=== PATIENT | male | born 1945 | race Caucasian/White ===

== ENCOUNTER 2017-06-25 23:51 | Observation (INO) | payer MEDICARE, OTHER ==
[2017-06-26 00:51] LABS: ABSOLUTE EOSINOPHILS # (AUTO) 0.2 10^3/uL (0.0-0.6); ABSOLUTE LYMPHOCYTES (AUTO) 0.7 10^3/uL (0.5-4.7); ABSOLUTE MONOCYTES (AUTO) 0.3 10^3/uL (0.1-1.4); ABSOLUTE NEUT (AUTO) 10.2 10^3/uL (1.7-8.2); BASOPHILS % (AUTO) 0.3 % (0-2); EOSINOPHILS % (AUTO) 1.4 % (0-6); HEMATOCRIT 38.3 % (37.9-51.0); HEMOGLOBIN 12.3 g/dL (13.5-17.0); HGB HCT DIFFERENCE -1.4; LYMPHOCYTES % (AUTO) 6.5 % (13-45); MEAN CORPUSCULAR HEMOGLOBIN 27.7 pg (27.0-33.4); MEAN CORPUSCULAR HGB CONC 32.1 g/dL (32.0-36.0); MEAN CORPUSCULAR VOLUME 86 fl (80-97); MONOCYTES % (AUTO) 2.7 % (3-13); RED BLOOD COUNT 4.45 10^6/uL (4.35-5.55); RED CELL DISTRIBUTION WIDTH 22.7 % (11.5-14.0); SEGMENTED NEUTROPHILS % (AUTO) 89.1 % (42-78); WHITE BLOOD COUNT 11.4 10^3/uL (4.0-10.5)
--- NOTE | 2017-06-26 00:56 | ER Document Report ---
ED General - General Chief Complaint: Chest Pain Stated Complaint: CHEST PAIN Time Seen by Provider: 06/26/17 00:30 Notes: Patient is a 72-year-old male with a past medical history of coronary artery disease, hypertension, hyperlipidemia, paroxysmal atrial fibrillation, who presents with an episode of chest pain that started approximately 10 PM. Patient states that he had an episode of palpitations and then developed left- sided chest pressure that was dull, constant, and moderately painful. States he has had similar episodes in the past but has not had a repeat MRI since 1992. He just moved to the area from [place] and has not yet established a local primary care physician. He denies any pain at time of my assessment stating that it resolved after he took nitroglycerin at home. When the pain was present nothing worsened it. He denies any associated shortness of breath, vomiting but notes he did get diaphoretic. TRAVEL OUTSIDE OF THE [place] IN LAST 30 DAYS: No Past Medical History - General Information source: Patient - Social History Smoking Status: Never Smoker Frequency of alcohol use: None Drug Abuse: None Lives with: Family Family History: Reviewed & Not Pertinent Patient has suicidal ideation: No Patient has homicidal ideation: No Renal/ Medical History: Denies: Hx Peritoneal Dialysis Review of Systems - Review of Systems Notes: Constitutional: Negative for fever. HENT: Negative for sore throat. Eyes: Negative for visual changes. Cardiovascular: Positive for chest pain. Respiratory: Negative for shortness of breath. Gastrointestinal: Negative for abdominal pain, vomiting or diarrhea. Genitourinary: Negative for dysuria. Musculoskeletal: Negative for back pain. Skin: Negative for rash. Neurological: Negative for headaches, weakness or numbness. 10 point ROS negative except as marked above and in HPI. Physical Exam - Vital signs Vitals: Temp Pulse Resp BP Pulse Ox 97.7 F 59 L 18 94/67 L 97 06/26/17 00:03 06/26/17 00:03 06/26/17 00:03 06/26/17 00:03 06/26/17 00:03 Interpretation: Bradycardic Notes: PHYSICAL EXAMINATION: GENERAL: Well-appearing, well-nourished and in no acute distress. HEAD: Atraumatic, normocephalic. EYES: Pupils equal round and reactive to light, extraocular movements intact, sclera anicteric, conjunctiva are normal. ENT: nares patent, oropharynx clear without exudates. Moist mucous membranes. NECK: Normal range of motion, supple without lymphadenopathy LUNGS: Breath sounds clear to auscultation bilaterally and equal. No wheezes rales or rhonchi. HEART: Regular rate and rhythm without murmurs ABDOMEN: Soft, nontender, normoactive bowel sounds. No guarding, no rebound. No masses appreciated. EXTREMITIES: Normal range of motion, no pitting or edema. No cyanosis. NEUROLOGICAL: No focal neurological deficits. Moves all extremities spontaneously and on command. PSYCH: Normal mood, normal affect. SKIN: Warm, Dry, normal turgor, no rashes or lesions noted. Course - Re-evaluation Re-evalutation: 06/26/17 00:55 Patient presents with an episode of palpitations with associated pain that occurred approximately 2 hours prior to presentation. At time of arrival he denies any ongoing pain or palpitations and is now asymptomatic. States he has had multiple similar episodes in the past with bouts of paroxysmal atrial fibrillation. On assessment, patient has no focal findings on physical examination. EKG is a normal sinus rhythm. Will obtain a troponin now and continue on center consultant 06/26/17 01:42 Initial troponin has returned in the indeterminate range at 0.053. Will discuss with the hospitalist for admission for serial cardiac enzymes and continued cardiac monitoring. - Vital Signs Vital signs: Temp Pulse Resp BP Pulse Ox 97.7 F 59 L 17 144/80 H 100 06/26/17 00:03 06/26/17 00:03 06/26/17 02:28 06/26/17 02:28 06/26/17 02:28 - Laboratory Result Diagrams: 06/26/17 00:43 06/26/17 00:43 Laboratory results interpreted by me: 06/26/17 06/26/17 00:43 00:43 WBC 11.4 H Hgb 12.3 L RDW 22.7 H Seg Neutrophils % 89.1 H Lymphocytes % 6.5 L Monocytes % 2.7 L Absolute Neutrophils 10.2 H BUN 34 H Glucose 130 H - Diagnostic Test Radiology reviewed: Image reviewed, Reports reviewed Radiology results interpreted by me: 06/26/17 01:43 Chest x-ray: No acute infiltrate or pneumothorax - EKG Interpretation by Me Additional EKG results interpreted by me: 09/28/17 01:43 Normal sinus rhythm. Rate 63. No ST elevations or depressions. QTC is 430. Discharge - Discharge Clinical Impression: Elevated troponin Chest pain Qualifiers: Chest pain type: unspecified Qualified Code(s): R07.9 - Chest pain, unspecified Condition: Fair Disposition: ADMITTED OBSERVATION Admitting Provider: [facility] Admitted: Telemetry
[2017-06-26 01:04] LABS: ANION GAP 12 (5-19); BLOOD UREA NITROGEN 34 mg/dL (7-20); CALCIUM 9.9 mg/dL (8.4-10.2); CARBON DIOXIDE 23 mmol/L (22-30); CHLORIDE 104 mmol/L (98-107); CREATININE RESULT 1.18 mg/dL (0.52-1.25); GLUCOSE 130 mg/dL (75-110); POTASSIUM 4.3 mmol/L (3.6-5.0); SODIUM 138.7 mmol/L (137-145)
[2017-06-26] MEDS ORDERED: ASPIRIN 81 MG TABLET, CHEWABLE PO ONE ×2 (01:42→08:23)
[2017-06-26] MEDS ORDERED: NITROGLYCERIN 0.4 MG/TAB 25 TAB/BOTTLE SL PRN (01:42)
--- NOTE | 2017-06-26 01:53 | RADIOLOGY REPORT (SQ) ---
EXAM DESCRIPTION: CHEST SINGLE VIEW COMPLETED DATE/TIME: 06/26/2017 1:06 am REASON FOR STUDY: chest pain COMPARISON: None. EXAM PARAMETERS: NUMBER OF VIEWS: One view. TECHNIQUE: Single frontal radiographic view of the chest acquired. RADIATION DOSE: NA LIMITATIONS: None. FINDINGS: LUNGS AND PLEURA: Small bandlike atelectasis -scar of the right upper lobe. Prominent int erstitium. Mild hyperinflation. MEDIASTINUM AND HILAR STRUCTURES: No masses. Contour normal. HEART AND VASCULAR STRUCTURES: Heart normal in size. Atherosclerosis. BONES: No acute findings. HARDWARE: None in the chest. OTHER: No other significant finding. IMPRESSION: Small right upper lobar atelectasis or scar. TECHNICAL DOCUMENTATION: JOB ID: [id number]
[2017-06-26] MEDS ORDERED: METOPROLOL TARTRATE 50 MG TABLET PO ONE (04:00)
[2017-06-26] MEDS ORDERED: ATORVASTATIN CALCIUM 80 MG TABLET PO ONE (04:00)
--- NOTE | 2017-06-26 05:27 | PDOC H&P ---
History of Present Illness Admission Date/PCP: 06/26/17 02:37 Patient complains of: Palpitations and chest pain History of Present Illness: VIVIAN STINSON is a 72 year old male with a past medical history of paroxysmal atrial fibrillation, coronary artery disease, COPD, peripheral vascular disease , rheumatoid arthritis and dyslipidemia who would been in his usual state of health until approximately 4 hours prior to presentation noting palpitations, tachycardia, retrosternal pressure-like 3 out of 5 chest pain nonradiating lasting approximately an hour with unclear exacerbating factors but relieved by nitro. Prompting evaluation emergency room his initial workup was unremarkable he is pain-free. He is referred to the hospitalist for admission. Patient states last episode of paroxysmal atrial fibrillation was approximately 3 months ago at which time he also had a negative Cardiolite stress test result. He denies any recent change in medications, excessive caffeine or alcohol and otherwise feels well. Past Medical History Cardiac Medical History: Reports: Myocardial Infarction Denies: Congestive Heart Failure, Hypertension Pulmonary Medical History: Reports: Bronchitis, Chronic Obstructive Pulmonary Disease (COPD), Pneumonia Denies: Asthma, Tuberculosis Neurological Medical History: Denies: Seizures Renal/ Medical History: Denies: End Stage Renal Disease GI Medical History: Reports: Gastroesophageal Reflux Disease Denies: Cirrhosis Musculoskeltal Medical History: Reports: Arthritis Psychiatric Medical History: Denies: Bipolar Disorder, Depression Hematology: Denies: Anemia, Bleeding Tendencies Past Surgical History Past Surgical History: Reports: Cardiac Catheterization, Cholecystectomy, Coronary Stent, Vascular Surgery - Abdominal aortic aneurysm and bilateral femoropopliteal graft Social History Information Source: Patient Lives with: Family Smoking Status: Never Smoker Frequency of Alcohol Use: None - Advance Directive Resuscitation Status: Full Code Family History Family History: CAD, COPD, Hypertension Parental Family History Reviewed: Yes Children Family History Reviewed: Yes Sibling(s) Family History Reviewed.: Yes Medication/Allergy Allergies/Adverse Reactions: No Known Allergies Allergy (Unverified 06/26/17 03:56) Review of Systems Constitutional: ABSENT: chills, fever(s), headache(s), weight gain, weight loss Eyes: ABSENT: visual disturbances Ears: ABSENT: hearing changes Cardiovascular: ABSENT: chest pain, dyspnea on exertion, edema, orthropnea, palpitations Respiratory: ABSENT: cough, hemoptysis Gastrointestinal: ABSENT: abdominal pain, constipation, diarrhea, hematemesis, hematochezia, nausea, vomiting Genitourinary: ABSENT: dysuria, hematuria Musculoskeletal: ABSENT: joint swelling Integumentary: ABSENT: rash, wounds Neurological: ABSENT: abnormal gait, abnormal speech, confusion, dizziness, focal weakness, syncope Psychiatric: ABSENT: anxiety, depression, homidical ideation, suicidal ideation Endocrine: ABSENT: cold intolerance, heat intolerance, polydipsia, polyuria Hematologic/Lymphatic: ABSENT: easy bleeding, easy bruising Physical Exam Vital Signs: Temp Pulse Resp BP Pulse Ox 97.7 F 59 L 17 144/80 H 100 06/26/17 00:03 06/26/17 00:03 06/26/17 02:28 06/26/17 02:28 06/26/17 02:28 Intake & Output 06/24/17 06/25/17 06/26/17 11:59 11:59 11:59 Weight 81.4 kg General appearance: PRESENT: no acute distress, well-developed, well-nourished Head exam: PRESENT: atraumatic, normocephalic Eye exam: PRESENT: conjunctiva pink, EOMI, PERRLA. ABSENT: scleral icterus Ear exam: PRESENT: normal external ear exam Mouth exam: PRESENT: moist, tongue midline Neck exam: ABSENT: carotid bruit, JVD, lymphadenopathy, thyromegaly Respiratory exam: PRESENT: clear to auscultation gracy. ABSENT: rales, rhonchi, wheezes Cardiovascular exam: PRESENT: RRR. ABSENT: diastolic murmur, rubs, systolic murmur Pulses: PRESENT: normal dorsalis pedis pul Vascular exam: PRESENT: normal capillary refill GI/Abdominal exam: PRESENT: normal bowel sounds, soft. ABSENT: distended, guarding, mass, organolmegaly, rebound, tenderness Rectal exam: PRESENT: deferred Extremities exam: PRESENT: full ROM. ABSENT: calf tenderness, clubbing, pedal edema Neurological exam: PRESENT: alert, awake, oriented to person, oriented to place , oriented to time, oriented to situation, CN II-XII grossly intact. ABSENT: motor sensory deficit Psychiatric exam: PRESENT: appropriate affect, normal mood. ABSENT: homicidal ideation, suicidal ideation Skin exam: PRESENT: dry, intact, warm. ABSENT: cyanosis, rash Results Impressions: Chest X-Ray 06/26/17 00:32 IMPRESSION: Small right upper lobar atelectasis or scar. Assessment & Plan - Diagnosis (1) Coronary artery disease Is this a current diagnosis for this admission?: Yes Plan: Observation on a telemetry bed with chest pain care set serial cardiac enzymes, lipid profile and TSH. Given the patient's negative Cardiolite stress test 3 months ago I will not reorder. Continue aspirin, beta-damaso, as needed nitro and full dose statin (2) Paroxysmal atrial fibrillation Is this a current diagnosis for this admission?: Yes Plan: Patient takes atenolol and Plavix with aspirin will continue Lopressor with Plavix and aspirin and monitor telemetry while ambulating (3) Chest pain Qualifiers: Chest pain type: unspecified Qualified Code(s): R07.9 - Chest pain, unspecified Is this a current diagnosis for this admission?: Yes Plan: Chest pain care set serial cardiac enzymes. No Cardiolite stress test given negative results 3 months ago. - Time Time Spent: 50 to 70 Minutes
[2017-06-26 07:36] LABS: CHOLESTEROL 125.55 mg/dL (0-200); Direct HDL 40 mg/dL (>40); TRIGLYCERIDES 201 mg/dL (<150)
[2017-06-26 08:13] LABS: DIRECT LDL < 30 mg/dL (<100); VLDL CHOLESTEROL 40.2 mg/dL (10-31)
[2017-06-26] MEDS ORDERED: LISINOPRIL 10 MG TABLET PO ONE (08:23)
[2017-06-26] MEDS ORDERED: LISINOPRIL 5 MG TABLET PO ONE (09:01)
[2017-06-26] MEDS ORDERED: TAMSULOSIN HCL 0.4 MG CAP.SR.24H PO ONE (09:30)
[2017-06-26] MEDS ORDERED: FOLIC ACID 1 MG TABLET PO SCH (10:00)
[2017-06-26] MEDS ORDERED: ENOXAPARIN SODIUM INJ 80 MG/0.8 ML DISP.SYRIN SUBCUT SCH (10:00)
[2017-06-26] MEDS ORDERED: DOCUSATE SODIUM 100 MG CAPSULE PO SCH (10:00)
[2017-06-26] MEDS ORDERED: CLOPIDOGREL BISULFATE 75 MG TABLET PO SCH (10:00)
[2017-06-26] MEDS ORDERED: METOPROLOL TARTRATE 50 MG TABLET PO SCH (10:00)
--- NOTE | 2017-06-26 10:03 | EKG REPORT ---
SEVERITY:- OTHERWISE NORMAL ECG - SINUS RHYTHM BORDERLINE LEFT AXIS DEVIATION : Confirmed by: Karen Neff MD 26-Jun-2017 10:02:57
--- NOTE | 2017-06-26 10:03 | EKG REPORT ---
SEVERITY:- NORMAL ECG - SINUS RHYTHM : Confirmed by: Karen Neff MD 26-Jun-2017 10:02:49
[2017-06-26 10:18] VITALS: BP 120/63
--- NOTE | 2017-06-26 10:36 | PDOC TRANSFER SUMMARY ---
General Admission Date/PCP: 06/26/17 02:37 Admission Date: 06/26/17 Transfer Date: 06/26/17 Accepting Facility: [facility] Accepting Physician: Dr. Rutherford Resuscitation Status: Full Code - Transfer Diagnosis (1) NSTEMI (non-ST elevated myocardial infarction) Is this a current diagnosis for this admission?: Yes (2) History of AAA (abdominal aortic aneurysm) repair Is this a current diagnosis for this admission?: Yes (3) History of aorto-femoral bypass Is this a current diagnosis for this admission?: Yes (4) Rheumatoid arthritis Is this a current diagnosis for this admission?: Yes (5) COPD (chronic obstructive pulmonary disease) Is this a current diagnosis for this admission?: Yes (6) Coronary artery disease Is this a current diagnosis for this admission?: Yes (7) Paroxysmal atrial fibrillation Is this a current diagnosis for this admission?: Yes - Transfer Medications Home Medications: Aspirin [Ecotrin] 81 mg PO DAILY 06/26/17 Atenolol [Tenormin 50 mg Tablet] 50 mg PO DAILY 06/26/17 Clopidogrel Bisulfate [Plavix 75 mg Tablet] 75 mg PO DAILY 06/26/17 Finasteride [Proscar 5 mg Tablet] 5 mg PO DAILY 06/26/17 Folic Acid 0.4 mg PO DAILY 06/26/17 Ibuprofen [Motrin 800 mg Tablet] 800 mg PO Q12 06/26/17 Magnesium 250 mg PO DAILY 06/26/17 Methotrexate Sodium [Methotrexate] 4 tab PO BID 06/26/17 Multivitamin [Multivitamins] 1 cap PO DAILY 06/26/17 Omeprazole 40 mg PO DAILY 06/26/17 Potassium 200mg Otc 200 mg PO DAILY 06/26/17 Prednisone [Deltasone 5 mg Tablet] 5 mg PO DAILY 06/26/17 Simvastatin [Zocor 40 mg Tablet] 40 mg PO QHS 06/26/17 Tamsulosin HCl [Flomax 0.4 mg Cap.sr] 0.4 mg PO DAILY 06/26/17 Transfer Medications: Current Medications Atorvastatin Calcium (Lipitor 80 Mg Tablet) 80 mg PO QHS ISMA Stop: 07/26/17 21:59 Clopidogrel Bisulfate (Plavix 75 Mg Tablet) 75 mg PO DAILY ISMA Stop: 07/26/17 09:59 Docusate Sodium (Colace 100 Mg Capsule) 100 mg PO BID ISMA Stop: 07/26/17 09:59 Enoxaparin Sodium (Lovenox Inj 80 Mg/0.8 Ml Disp.Syrin) 80 mg SUBCUT Q12 ISMA Stop: 07/26/17 09:59 Last Admin: 06/26/17 09:00 Dose: 80 mg Folic Acid (Folvite 1 Mg Tablet) 1 mg PO DAILY ISMA Stop: 07/26/17 09:59 Metoprolol Tartrate (Lopressor 50 Mg Tablet) 50 mg PO Q12 ISMA Stop: 07/26/17 09:59 Nitroglycerin (Nitrostat 0.4 Mg (1/150 Gr) Tabs 25/Bottle) 1 tab SL ASDIR PRN Sodium Chloride (Saline Flush 2.5 Ml Monoject Prefil Syrin) 2.5 ml IV Q8 ISMA Stop: 07/26/17 05:59 Last Admin: 06/26/17 06:41 Dose: 2.5 ml - Allergies Allergies/Adverse Reactions: No Known Allergies Allergy (Unverified 06/26/17 03:56) - Diet/Activity Discharge Diet: Cardiac Hospital Course Hospital Course: Pt is a 72yo WM with a past medical history of paroxysmal atrial fibrillation, coronary artery disease, COPD, peripheral vascular disease, rheumatoid arthritis and dyslipidemia who would been in his usual state of health until approximately 4 hours prior to presentation noting palpitations, tachycardia, retrosternal pressure-like 3 out of 5 chest pain nonradiating lasting approximately an hour with unclear exacerbating factors but relieved by nitro. Prompting evaluation emergency room his initial workup was unremarkable he is pain-free. He is referred to the hospitalist for admission. Patient states last episode of paroxysmal atrial fibrillation was approximately 3 months ago at which time he also had a negative Cardiolite stress test result. He denies any recent change in medications, excessive caffeine or alcohol and otherwise feels well. Patient second troponin positive 2.41 with elevation of CKMB. Patient has no further chest pain. No ekg changes. Patient accepted for cardiac cath by Dr. Rutherford. Medications which were ordered and not given 2/2 patient refusal per documentation. Generic Name Dose Route Start Last Admin Trade Name Freq PRN Reason Stop Dose Admin Atorvastatin Calcium 80 mg 06/26/17 22:00 Lipitor 80 Mg Tablet PO 07/26/17 21:59 QHS [facility] Clopidogrel Bisulfate 75 mg 06/26/17 10:00 Plavix 75 Mg Tablet PO 10/28/17 09:59 DAILY [facility] Enoxaparin Sodium 80 mg 06/26/17 10:00 06/26/17 09:00 Lovenox Inj 80 Mg/0.8 Ml Disp.Syrin SUBCUT 07/26/17 09:59 80 mg Q12 ISMA Metoprolol Tartrate 50 mg 06/26/17 10:00 Lopressor 50 Mg Tablet PO 07/26/17 09:59 Q12 [facility] Nitroglycerin 1 tab 06/26/17 01:42 Nitrostat 0.4 Mg (1/150 Gr) Tabs 25/Bottle SL ASDIR PRN Discontinued Medications Generic Name Dose Route Start Last Admin Trade Name Freq PRN Reason Stop Dose Admin Atorvastatin Calcium 80 mg 06/26/17 04:00 06/26/17 04:48 Lipitor 80 Mg Tablet PO 06/26/17 04:01 Not Given NOW ONE Lisinopril 10 mg 06/26/17 08:23 06/26/17 08:56 Prinivil 10 Mg Tablet PO 06/26/17 08:24 10 mg NOW ONE Physical Exam Vital Signs: Temp Pulse Resp BP Pulse Ox 97.5 F 101 H 16 120/63 93 06/26/17 07:39 06/26/17 07:39 06/26/17 07:39 06/26/17 07:39 06/26/17 07:39 Intake & Output 06/25/17 06/26/17 06/27/17 06:59 06:59 06:59 Weight 81.4 kg General appearance: PRESENT: no acute distress, well-developed, well-nourished Head exam: PRESENT: atraumatic, normocephalic Eye exam: PRESENT: conjunctiva pink, EOMI, PERRLA. ABSENT: scleral icterus Ear exam: PRESENT: normal external ear exam Mouth exam: PRESENT: moist, tongue midline Neck exam: ABSENT: JVD, lymphadenopathy, thyromegaly, tracheal deviation Respiratory exam: PRESENT: clear to auscultation gracy. ABSENT: rales, rhonchi, wheezes Cardiovascular exam: PRESENT: RRR. ABSENT: diastolic murmur, rubs, systolic murmur Pulses: PRESENT: normal dorsalis pedis pul Vascular exam: PRESENT: normal capillary refill GI/Abdominal exam: PRESENT: normal bowel sounds, soft. ABSENT: distended, guarding, mass, organolmegaly, rebound, tenderness Rectal exam: PRESENT: deferred Extremities exam: PRESENT: full ROM. ABSENT: calf tenderness, clubbing, pedal edema Neurological exam: PRESENT: alert, awake, oriented to person, oriented to place , oriented to time, oriented to situation, CN II-XII grossly intact. ABSENT: motor sensory deficit Psychiatric exam: PRESENT: appropriate affect, normal mood. ABSENT: homicidal ideation, suicidal ideation Skin exam: PRESENT: dry, intact, warm. ABSENT: cyanosis, rash Results Laboratory Results: 06/26/17 07:12 Triglycerides 201 H Cholesterol 125.55 LDL Cholesterol Direct < 30 VLDL Cholesterol 40.2 H HDL Cholesterol 40 06/26/17 06/26/17 06:00 07:12 CK-MB (CK-2) 7.47 H Troponin I 2.410 Impressions: Chest X-Ray 06/26/17 00:32 IMPRESSION: Small right upper lobar atelectasis or scar. Plan Time Spent: Greater than 30 Minutes
[2017-06-26] MEDS ORDERED: ATORVASTATIN CALCIUM 80 MG TABLET PO SCH (22:00)
== END 2017-06-26 13:16 | disposition short-term general hospital (02) ==
LOC: ER 23:51 → EH 06-26 01:56 → UNDOADMOB 06-26 01:56 → EH 06-26 02:37 → 4S 06-26 02:55 → EH 06-26 02:55
PROVIDERS: ADMIT Internal Medicine; ATTEND Internal Medicine
DX: I21.4 Non-ST elevation (NSTEMI) myocardial infarction (principal); Z98.890 Other specified postprocedural states; Z95.828 Presence of other vascular implants and grafts; M06.9 Rheumatoid arthritis, unspecified; J44.9 Chronic obstructive pulmonary disease, unspecified; I25.10 Atherosclerotic heart disease of native coronary artery without angina pectoris; I48.0 Paroxysmal atrial fibrillation; I73.9 Peripheral vascular disease, unspecified; E78.5 Hyperlipidemia, unspecified; Z79.82 Long term (current) use of aspirin; Z79.02 Long term (current) use of antithrombotics/antiplatelets; Z79.899 Other long term (current) drug therapy; Z79.52 Long term (current) use of systemic steroids; Z95.5 Presence of coronary angioplasty implant and graft; Z82.49 Family history of ischemic heart disease and other diseases of the circulatory system
CPT/HCPCS: 93005 ×2; 99285; 36415; 82553; 85025; 80048; 84484; 80061; 71010; 93010 ×2; G0378; J3490; J1650

== ENCOUNTER → 2017-12-17 | Outpatient (CLI) | payer MEDICARE ==
--- NOTE | 2017-12-17 16:35 | RADIOLOGY REPORT (SQ) ---
EXAM DESCRIPTION: CTA HEAD COMPLETED DATE/TIME: 12/17/2017 4:01 pm REASON FOR STUDY: OCCLUSION AND STENOSIS OF BILATERAL CAROTID ARTERIES I65.23 OCCLUSION AND STENOSI S OF BILATERAL CAROTID ARTERIES COMPARISON: None. TECHNIQUE: Post IV contrast scanning, thin section axial imaging through the brain to evaluate the a rterial structures. Source and MIP images are saved and reviewed on PACS. Advanced 3D imaging as volume-rendering, MIPs, SSD performed? No All CT scanners at this facility use dose modulation, iterative reconstruction, and/or weight based d osing when appropriate to reduce radiation dose to as low as reasonably achievable (ALARA). [facility]: Dose Right [facility]: CareDose [facility]: Dose Right [facility]: Teradose 4D [facility]: [employer]IO CONTRAST TYPE AND DOSE: contrast/concentration: Isovue 370.00 mg/ml; Total Contrast Delivered: 80.0 ml; Total Saline Delivered: 75.0 ml RENAL FUNCTION: Creatinine 1.2 LIMITATIONS: None. FINDINGS: [place]: The anterior, middle, posterior cerebral arteries are all patent. No ev idence of aneurysm or focal stenosis. POSTERIOR CIRCULATION: The distal vertebral arteries are patent as is the basilar artery. No aneurysm . BRAIN: No gross enhancing lesions as visualized. The superior cerebral hemispheres are not included in the field of view. BONES: Intact as visualized. SINUSES: No fluid or mucosal thickening. 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 IMPRESSION: NO CTA EVIDENCE OF STENOSIS OR ANEURYSM OF THE [place]. 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 TECHNICAL DOCUMENTATION: JOB ID: [id number] Quality ID # [id number]: Final reports with documentation of one or more dose reduction techniques (e.g., Au tomated exposure control, adjustment of the mA and/or kV according to patient size, use of iterative reconstruction technique) 2010 [employer]- All Rights Reserved Reading location - IP/workstation name: [email or web address]
--- NOTE | 2017-12-17 16:39 | RADIOLOGY REPORT (SQ) ---
EXAM DESCRIPTION: CTA NECK COMPLETED DATE/TIME: 12/17/2017 4:01 pm REASON FOR STUDY: OCCLUSION AND STENOSIS OF BILATERAL CAROTID ARTERIES I65.23 OCCLUSION AND STENOSI S OF BILATERAL CAROTID ARTERIES COMPARISON: None. TECHNIQUE: Axial dynamic scanning technique with dynamic contrast enhancement through the extra-craft demonstrator nial carotid and vertebral arteries. Multiplanar reconstruction. 3-D MIPS and Volume-rendered imag es acquired at the workstation and saved to PACS. Images are reviewed in soft tissue, bone, lung w indows. All CT scanners at this facility use dose modulation, iterative reconstruction, and/or weight based d osing when appropriate to reduce radiation dose to as low as reasonably achievable (ALARA). [facility]: Dose Right [facility]: CareDose [facility]: Dose Right [facility]: Teradose 4D [facility]: [employer] CONTRAST TYPE AND DOSE: 80 mL Isovue 370 RENAL FUNCTION: Creatinine 1.2 LIMITATIONS: None. FINDINGS: AORTIC ARCH: Normal three-vessel origin. Bilateral subclavian arteries are patent. No d issection. RIGHT CAROTIDS: Patent common, internal and external carotid arteries without suggestion of significa nt stenosis or irregular plaque. No dissection. Vascular calcifications are identified at the level of the carotid bifurcation RIGHT VERTEBRAL: Patent. No dissection. LEFT CAROTIDS: Patent common and external carotid arteries without suggestion of significant stenosis or irregular plaque. No dissection. 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 No dissection. OTHER: No other significant finding. OTHER: 3-D reconstructions confirm findings. 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 No other vascular occlusions or significant stenoses are identified. COMMENT: Quality ID #[id number]: Measurements of distal internal carotid diameter were used as the denomina tor for stenosis measurement. TECHNICAL DOCUMENTATION: JOB ID: [id number] Quality ID # 436: Final reports with documentation of one or more dose reduction techniques (e.g., Au tomated exposure control, adjustment of the mA and/or kV according to patient size, use of iterative reconstruction technique) 2010 [employer]- All Rights Reserved Reading location - IP/workstation name: [email or web address]
== END ==
LOC: RAD 15:03
PROVIDERS: ATTEND Surgery
DX: I65.23 Occlusion and stenosis of bilateral carotid arteries (principal)
CPT/HCPCS: 70496; 70498; 82565

== ENCOUNTER 2018-06-20 12:36 | Emergency (ER) | payer MEDICARE ==
--- NOTE | 2018-06-20 13:54 | ER Document Report ---
ED General - General Chief Complaint: Back Pain Stated Complaint: BACK PAIN Time Seen by Provider: 06/20/18 13:45 Notes: 73-year-old male sent over by primary care physician's office for evaluation of back pain. Patient states for the last 7 days he has been sleeping on a pullout couch and his back hurts. Went to his primary doctor and they were concerned that he may have something worse so sent him here to be ruled out for a "aortic aneurysm". There were nervous about his heart rate being in the 40s. Patient states his heart rate is been in the 40s for years because he takes a beta-damaso. Family member belches for this as well. Patient states that his pain is in the upper posterior and lateral chest obrien bilaterally. TRAVEL OUTSIDE OF THE [place] IN LAST 30 DAYS: No - Related Data Allergies/Adverse Reactions: No Known Allergies Allergy (Verified 06/20/18 12:38) Past Medical History - General Information source: Patient - Social History Smoking Status: Never Smoker Frequency of alcohol use: None Drug Abuse: None Lives with: Family Family History: CAD, COPD, Hypertension Patient has suicidal ideation: No Patient has homicidal ideation: No - Past Medical History Cardiac Medical History: Reports: Hx Heart Attack Denies: Hx Congestive Heart Failure, Hx Hypertension Pulmonary Medical History: Reports: Hx Bronchitis, Hx COPD, Hx Pneumonia Denies: Hx Asthma, Hx Tuberculosis Neurological Medical History: Denies: Hx Seizures Renal/ Medical History: Reports: Hx Kidney Stones. Denies: Hx Benign Prostatic Hyperplasia, Hx End Stage Renal Disease, Hx Peritoneal Dialysis GI Medical History: Reports: Hx Gastroesophageal Reflux Disease. Denies: Hx Cirrhosis, Hx Ulcer Musculoskeletal Medical History: Reports Hx Arthritis, Denies Hx Multiple Sclerosis Psychiatric Medical History: Denies: Hx Bipolar Disorder, Hx Depression, Hx Schizophrenia Past Surgical History: Reports: Hx Cardiac Catheterization, Hx Cholecystectomy, Hx Coronary Stent, Hx Vascular Surgery - Abdominal aortic aneurysm and bilateral femoropopliteal graft - Immunizations Hx Pneumococcal Vaccination: 09/29/14 Review of Systems - Review of Systems Notes: Constitutional: denies: Chills, Diaphoresis, Fever, Malaise, Weakness EENT: denies: Eye discharge, Blurred vision, Tearing, Double vision, Nose congestion, Nose discharge, Throat swelling, Mouth pain Cardiovascular: denies: Palpitations, Heart racing, Orthopnea, Dyspnea, Chest pain. Does have a history of bradycardia which is chronic. Respiratory: denies: Cough, Hurts to breathe, Wheezing, Shortness of breath Gastrointestinal: denies: Abdominal pain, Diarrhea, Nausea, Vomiting, Black stools, bright red blood in stool Genitourinary: denies: Burning, Dysuria, Discharge, Frequency, Flank pain, Hematuria Musculoskeletal: Complains of bilateral posterior and lateral chest wall pain. Denies any joint pain or joint swelling. Hematologic/Lymphatic: denies: Anemia, Easy bleeding, Easy bruising, Blood clots Neurological/Psychological: denies: Confusion, Dementia, Depression, Loss of consciousness Skin: No lesions, no masses, no skin breakdown, no abscesses Physical Exam - Vital signs Vitals: Temp Pulse Resp BP Pulse Ox 98.2 F 48 L 18 132/68 H 94 06/20/18 12:53 06/20/18 12:53 06/20/18 12:53 06/20/18 12:53 06/20/18 12:53 Interpretation: Bradycardic - General General appearance: Appears well, Alert - HEENT Head: Normocephalic, Atraumatic Eyes: Normal Pupils: PERRL - Respiratory Respiratory status: No respiratory distress Chest status: Nontender Breath sounds: Normal Chest palpation: Normal - Cardiovascular Rhythm: Bradycardia Heart sounds: Normal auscultation Murmur: No - Abdominal Inspection: Normal Distension: No distension Bowel sounds: Normal Tenderness: Nontender Organomegaly: No organomegaly - Back Back: Normal, Nontender - Extremities General upper extremity: Normal inspection, Nontender, Normal color, Normal ROM , Normal temperature General lower extremity: Normal inspection, Nontender, Normal color, Normal ROM , Normal temperature, Normal weight bearing. No: Sam's sign - Neurological Neuro grossly intact: Yes Cognition: Normal Orientation: AAOx4 Angela Coma Scale Eye Opening: Spontaneous [place] Coma Scale Verbal: Oriented Angela Coma Scale Motor: Obeys Commands Angela Coma Scale Total: 15 Speech: Normal Motor strength normal: LUE, RUE, LLE, RLE Sensory: Normal - Psychological Associated symptoms: Normal affect, Normal mood - Skin Skin Temperature: Warm Skin Moisture: Dry Skin Color: Normal Course - Re-evaluation Re-evalutation: 06/20/18 15:36 Laboratory 06/20/18 06/20/18 06/20/18 14:03 14:03 14:03 WBC 8.2 RBC 4.38 Hgb 14.3 Hct 42.4 MCV 97 MCH 32.7 MCHC 33.8 RDW 16.9 H Plt Count 166 Seg Neutrophils % 89.1 H Lymphocytes % 6.0 L Monocytes % 3.3 Eosinophils % 1.0 Basophils % 0.6 Absolute Neutrophils 7.3 Absolute Lymphocytes 0.5 Absolute Monocytes 0.3 Absolute Eosinophils 0.1 Absolute Basophils 0.1 Sodium 140.5 Potassium 4.8 Chloride 107 Carbon Dioxide 26 Anion Gap 8 BUN 27 H Creatinine 1.17 Est GFR ( Amer) > 60 Est GFR (Non-Af Amer) > 60 Glucose 115 H Calcium 9.9 Total Bilirubin 1.4 H Direct Bilirubin 0.7 H Neonat Total Bilirubin Not Reportable Neonat Direct Bilirubin Not Reportable Neonat Indirect Bili Not Reportable AST 18 ALT 23 Alkaline Phosphatase 67 Troponin I < 0.012 Total Protein 7.1 Albumin 4.0 Chest/Abdomen CTA 06/20/18 13:55 IMPRESSION: No CT angio evidence of acute thoracic aortic dissection or acute pulmonary emboli There is bronchiectasis and mucous plugging in the right lower lobe with chronic appearing atelectasis or scarring 06/20/18 15:46 There is no evidence of thoracic aortic aneurysm or dissection. Labs are normal. Likely patient does have some musculoskeletal back pain after sleeping on a pullout counts for the last week. We will give him some pain medication. Advise close follow-up. Will DC at this time. Of note, patient has chronic bradycardia and is stable in my opinion. - Vital Signs Vital signs: Temp Pulse Resp BP Pulse Ox 98.2 F 48 L 18 132/68 H 94 06/20/18 12:53 06/20/18 12:53 06/20/18 12:53 06/20/18 12:53 06/20/18 12:53 - Laboratory Result Diagrams: 06/20/18 14:03 06/20/18 14:03 Laboratory results interpreted by me: 06/20/18 06/20/18 14:03 14:03 RDW 16.9 H Seg Neutrophils % 89.1 H Lymphocytes % 6.0 L BUN 27 H Glucose 115 H Total Bilirubin 1.4 H Direct Bilirubin 0.7 H - EKG Interpretation by Or EKG shows normal: Sinus rhythm, Perry, Intervals, QRS Complexes, ST-T Waves Rate: Bradycardia Discharge - Discharge Clinical Impression: Acute back pain less than 4 weeks duration, Bradycardia with 41-50 beats per minute Condition: Good Disposition: HOME, SELF-CARE Instructions: Muscle Strain ([facility]) Additional Instructions: Please follow-up with your regular doctor if symptoms persist. You may take pain medication that is prescribed. It is advisable while taking this pain medication to take a stool softener as this medication can cause constipation. Please return for any worsening symptoms or concerns. Prescriptions: Docusate Sodium [Colace 100 mg Capsule] 100 mg PO BID 7 Days #14 capsule Hydrocodone/Acetaminophen [Algonac 5-325 mg Tablet] 1 tab PO TID PRN 4 Days #12 tablet PRN Reason: For Pain
[2018-06-20] MEDS ORDERED: HYDROCODONE/ACETAMINOPHEN 5-325 MG TABLET PO ONE (13:55)
[2018-06-20 14:12] LABS: ABSOLUTE BASOPHILS # (AUTO) 0.1 10^3/uL (0.0-0.2); ABSOLUTE EOSINOPHILS # (AUTO) 0.1 10^3/uL (0.0-0.6); ABSOLUTE LYMPHOCYTES (AUTO) 0.5 10^3/uL (0.5-4.7); ABSOLUTE MONOCYTES (AUTO) 0.3 10^3/uL (0.1-1.4); ABSOLUTE NEUT (AUTO) 7.3 10^3/uL (1.7-8.2); BASOPHILS % (AUTO) 0.6 % (0-2); HEMATOCRIT 42.4 % (37.9-51.0); HEMOGLOBIN 14.3 g/dL (13.5-17.0); MEAN CORPUSCULAR HEMOGLOBIN 32.7 pg (27.0-33.4); MEAN CORPUSCULAR HGB CONC 33.8 g/dL (32.0-36.0); MEAN CORPUSCULAR VOLUME 97 fl (80-97); MONOCYTES % (AUTO) 3.3 % (3-13); PLATELET COUNT 166 10^3/uL (150-450); RED BLOOD COUNT 4.38 10^6/uL (4.35-5.55); RED CELL DISTRIBUTION WIDTH 16.9 % (11.5-14.0); SEGMENTED NEUTROPHILS % (AUTO) 89.1 % (42-78); TOTAL CELLS COUNTED % (AUTO) 100 %; WHITE BLOOD COUNT 8.2 10^3/uL (4.0-10.5)
[2018-06-20 14:44] LABS: ALANINE AMINOTRANSFERASE 23 U/L (21-72); ALKALINE PHOSPHATASE 67 U/L (38-126); ANION GAP 8 (5-19); ASPARTATE AMINO TRANSFERASE 18 U/L (17-59); BILIRUBIN,DIRECT 0.7 mg/dL (0.0-0.4); BILIRUBIN,TOTAL 1.4 mg/dL (0.2-1.3); BLOOD UREA NITROGEN 27 mg/dL (7-20); CALCIUM 9.9 mg/dL (8.4-10.2); CARBON DIOXIDE 26 mmol/L (22-30); CHLORIDE 107 mmol/L (98-107); GLUCOSE 115 mg/dL (75-110); POTASSIUM 4.8 mmol/L (3.6-5.0); SODIUM 140.5 mmol/L (137-145); TOTAL PROTEIN 7.1 g/dL (6.3-8.2)
--- NOTE | 2018-06-20 15:36 | RADIOLOGY REPORT (SQ) ---
EXAM DESCRIPTION: CTA CHEST COMPLETED DATE/TIME: 06/20/2018 3:09 pm REASON FOR STUDY: RIPPING PAIN IN CHEST COMPARISON: AP chest 06/26/2017 TECHNIQUE: CT scan of the chest performed using helical scanning technique with dynamic intravenous contrast injection. Images reviewed with lung, soft tissue and bone windows. Reconstructed coronal and sagittal MPR images reviewed. Additional 3 dimensional post-processing performed to develop Maximal Intensity Projection images (VT P). All images stored on PACS. All CT scanners at this facility use dose modulation, iterative reconstruction, and/or weight based d osing when appropriate to reduce radiation dose to as low as reasonably achievable (ALARA). [facility]: Dose Right [facility]: CareDose [facility]: Dose Right [facility]: Teradose 4D [facility]: Workable CONTRAST TYPE AND DOSE: contrast/concentration: Isovue 350.00 mg/ml; Total Contrast Delivered: 75.0 ml; Total Saline Delivered: 75.0 ml Contrast bolus optimized for the pulmonary arteries and the aorta. RENAL FUNCTION: Creatinine 1.17 RADIATION DOSE: CT Rad equipment meets quality standard of care and radiation dose reduction techniq ues were employed. CTDIvol: 23.3 - 59.5 mGy. DLP: 973 mGy-cm. . LIMITATIONS: None. FINDINGS: LUNGS AND PLEURA: There is chronic bronchiectasis and scarring with mucous plugging in the right lower lobe Upper lobes are hyperinflated and hyperlucent from obstructive disease with biapical pleuroparenchyma l scarring. No acute infiltrates. No pleural effusion. No pneumothorax. AORTA AND GREAT VESSELS: Heavily calcified aortic arch proximal great vessels with about 50% stenosis proximal right brachiocephalic artery proximal right common carotid artery at their origin. HEART: No pericardial effusion. Heavily calcified jena coronary arteries with multiple stents prese nt PULMONARY ARTERIES: No emboli visualized in the main pulmonary arteries or the segmental branches. HILAR AND MEDIASTINAL STRUCTURES: No identified masses or abnormal nodes. HARDWARE: None in the chest. UPPER ABDOMEN: High-grade stenosis proximal superior mesenteric artery axial images 125-130 and sagit león reconstruction images 45-48. 8 mm left upper pole intrarenal nonobstructive kidney stone, 1,481 Hounsfield units. THYROID AND OTHER SOFT TISSUES: No masses. No adenopathy. BONES: Chronic appearing 25% T6 compression deformity, 50% T7 compression deformity, and T12 greater than 50% compression deformity. 3D MIPS: Confirm above findings. OTHER: No other significant finding. IMPRESSION: No CT angio evidence of acute thoracic aortic dissection or acute pulmonary emboli There is bronchiectasis and mucous plugging in the right lower lobe with chronic appearing atelectasi s or scarring COMMENT: Quality ID # [id number]: Final reports with documentation of one or more dose reduction techniques (e.g., Automated exposure control, adjustment of the mA and/or kV according to patient size, use of iterative reconstruction technique) TECHNICAL DOCUMENTATION: JOB ID: [id number] [employer]- All Rights Reserved Reading location - IP/workstation name: [email or web address]
[2018-06-20 16:06] VITALS: BP 130/70
[2018-06-20] MEDS ORDERED: KETOROLAC TROMETHAMINE INJ/PF 30 MG/1 ML SDV IV ONE (16:11)
--- NOTE | 2018-06-20 20:07 | EKG REPORT ---
SEVERITY:- OTHERWISE NORMAL ECG - SINUS BRADYCARDIA : Confirmed by: Karen Neff MD 20-Jun-2018 20:06:47
== END 2018-06-20 16:06 | disposition home or self-care (01) ==
LOC: ER 12:36
DX: M54.9 Dorsalgia, unspecified (principal); R00.1 Bradycardia, unspecified
CPT/HCPCS: 93005; 99284; 96374; 36415; 85025; 80053; 84484; 71275; 93010; J1885; A9270

== ENCOUNTER → 2018-09-09 | Outpatient (CLI) | payer MEDICARE ==
--- NOTE | 2018-09-09 19:50 | RADIOLOGY REPORT (SQ) ---
EXAM DESCRIPTION: RIBS LEFT W/O PA CHEST COMPLETED DATE/TIME: 09/09/2018 7:39 pm REASON FOR STUDY: RIB PAIN R07.81 PLEURODYNIA M54.6 PAIN IN THORACIC SPINE R07.81 PLEURODYNIA COMPARISON: None. NUMBER OF VIEWS: Two views. TECHNIQUE: Images acquired of the left ribs in the area of focal concern. LIMITATIONS: None. FINDINGS: RIBS: No acute displaced fracture. No worrisome bone lesions. LUNGS: Limited exam. No obvious pneumothorax. No pleural effusion. OTHER: No other significant finding. IMPRESSION: NO ACUTE DISPLACED RIB FRACTURE. COMMENT: SITE OF TRAUMA/COMPLAINT MARKED/STAMP COMPLETED: YES. TECHNICAL DOCUMENTATION: JOB ID: [id number] [employer]- All Rights Reserved Reading location - IP/workstation name: [email or web address]
--- NOTE | 2018-09-09 19:52 | RADIOLOGY REPORT (SQ) ---
EXAM DESCRIPTION: T SPINE AP/LAT COMPLETED DATE/TIME: 09/09/2018 7:39 pm REASON FOR STUDY: M54.6 THORACIC SPINE PAIN R07.81 PLEURODYNIA M54.6 PAIN IN THORACIC SPINE R07.81 PLEURODYNIA COMPARISON: None. NUMBER OF VIEWS: Two views. TECHNIQUE: AP and lateral radiographic images acquired of the thoracic spine. LIMITATIONS: None. FINDINGS: MINERALIZATION: Osteopenia. ALIGNMENT: Normal. No scoliosis. VERTEBRAE: There is approximately 50% loss of height at T12. There is 20 to 30% loss of height at T9 . There is 20 to 30% loss of height at T7. Due to severe osteopenia upper dorsal spine is difficult to evaluate but appears grossly intact. DISCS: Multilevel disc space narrowing with osteophytes. HARDWARE: None in the spine. MEDIASTINUM AND SOFT TISSUES: Normal heart size and aortic contour. No soft tissue abnormality. VISUALIZED LUNG BATRES: Clear. OTHER: No other significant finding. IMPRESSION: Multiple thoracic spine compression deformities. T9 is new from May of this year. T12 and T7 are stable. There is a compression deformity at T6 as well better demonstrated on recen t CT. TECHNICAL DOCUMENTATION: JOB ID: [id number] [employer]- All Rights Reserved Reading location - IP/workstation name: [email or web address]
== END ==
LOC: RAD 19:18
PROVIDERS: ATTEND Nurse Practitioner Family
DX: M54.6 Pain in thoracic spine (principal); R07.81 Pleurodynia
CPT/HCPCS: 72070

== ENCOUNTER 2018-09-11 23:15 | Emergency (ER) | payer MEDICARE ==
[2018-09-11 23:23] VITALS: BP 135/96
[2018-09-12] MEDS ORDERED: PREGABALIN 25 MG CAPSULE PO ONE (00:26)
[2018-09-12] MEDS ORDERED: HYDROCODONE/ACETAMINOPHEN 7.5-325 MG TABLET PO ONE (00:26)
[2018-09-12] MEDS ORDERED: HYDROCODONE/ACETAMINOPHEN 5-325 MG (6 TAB/ER DISP) PO PRN (01:29)
--- NOTE | 2018-09-12 01:30 | ER Document Report ---
ED General - General Chief Complaint: Back Pain Stated Complaint: BACK PAIN Time Seen by Provider: 09/12/18 00:01 Notes: Patient is a 73-year-old male who presents with complaint of back pain. He has had some back pain in the past. Recently he was standing and then turned to do something and when he turned he felt a sharp pain in his back followed by a burning sensation behind his left shoulder. Since then he has had recurrent pain whenever he moves and the pain radiates from the mid back into behind the left shoulder blade. He was seen in urgent care and had x-rays performed. X- rays showed he has multiple compression fractures throughout his thoracic spine. All these were old and seen on the previous scan from May except for the compression fracture of T5. He denies any new weakness or numbness in his legs. He says his legs are always generally weak and this has not changed and is not worsened. He walks with a walker. He denies any numbness. No weakness numbness into the upper extremities. No loss of bowel control. No urinary retention. He is prescribed Ultram which he says has not affected his pain in any way. He has hydrocodone in the past and says it helps some. He has never had Lyrica or gabapentin. TRAVEL OUTSIDE OF THE [place] IN LAST 30 DAYS: No - Related Data Allergies/Adverse Reactions: No Known Allergies Allergy (Verified 06/20/18 12:38) Past Medical History - Social History Smoking Status: Former Smoker Frequency of alcohol use: None Drug Abuse: None Family History: CAD, COPD, Hypertension Patient has suicidal ideation: No Patient has homicidal ideation: No - Past Medical History Cardiac Medical History: Reports: Hx Heart Attack Denies: Hx Congestive Heart Failure, Hx Hypertension Pulmonary Medical History: Reports: Hx Bronchitis, Hx COPD, Hx Pneumonia Denies: Hx Asthma, Hx Tuberculosis Neurological Medical History: Denies: Hx Seizures Renal/ Medical History: Reports: Hx Kidney Stones. Denies: Hx Benign Prostatic Hyperplasia, Hx End Stage Renal Disease, Hx Peritoneal Dialysis GI Medical History: Reports: Hx Gastroesophageal Reflux Disease. Denies: Hx Cirrhosis, Hx Ulcer Musculoskeletal Medical History: Reports Hx Arthritis, Denies Hx Multiple Sclerosis Psychiatric Medical History: Denies: Hx Bipolar Disorder, Hx Depression, Hx Schizophrenia Past Surgical History: Reports: Hx Cardiac Catheterization, Hx Cholecystectomy, Hx Coronary Stent, Hx Vascular Surgery - Abdominal aortic aneurysm and bilateral femoropopliteal graft - Immunizations Hx Pneumococcal Vaccination: 09/29/14 Review of Systems - Review of Systems Notes: My Normal Review Basic REVIEW OF SYSTEMS: CONSTITUTIONAL : Denies fever, chills, or sweats. Denies recent illness. Cardiac: No chest pain. RESPIRATORY: Denies cough, cold, or chest congestion. Denies shortness of breath, difficulty breathing, or wheezing. GASTROINTESTINAL: Denies abdominal pain. Denies nausea, vomiting, or diarrhea. GENITOURINARY: Denies difficulty urinating, painful urination, burning, frequency, or blood in urine. MUSCULOSKELETAL: Back pain SKIN: Denies rash or skin lesions. NEUROLOGICAL: Denies altered mental status or loss of consciousness. Denies headache. Denies weakness or paralysis or loss of use of either side. Denies problems with gait or speech. Denies sensory or motor loss. ALL OTHER SYSTEMS REVIEWED AND NEGATIVE. Physical Exam - Vital signs Vitals: Temp Pulse Resp BP Pulse Ox 97.4 F 69 16 135/96 H 99 09/11/18 23:22 09/11/18 23:22 09/11/18 23:22 09/11/18 23:22 09/11/18 23:22 - Notes Notes: General Appearance: Well nourished, alert, cooperative, no acute distress, no obvious discomfort. Vitals: reviewed, See vital signs table. Head: no swelling or tenderness to the head Eyes: PERRL, EOMI, Conjuctiva clear Back: Patient has some reproducible pain to palpation over the left side of the mid thoracic spine. It is worse when he gets up and tries to move or twist. There is no rash. No evidence of shingles. No pain around to the chest on palpation. Mild pain to the left lateral rib area along the 5 to T6 dermatome. Extremities: strength 5/5 in all extremities, good pulses in all extremities, no swelling or tenderness in the extremities, no edema. Skin: warm, dry, appropriate color, no rash Neuro: speech clear, oriented x 3, normal affect, responds appropriately to questions. Course - Re-evaluation Re-evalutation: 09/12/18 04:51 Patient has pain that radiates along the T5-T6 dermatome from his mid back. I suspect he probably has a pinched nerve coming from the T5-T6 area. This would make sense in conjunction with his known compression fractures along his back there. I did give him a small dose of hydrocodone and Lyrica which helped his pain significantly. I will place him on Lyrica encouraged and follow-up with his doctor on Friday for close reevaluation. I do not suspect an aortic issue as he has no abdominal pain and no chest pain. Also his pain is easily reproducible with any range of motion that involves his mid back. Patient to return to ER if he has leg pain or leg weakness, chest pain, abdominal pain, loss of bowel control, or if he feels that his pain is intractable. Patient agrees with plan and will be discharged home. Dictation of this chart was performed using voice recognition software; therefore, there may be some unintended grammatical errors. - Vital Signs Vital signs: Temp Pulse Resp BP Pulse Ox 97.4 F 69 16 135/96 H 99 09/11/18 23:22 09/11/18 23:22 09/11/18 23:22 09/11/18 23:22 09/11/18 23:22 Discharge - Discharge Clinical Impression: Back pain Qualifiers: Back pain location: thoracic back pain Chronicity: unspecified Back pain laterality: left Qualified Code(s): M54.6 - Pain in thoracic spine Condition: Good Disposition: HOME, SELF-CARE Additional Instructions: Based on your recent back x-ray and your pain I suspect that you probably have a nerve being compressed near your T5 and/or T6 thoracic vertebrae. I have started you on a medication called Lyrica which helps with nerve type pain. We started out at a very low dose and then your doctor can increase it as needed. I have also given you a bottle of [place]. Please be aware that [place] does have Tylenol (acetaminophen) in it. Please make sure you do not take more than 4000 mg of acetaminophen a day. Do not drive or care for children after you have taken this medication they will make you sleepy and sometimes impair judgment. Please reserve the [place] for severe pain at night when you try to get some rest. Do not take this regularly as they can cause dependence and make your pain more difficult to treat in the future. Please return to the ER immediately if you have leg weakness or numbness that is worsening, loss of control of your bowel function, inability to urinate, or if you feel that you are worsening. Follow-up with your doctor on Friday as scheduled. Please talk to your doctor about referral to a pain specialist or back specialist to discuss further treatment options such as back injections or physical therapy. Prescriptions: Pregabalin [Lyrica 25 Mg Capsule] 25 mg PO TID #21 capsule Referrals: ERIC UGARTE DO [Primary Care Provider] - 09/15/18
== END 2018-09-12 01:55 | disposition home or self-care (01) ==
LOC: ER 23:15
DX: M54.6 Pain in thoracic spine (principal); J44.9 Chronic obstructive pulmonary disease, unspecified; I25.2 Old myocardial infarction; Z87.442 Personal history of urinary calculi; Z87.891 Personal history of nicotine dependence; Z90.49 Acquired absence of other specified parts of digestive tract
CPT/HCPCS: 99283; A9270 ×3; J3490

== ENCOUNTER 2018-09-14 06:34 | Emergency (ER) | payer MEDICARE ==
[2018-09-14 06:41] VITALS: BP 133/79
--- NOTE | 2018-09-14 06:46 | ER Document Report ---
ED General - General Chief Complaint: Constipation Stated Complaint: CONSTIPATION Time Seen by Provider: 09/14/18 06:45 Notes: Patient is a 73-year-old male that presents to the emergency department for chief complaint of constipation. Patient reports been taking Vicodin for compression fracture that he sustained last week, and because of that he has become rather constipated, he did have a small bowel movement several days ago, but it was very hard at that time, he has been taking stool softener but forgot to take them. He states it is too hard the past, he has required manual disimpaction in the past. He denies having any abdominal pain. But does admit to having some back pain from his injury, which he currently rates as a 6 out of 10, describes the pain as a constant aching sensation. He is currently out of the Vicodin. He denies any numbness, weakness or tingling in his lower extremities, he is able to walk, denies any bowel incontinence, or urinary retention. He has not been able to see his primary care physician, or anybody else to evaluate him since his injury that occurred over about a week ago, was seen on Friday. Past Medical History: Hypertension, CHF, COPD, depression, anxiety Past Surgical History: Cholecystectomy, PCI with stenting, AAA repair Social History: Former smoker, no current alcohol or drug use Family History: Reviewed and noncontributory for presenting illness Allergies: Reviewed, see documented allergy list. REVIEW OF SYSTEMS: Other than noted above, the 12 point review of systems was reviewed with the patient and were negative, all pertinent findings are included in the HPI. PHYSICAL EXAMINATION: Vital signs reviewed, nursing noted reviewed. GENERAL: Elderly male, no acute distress HEAD: Atraumatic, normocephalic. EYES: Eyes appear normal, extraocular movements intact, sclera anicteric, conjunctiva are normal. ENT: nares patent, oropharynx clear without exudates. Moist mucous membranes. NECK: Normal range of motion, supple without lymphadenopathy LUNGS: Breath sounds clear to auscultation bilaterally and equal. No wheezes rales or rhonchi. HEART: Regular rate and rhythm without murmurs ABDOMEN: Soft, nontender, normoactive bowel sounds. No rebound, guarding, or rigidity. No masses appreciated. EXTREMITIES: Nontender, good range of motion, no pitting or edema. NEUROLOGICAL: No focal neurological deficits. Moves all extremities spontaneously Motor and sensory grossly intact on exam. PSYCH: Normal mood, normal affect. SKIN: Warm, Dry, normal turgor, no rashes or lesions noted on exposed skin TRAVEL OUTSIDE OF THE [place] IN LAST 30 DAYS: No - Related Data Allergies/Adverse Reactions: No Known Allergies Allergy (Verified 06/20/18 12:38) Past Medical History - Social History Smoking Status: Former Smoker Family History: CAD, COPD, Hypertension - Past Medical History Cardiac Medical History: Reports: Hx Heart Attack Denies: Hx Congestive Heart Failure, Hx Hypertension Pulmonary Medical History: Reports: Hx Bronchitis, Hx COPD, Hx Pneumonia Denies: Hx Asthma, Hx Tuberculosis Neurological Medical History: Denies: Hx Seizures Renal/ Medical History: Reports: Hx Kidney Stones. Denies: Hx Benign Prostatic Hyperplasia, Hx End Stage Renal Disease, Hx Peritoneal Dialysis GI Medical History: Reports: Hx Gastroesophageal Reflux Disease. Denies: Hx Cirrhosis, Hx Ulcer Musculoskeletal Medical History: Reports Hx Arthritis, Denies Hx Multiple Sclerosis Psychiatric Medical History: Denies: Hx Bipolar Disorder, Hx Depression, Hx Schizophrenia Past Surgical History: Reports: Hx Cardiac Catheterization, Hx Cholecystectomy, Hx Coronary Stent, Hx Vascular Surgery - Abdominal aortic aneurysm and bilateral femoropopliteal graft - Immunizations Hx Pneumococcal Vaccination: 09/29/14 Physical Exam - Vital signs Vitals: Temp Pulse Resp BP Pulse Ox 97 F L 66 24 H 133/79 H 95 09/14/18 06:35 09/14/18 06:35 09/14/18 06:35 09/14/18 06:35 09/14/18 06:35 Course - Re-evaluation Re-evalutation: Patient seen and examined, vital signs reviewed, patient was in no acute distress on exam, I did obtain KUB, which demonstrated significant stool burden , and likely fecal impaction, we did attempt a soapsuds and mineral oil enema, without any results, therefore rectal disimpaction, was performed. At this point significant amount of stool was removed from the patient's rectal vault, and now will recommend initiating MiraLAX, and seeing brief writer, patient is on blood thinners for his atrial fibrillation, and any further disimpaction at this time a cause further damage, and more bleeding. Family and patient agreeable with this plan of care, they also given referral to orthopedic surgeons to help the patient manage his compression fracture that he sustained last week. I recommended Tylenol going forward for pain management, as further treatment with opiates would only worsen the patient's ongoing constipation. - Vital Signs Vital signs: Temp Pulse Resp BP Pulse Ox 97 F L 66 24 H 133/79 H 95 09/14/18 06:35 09/14/18 06:35 09/14/18 06:35 09/14/18 06:35 09/14/18 06:35 Discharge - Discharge Clinical Impression: Fecal impaction Back pain Qualifiers: Back pain location: thoracic back pain Chronicity: chronic Back pain laterality : midline Qualified Code(s): M54.6 - Pain in thoracic spine Condition: Stable Disposition: HOME, SELF-CARE Additional Instructions: Please return to the emergency department if you have any worsening, or concern of your symptoms. Please return to the emergency department if you develop chest pain, difficulty breathing, severe abdominal pain, or ongoing vomiting. Please follow-up with your primary care physician in 2-3 days and any other recommended physicians. If prescribed, take all medications as directed. If you have any questions or concerns do not hesitate to return the emergency department for evaluation. Please take the MiraLAX at least once daily, please follow-up with gastroenterology, and orthopedic surgery for your back. At this point I would advise taking 1000 mg of acetaminophen/Tylenol 3 times daily for your back pain , to avoid further constipation, which would only exacerbate your back pain further while trying to strain. Prescriptions: Polyethylene Glycol 3350 [Miralax] 17 gm PO DAILY #238 powder Referrals: ERIC UGARTE DO [Primary Care Provider] - Follow up as needed NENA ALBA MD [ACTIVE STAFF] - Follow up in 3-5 days (orthopedics )
--- NOTE | 2018-09-14 07:34 | RADIOLOGY REPORT (SQ) ---
EXAM DESCRIPTION: X-ray abdomen 1 view CLINICAL DATA: 73-year-old male with constipation. TECHNICAL DATA: A single AP supine x-ray of the abdomen was performed. Comparison: None. FINDINGS: The bowel gas pattern is nonspecific and nonobstructive. There is mild to moderate fecal residue scattered throughout the colon and rectum. Multiple surgical clips are present scattered throughout the abdomen and pelvis. A metallic vascular stent projects over the region of the right femoral artery. There are surgical clips in the right upper quadrant. Calcifications project over the left hemiabdomen which could be renal in origin or vascular. No abnormal air collections are identified. No focal soft tissue abnormalities are seen. No acute osseous abnormalities are identified. IMPRESSION: 1. Nonspecific and nonobstructive bowel gas pattern. There is mild to moderate fecal residue scattered throughout the colon and rectum. 2. Other chronic findings as described above.
[2018-09-14] MEDS ORDERED: MINERAL OIL ENEMA 133 ML PR ONE (07:54)
[2018-09-14] MEDS ORDERED: MINERAL OIL 30 ML UDCUP PR ONE (08:01)
[2018-09-14] MEDS ORDERED: GLYCERIN (ADULT) SUPP.RECT PR STA (08:51)
== END 2018-09-14 11:13 | disposition home or self-care (01) ==
LOC: ER 06:34
DX: K56.41 Fecal impaction (principal); M54.6 Pain in thoracic spine; G89.29 Other chronic pain
CPT/HCPCS: 99283; 74018; J3490 ×2

== ENCOUNTER → 2018-09-15 | Outpatient (CLI) | payer MEDICARE ==
--- NOTE | 2018-09-15 16:06 | RADIOLOGY REPORT (SQ) ---
EXAM DESCRIPTION: MRI THORACIC SPINE WITHOUT COMPLETED DATE/TIME: 09/15/2018 3:48 pm REASON FOR STUDY: S22.000A WEDGE COMPRESSION FRACTURE OF UNSPECIFIED THORACIC VERTEBRA, INITI S22.00 0A WEDGE COMPRESSION FRACTURE OF UNSP THORACIC VERTEBR COMPARISON: Thoracic spine plain films 09/09/2018 CT chest 06/20/2018 TECHNIQUE: Sagittal and Axial imaging includes T1, T2, STIR and gradient echo sequences. LIMITATIONS: None. FINDINGS: LOCALIZER: No worrisome findings. ALIGNMENT: Normal. VERTEBRAE AND BONE MARROW: Since the prior studies, patient has developed a 25 to 50% T9 compression deformity, with concave inferior vertebral body endplates, and diffuse marrow edema throughout the T 9 vertebral body. No significant retropulsion of bony fragments. No significant central stenosis. Chronic appearing greater than 50% T6 compression deformity, 25 to 50% T7 compression deformity, grea ter than 50% T12 compression deformity. HARDWARE: None in the spine. CORD: Normal in size and signal intensity. SOFT TISSUES: No soft tissue masses. THORACIC DISCS T1-T12: No significant spinal stenosis or exit foraminal stenosis. OTHER: No other significant finding. IMPRESSION: Acute or subacute T9 compression deformity with 25 to 50% loss of vertebral body height. No significant dorsal retropulsion of bony fragments. TECHNICAL DOCUMENTATION: JOB ID: [id number] [employer]- All Rights Reserved Reading location - IP/workstation name: [facility]-[email or web address]
== END ==
LOC: RAD 14:55
PROVIDERS: ATTEND Family Medicine
DX: S22.000A Wedge compression fracture of unspecified thoracic vertebra, initial encounter for closed fracture (principal); T14.90XA Injury, unspecified, initial encounter
CPT/HCPCS: 72146

== ENCOUNTER 2018-09-17 01:20 | Inpatient (IN) | payer MEDICARE ==
--- NOTE | 2018-09-17 01:45 | ER Document Report ---
ED General - General Stated Complaint: ALTERED MENTAL STATUS Time Seen by Provider: 09/17/18 01:31 Notes: Patient 73-year-old male presents with complaint of altered mental status and back pain. He was seen by me several days ago. At that time I reviewed his previous x-rays which show that he had multiple compression fractures in his back. Most of them are chronic except for one at level T5. He was having pain radiating into his left shoulder blade consistent with appear to be a pinched nerve from his compression fractures. I placed him on Lyrica to help with this. He did have some improvement while here in the ER and was discharged home. He came back a few days later because he was on hydrocodone which made him constipated. He saw Dr. Gil and was disimpacted and told not to take the opiate medications as they will make his constipation worse. Per report from the paramedics he can follow-up with his primary care doctor placed on oxycodone 2 days ago. He then followed up again today and was placed on baclofen. After starting the baclofen he started becoming confused and has become more and more confused throughout the night and therefore was brought to the ER. Patient is unable to contribute to history. TRAVEL OUTSIDE OF THE [place] IN LAST 30 DAYS: No - Related Data Allergies/Adverse Reactions: No Known Allergies Allergy (Verified 06/20/18 12:38) Past Medical History - Social History Smoking Status: Never Smoker Frequency of alcohol use: None Drug Abuse: None Family History: CAD, COPD, Hypertension - Past Medical History Cardiac Medical History: Reports: Hx Heart Attack Denies: Hx Congestive Heart Failure, Hx Hypertension Pulmonary Medical History: Reports: Hx Bronchitis, Hx COPD, Hx Pneumonia Denies: Hx Asthma, Hx Tuberculosis Neurological Medical History: Denies: Hx Seizures Renal/ Medical History: Reports: Hx Kidney Stones. Denies: Hx Benign Prostatic Hyperplasia, Hx End Stage Renal Disease, Hx Peritoneal Dialysis GI Medical History: Reports: Hx Gastroesophageal Reflux Disease. Denies: Hx Cirrhosis, Hx Ulcer Musculoskeletal Medical History: Reports Hx Arthritis, Denies Hx Multiple Sclerosis Psychiatric Medical History: Denies: Hx Bipolar Disorder, Hx Depression, Hx Schizophrenia Past Surgical History: Reports: Hx Cardiac Catheterization, Hx Cholecystectomy, Hx Coronary Stent, Hx Vascular Surgery - Abdominal aortic aneurysm and bilateral femoropopliteal graft - Immunizations Hx Pneumococcal Vaccination: 09/29/14 Review of Systems - Review of Systems -: Yes ROS unobtainable due to patient's medical condition - Patient is very confused and unable to answer questions. Physical Exam - Vital signs Vitals: Resp Pulse Ox 24 H 90 L 09/17/18 01:26 09/17/18 01:26 - Notes Notes: General Appearance: moderate obvious discomfort, patient is keeping his eyes closed. He is swelling around the bed and not making sense. He is unable to answer my questions and does not respond to my questions. Vitals: reviewed, See vital signs table. Head: no swelling or tenderness to the head Eyes: PERRL, EOMI, Conjuctiva clear Mouth: Dry mucous membranes. Throat: No tonsillar inflammation, No airway obstruction, No lymphadenopathy Neck: Supple, no neck tenderness, No thyromegaly Lungs: No wheezing, No rales, No rhonci, No accessory muscle use, good air exchange bilaterally. Heart: Normal rate, Regular rythm, No murmur, no rub Abdomen: Normal BS, soft, No rigidity, No abdominal tenderness, Extremities: Patient is moving all 4 extremities on his own while laying in the bed. No significant lower extremity edema. Skin: warm, dry, appropriate color, no rash Neuro: Patient is moving all 4 extremities spontaneously. He will not follow commands and therefore it is difficult to perform full neurologic evaluation. Pupils are equal and normal. They are reactive to light. He has symmetric facial movement. Course - Re-evaluation Re-evalutation: 09/17/18 01:58 Patient's son is now at bedside. He said that the saw the spinal doctor, Dr. Herring. Has a plan on arranging for spinal surgery in the next 2 weeks. He said they do have a clear thing with tipple worker and primary care doctor. He says that the spinal Dr. Collier placed him on baclofen he started taking it yesterday and did fine with yesterday. Today the added oxycodone and the son thinks it is possible that the patient took 2 oxycodone instead of 1. Shortly after taking these meds he started acting this way. No recent fevers. Has had some cough. No other concerns at this time. 09/17/18 03:04 She continues to be altered and confused. He does have a leukocytosis but no fever and no other signs of infection. I suspect his white count of 14,000 is probably demargination. Warrant a CT scan of the head as well as chest x-ray and urinalysis. These are all negative. Feel patient needs admission for further observation until his altered mental status resolves. I did speak with Dr. Campoverde, hospitalist, who agrees to evaluate the patient for admission. Dictation of this chart was performed using voice recognition software; therefore, there may be some unintended grammatical errors. - Vital Signs Vital signs: Temp Pulse Resp BP Pulse Ox 98.9 F 19 138/94 H 92 09/17/18 05:00 09/17/18 05:31 09/17/18 05:31 09/17/18 05:31 - Laboratory Result Diagrams: 09/17/18 01:50 09/17/18 01:50 Laboratory results interpreted by me: 09/17/18 09/17/18 09/17/18 01:50 01:50 02:07 WBC 14.6 H MCV 98 H RDW 18.1 H Seg Neuts % (Manual) 95 H Band Neutrophils % 1 L Lymphocytes % (Manual) 1 L Monocytes % (Manual) 2 L Abs Neuts (Manual) 14.0 H Abs Lymphs (Manual) 0.1 L Sodium 146.0 H Potassium 5.4 H Chloride 109 H BUN 47 H Creatinine 1.32 H Est GFR (Non-Af Amer) 53 L Glucose 148 H Calcium 10.3 H Total Bilirubin 1.5 H Direct Bilirubin 0.7 H Urine Protein 30 H Urine Ketones 20 H Urine Blood SMALL H Discharge - Discharge Clinical Impression: Altered mental status Qualifiers: Altered mental status type: unspecified Qualified Code(s): R41.82 - Altered mental status, unspecified Condition: Stable Disposition: ADMITTED OBSERVATION Admitting Provider: Hospitalist Unit Admitted: Telemetry
[2018-09-17 02:04] LABS: HEMATOCRIT 43.8 % (37.9-51.0); HEMOGLOBIN 14.6 g/dL (13.5-17.0); MEAN CORPUSCULAR HEMOGLOBIN 32.7 pg (27.0-33.4); MEAN CORPUSCULAR HGB CONC 33.3 g/dL (32.0-36.0); MEAN CORPUSCULAR VOLUME 98 fl (80-97); PLATELET COUNT 201 10^3/uL (150-450); RED BLOOD COUNT 4.45 10^6/uL (4.35-5.55); RED CELL DISTRIBUTION WIDTH 18.1 % (11.5-14.0); WHITE BLOOD COUNT 14.6 10^3/uL (4.0-10.5)
[2018-09-17 02:16] LABS: ALANINE AMINOTRANSFERASE 22 U/L (21-72); ALBUMIN 4.2 g/dL (3.5-5.0); ALKALINE PHOSPHATASE 93 U/L (38-126); ANION GAP 14 (5-19); ASPARTATE AMINO TRANSFERASE 30 U/L (17-59); BILIRUBIN,DIRECT 0.7 mg/dL (0.0-0.4); BILIRUBIN,TOTAL 1.5 mg/dL (0.2-1.3); BLOOD UREA NITROGEN 47 mg/dL (7-20); CALCIUM 10.3 mg/dL (8.4-10.2); CARBON DIOXIDE 23 mmol/L (22-30); CHLORIDE 109 mmol/L (98-107); GLUCOSE 148 mg/dL (75-110); POTASSIUM 5.4 mmol/L (3.6-5.0); TOTAL PROTEIN 7.4 g/dL (6.3-8.2)
[2018-09-17] MEDS ORDERED: NORMAL SALINE 500 ML IV ONE (02:31)
[2018-09-17 02:33] LABS: APPEARANCE,URINE CLEAR; BILIRUBIN,URINE NEGATIVE (NEGATIVE); COLOR,URINE YELLOW; GLUCOSE, URINE NEGATIVE (NEGATIVE); KETONES,URINE 20 mg/dL (NEGATIVE); LEUKOCYTE ESTERASE,URINE NEGATIVE (NEGATIVE); NITRITE,URINE NEGATIVE (NEGATIVE); PROTEIN,URINE 30 mg/dL (NEGATIVE); URINE SPECIFIC GRAVITY 1.021; UROBILINOGEN,URINE NEGATIVE mg/dL (<2.0)
[2018-09-17 02:35] LABS: ABSOLUTE LYMPHOCYTES# (MANUAL) 0.1 10^3/uL (0.5-4.7); ABSOLUTE MONOCYTES # (MANUAL) 0.3 10^3/uL (0.1-1.4); BAND NEUTROPHILS % (MANUAL) 1 % (3-5); BASOPHILS % (MANUAL) 1 % (0-2); EOSINOPHILS % (MANUAL) 0 % (0-6); LYMPHOCYTES % (MANUAL) 1 % (13-45); MONOCYTES % (MANUAL) 2 % (3-13); SEGMENTED NEUTROPHILS % (MAN) 95 % (42-78); TOTAL CELLS COUNTED 100
[2018-09-17 02:36] LABS: ANISOCYTOSIS 2+; OVALOCYTES SLIGHT; PLATELET COMMENT ADEQUATE; POIKILOCYTOSIS SLIGHT; TOXIC GRANULATION 1+
[2018-09-17 02:44] LABS: URINE AMPHETAMINES SCREEN NEGATIVE; URINE BARBITURATES SCREEN NEGATIVE; URINE BENZODIAZEPINES SCREEN NEGATIVE; URINE COCAINE SCREEN NEGATIVE; URINE MARIJUANA (THC) SCREEN NEGATIVE; URINE METHADONE SCREEN NEGATIVE; URINE PHENCYCLIDINE SCREEN NEGATIVE
--- NOTE | 2018-09-17 02:47 | RADIOLOGY REPORT (SQ) ---
EXAM DESCRIPTION: CT HEAD WITHOUT IV CONTRAST COMPLETED DATE/TME: 09/17/2018 01:41 CLINICAL HISTORY: 73 years, Male, altered mental status COMPARISON: None. TECHNIQUE: Axial CT images of the brain were obtained without contrast. DLP [id number] Images stored on PACS. All CT scanners at this facility use dose modulation, iterative reconstruction, and/or weight based dosing when appropriate to reduce radiation dose to as low as reasonably achievable (ALARA). [facility]: Dose Right [facility]: CareDose [facility]: Dose Right [facility]: Teradose 4D [facility]: [employer] LIMITATIONS: None. FINDINGS: There is no acute infarct, hemorrhage, mass, edema, hydrocephalus or extra-axial fluid collection. There is diffuse cerebral atrophy. Air-fluid levels are in the right maxillary and left sphenoid sinuses. There is no acute fracture. IMPRESSION: No acute intracranial abnormality. Acute sinusitis. TECHNICAL DOCUMENTATION: Quality ID # [id number]: Final reports with documentation of one or more dose reduction techniques (e.g., Automated exposure control, adjustment of the mA and/or kV according to patient size, use of iterative reconstruction technique) copyright 2011 [employer]- All Rights Reserved
--- NOTE | 2018-09-17 02:51 | RADIOLOGY REPORT (SQ) ---
CLINICAL HISTORY: altered mental status COMPARISON: September 09, 2018. TECHNIQUE: XR CHEST 1 VIEW 09/17/2018 1:41 AM [employer]EL[employer] FINDINGS: Cardiac silhouette is normal in size. There is minimal vague right lower lung airspace disease. There is biapical scarring. There is no pleural effusion. There is no pneumothorax. There are no acute osseous findings. IMPRESSION: No significant change.
[2018-09-17] MEDS ORDERED: LACTULOSE SYRUP 20 GM/30 ML UDCUP PO ONE (03:25)
[2018-09-17] MEDS ORDERED: NA PHOS,M-B/NA PHOS,DI-BA (ADULT) 133 ML ENEMA PR ONE (03:30)
[2018-09-17] MEDS ORDERED: MAG HYDROX/AL HYDROX/SIMETH SUSP 30 ML UDCUP PO PRN (05:17)
--- NOTE | 2018-09-17 05:40 | PDOC H&P ---
History of Present Illness Admission Date/PCP: 09/17/18 03:12 FATUMA SIMMONS DO Patient complains of: Altered mental status History of Present Illness: VIVIAN STINSON is a 73 year old male with a past medical history of COPD, coronary artery disease on Plavix, BPH and acute T5 compression fracture With intractable pain 5 days ago. He was placed on Lyrica and oxycodone. He developed abdominal pain with fecal impaction prompting emergency room evaluation where he was partially manually disimpacted, discharged with bowel regiment and recommendation of avoiding narcotics. With intractable back pain he saw orthopedic surgeon Dr borrero placed on baclofen and oxycodone 2 days ago. Today he is brought in by his son with confusion and constipation. In [facility] room he is found to have leukocytosis, hyperkalemia, altered mental status and a left lower quadrant pain without guarding. He is referred to the hospitalist for admission. Past Medical History Cardiac Medical History: Reports: Myocardial Infarction Denies: Congestive Heart Failure, Hypertension Pulmonary Medical History: Reports: Bronchitis, Chronic Obstructive Pulmonary Disease (COPD), Pneumonia Denies: Asthma, Tuberculosis Neurological Medical History: Denies: Seizures Renal/ Medical History: Denies: End Stage Renal Disease GI Medical History: Reports: Gastroesophageal Reflux Disease Denies: Cirrhosis Musculoskeltal Medical History: Reports: Arthritis Psychiatric Medical History: Denies: Bipolar Disorder, Depression Hematology: Denies: Anemia, Bleeding Tendencies Past Surgical History Past Surgical History: Reports: Cardiac Catheterization, Cholecystectomy, Coronary Stent, Vascular Surgery - Abdominal aortic aneurysm and bilateral femoropopliteal graft Social History Information Source: Relative, Emergency Med Personnel Smoking Status: Never Smoker Frequency of Alcohol Use: None Drugs: None - Advance Directive Resuscitation Status: Full Code Family History Family History: CAD, COPD, Hypertension Parental Family History Reviewed: Yes Children Family History Reviewed: Yes Sibling(s) Family History Reviewed.: Yes Medication/Allergy Home Medications: Aspirin [Ecotrin] 81 mg PO DAILY 06/26/17 Atenolol [Tenormin 50 mg Tablet] 50 mg PO DAILY 06/26/17 Clopidogrel Bisulfate [Plavix 75 mg Tablet] 75 mg PO DAILY 06/26/17 Finasteride [Proscar 5 mg Tablet] 5 mg PO DAILY 06/26/17 Folic Acid 0.4 mg PO DAILY 06/26/17 Ibuprofen [Motrin 800 mg Tablet] 800 mg PO Q12 06/26/17 Magnesium 250 mg PO DAILY 06/26/17 Methotrexate Sodium [Methotrexate] 4 tab PO BID 06/26/17 Multivitamin [Multivitamins] 1 cap PO DAILY 06/26/17 Omeprazole 40 mg PO DAILY 06/26/17 Potassium 200mg Otc 200 mg PO DAILY 06/26/17 Prednisone [Deltasone 5 mg Tablet] 5 mg PO DAILY 06/26/17 Simvastatin [Zocor 40 mg Tablet] 40 mg PO QHS 06/26/17 Tamsulosin HCl [Flomax 0.4 mg Cap.sr] 0.4 mg PO DAILY 06/26/17 Docusate Sodium [Colace 100 mg Capsule] 100 mg PO BID 7 Days #14 capsule 06/20/18 Hydrocodone/Acetaminophen [[place] 5-325 mg Tablet] 1 tab PO TID PRN 4 Days #12 tablet 06/20/18 Pregabalin [Lyrica 25 Mg Capsule] 25 mg PO TID #21 capsule 09/12/18 Polyethylene Glycol 3350 [Miralax] 17 gm PO DAILY #238 powder 09/14/18 Allergies/Adverse Reactions: No Known Allergies Allergy (Verified 06/20/18 12:38) Review of Systems ROS unobtainable: Due to mental status - Delirium Physical Exam Vital Signs: Temp Pulse Resp BP Pulse Ox 98.5 F 19 131/85 H 96 09/17/18 04:04 09/17/18 04:31 09/17/18 04:31 09/17/18 04:31 Intake & Output 09/15/18 09/16/18 09/17/18 11:59 11:59 11:59 Intake Total 500 Balance 500 Weight 74.843 kg General appearance: PRESENT: disheveled, mild distress. ABSENT: cooperative Head exam: PRESENT: atraumatic, normocephalic Eye exam: PRESENT: conjunctiva pink, EOMI, PERRLA. ABSENT: scleral icterus Ear exam: PRESENT: normal external ear exam Mouth exam: PRESENT: moist, tongue midline Neck exam: ABSENT: carotid bruit, JVD, lymphadenopathy, thyromegaly Respiratory exam: PRESENT: clear to auscultation gracy. ABSENT: rales, rhonchi, wheezes Cardiovascular exam: PRESENT: RRR. ABSENT: diastolic murmur, rubs, systolic murmur GI/Abdominal exam: PRESENT: diminished bowel sounds, distended, hypoactive bowel sounds, tenderness. ABSENT: firm, guarding, rebound, rigid Rectal exam: PRESENT: deferred Extremities exam: PRESENT: full ROM. ABSENT: calf tenderness, clubbing, pedal edema Neurological exam: PRESENT: altered, awake, oriented to person, CN II-XII grossly intact. ABSENT: motor sensory deficit Psychiatric exam: PRESENT: agitated, anxious, normal mood. ABSENT: homicidal ideation, suicidal ideation Skin exam: PRESENT: dry, intact, warm. ABSENT: cyanosis, rash Results Laboratory Results: 09/17/18 01:50 09/17/18 01:50 09/17/18 09/17/18 09/17/18 01:50 01:50 02:07 WBC 14.6 H RBC 4.45 Hgb 14.6 Hct 43.8 MCV 98 H MCH 32.7 MCHC 33.3 RDW 18.1 H Plt Count 201 Seg Neutrophils % Not Reportable Lymphocytes % Not Reportable Monocytes % Not Reportable Eosinophils % Not Reportable Basophils % Not Reportable Absolute Neutrophils Not Reportable Absolute Lymphocytes Not Reportable Absolute Monocytes Not Reportable Absolute Eosinophils Not Reportable Absolute Basophils Not Reportable Sodium 146.0 H Potassium 5.4 H Chloride 109 H Carbon Dioxide 23 Anion Gap 14 BUN 47 H Creatinine 1.32 H Est GFR ( Amer) > 60 Est GFR (Non-Af Amer) 53 L Glucose 148 H Calcium 10.3 H Total Bilirubin 1.5 H AST 30 ALT 22 Alkaline Phosphatase 93 Total Protein 7.4 Albumin 4.2 Urine Color YELLOW Urine Appearance CLEAR Urine pH 5.0 Ur Specific [place] 1.021 Urine Protein 30 H Urine Glucose (UA) NEGATIVE Urine Ketones 20 H Urine Blood SMALL H Urine Nitrite NEGATIVE Ur Leukocyte Esterase NEGATIVE Urine WBC (Auto) 1 Urine RBC (Auto) 5 Impressions: Chest X-Ray 09/17/18 01:41 IMPRESSION: No significant change. Head CT 09/17/18 01:41 IMPRESSION: No acute intracranial abnormality. Acute sinusitis. TECHNICAL DOCUMENTATION: Quality ID # 436: Final reports with documentation of one or more dose reduction techniques (e.g., Automated exposure control, adjustment of the mA and/or kV according to patient size, use of iterative reconstruction technique) copyright 2011 [employer]- All Rights Reserved Assessment & Plan - Diagnosis (1) Altered mental status Qualifiers: Altered mental status type: unspecified Qualified Code(s): R41.82 - Altered mental status, unspecified Is this a current diagnosis for this admission?: Yes Plan: Metabolic encephalopathy secondary to baclofen and oxycodone, complicated by acute on chronic pain. Hold baclofen, reduce oxycodone, (2) Hyperkalemia Is this a current diagnosis for this admission?: Yes Plan: Secondary to fecal impaction, follow-up chemistry (3) Back pain Qualifiers: Back pain location: thoracic back pain Chronicity: chronic Back pain laterality: midline Qualified Code(s): M54.6 - Pain in thoracic spine; G89.29 - Other chronic pain; G89.29 - Other chronic pain Is this a current diagnosis for this admission?: Yes Plan: Pain management consult given acute T5 compression fracture, Plavix held (4) Fecal impaction Is this a current diagnosis for this admission?: Yes Plan: Fleet enema, lactulose, daily bowel regimen initiated. - Time Time Spent: 50 to 70 Minutes - Inpatient Certification Medical Necessity: Need Close Monitoring Due to Risk of Patient Decompensation
[2018-09-17] MEDS: ACETAMINOPHEN 325 MG TABLET PO PRN ×2 (05:42→19:55)
[2018-09-17] MEDS: HEPARIN SOD (PORCINE) 5,000 UNIT/ML 1 ML SYRINGE SUBCUT SCH ×3 (05:42→22:28)
[2018-09-17] MEDS ORDERED: NORMAL SALINE 1000 ML 1,000 ML IV PRN ×2 (07:41→19:36)
--- NOTE | 2018-09-17 07:52 | EKG REPORT ---
SEVERITY:- OTHERWISE NORMAL ECG - SINUS RHYTHM BORDERLINE LEFT AXIS DEVIATION : Confirmed by: Miguelito Landers MD 17-Sep-2018 07:52:06
--- NOTE | 2018-09-17 07:52 | EKG REPORT ---
SEVERITY:- OTHERWISE NORMAL ECG - SINUS RHYTHM LEFT AXIS DEVIATION : Confirmed by: Miguelito Landers MD 17-Sep-2018 07:51:43
[2018-09-17] MEDS: DOCUSATE SODIUM 100 MG CAPSULE PO SCH ×2 (11:50→18:25)
[2018-09-17] MEDS: CLOPIDOGREL BISULFATE 75 MG TABLET PO SCH (11:50)
[2018-09-17] MEDS: MAGNESIUM HYDROXIDE SUSP 30 ML UDCUP PO SCH (11:50)
[2018-09-17] MEDS: TAMSULOSIN HCL 0.4 MG CAP.SR.24H PO SCH (11:50)
[2018-09-17] MEDS: FOLIC ACID 1 MG TABLET PO SCH (11:50)
[2018-09-17] MEDS: MAGNESIUM OXIDE 400 MG TABLET PO SCH (12:01)
[2018-09-17] MEDS: FINASTERIDE 5 MG TABLET PO SCH (12:01)
[2018-09-17] MEDS: ASPIRIN 81 MG TABLET, ENT COATED PO SCH (12:01)
[2018-09-17] MEDS: ATENOLOL 50 MG TABLET PO SCH (12:04)
[2018-09-17] MEDS ORDERED: POLYETHYLENE GLYCOL 3350 POWDER 17 GM/1 PACKET PO PRN (19:39)
--- NOTE | 2018-09-17 19:46 | PDOC PROGRESS REPORT ---
Subjective Progress Note for:: 09/17/18 Subjective:: The patient is moaning. He does open his eyes but responds to verbal stimulus intermittently. He does state that his toes hurt. Reason For Visit: INTRACTABLE BACK PAIN, FECAL IMPACTION, Physical Exam Vital Signs: Temp Pulse Resp BP Pulse Ox 97.3 F 79 22 H 124/66 99 09/17/18 16:28 09/17/18 16:28 09/17/18 15:59 09/17/18 16:28 09/17/18 15:59 Intake & Output 09/16/18 09/17/18 09/18/18 06:59 06:59 06:59 Intake Total 500 Output Total 550 Balance 500 -550 Weight 74.843 kg 77.7 kg General appearance: PRESENT: mild distress, well-developed Mouth exam: PRESENT: dry mucosa Respiratory exam: PRESENT: clear to auscultation gracy, symmetrical, unlabored. ABSENT: accessory muscle use, prolonged expiratory phas, rales, rhonchi, wheezes Cardiovascular exam: PRESENT: RRR, +S1, +S2 GI/Abdominal exam: PRESENT: normal bowel sounds, soft. ABSENT: tenderness Extremities exam: PRESENT: tenderness - Toes. No discoloration or erythema. They are not cold to touch. Pain response is inconsistent., other Musculoskeletal exam: PRESENT: other - Clamshell brace in place Neurological exam: PRESENT: altered, awake, oriented to person, CN II-XII grossly intact. ABSENT: oriented to place, oriented to time, oriented to situation Psychiatric exam: ABSENT: agitated, anxious Focused psych exam: PRESENT: restlessness - Slightly restless in bed Results Laboratory Results: 09/17/18 01:50 09/17/18 01:50 09/17/18 09/17/18 09/17/18 01:50 01:50 02:07 WBC 14.6 H RBC 4.45 Hgb 14.6 Hct 43.8 MCV 98 H MCH 32.7 MCHC 33.3 RDW 18.1 H Plt Count 201 Seg Neutrophils % Not Reportable Lymphocytes % Not Reportable Monocytes % Not Reportable Eosinophils % Not Reportable Basophils % Not Reportable Absolute Neutrophils Not Reportable Absolute Lymphocytes Not Reportable Absolute Monocytes Not Reportable Absolute Eosinophils Not Reportable Absolute Basophils Not Reportable Sodium 146.0 H Potassium 5.4 H Chloride 109 H Carbon Dioxide 23 Anion Gap 14 BUN 47 H Creatinine 1.32 H Est GFR ( Amer) > 60 Est GFR (Non-Af Amer) 53 L Glucose 148 H Calcium 10.3 H Total Bilirubin 1.5 H AST 30 ALT 22 Alkaline Phosphatase 93 Total Protein 7.4 Albumin 4.2 Urine Color YELLOW Urine Appearance CLEAR Urine pH 5.0 Ur Specific [place] 1.021 Urine Protein 30 H Urine Glucose (UA) NEGATIVE Urine Ketones 20 H Urine Blood SMALL H Urine Nitrite NEGATIVE Ur Leukocyte Esterase NEGATIVE Urine WBC (Auto) 1 Urine RBC (Auto) 5 Impressions: Chest X-Ray 09/17/18 01:41 IMPRESSION: No significant change. Head CT 09/17/18 01:41 IMPRESSION: No acute intracranial abnormality. Acute sinusitis. TECHNICAL DOCUMENTATION: Quality ID # 436: Final reports with documentation of one or more dose reduction techniques (e.g., Automated exposure control, adjustment of the mA and/or kV according to patient size, use of iterative reconstruction technique) copyright 2011 [employer]- All Rights Reserved Assessment & Plan - Diagnosis (1) Altered mental status Qualifiers: Altered mental status type: delirium Qualified Code(s): R41.0 - Disorientation, unspecified Is this a current diagnosis for this admission?: Yes Plan: Initially this was felt to be due to medications for pain after his vertebral compression fracture. He should be improving because he has not been given any narcotic analgesia. He is on the dry side and high have ordered IV normal saline. I will recheck his blood work tomorrow but there is no obvious infection or severe metabolic abnormality. (2) Hyperkalemia Is this a current diagnosis for this admission?: Yes Plan: The patient's potassium was elevated this morning. He did receive lactulose. I will check his chemistries tomorrow. If this is still elevated we will likely begin a scheduled regimen of lactulose. (3) Fecal impaction Is this a current diagnosis for this admission?: Yes Plan: The patient did have 3 bowel movements earlier today. We will continue the Colace. The lactulose will have helped as well. As noted above we may have to have a scheduled dose of lactulose or consider MiraLAX. - Time Time Spent with patient: 15-24 minutes Medications reviewed and adjusted accordingly: Yes - Inpatient Certification Based on my medical assessment, after consideration of the patient's comor bidities, presenting symptoms, or acuity I expect that the services needed warrant INPATIENT care.: Yes I certify that my determination is in accordance with my understanding of Medicare's requirements for reasonable and necessary INPATIENT services [42 CFR 412.3e].: Yes Medical Necessity: Need For IV Fluids, Need for Neurological Checks, Risk of Complication if Not Cared For in Hospital Post Hospital Care: D/C [employer] Documentation
[2018-09-18] MEDS: ACETAMINOPHEN 325 MG TABLET PO PRN ×2 (04:05→10:10)
[2018-09-18] MEDS: HEPARIN SOD (PORCINE) 5,000 UNIT/ML 1 ML SYRINGE SUBCUT SCH (05:31)
[2018-09-18 05:57] LABS: HEMATOCRIT 35.2 % (37.9-51.0); MEAN CORPUSCULAR HEMOGLOBIN 32.2 pg (27.0-33.4); MEAN CORPUSCULAR HGB CONC 33.1 g/dL (32.0-36.0); MEAN CORPUSCULAR VOLUME 97 fl (80-97); PLATELET COUNT 135 10^3/uL (150-450); RED BLOOD COUNT 3.62 10^6/uL (4.35-5.55); RED CELL DISTRIBUTION WIDTH 17.2 % (11.5-14.0); WHITE BLOOD COUNT 6.5 10^3/uL (4.0-10.5)
[2018-09-18 06:10] LABS: ALANINE AMINOTRANSFERASE 25 U/L (21-72); ALBUMIN 2.8 g/dL (3.5-5.0); ALKALINE PHOSPHATASE 76 U/L (38-126); ANION GAP 7 (5-19); ASPARTATE AMINO TRANSFERASE 23 U/L (17-59); BILIRUBIN,DIRECT 0.4 mg/dL (0.0-0.4); BILIRUBIN,TOTAL 1.1 mg/dL (0.2-1.3); BLOOD UREA NITROGEN 25 mg/dL (7-20); CALCIUM 8.9 mg/dL (8.4-10.2); CARBON DIOXIDE 18 mmol/L (22-30); CHLORIDE 119 mmol/L (98-107); GLUCOSE 103 mg/dL (75-110); POTASSIUM 3.9 mmol/L (3.6-5.0); SODIUM 144.3 mmol/L (137-145); TOTAL PROTEIN 5.4 g/dL (6.3-8.2)
[2018-09-18 06:23] LABS: HEMOGLOBIN 11.7 g/dL (13.5-17.0)
[2018-09-18 06:28] LABS: ABSOLUTE LYMPHOCYTES# (MANUAL) 0.2 10^3/uL (0.5-4.7); ABSOLUTE MONOCYTES # (MANUAL) 0.3 10^3/uL (0.1-1.4); ANISOCYTOSIS 1+; BASOPHILS % (MANUAL) 0 % (0-2); EOSINOPHILS % (MANUAL) 0 % (0-6); LYMPHOCYTES % (MANUAL) 3 % (13-45); MONOCYTES % (MANUAL) 5 % (3-13); PAPPENHEIMER BODIES PRESENT; PLATELET COMMENT ADEQUATE; PLATELET LARGE PRESENT; SEGMENTED NEUTROPHILS % (MAN) 92 % (42-78); TOTAL CELLS COUNTED 100; TOXIC GRANULATION 1+
[2018-09-18] MEDS: FOLIC ACID 1 MG TABLET PO SCH (09:18)
[2018-09-18] MEDS: MAGNESIUM OXIDE 400 MG TABLET PO SCH (09:18)
[2018-09-18] MEDS: FINASTERIDE 5 MG TABLET PO SCH (09:18)
[2018-09-18] MEDS: TAMSULOSIN HCL 0.4 MG CAP.SR.24H PO SCH (09:18)
[2018-09-18] MEDS: CLOPIDOGREL BISULFATE 75 MG TABLET PO SCH (09:19)
[2018-09-18] MEDS: ASPIRIN 81 MG TABLET, ENT COATED PO SCH (09:19)
[2018-09-18] MEDS: DOCUSATE SODIUM 100 MG CAPSULE PO SCH ×2 (09:19→17:56)
[2018-09-18] MEDS: MAGNESIUM HYDROXIDE SUSP 30 ML UDCUP PO SCH (09:20)
[2018-09-18] MEDS: ATENOLOL 50 MG TABLET PO SCH (09:36)
[2018-09-18] MEDS: OXYCODONE HCL IR 5 MG TABLET PO SCH ×3 (11:57→20:25)
[2018-09-18] MEDS: POLYETHYLENE GLYCOL 3350 POWDER 17 GM/1 PACKET PO SCH ×2 (11:57→17:56)
--- NOTE | 2018-09-18 18:42 | CONSULTATION REPORT E ---
Consultation Report NAME: VIVIAN STINSON : 1945 AGE: 73Y DATE: 09/18/2018 ROOM: 408 A TO: MICHEL HOWARD M.D. FROM: JUDI XAVIER M.D. Requesting Physician CHIEF COMPLAINT: Back pain. HISTORY OF PRESENT ILLNESS: This is a 73-year-old male who was admitted on the above date with altered mental status secondary to pain medications. He is noted to have a T9 compression fracture which occurred approximately 10 days prior to admission on an outpatient basis while visiting a physician. Apparently he twisted and had severe pain between his shoulders. He has known osteoporosis and prior compression fractures at other levels. He was seen on an outpatient basis by, what I believe, to be Dr. Remigio Montilla. MRI was obtained demonstrating a T9 acute fracture with multiple other compression fractures which were chronic. Plan was for kyphoplasty on an outpatient basis, however, the altered mental status required evaluation and admission in the emergency room. Since then consultation has been made for pain management and treatment of the fracture on an inpatient basis. At present time the patient complains of severe pain in the back. He is on limited medications due to his altered mental status the other day, however, this has improved considerably. He is now conversant and articulate, although appears in moderate significant distress. He denies any numbness, tingling, in the lower extremities. He has had problems with fecal impaction and constipation secondary to pain medications. PAST MEDICAL HISTORY: Other medical problems include; history of myocardial infarction, COPD, asthma, and depression. He also has rheumatoid arthritis. MEDICATIONS: As per chart. He has been on Plavix and aspirin. PAST SURGICAL HISTORY: Includes cardiac catheterization, cholecystectomy, placement of coronary stents, abdominal aortic aneurysm and bilateral femoral popliteal grafting. SOCIAL HISTORY: He is a nonsmoker, nondrinker. He does not use recreational drugs. His family reports that he was quite independent at home prior to the occurrence of the altered mental status and the intractable pain from the compression fracture. ALLERGIES: None. REVIEW OF SYSTEMS: As per chart. PHYSICAL EXAMINATION: VITAL SIGNS: Stable. GENERAL: He is awake, in distress. His speech is articulate though slow in production. SKIN: Dry with bruising in the upper extremities. HEENT: Does not reveal any traumatic injury. NECK: Without JVD. CARDIAC: Has a regular rhythm. ABDOMEN: Is mildly obese; nontender, nondistended. EXTREMITIES: Demonstrate bruising. There is no clubbing. Good capillary refill is noted in the fingers. Fungal infections are noted in the toes. NEUROLOGIC: Exam reveals normal sensation to light touch and scratch. Motor exam was difficult to assess secondary to pain. LABORATORY DATA: As per chart, including a platelet count of 132. IMPRESSION AND PLAN: 1. Altered mental status, resolving, secondary to medications. We will resume medications but in a monitored and much lower dose setting. 2. MRI of the thoracic spine has been reviewed. This is amenable to kyphoplasty treatment. Blood thinning medications, Plavix and aspirin, need to be held. I have talked to Dr. Day regarding this and these will be stopped per him and Lovenox started. The plan will be for kyphoplasty in approximately 6-7 days to allow time for both the aspirin and the Plavix to clear from the system and provide safety for a surgical approach. 3. Other medical problems will be managed per the hospitalist at their discretion. DICTATING PHYSICIAN: MICHEL HOWARD M.D. [id number] PHY#: [id number] ID: [id number] JOB#: [id number] ACCT: [id number] cc:MICHEL HOWARD M.D. >
--- NOTE | 2018-09-18 18:51 | PDOC PROGRESS REPORT ---
Subjective Progress Note for:: 09/18/18 Subjective:: Definitely more alert and interactive today. Reason For Visit: INTRACTABLE BACK PAIN, FECAL IMPACTION, Physical Exam Vital Signs: Temp Pulse Resp BP Pulse Ox 98.6 F 70 21 H 122/58 L 91 L 09/18/18 15:16 09/18/18 16:45 09/18/18 12:13 09/18/18 16:45 09/18/18 15:16 Intake & Output 09/17/18 09/18/18 09/19/18 06:59 06:59 06:59 Intake Total 500 2000 Output Total 1000 Balance 500 1000 Weight 74.843 kg 80.6 kg 80.6 kg General appearance: PRESENT: cooperative, mild distress, well-developed Head exam: PRESENT: atraumatic, normocephalic Mouth exam: PRESENT: dry mucosa, tongue midline Respiratory exam: PRESENT: clear to auscultation gracy, symmetrical, unlabored, other - Chest brace in place. ABSENT: prolonged expiratory phas, rales, rhonchi, wheezes Cardiovascular exam: PRESENT: RRR, +S1, +S2 GI/Abdominal exam: PRESENT: normal bowel sounds, soft. ABSENT: distended, tenderness Extremities exam: ABSENT: pedal edema Neurological exam: PRESENT: alert, awake, oriented to person, oriented to place, oriented to situation, CN II-XII grossly intact Psychiatric exam: PRESENT: flat affect Results Laboratory Results: 09/18/18 05:40 09/18/18 05:40 09/18/18 09/18/18 09/18/18 05:40 05:40 05:40 WBC 6.5 RBC 3.62 L Hgb 11.7 L D Hct 35.2 L MCV 97 MCH 32.2 MCHC 33.1 RDW 17.2 H Plt Count 135 L Seg Neutrophils % Not Reportable Lymphocytes % Not Reportable Monocytes % Not Reportable Eosinophils % Not Reportable Basophils % Not Reportable Absolute Neutrophils Not Reportable Absolute Lymphocytes Not Reportable Absolute Monocytes Not Reportable Absolute Eosinophils Not Reportable Absolute Basophils Not Reportable Sodium 144.3 Potassium 3.9 Chloride 119 H Carbon Dioxide 18 L Anion Gap 7 BUN 25 H Creatinine 0.82 Est GFR ( Amer) > 60 Est GFR (Non-Af Amer) > 60 Glucose 103 Calcium 8.9 Magnesium 2.2 Total Bilirubin 1.1 AST 23 ALT 25 Alkaline Phosphatase 76 Ammonia 17.2 Total Protein 5.4 L Albumin 2.8 L Impressions: Chest X-Ray 09/17/18 01:41 IMPRESSION: No significant change. Head CT 09/17/18 01:41 IMPRESSION: No acute intracranial abnormality. Acute sinusitis. TECHNICAL DOCUMENTATION: Quality ID # 436: Final reports with documentation of one or more dose reduction techniques (e.g., Automated exposure control, adjustment of the mA and/or kV according to patient size, use of iterative reconstruction technique) copyright 2011 [employer]- All Rights Reserved Assessment & Plan - Diagnosis (1) Altered mental status Qualifiers: Altered mental status type: delirium Qualified Code(s): R41.0 - Disorientation, unspecified Is this a current diagnosis for this admission?: Yes Plan: The patient was quite clear today. I believe the medications are wearing off. He has been started on low-dose analgesia for his compression fracture. We will need to monitor his mental status. (2) Hyperkalemia Is this a current diagnosis for this admission?: Yes Plan: Potassium is now in the normal range. He will continue on a low potassium diet. I have advanced his diet to soft mechanical so hopefully he will begin eating more. (3) Fecal impaction Is this a current diagnosis for this admission?: Yes Plan: He has moved his bowels. In fact he is on several stool softeners. His appetite is been poor but as he begins eating more he should have more regular bowel movements. (4) Compression fracture of T9 vertebra Is this a current diagnosis for this admission?: Yes Plan: The patient has a new compression fracture of T9. He has multiple other compression fractures. He was seen by Dr. Espinoza Gregorio. We are going to hold Plavix and aspirin and consider kyphoplasty after approximately 5 days. - Time Time Spent with patient: 25-34 minutes Medications reviewed and adjusted accordingly: Yes
[2018-09-18 20:15] LABS: AMORPHOUS SEDIMENT,URINE TRACE /HPF; APPEARANCE,URINE SLIGHTLY-CLOUDY; BILIRUBIN,URINE NEGATIVE (NEGATIVE); COLOR,URINE YELLOW; GLUCOSE, URINE NEGATIVE (NEGATIVE); KETONES,URINE NEGATIVE (NEGATIVE); LEUKOCYTE ESTERASE,URINE TRACE (NEGATIVE); NITRITE,URINE NEGATIVE (NEGATIVE); PROTEIN,URINE 30 mg/dL (NEGATIVE); URINE SPECIFIC GRAVITY 1.023
[2018-09-18] MEDS: ENOXAPARIN SODIUM INJ 80 MG/0.8 ML DISP.SYRIN SUBCUT SCH (21:33)
[2018-09-19] MEDS: OXYCODONE HCL IR 5 MG TABLET PO SCH ×7 (00:29→23:59)
[2018-09-19 05:43] LABS: ANION GAP 9 (5-19); BLOOD UREA NITROGEN 22 mg/dL (7-20); CALCIUM 8.9 mg/dL (8.4-10.2); CARBON DIOXIDE 21 mmol/L (22-30); CHLORIDE 113 mmol/L (98-107); GLUCOSE 105 mg/dL (75-110); POTASSIUM 4.1 mmol/L (3.6-5.0)
[2018-09-19] MEDS: MAGNESIUM HYDROXIDE SUSP 30 ML UDCUP PO SCH (11:29)
[2018-09-19] MEDS: DOCUSATE SODIUM 100 MG CAPSULE PO SCH ×2 (11:29→17:57)
[2018-09-19] MEDS: FINASTERIDE 5 MG TABLET PO SCH (11:29)
[2018-09-19] MEDS: ENOXAPARIN SODIUM INJ 80 MG/0.8 ML DISP.SYRIN SUBCUT SCH ×2 (11:30→21:10)
[2018-09-19] MEDS: ATENOLOL 50 MG TABLET PO SCH (11:30)
[2018-09-19] MEDS: TAMSULOSIN HCL 0.4 MG CAP.SR.24H PO SCH (11:30)
[2018-09-19] MEDS: FOLIC ACID 1 MG TABLET PO SCH (11:31)
[2018-09-19] MEDS: MAGNESIUM OXIDE 400 MG TABLET PO SCH (11:31)
[2018-09-19] MEDS: POLYETHYLENE GLYCOL 3350 POWDER 17 GM/1 PACKET PO SCH ×2 (11:32→17:57)
[2018-09-19] MEDS ORDERED: PREGABALIN 25 MG CAPSULE PO PRN (17:16)
--- NOTE | 2018-09-19 17:22 | PDOC PROGRESS REPORT ---
Subjective Progress Note for:: 09/19/18 Subjective:: Still in pain. Mouth seems dry. Reason For Visit: INTRACTABLE BACK PAIN, FECAL IMPACTION, Physical Exam Vital Signs: Temp Pulse Resp BP Pulse Ox 98.3 F 67 19 135/73 H 94 09/19/18 16:00 09/19/18 16:00 09/19/18 16:00 09/19/18 16:00 09/19/18 16:00 Intake & Output 09/18/18 09/19/18 09/20/18 06:59 06:59 06:59 Intake Total 2000 750 Output Total 1000 500 Balance 1000 250 Weight 80.6 kg 80.8 kg General appearance: PRESENT: cooperative, mild distress, well-developed Head exam: PRESENT: atraumatic, normocephalic Mouth exam: PRESENT: dry mucosa Respiratory exam: PRESENT: clear to auscultation gracy, symmetrical, unlabored. ABSENT: rales, rhonchi, wheezes Cardiovascular exam: PRESENT: RRR, +S1, +S2 GI/Abdominal exam: PRESENT: normal bowel sounds, soft. ABSENT: distended, tenderness Extremities exam: ABSENT: pedal edema Neurological exam: PRESENT: awake, oriented to person, oriented to place, oriented to situation, CN II-XII grossly intact Psychiatric exam: PRESENT: appropriate affect. ABSENT: agitated, anxious Skin exam: PRESENT: other - Bruising on arms Results Laboratory Results: 09/18/18 05:40 09/19/18 04:13 09/18/18 09/19/18 19:55 04:13 Sodium 143.0 Potassium 4.1 Chloride 113 H Carbon Dioxide 21 L Anion Gap 9 BUN 22 H Creatinine 0.93 Est GFR ( Amer) > 60 Est GFR (Non-Af Amer) > 60 Glucose 105 Calcium 8.9 Urine Color YELLOW Urine Appearance SLIGHTLY-CLOUDY Urine pH 6.0 Ur Specific [place] 1.023 Urine Protein 30 H Urine Glucose (UA) NEGATIVE Urine Ketones NEGATIVE Urine Blood MODERATE H Urine Nitrite NEGATIVE Ur Leukocyte Esterase TRACE H Urine WBC (Auto) 18 Urine RBC (Auto) 49 Impressions: Chest X-Ray 09/17/18 01:41 IMPRESSION: No significant change. Head CT 09/17/18 01:41 IMPRESSION: No acute intracranial abnormality. Acute sinusitis. TECHNICAL DOCUMENTATION: Quality ID # 436: Final reports with documentation of one or more dose reduction techniques (e.g., Automated exposure control, adjustment of the mA and/or kV according to patient size, use of iterative reconstruction technique) copyright 2011 [employer]- All Rights Reserved Assessment & Plan - Diagnosis (1) Altered mental status Qualifiers: Altered mental status type: delirium Qualified Code(s): R41.0 - Disorientation, unspecified Is this a current diagnosis for this admission?: Yes Plan: Acute encephalopathy resolved. We will monitor closely on analgesic medication for adverse effect. (2) Hyperkalemia Is this a current diagnosis for this admission?: Yes Plan: Potassium currently normal. Continue to monitor. (3) Fecal impaction Is this a current diagnosis for this admission?: Yes Plan: Resolved (4) Compression fracture of T9 vertebra Is this a current diagnosis for this admission?: Yes Plan: The patient is still in pain. He is wearing his brace. I am to add 25 mg of Lyrica scheduled every 12 hours and allow a 25 mg dose at a 6-hour interval if needed. I would like to be very conservative due to the encephalopathy. The patient stated that he is tried a Lidoderm patch in the past but gave him a funny taste in his mouth. I am wondering if he actually had a fentanyl patch. We will see how the current regimen works and make adjustments if needed. - Time Time Spent with patient: 15-24 minutes Medications reviewed and adjusted accordingly: Yes
[2018-09-19] MEDS: PREGABALIN 25 MG CAPSULE PO SCH (18:02)
[2018-09-20] MEDS: OXYCODONE HCL IR 5 MG TABLET PO SCH ×5 (03:52→20:48)
[2018-09-20] MEDS: PREGABALIN 25 MG CAPSULE PO SCH ×2 (05:16→17:44)
[2018-09-20] MEDS: FOLIC ACID 1 MG TABLET PO SCH (09:51)
[2018-09-20] MEDS: MAGNESIUM OXIDE 400 MG TABLET PO SCH (09:51)
[2018-09-20] MEDS: DOCUSATE SODIUM 100 MG CAPSULE PO SCH ×2 (09:51→17:42)
[2018-09-20] MEDS: ENOXAPARIN SODIUM INJ 80 MG/0.8 ML DISP.SYRIN SUBCUT SCH ×2 (09:51→22:28)
[2018-09-20] MEDS: TAMSULOSIN HCL 0.4 MG CAP.SR.24H PO SCH (09:51)
[2018-09-20] MEDS: ATENOLOL 50 MG TABLET PO SCH (09:52)
[2018-09-20] MEDS: POLYETHYLENE GLYCOL 3350 POWDER 17 GM/1 PACKET PO SCH ×2 (09:52→17:42)
[2018-09-20] MEDS: MAGNESIUM HYDROXIDE SUSP 30 ML UDCUP PO SCH (09:52)
[2018-09-20] MEDS: FINASTERIDE 5 MG TABLET PO SCH (09:52)
--- NOTE | 2018-09-20 15:09 | PDOC PROGRESS REPORT ---
Subjective Progress Note for:: 09/20/18 Subjective:: The patient reports some improvement in pain management. Unfortunately he continues to slide down in the bed and the slides the chest brace upwards. Reason For Visit: INTRACTABLE BACK PAIN, FECAL IMPACTION, Physical Exam Vital Signs: Temp Pulse Resp BP Pulse Ox 98.3 F 66 18 139/69 H 90 L 09/20/18 11:03 09/20/18 11:03 09/20/18 11:03 09/20/18 11:03 09/20/18 11:03 Intake & Output 09/19/18 09/20/18 09/21/18 06:59 06:59 06:59 Intake Total 750 Output Total 500 880 Balance 250 -880 Weight 80.8 kg 80.1 kg General appearance: PRESENT: no acute distress, cooperative, well-developed Respiratory exam: PRESENT: clear to auscultation gracy, symmetrical, unlabored. ABSENT: accessory muscle use, prolonged expiratory phas, rales, rhonchi, wheezes Cardiovascular exam: PRESENT: RRR, +S1, +S2 Vascular exam: PRESENT: pallor GI/Abdominal exam: PRESENT: normal bowel sounds, soft. ABSENT: distended, guarding, tenderness Neurological exam: PRESENT: alert, awake, oriented to person, oriented to place, oriented to time, oriented to situation, CN II-XII grossly intact Psychiatric exam: PRESENT: appropriate affect, normal mood. ABSENT: agitated, anxious Focused psych exam: ABSENT: restlessness Results Laboratory Results: 09/18/18 05:40 09/19/18 04:13 Impressions: Chest X-Ray 09/17/18 01:41 IMPRESSION: No significant change. Head CT 09/17/18 01:41 IMPRESSION: No acute intracranial abnormality. Acute sinusitis. TECHNICAL DOCUMENTATION: Quality ID # 436: Final reports with documentation of one or more dose reduction techniques (e.g., Automated exposure control, adjustment of the mA and/or kV according to patient size, use of iterative reconstruction technique) copyright 2011 [employer]- All Rights Reserved Assessment & Plan - Diagnosis (1) Altered mental status Qualifiers: Altered mental status type: delirium Qualified Code(s): R41.0 - Disorientation, unspecified Is this a current diagnosis for this admission?: Yes Plan: Resolved. Monitor for adverse effects of analgesia medications (2) Hyperkalemia Is this a current diagnosis for this admission?: Yes Plan: Resolved. Monitor serum potassium level. (3) Fecal impaction Is this a current diagnosis for this admission?: Yes Plan: Resolved. Continue scheduled Colace and MiraLAX. (4) Compression fracture of T9 vertebra Is this a current diagnosis for this admission?: Yes Plan: Patient reports improved pain management. Awaiting possible kyphoplasty next week. I have asked for the patient to be out of bed for meals - Time Time Spent with patient: 15-24 minutes Medications reviewed and adjusted accordingly: Yes
[2018-09-20] MEDS ORDERED: FONDAPARINUX SODIUM INJ 7.5 MG/0.6 ML DISP.SYRIN SUBCUT ONE ×2 (22:40→22:51)
[2018-09-21] MEDS: ACETAMINOPHEN 325 MG TABLET PO PRN (02:53)
[2018-09-21] MEDS: OXYCODONE HCL IR 5 MG TABLET PO SCH ×6 (02:54→20:59)
[2018-09-21 05:20] LABS: HEMATOCRIT 34.5 % (37.9-51.0); HEMOGLOBIN 11.6 g/dL (13.5-17.0); MEAN CORPUSCULAR HEMOGLOBIN 32.4 pg (27.0-33.4); MEAN CORPUSCULAR HGB CONC 33.7 g/dL (32.0-36.0); MEAN CORPUSCULAR VOLUME 96 fl (80-97); PLATELET COUNT 173 10^3/uL (150-450); RED BLOOD COUNT 3.58 10^6/uL (4.35-5.55)
[2018-09-21] MEDS: PREGABALIN 25 MG CAPSULE PO SCH ×2 (05:51→18:06)
[2018-09-21] MEDS: DOCUSATE SODIUM 100 MG CAPSULE PO SCH ×2 (10:53→17:23)
[2018-09-21] MEDS: POLYETHYLENE GLYCOL 3350 POWDER 17 GM/1 PACKET PO SCH ×2 (10:53→17:23)
[2018-09-21] MEDS: ATENOLOL 50 MG TABLET PO SCH (10:57)
[2018-09-21] MEDS: MAGNESIUM OXIDE 400 MG TABLET PO SCH (10:57)
[2018-09-21] MEDS: TAMSULOSIN HCL 0.4 MG CAP.SR.24H PO SCH (10:57)
[2018-09-21] MEDS: MAGNESIUM HYDROXIDE SUSP 30 ML UDCUP PO SCH (10:57)
[2018-09-21] MEDS: FOLIC ACID 1 MG TABLET PO SCH (10:58)
[2018-09-21] MEDS: FINASTERIDE 5 MG TABLET PO SCH (10:58)
[2018-09-21] MEDS ORDERED: LEVALBUTEROL HCL NEB 1.25 MG/3 ML AMPUL NEB PRN (13:21)
[2018-09-21] MEDS: IPRATROPIUM/ALBUTEROL 0.5-2.5 MG/3 ML AMPUL NEB SCH ×2 (14:02→19:40)
--- NOTE | 2018-09-21 14:05 | RADIOLOGY REPORT (SQ) ---
EXAM DESCRIPTION: CHEST SINGLE VIEW COMPLETED DATE/TIME: 09/21/2018 1:42 pm REASON FOR STUDY: productive cough COMPARISON: 09/17/2018. 06/26/2017. EXAM PARAMETERS: NUMBER OF VIEWS: One view. TECHNIQUE: Single frontal radiographic view of the chest acquired. RADIATION DOSE: NA LIMITATIONS: None. FINDINGS: LUNGS AND PLEURA: There is evidence of fibrotic scarring in both lung apices with bilatera l apical pleural thickening. There has been interval increase in streaky infiltrates at left lung ba se consistent with left basilar pneumonia. MEDIASTINUM AND HILAR STRUCTURES: No masses. Contour normal. HEART AND VASCULAR STRUCTURES: The heart is normal with atherosclerotic uncoiling of the thoracic aor ta again noted. BONES: No acute findings. HARDWARE: None in the chest. OTHER: No other significant finding. IMPRESSION: Interval development of infiltrate at left lung base. Otherwise, no acute disease. TECHNICAL DOCUMENTATION: JOB ID: [id number] [employer]- All Rights Reserved Reading location - IP/workstation name: [email or web address]
--- NOTE | 2018-09-21 16:30 | PDOC PROGRESS REPORT ---
Subjective Progress Note for:: 09/21/18 Subjective:: The patient is feeling a bit lethargic today. He has not been eating or drinking much. Reason For Visit: INTRACTABLE BACK PAIN, FECAL IMPACTION, Physical Exam Vital Signs: Temp Pulse Resp BP Pulse Ox 98.2 F 64 16 132/69 H 98 09/21/18 12:07 09/21/18 14:02 09/21/18 14:02 09/21/18 12:07 09/21/18 14:02 Intake & Output 09/20/18 09/21/18 09/22/18 06:59 06:59 06:59 Intake Total 670 Output Total 880 1200 Balance -880 -530 Weight 80.1 kg 79.1 kg General appearance: PRESENT: no acute distress, cooperative, well-developed Mouth exam: PRESENT: dry mucosa, tongue midline Respiratory exam: PRESENT: clear to auscultation gracy, symmetrical, unlabored, other - Difficult to auscultate with his brace in place.. ABSENT: accessory muscle use, rales - Anteriorly, rhonchi, wheezes Cardiovascular exam: PRESENT: RRR, +S1, +S2 GI/Abdominal exam: PRESENT: normal bowel sounds, soft. ABSENT: tenderness Neurological exam: PRESENT: awake, oriented to person, oriented to place, oriented to situation. ABSENT: alert - Slightly groggy Results Laboratory Results: 09/21/18 04:04 09/19/18 04:13 09/21/18 04:04 WBC 7.0 RBC 3.58 L Hgb 11.6 L Hct 34.5 L MCV 96 MCH 32.4 MCHC 33.7 RDW 17.0 H Plt Count 173 Impressions: Head CT 09/17/18 01:41 IMPRESSION: No acute intracranial abnormality. Acute sinusitis. TECHNICAL DOCUMENTATION: Quality ID # 436: Final reports with documentation of one or more dose reduction techniques (e.g., Automated exposure control, adjustment of the mA and/or kV according to patient size, use of iterative reconstruction technique) copyright 2011 [employer]- All Rights Reserved Chest X-Ray 09/21/18 00:00 IMPRESSION: Interval development of infiltrate at left lung base. Otherwise, no acute disease. Assessment & Plan - Diagnosis (1) Altered mental status Qualifiers: Altered mental status type: delirium Qualified Code(s): R41.0 - Disorientation, unspecified Is this a current diagnosis for this admission?: Yes Plan: His status today could be due to his pain medications. I will decrease the scheduled oxycodone. He also appears dry so I have started some IV fluid. (2) Hyperkalemia Is this a current diagnosis for this admission?: Yes Plan: Potassium is now normal. Continue to monitor. (3) Fecal impaction Is this a current diagnosis for this admission?: Yes Plan: He did have a bowel movement today. Continue to monitor and continue stool softeners. (4) Compression fracture of T9 vertebra Is this a current diagnosis for this admission?: Yes Plan: Likely to have kyphoplasty in 2-3 days. - Time Time Spent with patient: 15-24 minutes Medications reviewed and adjusted accordingly: Yes
[2018-09-21] MEDS: FONDAPARINUX SODIUM INJ 7.5 MG/0.6 ML DISP.SYRIN SUBCUT SCH (21:57)
[2018-09-22] MEDS: IPRATROPIUM/ALBUTEROL 0.5-2.5 MG/3 ML AMPUL NEB SCH ×4 (02:14→20:29)
[2018-09-22] MEDS: OXYCODONE HCL IR 5 MG TABLET PO SCH ×4 (03:41→20:59)
[2018-09-22 05:43] LABS: ANION GAP 8 (5-19); BLOOD UREA NITROGEN 19 mg/dL (7-20); CALCIUM 9.3 mg/dL (8.4-10.2); CARBON DIOXIDE 24 mmol/L (22-30); CHLORIDE 107 mmol/L (98-107); GLUCOSE 109 mg/dL (75-110); POTASSIUM 4.3 mmol/L (3.6-5.0); SODIUM 139.3 mmol/L (137-145)
[2018-09-22] MEDS: PREGABALIN 25 MG CAPSULE PO SCH (06:42)
[2018-09-22] MEDS: TAMSULOSIN HCL 0.4 MG CAP.SR.24H PO SCH (09:32)
[2018-09-22] MEDS: DOCUSATE SODIUM 100 MG CAPSULE PO SCH ×2 (09:32→17:01)
[2018-09-22] MEDS: MAGNESIUM HYDROXIDE SUSP 30 ML UDCUP PO SCH (09:33)
[2018-09-22] MEDS: FOLIC ACID 1 MG TABLET PO SCH (09:33)
[2018-09-22] MEDS: MAGNESIUM OXIDE 400 MG TABLET PO SCH (09:33)
[2018-09-22] MEDS: ATENOLOL 50 MG TABLET PO SCH (09:33)
[2018-09-22] MEDS: FINASTERIDE 5 MG TABLET PO SCH (09:33)
[2018-09-22] MEDS: POLYETHYLENE GLYCOL 3350 POWDER 17 GM/1 PACKET PO SCH ×2 (09:34→17:02)
[2018-09-22] MEDS ORDERED: (PENDING PHARMACY ID) (Fluticasone/Vilanterol [Breo Ellipta 100-25 Mcg Inh] 1 EACH) IH SCH (10:00)
[2018-09-22] MEDS ORDERED: ATENOLOL 50 MG TABLET PO SCH (10:00)
[2018-09-22] MEDS: ACETAMINOPHEN 325 MG TABLET PO PRN (12:49)
--- NOTE | 2018-09-22 13:26 | PDOC PROGRESS REPORT ---
Subjective Progress Note for:: 09/22/18 Subjective:: Patient is sleeping but awakens easily. He states that he was in the chair earlier. It did not seem to relieve any discomfort in his back. Reason For Visit: INTRACTABLE BACK PAIN, FECAL IMPACTION, Physical Exam Vital Signs: Temp Pulse Resp BP Pulse Ox 98.4 F 65 14 130/66 H 91 L 09/22/18 08:19 09/22/18 08:55 09/22/18 08:55 09/22/18 08:19 09/22/18 08:55 Intake & Output 09/21/18 09/22/18 09/23/18 06:59 06:59 06:59 Intake Total 670 970 Output Total 1200 1050 Balance -530 -80 Weight 79.1 kg 81.3 kg General appearance: PRESENT: cooperative, other - Somnolent Head exam: PRESENT: normocephalic Respiratory exam: PRESENT: clear to auscultation gracy - Anteriorly. Difficult to auscultate with his brace on., symmetrical, unlabored. ABSENT: rhonchi, wheezes Cardiovascular exam: PRESENT: RRR, +S1, +S2 GI/Abdominal exam: PRESENT: normal bowel sounds, soft. ABSENT: tenderness Neurological exam: PRESENT: awake - Quite sleepy. Results Laboratory Results: 09/21/18 04:04 09/22/18 05:00 09/22/18 05:00 Sodium 139.3 Potassium 4.3 Chloride 107 Carbon Dioxide 24 Anion Gap 8 BUN 19 Creatinine 1.00 Est GFR ( Amer) > 60 Est GFR (Non-Af Amer) > 60 Glucose 109 Calcium 9.3 Magnesium 2.2 Impressions: Head CT 09/17/18 01:41 IMPRESSION: No acute intracranial abnormality. Acute sinusitis. TECHNICAL DOCUMENTATION: Quality ID # 436: Final reports with documentation of one or more dose reduction techniques (e.g., Automated exposure control, adjustment of the mA and/or kV according to patient size, use of iterative reconstruction technique) copyright 2011 [employer]- All Rights Reserved Chest X-Ray 09/21/18 00:00 IMPRESSION: Interval development of infiltrate at left lung base. Otherwise, no acute disease. Assessment & Plan - Diagnosis (1) Altered mental status Qualifiers: Altered mental status type: delirium Qualified Code(s): R41.0 - Disorientation, unspecified Is this a current diagnosis for this admission?: Yes Plan: Other than being tired he has not exhibited any delirium or hallucinations. We are trying to keep his pain medications at a minimum. (2) Hyperkalemia Is this a current diagnosis for this admission?: Yes Plan: Corrected and normal. Continue to monitor. (3) Fecal impaction Is this a current diagnosis for this admission?: Yes Plan: Resolved (4) Compression fracture of T9 vertebra Is this a current diagnosis for this admission?: Yes Plan: He has been off of the Plavix and aspirin. Hopefully he will have the kyphoplasty tomorrow or the next day. I will discuss with Dr. Gregorio tomorrow. - Time Time Spent with patient: Less than 15 minutes Medications reviewed and adjusted accordingly: Yes
[2018-09-22] MEDS: NORMAL SALINE 1000 ML 1,000 ML IV PRN ×2 (15:19→23:53)
[2018-09-22] MEDS: BUDESONIDE NEB 0.5 MG/2 ML AMPUL NEB SCH (20:29)
[2018-09-22] MEDS: FONDAPARINUX SODIUM INJ 7.5 MG/0.6 ML DISP.SYRIN SUBCUT SCH (21:00)
[2018-09-23] MEDS: IPRATROPIUM/ALBUTEROL 0.5-2.5 MG/3 ML AMPUL NEB SCH ×4 (01:40→20:48)
[2018-09-23] MEDS: OXYCODONE HCL IR 5 MG TABLET PO SCH ×4 (02:53→21:06)
[2018-09-23 05:37] LABS: HEMATOCRIT 33.8 % (37.9-51.0); HEMOGLOBIN 11.2 g/dL (13.5-17.0); MEAN CORPUSCULAR HEMOGLOBIN 31.9 pg (27.0-33.4); MEAN CORPUSCULAR HGB CONC 33.1 g/dL (32.0-36.0); MEAN CORPUSCULAR VOLUME 97 fl (80-97); PLATELET COUNT 230 10^3/uL (150-450); RED BLOOD COUNT 3.51 10^6/uL (4.35-5.55); RED CELL DISTRIBUTION WIDTH 16.9 % (11.5-14.0); WHITE BLOOD COUNT 8.5 10^3/uL (4.0-10.5)
[2018-09-23] MEDS: ACETAMINOPHEN 325 MG TABLET PO PRN (08:11)
[2018-09-23] MEDS: BUDESONIDE NEB 0.5 MG/2 ML AMPUL NEB SCH ×2 (08:31→20:48)
[2018-09-23] MEDS: MAGNESIUM OXIDE 400 MG TABLET PO SCH (09:36)
[2018-09-23] MEDS: POLYETHYLENE GLYCOL 3350 POWDER 17 GM/1 PACKET PO SCH ×2 (09:36→17:38)
[2018-09-23] MEDS: TAMSULOSIN HCL 0.4 MG CAP.SR.24H PO SCH (09:37)
[2018-09-23] MEDS: DOCUSATE SODIUM 100 MG CAPSULE PO SCH ×2 (09:37→17:38)
[2018-09-23] MEDS: ATENOLOL 50 MG TABLET PO SCH (09:37)
[2018-09-23] MEDS: MAGNESIUM HYDROXIDE SUSP 30 ML UDCUP PO SCH (09:38)
[2018-09-23] MEDS: FOLIC ACID 1 MG TABLET PO SCH (09:38)
[2018-09-23] MEDS: FINASTERIDE 5 MG TABLET PO SCH (09:38)
--- NOTE | 2018-09-23 14:09 | PDOC PROGRESS REPORT ---
Subjective Progress Note for:: 09/23/18 Subjective:: The patient is resting in bed. He is more alert today. I believe the IV fluids have helped. The biggest question is when will the surgery occur. Today he did complain of a sore throat. Reason For Visit: INTRACTABLE BACK PAIN, FECAL IMPACTION, Physical Exam Vital Signs: Temp Pulse Resp BP Pulse Ox 98.2 F 62 18 125/67 93 09/23/18 12:00 09/23/18 12:00 09/23/18 12:00 09/23/18 12:00 09/23/18 12:00 Intake & Output 09/22/18 09/23/18 09/24/18 06:59 06:59 06:59 Intake Total 970 2049 118 Output Total 1050 1425 275 Balance -80 624 -157 Weight 81.3 kg 81.3 kg General appearance: PRESENT: no acute distress Head exam: PRESENT: normocephalic Ear exam: PRESENT: normal external ear exam Mouth exam: PRESENT: dry mucosa Throat exam: PRESENT: post pharyngeal erythema - But no white patches or pustules. Respiratory exam: PRESENT: clear to auscultation gracy, symmetrical, unlabored. ABSENT: rales, wheezes Cardiovascular exam: PRESENT: RRR, +S1, +S2 GI/Abdominal exam: PRESENT: distended, normal bowel sounds, soft. ABSENT: tenderness Neurological exam: PRESENT: alert, awake, oriented to person, oriented to place, oriented to situation Psychiatric exam: PRESENT: flat affect Results Laboratory Results: 09/23/18 04:30 09/22/18 05:00 09/23/18 04:30 WBC 8.5 RBC 3.51 L Hgb 11.2 L Hct 33.8 L MCV 97 MCH 31.9 MCHC 33.1 RDW 16.9 H Plt Count 230 Impressions: Head CT 09/17/18 01:41 IMPRESSION: No acute intracranial abnormality. Acute sinusitis. TECHNICAL DOCUMENTATION: Quality ID # 436: Final reports with documentation of one or more dose reduction techniques (e.g., Automated exposure control, adjustment of the mA and/or kV according to patient size, use of iterative reconstruction technique) copyright 2011 [employer]- All Rights Reserved Chest X-Ray 09/21/18 00:00 IMPRESSION: Interval development of infiltrate at left lung base. Otherwise, no acute disease. Assessment & Plan - Diagnosis (1) Altered mental status Qualifiers: Altered mental status type: delirium Qualified Code(s): R41.0 - Disorientation, unspecified Is this a current diagnosis for this admission?: Yes Plan: The patient was somewhat somnolent yesterday. He has been getting IV fluids and is much better today. I am trying to keep a positive fluid balance. He reports that he has been drinking lots of water. (2) Hyperkalemia Is this a current diagnosis for this admission?: Yes Plan: Serum potassium remains normal. I will continue to monitor and adjust the treatment plan as clinically indicated. (3) Compression fracture of T9 vertebra Is this a current diagnosis for this admission?: Yes Plan: I did speak to Dr. Gregorio today. The patient is booked for the OR 7:30 Friday morning. Enough time will have passed for the Plavix and aspirin to wear off. I believe Dr. Gregorio will be writing the preop orders. (4) Pharyngitis Qualifiers: Pharyngitis/tonsillitis etiology: unspecified etiology Qualified Code(s): J02.9 - Acute pharyngitis, unspecified Is this a current diagnosis for this admission?: Yes Plan: The patient's throat is most likely from dryness. There is no exudate or discoloration to suggest an infectious process. We will start with Chloraseptic spray and I feel that this will be very effective and will be all that he needs. - Time Time Spent with patient: Less than 15 minutes Medications reviewed and adjusted accordingly: Yes
[2018-09-23] MEDS: PHENOL/SODIUM PHENOLATE 100 SPRAY/177 ML BOTTLE PO PRN (18:17)
[2018-09-23] MEDS ORDERED: OXYCODONE HCL IR 5 MG TABLET PO ONE (18:30)
[2018-09-23] MEDS: FONDAPARINUX SODIUM INJ 7.5 MG/0.6 ML DISP.SYRIN SUBCUT SCH (21:06)
[2018-09-24] MEDS: OXYCODONE HCL IR 5 MG TABLET PO SCH ×6 (01:58→21:47)
[2018-09-24] MEDS: IPRATROPIUM/ALBUTEROL 0.5-2.5 MG/3 ML AMPUL NEB SCH ×4 (02:36→19:46)
[2018-09-24] MEDS ORDERED: CEFAZOLIN 1 GM/D5W RTU 1 GM/50 ML RTUPB IV PRN (05:00)
[2018-09-24] MEDS ORDERED: GLUCAGON,HUMAN RECOMB 1 MG INJ SUBCUT PRN (07:23)
[2018-09-24] MEDS ORDERED: DEXTROSE 50%-WATER 25 GM/50 ML DISP.SYRIN IV PRN ×2 (07:23)
[2018-09-24] MEDS ORDERED: DEXTROSE 40% GEL 15 GM TUBE PO PRN ×2 (07:23)
[2018-09-24] MEDS: BUDESONIDE NEB 0.5 MG/2 ML AMPUL NEB SCH ×2 (08:24→19:46)
[2018-09-24] MEDS: FOLIC ACID 1 MG TABLET PO SCH (09:53)
[2018-09-24] MEDS: DOCUSATE SODIUM 100 MG CAPSULE PO SCH ×2 (09:54→17:23)
[2018-09-24] MEDS: MAGNESIUM OXIDE 400 MG TABLET PO SCH (09:55)
[2018-09-24] MEDS: TAMSULOSIN HCL 0.4 MG CAP.SR.24H PO SCH (09:55)
[2018-09-24] MEDS: FINASTERIDE 5 MG TABLET PO SCH (09:55)
[2018-09-24] MEDS: POLYETHYLENE GLYCOL 3350 POWDER 17 GM/1 PACKET PO SCH ×2 (09:56→17:23)
[2018-09-24] MEDS: PHENOL/SODIUM PHENOLATE 100 SPRAY/177 ML BOTTLE PO PRN ×3 (09:56→17:42)
[2018-09-24] MEDS: MAGNESIUM HYDROXIDE SUSP 30 ML UDCUP PO SCH (09:56)
[2018-09-24] MEDS: ATENOLOL 50 MG TABLET PO SCH (09:56)
--- NOTE | 2018-09-24 20:21 | PDOC PROGRESS REPORT ---
Subjective Progress Note for:: 09/24/18 Subjective:: Patient resting in bed. States with flareup of back pain, but his current pain medication regimen is helping. Sore throat better. Denies fever or chills, no chest pain or shortness of breath or palpitations. No loss of urine or bowel continence. Denies lower extremity weakness. Reason For Visit: INTRACTABLE BACK PAIN, FECAL IMPACTION, Physical Exam Vital Signs: Temp Pulse Resp BP Pulse Ox 98.4 F 67 16 92/68 L 95 09/24/18 12:00 09/24/18 14:46 09/24/18 14:46 09/24/18 12:00 09/24/18 16:10 Intake & Output 09/23/18 09/24/18 09/25/18 06:59 06:59 06:59 Intake Total 2049 818 237 Output Total 1425 1225 350 Balance 624 -407 -113 Weight 81.3 kg 80.5 kg General appearance: PRESENT: no acute distress Head exam: PRESENT: normocephalic Ear exam: PRESENT: normal external ear exam Mouth exam: PRESENT: dry mucosa Throat exam: PRESENT: Minimal erythema, no white patches or pustules. Respiratory exam: PRESENT: clear to auscultation gracy, symmetrical, unlabored. ABSENT: rales, wheezes Cardiovascular exam: PRESENT: RRR, +S1, +S2 GI/Abdominal exam: PRESENT: distended, normal bowel sounds, soft. ABSENT: tenderness Neurological exam: PRESENT: alert, awake, oriented to person, oriented to place, oriented to situation, no lower extremity weakness Psychiatric exam: PRESENT: Normal affect Results Laboratory Results: 09/23/18 04:30 09/22/18 05:00 Impressions: Head CT 09/17/18 01:41 IMPRESSION: No acute intracranial abnormality. Acute sinusitis. TECHNICAL DOCUMENTATION: Quality ID # 436: Final reports with documentation of one or more dose reduction techniques (e.g., Automated exposure control, adjustment of the mA and/or kV according to patient size, use of iterative reconstruction technique) copyright 2011 [employer]- All Rights Reserved Chest X-Ray 09/21/18 00:00 IMPRESSION: Interval development of infiltrate at left lung base. Otherwise, no acute disease. Assessment & Plan - Diagnosis (1) Compression fracture of T9 vertebra Is this a current diagnosis for this admission?: Yes (2) COPD (chronic obstructive pulmonary disease) Is this a current diagnosis for this admission?: Yes (3) Coronary artery disease Is this a current diagnosis for this admission?: Yes (4) Pharyngitis Qualifiers: Pharyngitis/tonsillitis etiology: unspecified etiology Qualified Code(s): J02.9 - Acute pharyngitis, unspecified Is this a current diagnosis for this admission?: Yes Plan: Improved. Continue Chloraseptic spray. Doubt infectious etiology. - Plan Summary Plan Summary: Patient is stable. Will continue pain management at this time. Awaiting kyphoplasty, planed for a.m. CAD and COPD stable without flare or exacerbation or symptomatic at this time. Check PT/PTT in a.m.
[2018-09-24] MEDS: FONDAPARINUX SODIUM INJ 7.5 MG/0.6 ML DISP.SYRIN SUBCUT SCH (21:44)
[2018-09-25] MEDS: IPRATROPIUM/ALBUTEROL 0.5-2.5 MG/3 ML AMPUL NEB SCH ×4 (02:08→20:56)
[2018-09-25] MEDS: OXYCODONE HCL IR 5 MG TABLET PO SCH ×6 (02:08→21:16)
[2018-09-25] MEDS: NORMAL SALINE 1000 ML 1,000 ML IV PRN ×2 (02:59→10:45)
[2018-09-25 05:08] LABS: HEMATOCRIT 33.7 % (37.9-51.0); HEMOGLOBIN 11.3 g/dL (13.5-17.0); MEAN CORPUSCULAR HEMOGLOBIN 32.1 pg (27.0-33.4); MEAN CORPUSCULAR HGB CONC 33.5 g/dL (32.0-36.0); MEAN CORPUSCULAR VOLUME 96 fl (80-97); PLATELET COUNT 254 10^3/uL (150-450); RED BLOOD COUNT 3.52 10^6/uL (4.35-5.55); RED CELL DISTRIBUTION WIDTH 16.9 % (11.5-14.0); WHITE BLOOD COUNT 6.7 10^3/uL (4.0-10.5)
[2018-09-25 05:11] LABS: INTERNATIONAL RATION (INR) 1.08; PROTHROMBIN TIME 14.6 SEC (11.4-15.4)
[2018-09-25 05:12] LABS: PARTIAL THROMBOPLASTIN TIME 42.1 SEC (23.5-35.8)
[2018-09-25 06:04] LABS: ANION GAP 10 (5-19); BLOOD UREA NITROGEN 17 mg/dL (7-20); CALCIUM 8.8 mg/dL (8.4-10.2); CARBON DIOXIDE 23 mmol/L (22-30); CHLORIDE 107 mmol/L (98-107); GLUCOSE 92 mg/dL (75-110); POTASSIUM 4.2 mmol/L (3.6-5.0); SODIUM 139.5 mmol/L (137-145)
[2018-09-25] MEDS: BUDESONIDE NEB 0.5 MG/2 ML AMPUL NEB SCH ×2 (08:58→20:56)
[2018-09-25] MEDS: FINASTERIDE 5 MG TABLET PO SCH (10:40)
[2018-09-25] MEDS: FOLIC ACID 1 MG TABLET PO SCH (10:40)
[2018-09-25] MEDS: MAGNESIUM HYDROXIDE SUSP 30 ML UDCUP PO SCH (10:40)
[2018-09-25] MEDS: MAGNESIUM OXIDE 400 MG TABLET PO SCH (10:40)
[2018-09-25] MEDS: POLYETHYLENE GLYCOL 3350 POWDER 17 GM/1 PACKET PO SCH ×2 (10:41→17:22)
[2018-09-25] MEDS: TAMSULOSIN HCL 0.4 MG CAP.SR.24H PO SCH (10:41)
[2018-09-25] MEDS: DOCUSATE SODIUM 100 MG CAPSULE PO SCH ×2 (10:41→17:22)
[2018-09-25] MEDS: ATENOLOL 50 MG TABLET PO SCH (10:42)
[2018-09-25] MEDS ORDERED: LIDOCAINE 2% INJ-PF (20 MG/ML) 10 ML AMPUL ONE (14:32)
[2018-09-25] MEDS ORDERED: KETAMINE HCL INJ 500 MG/10 ML VIAL ONE (14:32)
[2018-09-25] MEDS ORDERED: MIDAZOLAM 2 MG/2 ML INJ ONE (14:33)
[2018-09-25] MEDS ORDERED: PROPOFOL INJ 200 MG/20 ML VIAL IV ONE (14:33)
[2018-09-25] MEDS: PHENOL/SODIUM PHENOLATE 100 SPRAY/177 ML BOTTLE PO PRN ×2 (15:21→21:16)
[2018-09-25] MEDS ORDERED: LIDOCAINE 1% INJ-PF (10 MG/ML) 30 ML SDV ONE (16:46)
[2018-09-25] MEDS ORDERED: SODIUM BICARBONATE 8.4% INJ 50 MEQ/50 ML DISP.SYRIN ONE (16:47)
[2018-09-25] MEDS ORDERED: CEFAZOLIN INJ 1 GM VIAL ONE (17:06)
[2018-09-25] MEDS ORDERED: FENTANYL CITRATE INJ/PF 100 MCG/2 ML AMPUL ONE (17:10)
[2018-09-25] MEDS ORDERED: MEPERIDINE HCL/PF INJ 25 MG/1 ML DISP.SYRIN IV PRN (17:58)
[2018-09-25] MEDS ORDERED: ONDANSETRON HCL INJ/PF 4 MG/2 ML SDV IV PRN (17:58)
[2018-09-25] MEDS ORDERED: DIPHENHYDRAMINE HCL 50 MG/ML VIAL IV PRN (17:58)
[2018-09-25] MEDS ORDERED: FENTANYL CITRATE INJ/PF 100 MCG/2 ML AMPUL IV PRN ×3 (17:58)
[2018-09-25] MEDS ORDERED: PROMETHAZINE HCL INJ 25 MG/1 ML VIAL IV PRN ×2 (17:58)
[2018-09-25] MEDS ORDERED: OXYCODONE-ACETAMINOPHEN 5-325 MG TABLET PO PRN ×2 (17:58)
--- NOTE | 2018-09-25 18:22 | PDOC PROGRESS REPORT ---
Subjective Progress Note for:: 09/25/18 Subjective:: Patient resting in bed. Still with periods of flareup of back pain, but his current pain medication regimen is helping. Sore throat much better. Denies fever or chills, no chest pain or shortness of breath or palpitations. No loss of urine or bowel continence. Denies lower extremity weakness. Reason For Visit: INTRACTABLE BACK PAIN, FECAL IMPACTION, Physical Exam Vital Signs: Temp Pulse Resp BP Pulse Ox 97.8 F 69 20 130/66 H 92 09/25/18 17:00 09/25/18 17:00 09/25/18 17:00 09/25/18 17:00 09/25/18 17:00 Intake & Output 09/24/18 09/25/18 09/26/18 06:59 06:59 06:59 Intake Total 818 474 971 Output Total 1225 950 400 Balance -407 -029 571 Weight 80.5 kg 76.1 kg General appearance: PRESENT: no acute distress Head exam: PRESENT: normocephalic Ear exam: PRESENT: normal external ear exam Mouth exam: PRESENT: dry mucosa Throat exam: PRESENT: Minimal erythema, no white patches or pustules. Respiratory exam: PRESENT: clear to auscultation gracy, symmetrical, unlabored. ABSENT: rales, wheezes Cardiovascular exam: PRESENT: RRR, +S1, +S2 GI/Abdominal exam: PRESENT: distended, normal bowel sounds, soft. ABSENT: tenderness Neurological exam: PRESENT: alert, awake, oriented to person, oriented to place, oriented to situation, no lower extremity weakness Psychiatric exam: PRESENT: Normal affect Results Laboratory Results: 09/25/18 04:15 09/25/18 04:15 09/25/18 09/25/18 04:15 04:15 WBC 6.7 RBC 3.52 L Hgb 11.3 L Hct 33.7 L MCV 96 MCH 32.1 MCHC 33.5 RDW 16.9 H Plt Count 254 Sodium 139.5 Potassium 4.2 Chloride 107 Carbon Dioxide 23 Anion Gap 10 BUN 17 Creatinine 0.78 Est GFR ( Amer) > 60 Est GFR (Non-Af Amer) > 60 Glucose 92 Calcium 8.8 Impressions: Head CT 09/17/18 01:41 IMPRESSION: No acute intracranial abnormality. Acute sinusitis. TECHNICAL DOCUMENTATION: Quality ID # 436: Final reports with documentation of one or more dose reduction techniques (e.g., Automated exposure control, adjustment of the mA and/or kV according to patient size, use of iterative reconstruction technique) copyright 2011 [employer]- All Rights Reserved Chest X-Ray 09/21/18 00:00 IMPRESSION: Interval development of infiltrate at left lung base. Otherwise, no acute disease. Assessment & Plan - Diagnosis (1) Compression fracture of T9 vertebra Is this a current diagnosis for this admission?: Yes (2) COPD (chronic obstructive pulmonary disease) Is this a current diagnosis for this admission?: Yes (3) Coronary artery disease Is this a current diagnosis for this admission?: Yes (4) Pharyngitis Qualifiers: Pharyngitis/tonsillitis etiology: unspecified etiology Qualified Code(s): J02.9 - Acute pharyngitis, unspecified Is this a current diagnosis for this admission?: Yes - Plan Summary Plan Summary: Patient is stable. Will continue pain management. Awaiting kyphoplasty, planed for today today. CAD and COPD remain stable without flare or exacerbation or symptomatic at this time.
[2018-09-25] MEDS ORDERED: MAG HYDROX/AL HYDROX/SIMETH SUSP 30 ML UDCUP ONE (19:11)
[2018-09-25] MEDS: FONDAPARINUX SODIUM INJ 7.5 MG/0.6 ML DISP.SYRIN SUBCUT SCH (21:18)
--- NOTE | 2018-09-25 23:13 | OPERATIVE REPORT E ---
Operative Report NAME: VIVIAN STINSON : 1945 AGE: 73Y DATE OF SURGERY: 09/25/2018 ROOM: 408 PREOPERATIVE DIAGNOSIS: T9 COMPRESSION FRACTURE WITH INTRACTABLE PAIN. POSTOPERATIVE DIAGNOSIS: T9 COMPRESSION FRACTURE WITH INTRACTABLE PAIN. OPERATIVE PROCEDURE: T9 balloon kyphoplasty under fluoroscopic guidance using bilateral peripedicular approach. SURGEON: MICHEL HOWARD M.D. ANESTHESIA: MAC. COMPLICATIONS: None. BLOOD LOSS: Minimal. INDICATIONS: Intractable pain correlating to the T9 fracture. SPECIMENS REMOVED: None. DESCRIPTION OF PROCEDURE: After obtaining informed consent, advising the patient of the risks and benefits, including serious neurological injury, bleeding, infection, paralysis, aggravation of pain, failure to alleviate pain, allergic reaction, and . He was taken to the operating room and placed comfortably in the prone position. MAC anesthesia was administered. Once assessed to be comfortable visually and verbally he was then prepped with Chlorhexidine. Appropriate drying time was allowed. He was then draped. C-arms were placed strategically in the appropriate location for AP and lateral views. A T9 fracture was identified by counting from the last rib bearing vertebrae as well as correlating this to MRI imaging. Beginning with a right parapedicular approach the skin was anesthetized at the selected location with 1% lidocaine and bicarb. The subcutaneous tissues and periosteal tissues were anesthetized as well. A small incision was then made at the selected site. The Express trocar was then advanced under fluoroscopic guidance penetrating the parapedicular region. Multiple images were taken in the AP and lateral views to assure correct location. The vertebral body was penetrated as the medial wall of the pedicle was passed. The drill was then placed and advanced into the anterior region of the vertebral body near the central location as seen in the AP view. The drill was removed and the balloon was placed without difficulty. This was expanded with ease causing some endplate elevation of the superior endplate. This procedure was then repeated as described on the left with the same results. Once suitable inflation of the balloons occurred the balloons were deflated and filling began on the left side with a methylmethacrylate monomer polymer cement. A total of 3 mL was injected into the left. It should be noted that the cement spread on both sides quite well nearly equally. The filler was removed from the left and a stylet was placed and filling was then initiated on the right for a total of 0.6 additional mL, giving a total volume of 3.6 mL. Very good bilateral filling was noted with some endplate elevation of the superior endplate and very little retrograde spreading within the vertebral body and no extravasation or *------* of cement into the disk or the vertebral canal was noted. Once filling was felt to be satisfactory the filler tubes removed. The stylet was placed in the right trocar. Drying time was allowed for the cement to harden. All instrumentation was then removed. The patient was then taken to the PACU for further postoperative care after sterile dressings were placed. He remained neurologically and hemodynamically intact. DICTATING PHYSICIAN: MICHEL HOWARD M.D. [id number] PHY#: [id number] ID: [id number] JOB#: [id number] ACCT: [id number] cc:MICHEL HOWARD M.D. >
[2018-09-25] MEDS: CEFAZOLIN 1 GM/D5W RTU 1 GM/50 ML RTUPB IV SCH (23:31)
[2018-09-26] MEDS: IPRATROPIUM/ALBUTEROL 0.5-2.5 MG/3 ML AMPUL NEB SCH ×3 (02:23→13:56)
[2018-09-26] MEDS: OXYCODONE HCL IR 5 MG TABLET PO SCH ×4 (03:00→14:11)
[2018-09-26] MEDS: CEFAZOLIN 1 GM/D5W RTU 1 GM/50 ML RTUPB IV SCH ×2 (06:06→11:55)
[2018-09-26] MEDS: NORMAL SALINE 1000 ML 1,000 ML IV PRN (06:07)
[2018-09-26] MEDS: BUDESONIDE NEB 0.5 MG/2 ML AMPUL NEB SCH (07:54)
[2018-09-26] MEDS: PHENOL/SODIUM PHENOLATE 100 SPRAY/177 ML BOTTLE PO PRN (09:04)
[2018-09-26] MEDS: DOCUSATE SODIUM 100 MG CAPSULE PO SCH (09:05)
[2018-09-26] MEDS: ATENOLOL 50 MG TABLET PO SCH (09:05)
[2018-09-26] MEDS: FINASTERIDE 5 MG TABLET PO SCH (09:05)
[2018-09-26] MEDS: MAGNESIUM HYDROXIDE SUSP 30 ML UDCUP PO SCH (09:05)
[2018-09-26] MEDS: MAGNESIUM OXIDE 400 MG TABLET PO SCH (09:05)
[2018-09-26] MEDS: FOLIC ACID 1 MG TABLET PO SCH (09:06)
[2018-09-26] MEDS: TAMSULOSIN HCL 0.4 MG CAP.SR.24H PO SCH (09:07)
[2018-09-26] MEDS: POLYETHYLENE GLYCOL 3350 POWDER 17 GM/1 PACKET PO SCH (09:07)
--- NOTE | 2018-09-26 09:44 | RADIOLOGY REPORT (SQ) ---
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 FLUOROSCOPY TIME: 1.9 minutes 35 images saved to PACS. TECHNIQUE: Intra-operative images acquired during surgical procedure to evaluate progress. NUMBER OF IMAGES: 35 LIMITATIONS: None. FINDINGS: Selected images from kyphoplasty performed by Dr. Gregorio. IMPRESSION: IMAGE(S) OBTAINED DURING PROCEDURE. COMMENT: Quality ID 145: Final reports for procedures using fluoroscopy that document radiation exp osure indices, or exposure time and number of fluorographic images (if radiation exposure indices are not available) Please consult full operative report of the attending physician for description of the procedure. TECHNICAL DOCUMENTATION: JOB ID: [id number] [employer]- All Rights Reserved Reading location - IP/workstation name: [email or web address]
--- NOTE | 2018-09-26 09:44 | RADIOLOGY REPORT (SQ) ---
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 FLUOROSCOPY TIME: 1.9 minutes 35 images saved to PACS. TECHNIQUE: Intra-operative images acquired during surgical procedure to evaluate progress. NUMBER OF IMAGES: 35 LIMITATIONS: None. FINDINGS: Selected images from kyphoplasty performed by Dr. Gregorio. IMPRESSION: IMAGE(S) OBTAINED DURING PROCEDURE. COMMENT: Quality ID 145: Final reports for procedures using fluoroscopy that document radiation exp osure indices, or exposure time and number of fluorographic images (if radiation exposure indices are not available) Please consult full operative report of the attending physician for description of the procedure. TECHNICAL DOCUMENTATION: JOB ID: [id number] [employer]- All Rights Reserved Reading location - IP/workstation name: [email or web address]
--- NOTE | 2018-09-26 13:40 | PDOC DISCHARGE SUMMARY ---
General - Admit/Disc Date/PCP Admission Date/Primary Care Provider: 09/17/18 03:12 FATUMA SIMMONS DO Discharge Date: 09/26/18 - Discharge Diagnosis (1) Compression fracture of T9 vertebra Is this a current diagnosis for this admission?: Yes (2) COPD (chronic obstructive pulmonary disease) Is this a current diagnosis for this admission?: Yes (3) Coronary artery disease Is this a current diagnosis for this admission?: Yes (4) Pharyngitis Is this a current diagnosis for this admission?: Yes (5) Altered mental status Is this a current diagnosis for this admission?: Yes Summary: Resolved (6) Hyperkalemia Is this a current diagnosis for this admission?: Yes Summary: Resolved - Additional Information Resuscitation Status: Full Code Prescriptions: Pregabalin [Lyrica 25 mg Capsule] 25 mg PO TID 30 Days #90 capsule Home Medications: Atenolol [Tenormin 50 mg Tablet] 50 mg PO DAILY 09/17/18 Baclofen [Baclofen 20 mg Tablet] 20 mg PO QIDP PRN 09/17/18 Finasteride [Proscar] 5 mg PO DAILY 09/17/18 Multivit-Min/FA/Lycopen/Lutein [Adults 50 Plus Multivitamin Tb] 1 tab PO DAILY 09/17/18 Polyethylene Glycol 3350 [Miralax Powder 17 gm/Packet] 1 packet PO DAILY 09/17/18 Prednisone [Deltasone 5 mg Tablet] 5 mg PO DAILY 09/17/18 Simvastatin [Zocor 80 mg Tablet] 80 mg PO QHS 09/17/18 Tamsulosin HCl [Flomax 0.4 mg Cap.sr] 0.8 mg PO DAILY 09/17/18 Albuterol Sulfate [Proair HFA Inhalation Aerosol 8.5 gm MDI] 2 puff IH Q6HP PRN 09/21/18 Fluticasone/Vilanterol [Breo Ellipta 100-25 Mcg INH] 1 each IH DAILY 09/21/18 Acetaminophen [Tylenol 325 mg Tablet] 650 mg PO Q6HP PRN tablet 09/26/18 Pregabalin [Lyrica 25 mg Capsule] 25 mg PO TID 30 Days #90 capsule 09/26/18 History of Present Illness History of Present Illness: Patient was admitted after presentation as in HPI below: "VIVIAN STINSON is a 73 year old male with a past medical history of COPD, coronary artery disease on Plavix, BPH and acute T5 compression fracture With intractable pain 5 days ago. He was placed on Lyrica and oxycodone. He developed abdominal pain with fecal impaction prompting emergency room evaluation where he was partially manually disimpacted, discharged with bowel regiment and recommendation of avoiding narcotics. With intractable back pain he saw orthopedic surgeon Dr borrero placed on baclofen and oxycodone 2 days ago. Today he is brought in by his son with confusion and constipation. In the emergency room he is found to have leukocytosis, hyperkalemia, altered mental status and a left lower quadrant pain without guarding. He is referred to the hospitalist for admission." Hospital Course Hospital Course: Patient was admitted. His oxycodone was reduced and baclofen discontinued. He was treated with enema for fecal impaction. He had kyphoplasty done yesterday, 09/25/18 and he is doing better. No lower extremity swelling, no neuro compromise, pain is controlled. He feels ready to go home. His altered mental status, which was due to opiates, has completely normalized, he is alert and oriented x3. He is being discharged in stable condition. He is to follow-up with Dr. Linares for the kyphoplasty follow-up within 1 week. He is also to follow-up with his primary care physician in 1 week. Physical Exam Vital Signs: Temp Pulse Resp BP Pulse Ox 97.4 F 73 20 116/81 92 09/26/18 12:20 09/26/18 12:20 09/26/18 12:20 09/26/18 12:20 09/26/18 12:20 Intake & Output 09/25/18 09/26/18 09/27/18 06:59 06:59 06:59 Intake Total 474 3446 50 Output Total 950 800 Balance -476 2646 50 Weight 76.1 kg 81.2 kg General appearance: PRESENT: no acute distress Head exam: PRESENT: normocephalic Mouth exam: PRESENT: dry mucosa Throat exam: PRESENT: Minimal erythema, no white patches or pustules. Respiratory exam: PRESENT: clear to auscultation gracy, symmetrical, unlabored. ABSENT: rales, wheezes Cardiovascular exam: PRESENT: RRR, +S1, +S2 GI/Abdominal exam: PRESENT: normal bowel sounds, soft. ABSENT: tenderness Neurological exam: PRESENT: alert, awake, oriented to person, oriented to place, oriented to situation, no lower extremity weakness Psychiatric exam: PRESENT: Normal affect Results Laboratory Results: 09/25/18 04:15 09/25/18 04:15 Impressions: Head CT 09/17/18 01:41 IMPRESSION: No acute intracranial abnormality. Acute sinusitis. TECHNICAL DOCUMENTATION: Quality ID # [id number]: Final reports with documentation of one or more dose reduction techniques (e.g., Automated exposure control, adjustment of the mA and/or kV according to patient size, use of iterative reconstruction technique) copyright 2011 [employer]- All Rights Reserved Chest X-Ray 09/21/18 00:00 IMPRESSION: Interval development of infiltrate at left lung base. Otherwise, no acute disease. Fluoroscopy 09/25/18 00:00 IMPRESSION: IMAGE(S) OBTAINED DURING PROCEDURE. Thoracic Spine X-Ray 09/25/18 00:00 IMPRESSION: IMAGE(S) OBTAINED DURING PROCEDURE. Qualifiers - * PATIENT BEING DISCHARGED WITH ANY OF THE FOLLOWING DIAGNOSIS: No Plan Time Spent: Greater than 30 Minutes
[2018-09-26 16:44] VITALS: BP 138/73
== END 2018-09-26 17:03 | disposition home or self-care (01) | DRG 515 ==
LOC: ER 01:20 → EH 03:12 → OBSVTOIN 03:12 → 3N 07:50 → 4N 09-18 13:08
PROVIDERS: ADMIT Internal Medicine; ATTEND Internal Medicine
PROC: 0PU43JZ Supplement Thoracic Vertebra with Synthetic Substitute, Percutaneous Approach (ICD-10-PCS; 2018-09-25)
PROC: 0PS43ZZ Reposition Thoracic Vertebra, Percutaneous Approach (ICD-10-PCS; principal; 2018-09-25 15:00)
DX: M80.88XA Other osteoporosis with current pathological fracture, vertebra(e), initial encounter for fracture (principal); G93.41 Metabolic encephalopathy; J44.9 Chronic obstructive pulmonary disease, unspecified; I25.10 Atherosclerotic heart disease of native coronary artery without angina pectoris; E87.5 Hyperkalemia; K56.41 Fecal impaction; N40.0 Benign prostatic hyperplasia without lower urinary tract symptoms; R41.82 Altered mental status, unspecified; I25.2 Old myocardial infarction; Z79.01 Long term (current) use of anticoagulants; Z79.82 Long term (current) use of aspirin; Z79.1 Long term (current) use of non-steroidal anti-inflammatories (NSAID); Z79.52 Long term (current) use of systemic steroids; Z79.899 Other long term (current) drug therapy; J02.9 Acute pharyngitis, unspecified
CPT/HCPCS: 01936; 36415; 51702; 70450; 71045; 72070; 72146; 74018; 80048; 80053; 80307; 81001; 82140; 83735; 85025; 85027; 85610; 85730; 93005; 93010; 94640; 96360; 99285; C1713; G8978-GP; G8979-GP; J0690; J1644; J1650; J1652; J2250; J2704; J3010; J3490; J7030; J7040; J7620; Q9966

== ENCOUNTER 2018-10-16 21:13 | Emergency (ER) | payer MEDICARE ==
--- NOTE | 2018-10-16 22:13 | RADIOLOGY REPORT (SQ) ---
XR CHEST 1 VIEW HISTORY: Sepsis COMPARISON: 09/21/2018 FINDINGS: The heart size is normal. There are unchanged fibrotic changes at the lung apices. No consolidation is seen. No pleural effusions or pneumothorax. No acute bony findings. IMPRESSION: 1. No evidence of acute cardiopulmonary disease. 2. Chronic scarring at the lung apices.
[2018-10-16 22:37] LABS: VENOUS BLOOD BASE EXCESS 0.4 mmol/L; VENOUS BLOOD HCO3 26.3 mmol/L (20-32); VENOUS BLOOD PCO2 47.1 mmHg (35-63); VENOUS BLOOD PH 7.36 (7.30-7.42)
[2018-10-16 22:39] LABS: HEMATOCRIT 39.5 % (37.9-51.0); HEMOGLOBIN 13.3 g/dL (13.5-17.0); MEAN CORPUSCULAR HEMOGLOBIN 32.1 pg (27.0-33.4); MEAN CORPUSCULAR HGB CONC 33.8 g/dL (32.0-36.0); MEAN CORPUSCULAR VOLUME 95 fl (80-97); PLATELET COUNT 127 10^3/uL (150-450); PROTHROMBIN TIME 14.8 SEC (11.4-15.4); RED BLOOD COUNT 4.16 10^6/uL (4.35-5.55); RED CELL DISTRIBUTION WIDTH 20.1 % (11.5-14.0); WHITE BLOOD COUNT 8.3 10^3/uL (4.0-10.5)
[2018-10-16 22:59] LABS: ALANINE AMINOTRANSFERASE 31 U/L (21-72); ALBUMIN 3.7 g/dL (3.5-5.0); ALKALINE PHOSPHATASE 96 U/L (38-126); ANION GAP 11 (5-19); ASPARTATE AMINO TRANSFERASE 34 U/L (17-59); BILIRUBIN,DIRECT 0.6 mg/dL (0.0-0.4); BILIRUBIN,TOTAL 1.2 mg/dL (0.2-1.3); BLOOD UREA NITROGEN 37 mg/dL (7-20); CALCIUM 9.7 mg/dL (8.4-10.2); CARBON DIOXIDE 22 mmol/L (22-30); CHLORIDE 107 mmol/L (98-107); GLUCOSE 106 mg/dL (75-110); SODIUM 139.5 mmol/L (137-145); TOTAL PROTEIN 6.5 g/dL (6.3-8.2)
[2018-10-16 23:08] LABS: ABSOLUTE LYMPHOCYTES# (MANUAL) 0.1 10^3/uL (0.5-4.7); ABSOLUTE MONOCYTES # (MANUAL) 0.3 10^3/uL (0.1-1.4); ABSOLUTE NEUTROPHILS# (MANUAL) 7.8 10^3/uL (1.7-8.2); BASOPHILS % (MANUAL) 0 % (0-2); EOSINOPHILS % (MANUAL) 1 % (0-6); LYMPHOCYTES % (MANUAL) 1 % (13-45); MONOCYTES % (MANUAL) 4 % (3-13); PLATELET COMMENT DECREASED; SEGMENTED NEUTROPHILS % (MAN) 94 % (42-78); TOTAL CELLS COUNTED 100
[2018-10-17] MEDS ORDERED: DEXTROSE 5%-NORMAL SALINE 1,000 ML IV ONE ×2 (00:27→07:10)
--- NOTE | 2018-10-17 00:30 | ER Document Report ---
ED General - General Information source: Patient TRAVEL OUTSIDE OF THE [place] IN LAST 30 DAYS: No <LORI BRIAN - Last Filed: 10/17/18 00:41> <JUAQUIN ESTEBAN - Last Filed: 10/17/18 07:13> - General Chief Complaint: Abdominal Pain Stated Complaint: WEAKNESS Time Seen by Provider: 10/17/18 00:07 Notes: Patient is a 73 year old male with CAD, COPD presents to the emergency department accompanied by son complaining of lower abdominal pain, general malaise and weakness onset 1 week ago. Patient states he was recently admitted to the hospital on 2017 for an acute T5 compression fracture and had a subsequent Kyphoplasty. Son at bedside states after discharge from the hospital the patient did "bad" for the 1st week and "pretty good" the following week. He states for the last 4-5 days, the patient has had decreased appetite, general malaise and weakness. Patient denies any fevers or allergies. Patient's PCP is Dr. Chapman. (LORI BRIAN) - Related Data Allergies/Adverse Reactions: No Known Allergies Allergy (Verified 06/20/18 12:38) Past Medical History - General Information source: Patient, Relative - Social History Smoking Status: Former Smoker Cigarette use (# per day): No Chew tobacco use (# tins/day): No Smoking Education Provided: No Frequency of alcohol use: None Family History: CAD, COPD, Hypertension Patient has suicidal ideation: No Patient has homicidal ideation: No - Past Medical History Cardiac Medical History: Reports: Hx Heart Attack Pulmonary Medical History: Reports: Hx Bronchitis, Hx COPD, Hx Pneumonia Renal/ Medical History: Reports: Hx Kidney Stones GI Medical History: Reports: Hx Gastroesophageal Reflux Disease Musculoskeletal Medical History: Reports Hx Arthritis Past Surgical History: Reports: Hx Cardiac Catheterization, Hx Cholecystectomy, Hx Coronary Stent, Hx Orthopedic Surgery - Kyphoplasty-08/2018, Hx Vascular Surgery - Abdominal aortic aneurysm and bilateral femoropopliteal graft - Immunizations Hx Pneumococcal Vaccination: 09/29/14 <LORI BRIAN - Last Filed: 10/17/18 00:41> Review of Systems - Review of Systems Constitutional: See HPI, Malaise, Weakness EENT: No symptoms reported Cardiovascular: No symptoms reported Respiratory: No symptoms reported Gastrointestinal: See HPI, Abdominal pain Genitourinary: No symptoms reported Male Genitourinary: No symptoms reported Musculoskeletal: No symptoms reported Skin: No symptoms reported Hematologic/Lymphatic: No symptoms reported Neurological/Psychological: No symptoms reported -: Yes All other systems reviewed and negative <ROCLORI CHURCH - Last Filed: 10/17/18 00:41> Physical Exam <LORI BRIAN - Last Filed: 10/17/18 00:41> - Vital signs Vitals: Resp BP 15 105/76 10/16/18 21:24 10/16/18 21:24 - Notes Notes: GENERAL: Alert, interacts well, a few 100 mL of urine in a urinal at bedside which is quite dark in appearance. No acute distress. HEAD: Normocephalic, atraumatic. EYES: Pupils equal, round, and reactive to light. Extraocular movements intact. ENT: Oral mucosa moist, tongue midline. NECK: Full range of motion. Supple. Trachea midline. LUNGS: Clear to auscultation bilaterally, no wheezes, rales, or rhonchi. No respiratory distress. HEART: Regular rate and rhythm. No murmurs, gallops, or rubs. Well healed incision consistent with history of triple bypass. ABDOMEN: Soft, lower abdominal tenderness to palpation. Non-distended. Bowel sounds present in all 4 quadrants. EXTREMITIES: Moves all 4 extremities spontaneously. No edema, radial and dorsalis pedis pulses 2/4 bilaterally. No cyanosis. NEUROLOGICAL: Alert and oriented x3. Normal speech. PSYCH: Normal affect, normal mood. SKIN: Warm, dry, normal turgor. No rashes or lesions noted. (ROCLORI) Course - Laboratory Result Diagrams: 10/16/18 22:20 10/16/18 22:20 <LORI BRIAN - Last Filed: 10/17/18 00:41> - Laboratory Result Diagrams: 10/16/18 22:20 10/16/18 22:20 - Diagnostic Test Radiology reviewed: Reports reviewed - CT scan shows a 9 x 7 x 6 mm left mid ureteral stone at the L4 inferior endplate with mild to moderate left hydronephrosis and hydroureter. There is also a small right lower lobar atelectasis or infiltrate. There is an infrarenal abdominal aortic aneurysm measuring 3.0 x 2.6 cm. 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 There is chronic moderate to severe T12 and mild L5 vertebral compression deformities. - EKG Interpretation by Me EKG shows normal: Sinus rhythm, [place], Intervals, QRS Complexes, ST-T Waves Rate: Normal - 61 Rhythm: NSR - Consults Dr. Campoverde Time consulted: 02:28 Consulted provider: other - Requests a CT scan abdomen pelvis to exclude an obstructive stone or hydronephrosis prior to admitting to this facility. Dr. Flood Time consulted: 05:38 Consulted provider: other - Will consult on the patient when he is admitted to [facility]. - Transfer of Care Care transferred to following provider: Dr. Arriaga <JUAQUIN ESTEBAN - Last Filed: 10/17/18 07:13> - Re-evaluation Re-evalutation: 10/17/18 03:46 Patient has been shivering for the last hour or more and piling on blankets. Difficult to tell if this is due to his temperature going up or due to the cool IV fluids. He was given Tylenol about 30 minutes ago. At this time the patient is vomiting and still shivering. We have been unable to get the CT scan requested by the admitting hospitalist due to the patient's shivering. 10/17/18 06:50 After I spoke with Dr. Flood, I asked the transfer center to page the hospitalist investor relations specialist. I never heard from the hospitalist, however now over an hour later, I am told by her receptionist secretary that Dr. Flood will be the accepting and that Raul in the transfer center confirmed that he spoke with all parties involved and that the accepting would be the urologist, not the hospitalist. 10/17/18 07:11 I was just informed that transport would not be available until about 12:00 noon today. He will be placed on IV maintenance fluid, as he is to remain n.p.o. (JUAQUIN ESTEBAN) - Vital Signs Vital signs: Temp Pulse Resp BP Pulse Ox 99.4 F 18 110/79 98 10/17/18 05:49 10/17/18 00:01 10/17/18 00:00 10/17/18 00:01 - Laboratory Laboratory results interpreted by me: 10/16/18 10/16/18 10/17/18 22:20 22:20 00:25 RBC 4.16 L Hgb 13.3 L RDW 20.1 H Plt Count 127 L Seg Neuts % (Manual) 94 H Lymphocytes % (Manual) 1 L Abs Lymphs (Manual) 0.1 L BUN 37 H Creatinine 1.66 H Est GFR ( Amer) 49 L Est GFR (Non-Af Amer) 41 L Direct Bilirubin 0.6 H Urine Protein 100 H Urine Blood SMALL H Urine Urobilinogen 4.0 H Ur Leukocyte Esterase LARGE H - Transfer of Care Notes: 10/17/18 07:13 Patient is on maintenance IV fluids and is n.p.o. He is being transported to [facility], but transportation will not be available until about 12:00 noon today. (JUAQUIN ESTEBAN) Discharge <LORI BRIAN - Last Filed: 10/17/18 00:41> <JUAQUIN ESTEBAN - Last Filed: 10/17/18 07:13> - Discharge Clinical Impression: Dehydration, Ureteral stone with hydronephrosis Urinary tract infection Qualifiers: Urinary tract infection type: site unspecified Hematuria presence: with hematuria Qualified Code(s): N39.0 - Urinary tract infection, site not specified Acute renal failure Qualifiers: Acute renal failure type: unspecified Qualified Code(s): N17.9 - Acute kidney failure, unspecified Pneumonia Qualifiers: Pneumonia type: due to unspecified organism Laterality: right Lung location: lower lobe of lung Qualified Code(s): J18.1 - Lobar pneumonia, unspecified organism Condition: Stable Disposition: Critical access hospital Referrals: ERIC CHAPMAN DO [Primary Care Provider] - Follow up as needed Scribe Attestation: 10/17/18 03:17 I personally performed the services described in the documentation, reviewed and edited the documentation which was dictated to the scribe in my presence, and it accurately records my words and actions. (JUAQUIN ESTEBAN) Scribe Documentation - Scribe Written by Scribe:: Amilcar Ness, 10/17/2017 00:40 acting as scribe for :: Imelda <LORI BRIAN - Last Filed: 10/17/18 00:41>
[2018-10-17 00:43] LABS: APPEARANCE,URINE CLOUDY; BILIRUBIN,URINE NEGATIVE (NEGATIVE); COLOR,URINE AMBER; GLUCOSE, URINE NEGATIVE (NEGATIVE); KETONES,URINE NEGATIVE (NEGATIVE); LEUKOCYTE ESTERASE,URINE LARGE (NEGATIVE); NITRITE,URINE NEGATIVE (NEGATIVE); PROTEIN,URINE 100 mg/dL (NEGATIVE); URINE SPECIFIC GRAVITY 1.018
[2018-10-17] MEDS ORDERED: LEVOFLOXACIN 750 MG/D5W RTU 750 MG/150 ML RTUPB IV ONE (01:53)
[2018-10-17] MEDS ORDERED: NORMAL SALINE 1000 ML 1,000 ML IV ONE (01:55)
[2018-10-17] MEDS ORDERED: ACETAMINOPHEN 325 MG TABLET PO ONE (03:13)
[2018-10-17] MEDS ORDERED: ONDANSETRON HCL INJ/PF 4 MG/2 ML SDV IV ONE (03:45)
[2018-10-17] MEDS ORDERED: ONDANSETRON HCL INJ/PF 4 MG/2 ML SDV ONE (03:45)
--- NOTE | 2018-10-17 04:38 | RADIOLOGY REPORT (SQ) ---
EXAM DESCRIPTION: CT ABDOMEN WITHOUT IV CONTRAST COMPLETED DATE/TME: 10/17/2018 02:31 CLINICAL HISTORY: 73 years Male, UTI with hematuria, known renal stones Comparison: None. Technique: No contrast. Coronal and sagittal reformat. This exam was performed according to our departmental dose-optimization program, which includes automated exposure control, adjustment of the mA and/or kV according to patient size and/or use of iterative reconstruction technique.[facility]: Dose Right [facility]: CareDose [facility]: Dose Right [facility]: Teradose 4D [facility]: I [place] LIMITATIONS: None Findings: 0.9 x 0.7 x 0.6 cm left mid ureteral stone of 1034 Hounsfield units at the level of the L4 inferior endplate with mild/moderate left hydronephrosis/hydroureter. Additional bilateral nephrolithiasis and/or calcified atherosclerosis measures up to 1.1 cm on the left. Infrarenal abdominal aortic aneurysm measures 3.0 x 2.6 cm transverse diameters. Follow-up recommended in three years. 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 Right femoral arterial stent material. Surgical clips associated with the left femoral artery. 1.8 cm aneurysmal left femoral artery. Small wedge-shaped patchy opacity of the right lower lobe at the posterior sulcus. Lobular contour of the liver could indicate cirrhosis. Cholecystectomy. Coronary arterial calcification/stent. Atherosclerotic vascular disease. Old granulomatous disease. Moderate severe T12 anterior vertebral compression deformity. Minimal L5 vertebral height loss. Unenhanced lower thorax, abdominopelvic structures, and musculoskeleton appear otherwise grossly unremarkable. Impression: 1. A 0.9 cm left mid ureteral stone with low-grade obstruction. 2. Infrarenal abdominal aortic aneurysm measures 3.0 x 2.6 cm transverse diameters. Follow-up recommended in three years. 3. 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 4. Small right lower lobar atelectasis/pneumonia. 5. Chronic moderate to severe T12 and mild L5 vertebral compression deformities.
[2018-10-17] MEDS ORDERED: IPRATROPIUM/ALBUTEROL 0.5-2.5 MG/3 ML AMPUL NEB ONE (05:26)
[2018-10-17] MEDS ORDERED: FENTANYL CITRATE INJ/PF 100 MCG/2 ML AMPUL IV ONE ×2 (08:54→11:33)
[2018-10-17 09:43] VITALS: BP 116/74
--- NOTE | 2018-10-17 18:37 | EKG REPORT ---
SEVERITY:- NORMAL ECG - SINUS RHYTHM : Confirmed by: Marie Proctor 17-Oct-2018 18:36:30
== END 2018-10-17 12:32 | disposition short-term general hospital (02) ==
LOC: ER 21:13
DX: N13.2 Hydronephrosis with renal and ureteral calculous obstruction (principal); N39.0 Urinary tract infection, site not specified; J18.1 Lobar pneumonia, unspecified organism; N17.9 Acute kidney failure, unspecified; E86.0 Dehydration; R10.9 Unspecified abdominal pain; R53.1 Weakness; R10.30 Lower abdominal pain, unspecified; J44.9 Chronic obstructive pulmonary disease, unspecified; I25.2 Old myocardial infarction; Z87.442 Personal history of urinary calculi; Z90.49 Acquired absence of other specified parts of digestive tract
CPT/HCPCS: 93005; 36415; 87040; 87086; 85025; 85610; 87088; 80053; 81001; 82803; 83605; 71045; 76380; 93010; A9270 ×2; J3010; J2405; J7030; J1956; 87186; J7620

== ENCOUNTER 2018-11-20 01:07 | Emergency (ER) | payer MEDICARE ==
--- NOTE | 2018-11-20 02:49 | RADIOLOGY REPORT (SQ) ---
EXAM DESCRIPTION: XR ABDOMEN 1 VIEW (KUB) COMPLETED DATE/TME: 11/20/2018 02:16 CLINICAL HISTORY: 73 years, Male, constipation COMPARISON: None. NUMBER OF VIEWS: 1 TECHNIQUE: AP abdomen LIMITATIONS: None. FINDINGS: Evaluation for free air limited on a supine view. Osteopenia with vascular calcifications. Surgical clips in the right upper quadrant and left inguinal region. Endovascular stent graft projects in the right femoral region. Left ureteral stent in place. Approximately 6.9 mm calculus projects over the course of the proximal left ureter. Large amount of stool and bowel gas. Questionable left renal calculus measuring 7.7 mm. IMPRESSION: 6.9 mm proximal left ureteral calculus. Left ureteral stent in place. Possible left renal calculus. Large amount of stool and bowel gas copyright 2010 [employer]- All Rights Reserved
[2018-11-20 03:08] LABS: HEMATOCRIT 34.1 % (37.9-51.0); HEMOGLOBIN 11.4 g/dL (13.5-17.0); MEAN CORPUSCULAR HEMOGLOBIN 30.8 pg (27.0-33.4); MEAN CORPUSCULAR HGB CONC 33.5 g/dL (32.0-36.0); MEAN CORPUSCULAR VOLUME 92 fl (80-97); PLATELET COUNT 215 10^3/uL (150-450); RED CELL DISTRIBUTION WIDTH 18.8 % (11.5-14.0); WHITE BLOOD COUNT 16.1 10^3/uL (4.0-10.5)
[2018-11-20 03:12] LABS: ALANINE AMINOTRANSFERASE 19 U/L (21-72); ALBUMIN 3.2 g/dL (3.5-5.0); ALKALINE PHOSPHATASE 98 U/L (38-126); ANION GAP 7 (5-19); ASPARTATE AMINO TRANSFERASE 23 U/L (17-59); BILIRUBIN,DIRECT 1.2 mg/dL (0.0-0.4); BILIRUBIN,TOTAL 3.4 mg/dL (0.2-1.3); BLOOD UREA NITROGEN 13 mg/dL (7-20); CALCIUM 9.2 mg/dL (8.4-10.2); CARBON DIOXIDE 30 mmol/L (22-30); CHLORIDE 100 mmol/L (98-107); GLUCOSE 107 mg/dL (75-110); POTASSIUM 4.1 mmol/L (3.6-5.0); TOTAL PROTEIN 6.4 g/dL (6.3-8.2)
[2018-11-20] MEDS ORDERED: MORPHINE SULFATE 10 MG/ML INJ IV ONE (03:13)
--- NOTE | 2018-11-20 03:19 | ER Document Report ---
ED General - General Chief Complaint: Constipation Stated Complaint: RECTAL PAIN Time Seen by Provider: 11/20/18 01:44 Primary Care Provider: ERIC UGARTE DO [Primary Care Provider] - Follow up as needed Mode of Arrival: Medic Information source: Relative TRAVEL OUTSIDE OF THE [place] IN LAST 30 DAYS: No - HPI Patient complains to provider of: Abdominal pain, rectal pain, constipation Onset: Other - Past couple of days Onset/Duration: Persistent Quality of pain: Sharp Severity: Severe Associated symptoms: denies: Chills, Fever Exacerbated by: Movement, Other - Palpation Relieved by: Denies Similar symptoms previously: No Recently seen / treated by doctor: No Notes: Patient is a 73-year-[facility] severe abdominal pain and constipation and rectal pain. He was just discharged yesterday from [facility]. He was originally transferred over there because of complicated kidney stone. During his stay there he was stented for his kidney stone. 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 He was put on anticoagulation in the hospital there. Toward the end of his admission he was complaining of abdominal pain and rectal pain and his son feels like they just disregarded it. He does not have a fever or chills. He is not vomiting. - Related Data Allergies/Adverse Reactions: codeine Allergy (Verified 11/20/18 01:25) Past Medical History - General Information source: Patient - Social History Smoking Status: Unknown if Ever Smoked Family History: Reviewed & Not Pertinent, CAD, COPD, Hypertension Patient has suicidal ideation: No Patient has homicidal ideation: No - Past Medical History Cardiac Medical History: Reports: Hx Heart Attack Denies: Hx Congestive Heart Failure, Hx Hypertension Pulmonary Medical History: Reports: Hx Bronchitis, Hx COPD, Hx Pneumonia Denies: Hx Asthma, Hx Tuberculosis Neurological Medical History: Denies: Hx Seizures Renal/ Medical History: Reports: Hx Kidney Stones. Denies: Hx Benign Prostati c Hyperplasia, Hx End Stage Renal Disease, Hx Peritoneal Dialysis GI Medical History: Reports: Hx Gastroesophageal Reflux Disease. Denies: Hx Cirrhosis, Hx Ulcer Musculoskeletal Medical History: Reports Hx Arthritis, Denies Hx Multiple Sclerosis Psychiatric Medical History: Denies: Hx Bipolar Disorder, Hx Depression, Hx Schizophrenia Past Surgical History: Reports: Hx Cardiac Catheterization, Hx Cholecystectomy, Hx Coronary Stent, Hx Orthopedic Surgery - Kyphoplasty-08/2018, Hx Vascular Surgery - Abdominal aortic aneurysm and bilateral femoropopliteal graft - Immunizations Hx Pneumococcal Vaccination: 09/29/14 Review of Systems - Review of Systems Notes: Constitutional: No fevers. No chills. EENT: No eye redness. No eye pain. No ear pain. No sore throat. Cardiovascular: No chest pain. No palpitations. Respiratory: No cough. No shortness of breath. No respiratory distress. Gastrointestinal: Abdominal pain and constipation. No nausea vomiting or diarrhea Genitourinary: Atraumatic. No lesions. No pain. No discharge. Musculoskeletal: Atraumatic. No swelling. No deformities. Skin: Positive for extensive bruising Lymphatic: No swollen lymph nodes. Neurologic: No headache. No syncope. Psychiatric: No suicidal or homicidal ideation. Physical Exam - Vital signs Vitals: Temp Pulse Resp BP Pulse Ox 97.7 F 76 22 H 131/80 H 94 11/20/18 01:13 11/20/18 01:13 11/20/18 01:13 11/20/18 01:13 11/20/18 01:13 - Notes Notes: General: Pale, ill-appearing Cardiac: Well-perfused. Regular rate and rhythm. No murmurs, rubs, or gallops. Pulmonary: No respiratory distress. No cyanosis. Bilateral lung fiels are clear to auscultation. Abdominal: Abdomen is diffusely tender to palpate. Guarding is present. No rebound tenderness is present. Bowel sounds are present in all 4 quadrants. Rectal exam reveals good rectal tone. There is a large amount of soft stool in the rectum. Guaiac is positive HEENT: Head is atraumatic. Conjunctivae not reddened. No tearing. PERRL. EOMI. Orbits atraumatic. No periorbital swelling or erythema. Oropharynx is without erythema, swelling, or exudates. Neck: Supple. No adenopathy. No meningismus. Dermatologic: Extensive ecchymosis down the left side of the back and flank. Also left buttock Chest: Atraumatic. No chest wall tenderness to palpation. Musculoskeletal: Moves all extremities well. No range of motion deficits. no muscular or joint tenderness. No paraspinal muscle tenderness. no midline spinal tenderness or step-off. Genitourinary: Examination deferred Neurologic: No gross neurologic deficits. Psychiatric: Normal mood. Course - Re-evaluation Re-evalutation: 11/20/18 06:30 Patient's hemoglobin is actually quite good. It is consistent with his previous trends at this facility. The CT scan shows the stent and the existing kidney stone. It also shows some fecal impaction and constipation. I personally digitally partially disimpacted the patient. I was able to get out quite a bit of thick stool consistency of vladimir. Unfortunately he was experiencing discomfort so at his request I stopped. An enema was attempted which was not successful. We gave the patient a break and then we came back. Digital disimpaction was attempted again. This time the patient insisted that we not continue with any kind of intervention. We gave the patient multiple chances to change his mind and he remains very clear that he does not want any further disimpaction or enemas here. I had a discussion with his son. It sounds like the patient has home health and physical therapy all ordered up since his discharge from [facility]. He also has a really good primary care doctor who is very attentive. We discussed getting him back on stool softeners, Maalox, magnesium citrate among other remedies to help with his constipation. His urinalysis shows blood which is consistent with his kidney stone and stent. No signs of infection there. Patient's vital signs are quite stable. We will discharge patient home and have him follow-up with his primary care doctor today or tomorrow. Perhaps more could be ordered to be done for the patient's constipation as an outpatient in his home. We will go ahead and discharge him home at his request. - Vital Signs Vital signs: Temp Pulse Resp BP Pulse Ox 97.7 F 76 15 116/80 96 11/20/18 01:13 11/20/18 01:13 11/20/18 06:00 11/20/18 06:00 11/20/18 06:00 - Laboratory Result Diagrams: 11/20/18 02:40 11/20/18 02:40 Laboratory results interpreted by me: 11/20/18 11/20/18 11/20/18 02:40 02:40 02:40 WBC 16.1 H RBC 3.70 L Hgb 11.4 L Hct 34.1 L RDW 18.8 H Seg Neuts % (Manual) 91 H Lymphocytes % (Manual) 2 L Abs Neuts (Manual) 14.7 H Abs Lymphs (Manual) 0.3 L PT 23.7 H APTT 44.9 H Total Bilirubin 3.4 H Direct Bilirubin 1.2 H ALT 19 L Albumin 3.2 L Urine Protein Urine Blood Urine Urobilinogen Ur Leukocyte Esterase 11/20/18 05:00 WBC RBC Hgb Hct RDW Seg Neuts % (Manual) Lymphocytes % (Manual) Abs Neuts (Manual) Abs Lymphs (Manual) PT APTT Total Bilirubin Direct Bilirubin ALT Albumin Urine Protein 100 H Urine Blood LARGE H Urine Urobilinogen 4.0 H Ur Leukocyte Esterase MODERATE H - Diagnostic Test Radiology reviewed: Reports reviewed Discharge - Discharge Clinical Impression: Fecal impaction Constipation Qualifiers: Constipation type: unspecified constipation type Qualified Code(s): K59.00 - Constipation, unspecified Disposition: HOME, SELF-CARE Instructions: Constipation ([facility]), Fecal Impaction ([facility]), Laxative ([facility]) Additional Instructions: Please start taking the MiraLAX which was prescribed. He would also benefit from other constipation medications such as stool softeners, Maalox, magnesium citrate, glycerin suppositories, etc. The narcotic pain medication is the cause of your constipation. Unfortunately until your pain is improved without narcotic medication, you will continue to have difficulties moving your bowels. Please follow-up with your primary care doctor today or tomorrow to see if there are any other services which can be ordered at home by her primary care physician. Prescriptions: Polyethylene Glycol 3350 [Miralax] 119 gm PO DAILY #1 bottle Referrals: ERIC UGARTE DO [Primary Care Provider] - Follow up tomorrow
[2018-11-20 03:28] LABS: INTERNATIONAL RATION (INR) 2.01; PARTIAL THROMBOPLASTIN TIME 44.9 SEC (23.5-35.8); PROTHROMBIN TIME 23.7 SEC (11.4-15.4)
[2018-11-20 03:31] LABS: ABSOLUTE LYMPHOCYTES# (MANUAL) 0.3 10^3/uL (0.5-4.7); ABSOLUTE MONOCYTES # (MANUAL) 1.1 10^3/uL (0.1-1.4); ABSOLUTE NEUTROPHILS# (MANUAL) 14.7 10^3/uL (1.7-8.2); BASOPHILS % (MANUAL) 0 % (0-2); EOSINOPHILS % (MANUAL) 0 % (0-6); LYMPHOCYTES % (MANUAL) 2 % (13-45); MONOCYTES % (MANUAL) 7 % (3-13); SEGMENTED NEUTROPHILS % (MAN) 91 % (42-78); TOTAL CELLS COUNTED 100
[2018-11-20 03:32] LABS: ANISOCYTOSIS 1+; PLATELET COMMENT ADEQUATE; POLYCHROMASIA SLIGHT
--- NOTE | 2018-11-20 04:03 | RADIOLOGY REPORT (SQ) ---
EXAM DESCRIPTION: CT ABDOMEN PELVIS WITH IV CONTRAST COMPLETED DATE/TME: 11/20/2018 03:11 CLINICAL HISTORY: 73 years, Male, ABDOMINAL PAIN, BLOOD IN STOOLS COMPARISON: 10/17/2018 CT TECHNIQUE: No Images stored on PACS. All CT scanners at this facility use dose modulation, iterative reconstruction, and/or weight based dosing when appropriate to reduce radiation dose to as low as reasonably achievable (ALARA). [facility]: Dose Right [facility]: CareDose [facility]: Dose Right [facility]: Teradose 4D [facility]: [employer] LIMITATIONS: None. FINDINGS: Limited evaluation of the lung bases shows reticulonodular changes within each lung base consistent with pneumonitis. Osseous structures are grossly intact. However, there is a T12 compression fracture deformity, similar to the prior. The liver, spleen, adrenal glands, pancreas are unremarkable. Status post cholecystectomy. Stable atheromatous change of the abdominal aorta. 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 There is a left ureteral stent in place. Nonobstructing 7.6 mm left renal calculus. There is an approximately 6 mm calculus in the proximal to mid left ureter. Large amount of stool in the colon and rectal vault with fecal impaction. Severe atheromatous change of the femoral arteries bilaterally with postsurgical change, as before. IMPRESSION: Left ureteral stent in place. Nonobstructing 7.6 mm left renal calculus. 6 mm calculus within the proximal to mid left ureter. Fecal impaction. Large amount of stool in the colon. Bibasilar pneumonitis Severe atheromatous changes. Stable mild infrarenal abdominal aortic aneurysm with rather extensive mural thrombus formation. AAA Size: Follow-up Recommendation (1): 2.6 - 2.9 cm Every 5 years (2) 3.0 - 3.4 cm Every 3 years 3.5 - 3.9 cm Every 12 months 4.0 - 4.4 cm Every 12 months, vasc consult rec 4.5 - 5.4 cm Every 6 months, vasc consult rec >=5.5 cm Referral to vascular surgeon recommended (1)Based upon the Society for Vascular Surgery Guidelines: J Vasc Surg. 2009 Jun;50(4 Suppl):S2-49 (2)For aortas of max rhona of 2.6-2.9 cm that meet criteria for AAA (>= 1.5 x proximal normal segment) TECHNICAL DOCUMENTATION: Quality ID # 436: Final reports with documentation of one or more dose reduction techniques (e.g., Automated exposure control, adjustment of the mA and/or kV according to patient size, use of iterative reconstruction technique) copyright 2011 [employer]- All Rights Reserved
[2018-11-20 05:20] LABS: APPEARANCE,URINE SLIGHTLY-CLOUDY; BILIRUBIN,URINE NEGATIVE (NEGATIVE); GLUCOSE, URINE NEGATIVE (NEGATIVE); KETONES,URINE NEGATIVE (NEGATIVE); LEUKOCYTE ESTERASE,URINE MODERATE (NEGATIVE); NITRITE,URINE NEGATIVE (NEGATIVE); PROTEIN,URINE 100 mg/dL (NEGATIVE); URIC ACID CRYSTALS,URINE FEW /HPF; URINE SPECIFIC GRAVITY 1.016
[2018-11-20 05:22] LABS: COLOR,URINE DARK YELLOW
[2018-11-20] MEDS ORDERED: LIDOCAINE 2% URO-JET 5 ML KIT MM ONE (11:10)
[2018-11-20] MEDS ORDERED: NA PHOS,M-B/NA PHOS,DI-BA (ADULT) 133 ML ENEMA PR ONE (11:10)
[2018-11-20 14:14] VITALS: BP 138/94
== END 2018-11-20 14:18 | disposition home or self-care (01) ==
LOC: ER 01:07
DX: K56.41 Fecal impaction (principal); R10.9 Unspecified abdominal pain; K62.89 Other specified diseases of anus and rectum; I25.2 Old myocardial infarction; Z88.6 Allergy status to analgesic agent; Z87.442 Personal history of urinary calculi; Z90.49 Acquired absence of other specified parts of digestive tract
CPT/HCPCS: 99285; 96374; 36415; 85025; 85610; 85730; 80053; 81001; 74018; 74177; J2270; A9270; J3490

== ENCOUNTER 2018-11-21 08:09 | Inpatient (IN) | payer MEDICARE ==
[2018-11-21 09:26] LABS: HEMATOCRIT 39.1 % (37.9-51.0); MEAN CORPUSCULAR HEMOGLOBIN 30.7 pg (27.0-33.4); MEAN CORPUSCULAR HGB CONC 33.2 g/dL (32.0-36.0); MEAN CORPUSCULAR VOLUME 92 fl (80-97); PLATELET COUNT 263 10^3/uL (150-450); RED BLOOD COUNT 4.23 10^6/uL (4.35-5.55); RED CELL DISTRIBUTION WIDTH 18.7 % (11.5-14.0)
[2018-11-21 09:39] LABS: ALANINE AMINOTRANSFERASE 26 U/L (21-72); ALBUMIN 3.7 g/dL (3.5-5.0); ALKALINE PHOSPHATASE 114 U/L (38-126); ANION GAP 13 (5-19); ASPARTATE AMINO TRANSFERASE 28 U/L (17-59); BILIRUBIN,DIRECT 1.4 mg/dL (0.0-0.4); BILIRUBIN,TOTAL 3.8 mg/dL (0.2-1.3); BLOOD UREA NITROGEN 12 mg/dL (7-20); CALCIUM 9.9 mg/dL (8.4-10.2); CARBON DIOXIDE 25 mmol/L (22-30); CHLORIDE 104 mmol/L (98-107); GLUCOSE 105 mg/dL (75-110); POTASSIUM 4.5 mmol/L (3.6-5.0); SODIUM 141.6 mmol/L (137-145); TOTAL PROTEIN 7.3 g/dL (6.3-8.2)
[2018-11-21 09:53] LABS: ABSOLUTE LYMPHOCYTES# (MANUAL) 0.9 10^3/uL (0.5-4.7); ABSOLUTE MONOCYTES # (MANUAL) 1.4 10^3/uL (0.1-1.4); ABSOLUTE NEUTROPHILS# (MANUAL) 15.5 10^3/uL (1.7-8.2); BASOPHILS % (MANUAL) 0 % (0-2); EOSINOPHILS % (MANUAL) 1 % (0-6); LYMPHOCYTES % (MANUAL) 5 % (13-45); MONOCYTES % (MANUAL) 8 % (3-13); SEGMENTED NEUTROPHILS % (MAN) 86 % (42-78); TOTAL CELLS COUNTED 100
[2018-11-21 09:54] LABS: ANISOCYTOSIS 2+; PLATELET CLUMPS PRESENT; PLATELET COMMENT ADEQUATE; POLYCHROMASIA 1+; TOXIC GRANULATION 1+; TOXIC VACUOLATION PRESENT
--- NOTE | 2018-11-21 10:00 | ER Document Report ---
ED General - General Mode of Arrival: Medic Information source: Relative - Son TRAVEL OUTSIDE OF THE [place] IN LAST 30 DAYS: No <LEXIE RODRIGUEZ - Last Filed: 11/21/18 15:43> <UBALDO REICH - Last Filed: 11/21/18 18:19> - General Chief Complaint: Altered Mental Status Stated Complaint: POSSIBLE SEPSIS Time Seen by Provider: 11/21/18 09:20 Notes: Patient is a 73-year-old male who presents the emergency department with chief complaint of altered mental status. Patient's son reports patient is normally alert and oriented. He was seen in this emergency department yesterday for abdominal pain and discharged with a diagnosis of constipation. Patient's son reports patient has been recently admitted to [facility] for recurrent urinary tract infections with kidney stones. At approximately 8:00 last night patient began acting confused and altered. Patient's son states this has progressed through the entire night. He states he has not taken any of his medications since . He did have a normal bowel movement this morning at approximately 6 AM. Patient's son denies any recent fever or chills. Patient finished a course of Keflex on . (LEXIE RODRIGUEZ) - Related Data Allergies/Adverse Reactions: codeine Allergy (Verified 11/20/18 01:25) Past Medical History - General Information source: Patient - Social History Smoking Status: Unknown if Ever Smoked Family History: Reviewed & Not Pertinent, CAD, COPD, Hypertension Patient has suicidal ideation: No Patient has homicidal ideation: No - Past Medical History Cardiac Medical History: Reports: Hx Heart Attack Denies: Hx Congestive Heart Failure, Hx Hypertension Pulmonary Medical History: Reports: Hx Bronchitis, Hx COPD, Hx Pneumonia Denies: Hx Asthma, Hx Tuberculosis Neurological Medical History: Denies: Hx Seizures Renal/ Medical History: Reports: Hx Kidney Stones. Denies: Hx Benign Prostatic Hyperplasia, Hx End Stage Renal Disease, Hx Peritoneal Dialysis GI Medical History: Reports: Hx Gastroesophageal Reflux Disease. Denies: Hx Cirrhosis, Hx Ulcer Musculoskeletal Medical History: Reports Hx Arthritis, Denies Hx Multiple Sclerosis Psychiatric Medical History: Denies: Hx Bipolar Disorder, Hx Depression, Hx Schizophrenia Past Surgical History: Reports: Hx Cardiac Catheterization, Hx Cholecystectomy, Hx Coronary Stent, Hx Orthopedic Surgery - Kyphoplasty-08/2018, Hx Vascular Surgery - Abdominal aortic aneurysm and bilateral femoropopliteal graft - Immunizations Hx Pneumococcal Vaccination: 09/29/14 <LEXIE RODRIGUEZ - Last Filed: 11/21/18 15:43> Review of Systems - Review of Systems Constitutional: denies: Chills, Fever EENT: No symptoms reported Cardiovascular: No symptoms reported Respiratory: Cough Gastrointestinal: denies: Diarrhea, Nausea, Vomiting Genitourinary: Hematuria Male Genitourinary: No symptoms reported Musculoskeletal: No symptoms reported Skin: No symptoms reported Hematologic/Lymphatic: No symptoms reported Neurological/Psychological: Confusion, Hallucinations <LEXIE RODRIGUEZ - Last Filed: 11/21/18 15:43> Physical Exam <LEXIE RODRIGUEZ - Last Filed: 11/21/18 15:43> - Vital signs Vitals: Resp 23 H 11/21/18 08:19 - Notes Notes: PHYSICAL EXAMINATION: GENERAL: Disheveled. HEAD: Atraumatic, normocephalic. EYES: Pupils equal round and reactive to light, extraocular movements intact, sc marge anicteric, conjunctiva are normal. ENT: Nares patent, oropharynx clear without exudates. Moist mucous membranes. NECK: Normal range of motion, supple without lymphadenopathy LUNGS: Breath sounds clear to auscultation bilaterally and equal. No wheezes rales or rhonchi. HEART: Regular rate and rhythm without murmurs ABDOMEN: Soft, nontender, nondistended abdomen. No guarding, no rebound. No masses appreciated. Musculoskeletal: Normal range of motion, no pitting or edema. No cyanosis. NEUROLOGICAL: Cranial nerves grossly intact. Normal sensory, motor exams PSYCH: Normal mood, normal affect. SKIN: Warm, Dry, normal turgor, no rashes or lesions noted. Ecchymosis noted to left upper arm. Ecchymosis noted to left flank from axilla to hip. (LEXIE RODRIGUEZ) Course - Laboratory Result Diagrams: 11/21/18 08:55 11/21/18 08:55 <LEXIE RODRIGUEZ - Last Filed: 11/21/18 15:43> - Laboratory Result Diagrams: 11/21/18 08:55 11/21/18 08:55 - Diagnostic Test Radiology reviewed: Image reviewed, Reports reviewed <UBALDO REICH - Last Filed: 11/21/18 18:19> - Re-evaluation Re-evalutation: Patient is altered, unable to appropriately answer questions. Patient does open up his eyes and speak out however he is not making any sense. Patient's son who is at bedside states that patient is normally alert and oriented. Labs as recorded. Patient does have leukocytosis with white blood count of 18. Lactic acid is elevated at 3.1. Total and indirect bilirubin are also elevated slightly increased from yesterday. Urinalysis with small leukocyte esterase, does not appear to be infected in comparison with recent urinalysis is. Patient did recently finish Keflex with his last dose on . Head CT and chest x- ray are both negative for any acute findings. 11/21/18 13:47 Call placed to [facility] urology for consult versus patient transfer per the request of our hospitalist Dr. Blanco as patient was recently discharged from their facility after having a ureteral stent placed and we do not have urology on-call here today. 11/21/18 13:[address] Clay, urologist with [facility]. He reviewed patient's case as well as CT scan from yesterday. Dr. Clay does not feel that patient needs to be transferred to [facility] as he does not need any urology intervention. 11/21/18 14:20 Called and spoke with Dr. Blanco regarding patient admission. He will contact the patient's son and update me. 11/21/18 14:44 Dr. Blanco spoke with patient's son and states that patient's son wants patient transferred to [facility]. 11/21/18 14:52 Contact info for Son is Billy Lala, . Called and left a message for him. 11/21/18 15:36 Patient's son Billy Lala called back and states that he personally contacted [facility] and spoke with Dr. Clay. He states that to Dr. Clay told him that they will not to do any intervention with the ureteral stent and that he does not feel this infection is related to any urological source. Patient's son states that he now wants the patient to stay here at [facility] if we are capable of treating him. 11/21/18 15:37 Called and spoke with hospitalist Dr. Blanco who agrees to admit the patient to his service. (LEXIE RODRIGUEZ) - Vital Signs Vital signs: Temp Pulse Resp BP Pulse Ox 97.9 F 93 16 132/86 H 96 11/21/18 17:19 11/21/18 17:19 11/21/18 17:19 11/21/18 17:19 11/21/18 17:19 - Laboratory Laboratory results interpreted by me: 11/21/18 11/21/18 11/21/18 08:55 08:55 08:55 WBC 18.0 H RBC 4.23 L Hgb 13.0 L RDW 18.7 H Seg Neuts % (Manual) 86 H Lymphocytes % (Manual) 5 L Abs Neuts (Manual) 15.5 H Lactic Acid 3.1 H Total Bilirubin 3.8 H Direct Bilirubin 1.4 H Ammonia Urine Protein Urine Ketones Urine Blood Urine Urobilinogen Ur Leukocyte Esterase 11/21/18 11/21/18 11/21/18 10:10 12:00 12:00 WBC RBC Hgb RDW Seg Neuts % (Manual) Lymphocytes % (Manual) Abs Neuts (Manual) Lactic Acid 2.2 H Total Bilirubin Direct Bilirubin Ammonia < 8.7 L Urine Protein 100 H Urine Ketones TRACE H Urine Blood LARGE H Urine Urobilinogen 4.0 H Ur Leukocyte Esterase SMALL H Critical Care Note - Critical Care Note Total time excluding time spent on procedures (mins): 35 - Multiple re- evaluations of patient. <LEXIE RODRIGUEZ - Last Filed: 11/21/18 15:43> - Critical Care Note Total time excluding time spent on procedures (mins): 60 <UBALDO REICH - Last Filed: 11/21/18 18:19> Discharge - Discharge Admitting Provider: Hospitalist Unit Admitted: IMCU <LEXIE RODRIGUEZ - Last Filed: 11/21/18 15:43> <UBALDO REICH - Last Filed: 11/21/18 18:19> - Discharge Clinical Impression: Altered mental status Qualifiers: Altered mental status type: unspecified Qualified Code(s): R41.82 - Altered mental status, unspecified Sepsis Qualifiers: Sepsis type: sepsis due to unspecified organism Qualified Code(s): A41.9 - Sepsis, unspecified organism Leukocytosis Qualifiers: Leukocytosis type: unspecified Qualified Code(s): D72.829 - Elevated white blood cell count, unspecified Condition: Fair Disposition: ADMITTED INPATIENT
--- NOTE | 2018-11-21 10:59 | RADIOLOGY REPORT (SQ) ---
EXAM DESCRIPTION: CHEST SINGLE VIEW COMPLETED DATE/TIME: 11/21/2018 10:48 am REASON FOR STUDY: productive cough, ams COMPARISON: 10/16/2018 NUMBER OF VIEWS: One view. TECHNIQUE: Single frontal radiographic view of the chest acquired. LIMITATIONS: None. FINDINGS: LUNGS AND PLEURA: Flattening of the hemidiaphragms. Scarring in the lung apices, right gr eater than left. Left basilar scarring. No infiltrate. MEDIASTINUM AND HILAR STRUCTURES: No masses. Contour normal. HEART AND VASCULAR STRUCTURES: Heart normal in size. Normal vasculature. BONES: No acute findings. HARDWARE: None in the chest. OTHER: No other significant finding. IMPRESSION: COPD. NO ACUTE RADIOGRAPHIC FINDING IN THE CHEST. TECHNICAL DOCUMENTATION: JOB ID: [id number] 1929 [employer]- All Rights Reserved Reading location - IP/workstation name: [email or web address]
[2018-11-21 11:14] LABS: APPEARANCE,URINE CLOUDY; BILIRUBIN,URINE NEGATIVE (NEGATIVE); COLOR,URINE AMBER; GLUCOSE, URINE NEGATIVE (NEGATIVE); KETONES,URINE TRACE mg/dL (NEGATIVE); LEUKOCYTE ESTERASE,URINE SMALL (NEGATIVE); NITRITE,URINE NEGATIVE (NEGATIVE); PROTEIN,URINE 100 mg/dL (NEGATIVE); URINE SPECIFIC GRAVITY 1.018
[2018-11-21] MEDS ORDERED: NORMAL SALINE 1000 ML 500 ML IV ONE (11:35)
[2018-11-21] MEDS ORDERED: LORAZEPAM INJ 2 MG/1 ML VIAL IV ONE (11:43)
[2018-11-21] MEDS ORDERED: NORMAL SALINE 1000 ML 1,000 ML IV ONE (12:15)
[2018-11-21] MEDS ORDERED: PIPERACILLIN/TAZOBACTAM 3.375 GM VIAL IV ONE ×2 (12:24→17:53)
--- NOTE | 2018-11-21 12:30 | RADIOLOGY REPORT (SQ) ---
EXAM DESCRIPTION: CT HEAD WITHOUT COMPLETED DATE/TIME: 11/21/2018 12:15 pm REASON FOR STUDY: confusion COMPARISON: None. TECHNIQUE: Axial images acquired through the brain without intravenous contrast. Images reviewed wi th bone, brain and subdural windows. Additional sagittal and coronal reconstructions were generated. Images stored on PACS. All CT scanners at this facility use dose modulation, iterative reconstruction, and/or weight based d osing when appropriate to reduce radiation dose to as low as reasonably achievable (ALARA). [facility]: Dose Right [facility]: CareDose [facility]: Dose Right [facility]: Teradose 4D [facility]: [employer] RADIATION DOSE: CT Rad equipment meets quality standard of care and radiation dose reduction techniq ues were employed. CTDIvol: 53.2 mGy. DLP: 1017 mGy-cm.mGy. LIMITATIONS: Motion. FINDINGS: VENTRICLES: Prominent. CEREBRUM: No masses. No hemorrhage. No midline shift. Areas of low density in the white matter mos t likely due to chronic micro-vascular ischemic change. No evidence for acute infarction. CEREBELLUM: No masses. No hemorrhage. No alteration of density. No evidence for acute infarction. EXTRAAXIAL SPACES: Age-related involutional change. No fluid collections. No masses. ORBITS AND GLOBE: No intra- or extraconal masses. Normal contour of globe without masses. CALVARIUM: No fracture. PARANASAL SINUSES: No fluid or mucosal thickening. SOFT TISSUES: No mass or hematoma. OTHER: No other significant finding. IMPRESSION: CHRONIC CHANGES OF ATROPHY AND MICROVASCULAR ISCHEMIA. NO ACUTE PROCESS. EVIDENCE OF ACUTE STROKE: NO. TECHNICAL DOCUMENTATION: JOB ID: [id number] Quality ID # [id number]: Final reports with documentation of one or more dose reduction techniques (e.g., Au tomated exposure control, adjustment of the mA and/or kV according to patient size, use of iterative reconstruction technique) 2010 [email or web address]- All Rights Reserved Reading location - IP/workstation name: [email or web address]
[2018-11-21 13:38] LABS: URINE AMPHETAMINES SCREEN NEGATIVE; URINE BARBITURATES SCREEN NEGATIVE; URINE BENZODIAZEPINES SCREEN NEGATIVE; URINE COCAINE SCREEN NEGATIVE; URINE MARIJUANA (THC) SCREEN NEGATIVE; URINE METHADONE SCREEN NEGATIVE; URINE PHENCYCLIDINE SCREEN NEGATIVE
[2018-11-21] MEDS ORDERED: ONDANSETRON HCL INJ/PF 4 MG/2 ML SDV IV PRN (15:39)
[2018-11-21] MEDS: MORPHINE SULFATE 10 MG/ML INJ IV SCH ×2 (15:51→20:17)
[2018-11-21] MEDS ORDERED: CLOPIDOGREL BISULFATE 75 MG TABLET PO ONE (15:59)
[2018-11-21] MEDS ORDERED: TAMSULOSIN HCL 0.4 MG CAP.SR.24H PO ONE (16:00)
[2018-11-21] MEDS ORDERED: LEVALBUTEROL HCL NEB 1.25 MG/3 ML AMPUL NEB PRN (16:00)
[2018-11-21 16:15] LABS: INTERNATIONAL RATION (INR) 1.66; PROTHROMBIN TIME 20.4 SEC (11.4-15.4)
--- NOTE | 2018-11-21 16:24 | PDOC H&P ---
History of Present Illness Admission Date/PCP: ERIC UGARTE DO Patient complains of: Altered mental status History of Present Illness: VIVIAN STINSON is a 73 year old male with history of atrial fibrillation on warfarin, COPD, coronary artery disease status post multiple stent assessments, bilateral lower leg bypasses for peripheral vascular disease, abdominal aortic aneurysm repair status post stent placement, rheumatoid arthritis, abdominal hernia repair was brought to the emergency room by his son with complaints of change in mental status. Patient was here in the emergency room yesterday for severe abdominal pain and after doing the CT abdominal pelvis with contrast patient was referred back home. This morning patient woke up around 4 AM confused and agitated in severe pain so son decided to bring him to the hospital again for further evaluation. On arrival patient's blood pressure is 78/50 patient is tachycardic tachypneic and the workup shows elevated lactic acid levels and found to be in altered mental status and in excruciating pain. Medical a consult was called for admission. I spoke to the ER physician Dr. Edel Montalvo requested her to call [facility] because patient has history of stent placement in mid September for kidney stones followed by one admission for a urinary tract infection. She did talk to the urologist in [facility] on the CT scan that was done yesterday was reviewed and the impression from them is no further urological intervention is needed at this point. Dr. Orellana contacted me again to admit the patient, I spoke to the son extensively about his dad's condition and he requested me to transfer the patient to [facility]. The information is passed to Dr. Edel Montalvo, she placed a call to the son to discuss the case again. In the meantime son got in touch with the urologist in [facility] discussed the care with the urologist on-call day and notify the ER physician that he is okay to keep his dad here at [facility] for further management. So I agreed to admit the patient here and requested for renal stone protocol CT scan again today because patient is in excruciating pain and Johnson's catheter shows bloody urine. Patient full code. Patient's son understood that there is no urologist available in this hospital still wants to keep him here for IV fluids and antibiotic therapy if situations changes he is requesting to get in touch with [facility] again for possible transfer. Unable to get any information the patient. Patient is in excruciating pain, screaming and requesting for pain medication. Past Medical History Cardiac Medical History: Reports: Atrial Fibrillation, Coronary Artery Disease, Myocardial Infarction, Peripheral Vascular Disease Denies: Congestive Heart Failure, Hypertension Pulmonary Medical History: Reports: Bronchitis, Chronic Obstructive Pulmonary Disease (COPD), Pneumonia Denies: Asthma, Tuberculosis Neurological Medical History: Denies: Seizures Renal/ Medical History: Denies: End Stage Renal Disease GI Medical History: Reports: Gastroesophageal Reflux Disease Denies: Cirrhosis Musculoskeltal Medical History: Reports: Arthritis Psychiatric Medical History: Denies: Bipolar Disorder, Depression Hematology: Denies: Anemia, Bleeding Tendencies Past Surgical History Past Surgical History: Reports: Cardiac Catheterization, Cholecystectomy, Coronary Stent, Orthopedic Surgery - Kyphoplasty-08/2018, Vascular Surgery - Abdominal aortic aneurysm and bilateral femoropopliteal graft Social History Smoking Status: Former Smoker Frequency of Alcohol Use: None Hx Recreational Drug Use: No Drugs: None - Advance Directive Resuscitation Status: Full Code Family History Family History: Reviewed & Not Pertinent, CAD, COPD, Hypertension Parental Family History Reviewed: Yes - sister -rheumatoid arthritis Children Family History Reviewed: Yes Sibling(s) Family History Reviewed.: Yes Medication/Allergy Allergies/Adverse Reactions: codeine Allergy (Verified 11/20/18 01:25) Review of Systems Constitutional: ABSENT: chills, fever(s), headache(s), weight loss Eyes: ABSENT: visual disturbances Ears: ABSENT: hearing changes Cardiovascular: ABSENT: chest pain, dyspnea on exertion, edema, orthropnea, palpitations Respiratory: ABSENT: cough, hemoptysis Gastrointestinal: PRESENT: abdominal pain Musculoskeletal: ABSENT: joint swelling Neurological: PRESENT: other - Patient is confused and agitated unable to co operate. Psychiatric: PRESENT: anxiety Physical Exam Vital Signs: Temp Pulse Resp BP Pulse Ox 98 F 20 124/86 H 100 11/21/18 08:22 11/21/18 15:01 11/21/18 15:00 11/21/18 12:01 Intake & Output 11/20/18 11/21/18 11/22/18 06:59 06:59 06:59 Intake Total 1500 Balance 1500 General appearance: PRESENT: other - Patient is in severe distress requesting for pain medications. Head exam: PRESENT: atraumatic Eye exam: PRESENT: PERRLA Teeth exam: PRESENT: poor dentation Neck exam: ABSENT: carotid bruit, JVD, lymphadenopathy, thyromegaly Respiratory exam: PRESENT: decreased breath sounds, tachypnea Cardiovascular exam: PRESENT: tachycardia Pulses: PRESENT: other - Poor peripheral pulses. GI/Abdominal exam: PRESENT: normal bowel sounds, other - Complaining of severe tenderness in the left costophrenic angle on gentle palpation. Gentrourinary exam: PRESENT: indwelling catheter, other - Johnson's catheter in place blood stained urine present. Neurological exam: PRESENT: altered, reflexes normal, CN II-XII grossly intact. ABSENT: oriented to person, oriented to time, oriented to situation Psychiatric exam: PRESENT: agitated, anxious Results Laboratory Results: 11/21/18 08:55 11/21/18 08:55 11/21/18 11/21/18 11/21/18 08:55 08:55 08:55 WBC 18.0 H RBC 4.23 L Hgb 13.0 L Hct 39.1 MCV 92 MCH 30.7 MCHC 33.2 RDW 18.7 H Plt Count 263 Seg Neutrophils % Not Reportable Lymphocytes % Not Reportable Monocytes % Not Reportable Eosinophils % Not Reportable Basophils % Not Reportable Absolute Neutrophils Not Reportable Absolute Lymphocytes Not Reportable Absolute Monocytes Not Reportable Absolute Eosinophils Not Reportable Absolute Basophils Not Reportable Sodium 141.6 Potassium 4.5 Chloride 104 Carbon Dioxide 25 Anion Gap 13 BUN 12 Creatinine 0.78 Est GFR ( Amer) > 60 Est GFR (Non-Af Amer) > 60 Glucose 105 Lactic Acid 3.1 H Calcium 9.9 Total Bilirubin 3.8 H AST 28 ALT 26 Alkaline Phosphatase 114 Ammonia Total Protein 7.3 Albumin 3.7 Urine Color Urine Appearance Urine pH Ur Specific Pledger Urine Protein Urine Glucose (UA) Urine Ketones Urine Blood Urine Nitrite Ur Leukocyte Esterase Urine WBC (Auto) Urine RBC (Auto) 11/21/18 11/21/18 11/21/18 10:10 12:00 12:00 WBC RBC Hgb Hct MCV MCH MCHC RDW Plt Count Seg Neutrophils % Lymphocytes % Monocytes % Eosinophils % Basophils % Absolute Neutrophils Absolute Lymphocytes Absolute Monocytes Absolute Eosinophils Absolute Basophils Sodium Potassium Chloride Carbon Dioxide Anion Gap BUN Creatinine Est GFR ( Amer) Est GFR (Non-Af Amer) Glucose Lactic Acid 2.2 H Calcium Total Bilirubin AST ALT Alkaline Phosphatase Ammonia < 8.7 L Total Protein Albumin Urine Color HIMANSHU Urine Appearance CLOUDY Urine pH 7.0 Ur Specific Pledger 1.018 Urine Protein 100 H Urine Glucose (UA) NEGATIVE Urine Ketones TRACE H Urine Blood LARGE H Urine Nitrite NEGATIVE Ur Leukocyte Esterase SMALL H Urine WBC (Auto) 5 Urine RBC (Auto) >182 11/21/18 12:00 Troponin I 0.021 Impressions: Chest X-Ray 11/21/18 09:50 IMPRESSION: COPD. NO ACUTE RADIOGRAPHIC FINDING IN THE CHEST. Head CT 11/21/18 11:35 IMPRESSION: CHRONIC CHANGES OF ATROPHY AND MICROVASCULAR ISCHEMIA. NO ACUTE PROCESS. EVIDENCE OF ACUTE STROKE: NO. Assessment & Plan - Diagnosis (1) Altered mental status Qualifiers: Altered mental status type: unspecified Qualified Code(s): R41.82 - Altered mental status, unspecified Is this a current diagnosis for this admission?: Yes Plan: 11/21/2018 patient is going to be admitted for altered mental status most likely secondary to sepsis. Is going to be placed in IMCU. Started on IV fluids n ormal saline at 100 cc/h, to repeat the lactic acid levels, started on IV Zosyn and IV vancomycin. We are going to adjust the doses as per pharmacy recommendations. Blood cultures urine culture was sent. Aspiration fall precautions are requested. Neurochecks are requested for every 4 hours for the next 24 hours. Swallowing evaluation will be done today. CT head was negative for acute changes. To start on IV Ativan 1 mg every 8 hours as needed for agitation. (2) Sepsis Qualifiers: Sepsis type: sepsis due to unspecified organism Qualified Code(s): A41.9 - Sepsis, unspecified organism Is this a current diagnosis for this admission?: Yes Plan: 11/21/2018 patient is in septic stock when he came in blood pressure was 78/50 with IV fluids latest blood pressure is 124/60 initially on presentation is tachycardic heart rate is 106 tachypneic respiratory of 24, lactic acid level is 3.1 with altered mental status. And is to continue IV fluids normal saline at 100 cc/h started on IV vancomycin and Zosyn, repeat the lactic acid level this evening daily labs. Blood cultures urine cultures are pending. Chest x-ray does not show any pneumonia. Urinalysis is cloudy with leukocyte esterase positive, WBC more than 5 RBCs 182. Most likely cause of sepsis is urinary tract infection. (3) Leukocytosis Qualifiers: Leukocytosis type: unspecified Qualified Code(s): D72.829 - Elevated white blood cell count, unspecified Is this a current diagnosis for this admission?: Yes Plan: 11/21/2018 admission WBC count is 10,000 most likely secondary to sepsis. (4) COPD (chronic obstructive pulmonary disease) Is this a current diagnosis for this admission?: Yes Plan: 11/21/2018 patient has history of COPD not on home oxygen he is ex-smoker quit smoking 15 years ago. He uses Brio and albuterol inhaler at home started him on Xopenex nebulizations every 6 hours as needed. (5) Coronary artery disease Is this a current diagnosis for this admission?: Yes Plan: 11/21/2018-patient has history of coronary artery disease status post stent placement multiple times. Plan to do the serial cardiac enzymes and troponins. Initial troponin is less than 0.021. Patient is on aspirin Plavix and simvastatin at home those medications are going to be resumed. (6) Rheumatoid arthritis Is this a current diagnosis for this admission?: Yes Plan: 11/21/2018 patient has history of rheumatoid arthritis on methotrexate and prednisone at home those medications are restarted again. (7) Paroxysmal atrial fibrillation Is this a current diagnosis for this admission?: Yes Plan: 11/21/2018-patient has history of paroxysmal atrial fibrillation on warfarin 1 mg p.o. daily, Plavix 75 mg p.o. daily, aspirin 81 mg p.o. daily these medications he is taking at home plan is to resume those medications in the hospital. (8) History of AAA (abdominal aortic aneurysm) repair Is this a current diagnosis for this admission?: Yes Plan: 11/21/2018 patient has history of abdominal aortic aneurysm status post graft placement in 2009 as per the patient's son. (9) BPH (benign prostatic hyperplasia) Is this a current diagnosis for this admission?: Yes Plan: 11/21/2018 patient has history of BPH on finasteride and Flomax at home those medications are restarted during this hospital stay. - Time Time Spent: 50 to 70 Minutes Medications reviewed and adjusted accordingly: Yes Anticipated discharge: Home
[2018-11-21] MEDS: NORMAL SALINE 1000 ML 1,000 ML IV PRN (17:32)
--- NOTE | 2018-11-21 17:49 | RADIOLOGY REPORT (SQ) ---
EXAM DESCRIPTION: CT ABD/PELVIS NO ORAL OR IV COMPLETED DATE/TIME: 11/21/2018 5:02 pm REASON FOR STUDY: kidney stone COMPARISON: 11/20/2018 and earlier TECHNIQUE: CT scan of the abdomen and pelvis performed without intravenous or oral contrast. Images reviewed with lung, soft tissue, and bone windows. Reconstructed coronal and sagittal MPR images revi ewed. All images stored on PACS. All CT scanners at this facility use dose modulation, iterative reconstruction, and/or weight based d osing when appropriate to reduce radiation dose to as low as reasonably achievable (ALARA). [facility]: Dose Right [facility]: CareDose [facility]: Dose Right [facility]: Teradose 4D [facility]: Smart [employer] (STIE) RADIATION DOSE: CT Rad equipment meets quality standard of care and radiation dose reduction techniq ues were employed. CTDIvol: 6.9 mGy. DLP: 371 mGy-cm.mGy. LIMITATIONS: None. FINDINGS: LOWER CHEST: Unchanged tiny nodules of the right lower lobe which appear to be in a tree-i n-bud distribution. Tree-in-bud nodules of the left lower lobe are less apparent on this exam but ma y be due to motion artifact. Unchanged pulmonary nodule of the left lower lobe when compared imaging dating back to 06/20/2018. NON-CONTRASTED LIVER, SPLEEN, ADRENALS: Evaluation limited by lack of IV contrast. No identified sign ificant masses. PANCREAS: No masses. No peripancreatic inflammatory changes. GALLBLADDER: Surgically absent. RIGHT KIDNEY AND URETER: No suspicious masses. Assessment limited by lack of IV contrast. No signif icant calcifications. No hydronephrosis or hydroureter. LEFT KIDNEY AND URETER: Left ureteral stent remains in place with the proximal tip terminating in th e proximal ureter and the distal tip terminating within the urinary bladder. Unchanged positioning o f the 7 mm stone within the mid left ureter. New 4 mm stone within the left renal pelvis (axial imag e 30, S abdominal image 58). Unchanged 1.2 cm stone within the superior calyx of the left kidney. N o suspicious masses. Assessment limited by lack of IV contrast. No significant calcifications. No hydronephrosis or hydroureter. AORTA AND RETROPERITONEUM: Unchanged infrarenal abdominal aortic aneurysm measuring. 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 BOWEL AND PERITONEAL CAVITY: No dilated loops of bowel. Scattered diverticula colon. Moderate stool burden. No intraperitoneal free air free fluid. Metallic clips adjacent to the right hepatic flexu re. APPENDIX: Not visualized. PELVIS, BLADDER, AND ABDOMINAL WALL:Johnson catheter in place within the urinary bladder. Multiple foc i of air within the urinary bladder, presumed to be secondary to the indwelling catheter. No pelvic free fluid. BONES: Unchanged severe T12 compression fracture. Diffuse osteopenia. No sinister bone lesion. OTHER: No other significant finding. IMPRESSION: 1. Unchanged nonobstructing 7 mm stone within the mid left ureter. New 4 mm stone within the left re nal pelvis. Unchanged 1.2 cm stone within the superior calyx of the left kidney. No hydronephrosis. 2. Unchanged positioning of the left ureteral stent. 3. No additional changes when compared to 11/20/2018. COMMENT: Quality ID # [id number]: Final reports with documentation of one or more dose reduction techniques (e.g., Automated exposure control, adjustment of the mA and/or kV according to patient size, use of iterative reconstruction technique) TECHNICAL DOCUMENTATION: JOB ID: [id number] [employer]- All Rights Reserved Reading location - IP/workstation name: [email or web address]
[2018-11-21] MEDS ORDERED: PIPERACILLIN/TAZOBACTAM 3.375 GM VIAL IV SCH (18:00)
[2018-11-21] MEDS: PIPERACILLIN/TAZOBACTAM 3.375 GM VIAL IV SCH (18:32)
[2018-11-21] MEDS ORDERED: VANCOMYCIN HCL INJ 1000 MG VIAL IV SCH (22:00)
--- NOTE | 2018-11-21 22:00 | EKG REPORT ---
SEVERITY:- OTHERWISE NORMAL ECG - SINUS RHYTHM BORDERLINE LEFT AXIS DEVIATION : Confirmed by: Miguelito Landers MD 21-Nov-2018 21:59:30
[2018-11-21] MEDS ORDERED: VANCOMYCIN HCL INJ 1000 MG VIAL ONE (23:35)
[2018-11-21] MEDS: FAMOTIDINE INJ/PF 20 MG/2 ML SDV IV SCH (23:39)
[2018-11-21] MEDS: WARFARIN SODIUM 1 MG TABLET PO SCH (23:40)
[2018-11-22] MEDS: MORPHINE SULFATE 10 MG/ML INJ IV SCH ×6 (00:31→20:11)
[2018-11-22] MEDS: WARFARIN SODIUM 1 MG TABLET PO SCH ×2 (01:23→21:18)
[2018-11-22] MEDS: PIPERACILLIN/TAZOBACTAM 3.375 GM VIAL IV SCH ×3 (02:17→21:19)
[2018-11-22] MEDS: NORMAL SALINE 1000 ML 1,000 ML IV PRN ×2 (07:47→17:13)
[2018-11-22 08:36] LABS: HEMATOCRIT 33.9 % (37.9-51.0); MEAN CORPUSCULAR HEMOGLOBIN 30.7 pg (27.0-33.4); MEAN CORPUSCULAR HGB CONC 32.5 g/dL (32.0-36.0); MEAN CORPUSCULAR VOLUME 94 fl (80-97); PLATELET COUNT 218 10^3/uL (150-450); RED BLOOD COUNT 3.59 10^6/uL (4.35-5.55); RED CELL DISTRIBUTION WIDTH 20.2 % (11.5-14.0); WHITE BLOOD COUNT 14.5 10^3/uL (4.0-10.5)
--- NOTE | 2018-11-22 08:40 | PDOC PROGRESS REPORT ---
Subjective Progress Note for:: 11/22/18 Subjective:: 73-year-old male admitted with sepsis and altered mental status. Unable to swallow anything. Johnson's catheter shows blood stained urine. Lactic acid is 2.2 last night. Plan is to increase the IV fluids to 150 cc/h do the bladder irrigation and repeated lactic acid levels today. Today's labs are pending. Patient states he is in the hospital other than that unable to continue communication. Keep on saying he wants to urinate ,explained to him that he has a catheter in place. Overall prognosis poor condition is critical. Tried to call the son to give an update and unable to leave the message. Reason For Visit: ALTERED MENTAL STATUS,SEPSIS,LEUKOCYTOSIS Physical Exam Vital Signs: Temp Pulse Resp BP Pulse Ox 97.6 F 91 16 123/87 H 92 11/22/18 08:01 11/22/18 08:01 11/22/18 08:01 11/22/18 08:01 11/22/18 08:01 Intake & Output 11/21/18 11/22/18 11/23/18 06:59 06:59 06:59 Intake Total 2500 Output Total 0 Balance 2500 Weight 66.2 kg General appearance: PRESENT: other - Moderate distress. Head exam: PRESENT: atraumatic Eye exam: PRESENT: PERRLA Neck exam: ABSENT: carotid bruit, JVD, lymphadenopathy, thyromegaly Respiratory exam: PRESENT: clear to auscultation gracy. ABSENT: rales, rhonchi, wheezes Cardiovascular exam: PRESENT: tachycardia GI/Abdominal exam: PRESENT: normal bowel sounds, soft. ABSENT: distended, guarding, mass, organolmegaly, rebound, tenderness Gentrourinary exam: PRESENT: indwelling catheter, other - Johnson's catheter in place blood stained urine present present. Extremities exam: PRESENT: full ROM. ABSENT: calf tenderness, clubbing, pedal edema Neurological exam: PRESENT: other - Patient is agitated, in altered mental status. No no focal neurological deficits. Patient is unable to follow the verbal commands. Psychiatric exam: PRESENT: agitated, anxious Results Laboratory Results: 11/21/18 11/21/18 11/21/18 08:55 08:55 08:55 WBC 18.0 H RBC 4.23 L Hgb 13.0 L Hct 39.1 MCV 92 MCH 30.7 MCHC 33.2 RDW 18.7 H Plt Count 263 Seg Neutrophils % Not Reportable Lymphocytes % Not Reportable Monocytes % Not Reportable Eosinophils % Not Reportable Basophils % Not Reportable Absolute Neutrophils Not Reportable Absolute Lymphocytes Not Reportable Absolute Monocytes Not Reportable Absolute Eosinophils Not Reportable Absolute Basophils Not Reportable Sodium 141.6 Potassium 4.5 Chloride 104 Carbon Dioxide 25 Anion Gap 13 BUN 12 Creatinine 0.78 Est GFR ( Amer) > 60 Est GFR (Non-Af Amer) > 60 Glucose 105 Lactic Acid 3.1 H Calcium 9.9 Total Bilirubin 3.8 H AST 28 ALT 26 Alkaline Phosphatase 114 Ammonia Total Protein 7.3 Albumin 3.7 Urine Color Urine Appearance Urine pH Ur Specific [employer] Urine Protein Urine Glucose (UA) Urine Ketones Urine Blood Urine Nitrite Ur Leukocyte Esterase Urine WBC (Auto) Urine RBC (Auto) 11/21/18 11/21/18 11/21/18 10:10 12:00 12:00 WBC RBC Hgb Hct MCV MCH MCHC RDW Plt Count Seg Neutrophils % Lymphocytes % Monocytes % Eosinophils % Basophils % Absolute Neutrophils Absolute Lymphocytes Absolute Monocytes Absolute Eosinophils Absolute Basophils Sodium Potassium Chloride Carbon Dioxide Anion Gap BUN Creatinine Est GFR ( Amer) Est GFR (Non-Af Amer) Glucose Lactic Acid 2.2 H Calcium Total Bilirubin AST ALT Alkaline Phosphatase Ammonia < 8.7 L Total Protein Albumin Urine Color HIMANSHU Urine Appearance CLOUDY Urine pH 7.0 Ur Specific [employer] 1.018 Urine Protein 100 H Urine Glucose (UA) NEGATIVE Urine Ketones TRACE H Urine Blood LARGE H Urine Nitrite NEGATIVE Ur Leukocyte Esterase SMALL H Urine WBC (Auto) 5 Urine RBC (Auto) >182 11/21/18 18:19 WBC RBC Hgb Hct MCV MCH MCHC RDW Plt Count Seg Neutrophils % Lymphocytes % Monocytes % Eosinophils % Basophils % Absolute Neutrophils Absolute Lymphocytes Absolute Monocytes Absolute Eosinophils Absolute Basophils Sodium Potassium Chloride Carbon Dioxide Anion Gap BUN Creatinine Est GFR ( Amer) Est GFR (Non-Af Amer) Glucose Lactic Acid 2.2 H Calcium Total Bilirubin AST ALT Alkaline Phosphatase Ammonia Total Protein Albumin Urine Color Urine Appearance Urine pH Ur Specific [employer] Urine Protein Urine Glucose (UA) Urine Ketones Urine Blood Urine Nitrite Ur Leukocyte Esterase Urine WBC (Auto) Urine RBC (Auto) 11/21/18 11/21/18 11/21/18 12:00 18:19 18:19 Creatine Kinase 23 L Troponin I 0.021 0.021 11/22/18 11/22/18 00:33 00:33 Creatine Kinase 35 L Troponin I 0.022 Impressions: Abdomen/Pelvis CT 11/21/18 00:00 IMPRESSION: 1. Unchanged nonobstructing 7 mm stone within the mid left ureter. New 4 mm stone within the left renal pelvis. Unchanged 1.2 cm stone within the superior calyx of the left kidney. No hydronephrosis. 2. Unchanged positioning of the left ureteral stent. 3. No additional changes when compared to 11/20/2018. Chest X-Ray 11/21/18 09:50 IMPRESSION: COPD. NO ACUTE RADIOGRAPHIC FINDING IN THE CHEST. Head CT 11/21/18 11:35 IMPRESSION: CHRONIC CHANGES OF ATROPHY AND MICROVASCULAR ISCHEMIA. NO ACUTE PROCESS. EVIDENCE OF ACUTE STROKE: NO. Assessment & Plan - Diagnosis (1) Altered mental status Qualifiers: Altered mental status type: unspecified Qualified Code(s): R41.82 - Altered mental status, unspecified Is this a current diagnosis for this admission?: Yes Plan: 11/21/2018 patient is going to be admitted for altered mental status most likely secondary to sepsis. Is going to be placed in IMCU. Started on IV fluids normal saline at 100 cc/h, to repeat the lactic acid levels, started on IV Zosyn and IV vancomycin. We are going to adjust the doses as per pharmacy recommendations. Blood cultures urine culture was sent. Aspiration fall precautions are requested. Neurochecks are requested for every 4 hours for the next 24 hours. Swallowing evaluation will be done today. CT head was negative for acute changes. To start on IV Ativan 1 mg every 8 hours as needed for agitation. 11/22/2018-altered mental status/acute and coagulopathy most likely secondary to sepsis. Presently he is on IV Zosyn and vancomycin. Urine cultures blood cultures are pending. CT head was negative. He failed swallowing evaluation. We are going to request for PT OT consult and strategic planner. Requested for neuro checks. Aspiration fall Seizure precautions are requested. Overall prognosis poor condition is critical. (2) Sepsis Qualifiers: Sepsis type: sepsis due to unspecified organism Qualified Code(s): A41.9 - Sepsis, unspecified organism Is this a current diagnosis for this admission?: Yes Plan: 11/21/2018 patient is in septic stock when he came in blood pressure was 78/50 with IV fluids latest blood pressure is 124/60 initially on presentation is tachycardic heart rate is 106 tachypneic respiratory of 24, lactic acid level is 3.1 with altered mental status. And is to continue IV fluids normal saline at 100 cc/h started on IV vancomycin and Zosyn, repeat the lactic acid level this evening daily labs. Blood cultures urine cultures are pending. Chest x-ray does not show any pneumonia. Urinalysis is cloudy with leukocyte esterase positive, WBC more than 5 RBCs 182. Most likely cause of sepsis is urinary tract infection. 11/22/2018-patient's respiratory rate is 31, blood pressure is 10/22/1978 improved. Latest lactic acid is 0.2. Urine cultures blood cultures are pending. Patient is in altered mental status. In my opinion patient is in septic shock. Patient is full code. Plan is to continue IV fluids, IV Zosyn and IV vancomycin. (3) Leukocytosis Qualifiers: Leukocytosis type: unspecified Qualified Code(s): D72.829 - Elevated white blood cell count, unspecified Is this a current diagnosis for this admission?: Yes Plan: 11/21/2018 admission WBC count is 10,000 most likely secondary to sepsis. 11/22/2018-yesterday's WBC count is 18,000 today's labs are pending leukocytosis most likely secondary to sepsis. (4) COPD (chronic obstructive pulmonary disease) Is this a current diagnosis for this admission?: Yes Plan: 11/21/2018 patient has history of COPD not on home oxygen he is ex-smoker quit smoking 15 years ago. He uses Brio and albuterol inhaler at home started him on Xopenex nebulizations every 6 hours as needed. 11/22/2018-patient has history of COPD he is on nebulizer treatments. He was pulse ox are in the 90s. (5) Coronary artery disease Is this a current diagnosis for this admission?: Yes Plan: 11/21/2018-patient has history of coronary artery disease status post stent placement multiple times. Plan to do the serial cardiac enzymes and troponins. Initial troponin is less than 0.021. Patient is on aspirin Plavix and simvastatin at home those medications are going to be resumed. 11/22/2018-patient has history of coronary artery disease previous history of multiple stents placement. At home he is on aspirin, Plavix, simvastatin. We resumed his home medications. But patient is unable to swallow failed swallowing evaluation because of altered mental status. (6) Rheumatoid arthritis Is this a current diagnosis for this admission?: Yes Plan: 11/21/2018 patient has history of rheumatoid arthritis on methotrexate and prednisone at home those medications are restarted again. 11/22/2018-patient has history of rheumatoid arthritis on methotrexate and p.o. prednisone at home. Those medications are resumed but the patient is unable to swallow the pills at this moment. (7) Paroxysmal atrial fibrillation Is this a current diagnosis for this admission?: Yes Plan: 11/21/2018-patient has history of paroxysmal atrial fibrillation on warfarin 1 mg p.o. daily, Plavix 75 mg p.o. daily, aspirin 81 mg p.o. daily these medications he is taking at home plan is to resume those medications in the hospital. 11/22/2018-patient is giving the history of his dad having paroxysmal atrial fibrillation, patient in sinus rhythm here. We resumed his warfarin yesterday but is unable to take any oral medications at this point. (8) History of AAA (abdominal aortic aneurysm) repair Is this a current diagnosis for this admission?: Yes Plan: 11/21/2018 patient has history of abdominal aortic aneurysm status post graft placement in 2009 as per the patient's son. 11/22/2018 patient has history of aortic aneurysm status post graft placement in 2009. CT scan of the abdomen does not show any abnormalities. (9) BPH (benign prostatic hyperplasia) Is this a current diagnosis for this admission?: Yes Plan: 11/21/2018 patient has history of BPH on finasteride and Flomax at home those medications are restarted during this hospital stay. 11/22/2018 patient has history of BPH on finasteride and Flomax at home those medications are resumed but patient is unable to swallow any medications at this moment patient has a Johnson's catheter draining blood stained urine. Overall prognosis and condition again critical.
[2018-11-22 09:01] LABS: ALANINE AMINOTRANSFERASE 19 U/L (21-72); ALBUMIN 3.1 g/dL (3.5-5.0); ALKALINE PHOSPHATASE 91 U/L (38-126); ANION GAP 9 (5-19); ASPARTATE AMINO TRANSFERASE 22 U/L (17-59); BILIRUBIN,DIRECT 1.5 mg/dL (0.0-0.4); BILIRUBIN,TOTAL 3.4 mg/dL (0.2-1.3); BLOOD UREA NITROGEN 12 mg/dL (7-20); CALCIUM 8.8 mg/dL (8.4-10.2); CARBON DIOXIDE 23 mmol/L (22-30); CHLORIDE 111 mmol/L (98-107); GLUCOSE 93 mg/dL (75-110); POTASSIUM 3.7 mmol/L (3.6-5.0); SODIUM 143.3 mmol/L (137-145); TOTAL PROTEIN 6.2 g/dL (6.3-8.2)
[2018-11-22 09:09] LABS: ABSOLUTE LYMPHOCYTES# (MANUAL) 0.7 10^3/uL (0.5-4.7); ABSOLUTE MONOCYTES # (MANUAL) 0.7 10^3/uL (0.1-1.4); ABSOLUTE NEUTROPHILS# (MANUAL) 12.8 10^3/uL (1.7-8.2); BASOPHILS % (MANUAL) 0 % (0-2); EOSINOPHILS % (MANUAL) 2 % (0-6); LYMPHOCYTES % (MANUAL) 5 % (13-45); MONOCYTES % (MANUAL) 5 % (3-13); SEGMENTED NEUTROPHILS % (MAN) 88 % (42-78); TOTAL CELLS COUNTED 100
[2018-11-22 09:10] LABS: ANISOCYTOSIS 2+; PLATELET COMMENT ADEQUATE; POLYCHROMASIA SLIGHT
[2018-11-22] MEDS: ASPIRIN 81 MG TABLET, CHEWABLE PO SCH (09:41)
[2018-11-22] MEDS: PREDNISONE 10 MG TABLET PO SCH (09:41)
[2018-11-22] MEDS: FINASTERIDE 5 MG TABLET PO SCH (09:42)
[2018-11-22] MEDS: FAMOTIDINE INJ/PF 20 MG/2 ML SDV IV SCH ×2 (09:46→21:20)
[2018-11-22] MEDS ORDERED: ENOXAPARIN SODIUM INJ 40 MG/0.4 ML DISP.SYRIN SUBCUT SCH (10:00)
[2018-11-22] MEDS ORDERED: METHOTREXATE SODIUM 2.5 MG TABLET PO SCH (10:00)
[2018-11-22] MEDS: VANCOMYCIN HCL 1,000 MG in DEXTROSE 5%-WATER 250 ML IV SCH ×2 (11:56→22:41)
[2018-11-22 12:04] LABS: INTERNATIONAL RATION (INR) 1.63; PROTHROMBIN TIME 20.1 SEC (11.4-15.4)
[2018-11-22] MEDS: PIPERACILLIN SODIUM/TAZOBACTAM 3.375 GM in NORMAL SALINE 100 ML IV SCH ×2 (17:13→21:18)
[2018-11-22] MEDS ORDERED: SIMVASTATIN 10 MG TABLET PO SCH (22:00)
[2018-11-23] MEDS: MORPHINE SULFATE 10 MG/ML INJ IV SCH ×6 (00:16→20:15)
[2018-11-23] MEDS: NORMAL SALINE 1000 ML 1,000 ML IV PRN ×2 (02:35→10:53)
[2018-11-23] MEDS: PIPERACILLIN SODIUM/TAZOBACTAM 3.375 GM in NORMAL SALINE 100 ML IV SCH ×4 (03:53→20:15)
[2018-11-23] MEDS ORDERED: ONDANSETRON HCL INJ/PF 4 MG/2 ML SDV IV PRN (08:30)
--- NOTE | 2018-11-23 09:17 | PDOC PROGRESS REPORT ---
Subjective Progress Note for:: 11/23/18 Subjective:: 73-year-old male admitted with sepsis and altered mental status. Unable to swallow anything. Johnson's catheter shows blood stained urine. Lactic acid is 2.2 last night. Plan is to increase the IV fluids to 150 cc/h do the bladder irrigation and repeated lactic acid levels today. Today's labs are pending. Patient states he is in the hospital other than that unable to continue communication. Keep on saying he wants to urinate ,explained to him that he has a catheter in place. Overall prognosis poor condition is critical. Tried to call the son to give an update and unable to leave the message. 09/22/2019-patient is more alert more awake today. Able to give his birthday, he did know where he is at. Therapy is working with the patient today. Patient shows significant improvement. We are going to try to give p.o. medications this morning. No acute events in last 24 hours. Patient is afebrile. Reason For Visit: ALTERED MENTAL STATUS,SEPSIS,LEUKOCYTOSIS Physical Exam Vital Signs: Temp Pulse Resp BP Pulse Ox 98.4 F 93 20 138/71 H 92 11/23/18 07:05 11/23/18 07:05 11/23/18 07:05 11/23/18 07:05 11/23/18 07:05 Intake & Output 11/22/18 11/23/18 11/24/18 06:59 06:59 06:59 Intake Total 2500 5500 Output Total 0 1300 Balance 2500 4200 Weight 66.2 kg 62 kg General appearance: PRESENT: no acute distress Head exam: PRESENT: atraumatic Eye exam: PRESENT: PERRLA Mouth exam: PRESENT: moist, tongue midline Neck exam: ABSENT: carotid bruit, JVD, lymphadenopathy, thyromegaly Cardiovascular exam: PRESENT: RRR. ABSENT: diastolic murmur, rubs, systolic murmur GI/Abdominal exam: PRESENT: normal bowel sounds, soft. ABSENT: distended, guard ing, mass, organolmegaly, rebound, tenderness Gentrourinary exam: PRESENT: indwelling catheter, other - Patient is on continuous bladder irrigation still have blood in the Johnson's catheter. Extremities exam: PRESENT: other Neurological exam: PRESENT: alert, awake, oriented to person, oriented to place, oriented to time, oriented to situation, CN II-XII grossly intact. ABSENT: motor sensory deficit Psychiatric exam: PRESENT: appropriate affect, normal mood. ABSENT: homicidal ideation, suicidal ideation Results Laboratory Results: 11/22/18 08:13 11/22/18 08:13 11/22/18 11/22/18 11/22/18 08:13 08:13 08:13 WBC 14.5 H RBC 3.59 L Hgb 11.0 L Hct 33.9 L MCV 94 MCH 30.7 MCHC 32.5 RDW 20.2 H Plt Count 218 Sodium 143.3 Potassium 3.7 Chloride 111 H Carbon Dioxide 23 Anion Gap 9 BUN 12 Creatinine 0.71 Est GFR ( Amer) > 60 Est GFR (Non-Af Amer) > 60 Glucose 93 Lactic Acid Calcium 8.8 Magnesium 1.8 Total Bilirubin 3.4 H AST 22 ALT 19 L Alkaline Phosphatase 91 Total Protein 6.2 L Albumin 3.1 L TSH 1.67 11/22/18 11/23/18 11:20 06:07 WBC RBC Hgb Hct MCV MCH MCHC RDW Plt Count Sodium Potassium Chloride Carbon Dioxide Anion Gap BUN Creatinine Est GFR ( Amer) Est GFR (Non-Af Amer) Glucose Lactic Acid 1.1 Calcium Magnesium 1.7 Total Bilirubin AST ALT Alkaline Phosphatase Total Protein Albumin TSH 11/21/18 11/21/18 11/21/18 12:00 18:19 18:19 Creatine Kinase 23 L Troponin I 0.021 0.021 11/22/18 11/22/18 11/22/18 00:33 00:33 08:13 Creatine Kinase 35 L 24 L Troponin I 0.022 11/22/18 08:13 Creatine Kinase Troponin I < 0.012 Impressions: Abdomen/Pelvis CT 11/21/18 00:00 IMPRESSION: 1. Unchanged nonobstructing 7 mm stone within the mid left ureter. New 4 mm s tone within the left renal pelvis. Unchanged 1.2 cm stone within the superior calyx of the left kidney. No hydronephrosis. 2. Unchanged positioning of the left ureteral stent. 3. No additional changes when compared to 11/20/2018. Chest X-Ray 11/21/18 09:50 IMPRESSION: COPD. NO ACUTE RADIOGRAPHIC FINDING IN THE CHEST. Head CT 11/21/18 11:35 IMPRESSION: CHRONIC CHANGES OF ATROPHY AND MICROVASCULAR ISCHEMIA. NO ACUTE PROCESS. EVIDENCE OF ACUTE STROKE: NO. Assessment & Plan - Diagnosis (1) Altered mental status Qualifiers: Altered mental status type: unspecified Qualified Code(s): R41.82 - Altered mental status, unspecified Is this a current diagnosis for this admission?: Yes Plan: 11/21/2018 patient is going to be admitted for altered mental status most likely secondary to sepsis. Is going to be placed in IMCU. Started on IV fluids normal saline at 100 cc/h, to repeat the lactic acid levels, started on IV Zosyn and IV vancomycin. We are going to adjust the doses as per pharmacy recommendations. Blood cultures urine culture was sent. Aspiration fall precautions are requested. Neurochecks are requested for every 4 hours for the next 24 hours. Swallowing evaluation will be done today. CT head was negative for acute changes. To start on IV Ativan 1 mg every 8 hours as needed for agitation. 11/22/2018-altered mental status/acute encephalopathy most likely secondary to sepsis. Presently he is on IV Zosyn and vancomycin. Urine cultures blood cultures are pending. CT head was negative. He failed swallowing evaluation. We are going to request for PT OT consult and case planner. Requested for neuro checks. Aspiration fall Seizure precautions are requested. Overall prognosis poor condition is critical. 11/23/2018 altered mental status/acute encephalopathy most likely secondary to sepsis. Blood cultures are negative so far. Patient is presently on IV Zosyn and vancomycin. It is much more alert and oriented. Be going to try to give his morning p.o. medications. Therapy is working with the patient. Aspiration fall seizure precautions are requested. (2) Sepsis Qualifiers: Sepsis type: sepsis due to unspecified organism Qualified Code(s): A41.9 - Sepsis, unspecified organism Is this a current diagnosis for this admission?: Yes Plan: 11/21/2018 patient is in septic stock when he came in blood pressure was 78/50 with IV fluids latest blood pressure is 124/60 initially on presentation is tachycardic heart rate is 106 tachypneic respiratory of 24, lactic acid level is 3.1 with altered mental status. And is to continue IV fluids normal saline at 100 cc/h started on IV vancomycin and Zosyn, repeat the lactic acid level this evening daily labs. Blood cultures urine cultures are pending. Chest x-ray does not show any pneumonia. Urinalysis is cloudy with leukocyte esterase positive, WBC more than 5 RBCs 182. Most likely cause of sepsis is urinary tract infection. 11/22/2018-patient's respiratory rate is 31, blood pressure is 124/79 improved. Latest lactic acid is 0.2. Urine cultures blood cultures are pending. Patient is in altered mental status. In my opinion patient is in septic shock. Patient is full code. Plan is to continue IV fluids, IV Zosyn and IV vancomycin. 11/23/2018-patient's T-max is 98.4 pulse rate is 93. Blood pressure today is 138/71. Plan is to continue the IV antibiotic therapy and to decrease the IV infusion of the fluids. Cultures are pending. Presently on IV Zosyn and vancomycin plan is to continue those antibiotics. (3) Leukocytosis Qualifiers: Leukocytosis type: unspecified Qualified Code(s): D72.829 - Elevated white blood cell count, unspecified Is this a current diagnosis for this admission?: Yes Plan: 11/21/2018 admission WBC count is 10,000 most likely secondary to sepsis. 11/22/2018-yesterday's WBC count is 18,000 today's labs are pending leukocytosis most likely secondary to sepsis. 11/23/2018-today's labs are pending. Admission WBC is 18,000 yesterday WBC came down to 14,500. Plan is to continue the present management. Leukocytosis is resolving. (4) COPD (chronic obstructive pulmonary disease) Is this a current diagnosis for this admission?: Yes Plan: 11/21/2018 patient has history of COPD not on home oxygen he is ex-smoker quit smoking 15 years ago. He uses Brio and albuterol inhaler at home started him on Xopenex nebulizations every 6 hours as needed. 11/22/2018-patient has history of COPD he is on nebulizer treatments. He was pulse ox are in the 90s. 11/23/2018 patient has history of COPD his pulse ox is 82% on room air. he Is getting Xopenex nebulizer treatments. Plan is to continue the present manage ment. (5) Coronary artery disease Is this a current diagnosis for this admission?: Yes Plan: 11/21/2018-patient has history of coronary artery disease status post stent placement multiple times. Plan to do the serial cardiac enzymes and troponins. Initial troponin is less than 0.021. Patient is on aspirin Plavix and simvastatin at home those medications are going to be resumed. 11/22/2018-patient has history of coronary artery disease previous history of multiple stents placement. At home he is on aspirin, Plavix, simvastatin. We resumed his home medications. But patient is unable to swallow failed swallowing evaluation because of altered mental status. 11/23/2018-patient has history of coronary artery disease with multiple stent placement. At home he is on aspirin, Plavix, simvastatin plan is to continue with his home medications. Patient failed his swallowing evaluation yesterday is much more alert and oriented today hopefully he able to take his oral medications. (6) Rheumatoid arthritis Is this a current diagnosis for this admission?: Yes Plan: 11/21/2018 patient has history of rheumatoid arthritis on methotrexate and prednisone at home those medications are restarted again. 11/22/2018-patient has history of rheumatoid arthritis on methotrexate and p.o. prednisone at home. Those medications are resumed but the patient is unable to swallow the pills at this moment. 11/23/2018-patient has history of rheumatoid arthritis on methotrexate and prednisone at home occasions once able to swallow the medications. (7) Paroxysmal atrial fibrillation Is this a current diagnosis for this admission?: Yes Plan: 11/21/2018-patient has history of paroxysmal atrial fibrillation on warfarin 1 mg p.o. daily, Plavix 75 mg p.o. daily, aspirin 81 mg p.o. daily these medications he is taking at home plan is to resume those medications in the hospital. 11/22/2018-patient is giving the history of his dad having paroxysmal atrial fibrillation, patient in sinus rhythm here. We resumed his warfarin yesterday but is unable to take any oral medications at this point. 11/23/2018-patient is has a history of paroxysmal atrial fibrillation he is in sinus rhythm he is on warfarin at home. We are going to check his PT/INR on daily basis. (8) History of AAA (abdominal aortic aneurysm) repair Is this a current diagnosis for this admission?: Yes Plan: 11/21/2018 patient has history of abdominal aortic aneurysm status post graft placement in 2009 as per the patient's son. 11/22/2018 patient has history of aortic aneurysm status post graft placement in 2009. CT scan of the abdomen does not show any abnormalities. (9) BPH (benign prostatic hyperplasia) Is this a current diagnosis for this admission?: Yes Plan: 11/21/2018 patient has history of BPH on finasteride and Flomax at home those medications are restarted during this hospital stay. 11/22/2018 patient has history of BPH on finasteride and Flomax at home those medications are resumed but patient is unable to swallow any medications at this moment patient has a Johnson's catheter draining blood stained urine. Overall prognosis and condition again critical. 11/23/2018 patient has history of BPH and he is on finasteride and Flomax at home plan is to resume those medications. (10) UTI (urinary tract infection) Is this a current diagnosis for this admission?: Yes Plan: 11/23/2018-patient has a urinary stent placement at [facility]. He came in with septic shock. Most likely source of infection in the urine. Urine analysis initially shows cloudy urine with increased WBC and RBC. Urine culture is pending. Presently on IV vancomycin and Zosyn plan is to continue those medications. - Time Time Spent with patient: 15-24 minutes Medications reviewed and adjusted accordingly: Yes Anticipated discharge: [facility]
[2018-11-23] MEDS ORDERED: FINASTERIDE 5 MG TABLET PO SCH (10:00)
[2018-11-23] MEDS ORDERED: (PENDING PHARMACY ID) (Warfarin Sodium 1 MG) PO SCH (10:00)
[2018-11-23] MEDS ORDERED: (PENDING PHARMACY ID) (Fluticasone/Vilanterol [Breo Ellipta 100-25 Mcg Inh] 1 EACH) IH SCH (10:00)
[2018-11-23] MEDS: FINASTERIDE 5 MG TABLET PO SCH (10:43)
[2018-11-23] MEDS: SOTALOL HCL 80 MG TABLET PO SCH ×2 (10:43→21:40)
[2018-11-23] MEDS: PREDNISONE 10 MG TABLET PO SCH (10:43)
[2018-11-23] MEDS: CLOPIDOGREL BISULFATE 75 MG TABLET PO SCH (10:43)
[2018-11-23] MEDS: ASPIRIN 81 MG TABLET, CHEWABLE PO SCH (10:43)
[2018-11-23] MEDS: FAMOTIDINE INJ/PF 20 MG/2 ML SDV IV SCH ×2 (10:46→21:40)
[2018-11-23] MEDS: VANCOMYCIN HCL 1,000 MG in DEXTROSE 5%-WATER 250 ML IV SCH (10:46)
[2018-11-23 11:18] LABS: HEMATOCRIT 33.2 % (37.9-51.0); HEMOGLOBIN 10.8 g/dL (13.5-17.0); MEAN CORPUSCULAR HEMOGLOBIN 30.8 pg (27.0-33.4); MEAN CORPUSCULAR HGB CONC 32.6 g/dL (32.0-36.0); MEAN CORPUSCULAR VOLUME 94 fl (80-97); PLATELET COUNT 207 10^3/uL (150-450); RED BLOOD COUNT 3.51 10^6/uL (4.35-5.55); RED CELL DISTRIBUTION WIDTH 19.8 % (11.5-14.0); WHITE BLOOD COUNT 17.8 10^3/uL (4.0-10.5)
[2018-11-23 11:37] LABS: ABSOLUTE LYMPHOCYTES# (MANUAL) 0.2 10^3/uL (0.5-4.7); ABSOLUTE MONOCYTES # (MANUAL) 1.4 10^3/uL (0.1-1.4); ABSOLUTE NEUTROPHILS# (MANUAL) 15.7 10^3/uL (1.7-8.2); BASOPHILS % (MANUAL) 2 % (0-2); EOSINOPHILS % (MANUAL) 1 % (0-6); LYMPHOCYTES % (MANUAL) 1 % (13-45); MONOCYTES % (MANUAL) 8 % (3-13); SEGMENTED NEUTROPHILS % (MAN) 88 % (42-78); TOTAL CELLS COUNTED 100
[2018-11-23 11:38] LABS: ANISOCYTOSIS 2+; OVALOCYTES 1+; PLATELET COMMENT ADEQUATE; POIKILOCYTOSIS 1+
[2018-11-23 11:40] LABS: ALANINE AMINOTRANSFERASE 26 U/L (21-72); ALBUMIN 2.8 g/dL (3.5-5.0); ALKALINE PHOSPHATASE 84 U/L (38-126); ANION GAP 9 (5-19); ASPARTATE AMINO TRANSFERASE 20 U/L (17-59); BILIRUBIN,DIRECT 1.2 mg/dL (0.0-0.4); BILIRUBIN,TOTAL 3.1 mg/dL (0.2-1.3); BLOOD UREA NITROGEN 9 mg/dL (7-20); CALCIUM 8.9 mg/dL (8.4-10.2); CARBON DIOXIDE 21 mmol/L (22-30); CHLORIDE 115 mmol/L (98-107); GLUCOSE 94 mg/dL (75-110); POTASSIUM 3.3 mmol/L (3.6-5.0); SODIUM 144.9 mmol/L (137-145); TOTAL PROTEIN 6.1 g/dL (6.3-8.2)
[2018-11-23 11:58] LABS: INTERNATIONAL RATION (INR) 1.71; PROTHROMBIN TIME 20.9 SEC (11.4-15.4)
[2018-11-23 12:39] LABS: VANCOMYCIN,TROUGH 16.4 ug/mL (5.0-20.0)
[2018-11-23] MEDS: WARFARIN SODIUM 1 MG TABLET PO SCH (21:40)
[2018-11-23] MEDS: SIMVASTATIN 40 MG TABLET PO SCH (21:40)
[2018-11-23] MEDS: TAMSULOSIN HCL 0.4 MG CAP.SR.24H PO SCH (21:41)
[2018-11-23] MEDS ORDERED: (PENDING PHARMACY ID) (Simvastatin [Zocor 80 Mg Tablet] 80 MG) PO SCH (22:00)
[2018-11-23] MEDS ORDERED: ASPIRIN 81 MG TABLET, ENT COATED PO SCH (22:00)
[2018-11-24] MEDS: MORPHINE SULFATE 10 MG/ML INJ IV SCH ×3 (00:33→08:21)
[2018-11-24] MEDS: PIPERACILLIN SODIUM/TAZOBACTAM 3.375 GM in NORMAL SALINE 100 ML IV SCH ×4 (02:03→21:52)
[2018-11-24] MEDS: ACETAMINOPHEN 325 MG TABLET PO PRN (02:33)
[2018-11-24] MEDS: NORMAL SALINE 1000 ML 1,000 ML IV PRN (04:05)
[2018-11-24 06:33] LABS: ABSOLUTE EOSINOPHILS # (AUTO) 0.1 10^3/uL (0.0-0.6); ABSOLUTE LYMPHOCYTES (AUTO) 0.7 10^3/uL (0.5-4.7); ABSOLUTE MONOCYTES (AUTO) 0.8 10^3/uL (0.1-1.4); ABSOLUTE NEUT (AUTO) 6.7 10^3/uL (1.7-8.2); BASOPHILS % (AUTO) 0.3 % (0-2); EOSINOPHILS % (AUTO) 1.7 % (0-6); HEMATOCRIT 26.9 % (37.9-51.0); LYMPHOCYTES % (AUTO) 8.2 % (13-45); MEAN CORPUSCULAR HEMOGLOBIN 31.8 pg (27.0-33.4); MEAN CORPUSCULAR HGB CONC 33.5 g/dL (32.0-36.0); MEAN CORPUSCULAR VOLUME 95 fl (80-97); MONOCYTES % (AUTO) 9.2 % (3-13); PLATELET COUNT 160 10^3/uL (150-450); RED BLOOD COUNT 2.84 10^6/uL (4.35-5.55); RED CELL DISTRIBUTION WIDTH 20.4 % (11.5-14.0); SEGMENTED NEUTROPHILS % (AUTO) 80.6 % (42-78); TOTAL CELLS COUNTED % (AUTO) 100 %; WHITE BLOOD COUNT 8.3 10^3/uL (4.0-10.5)
[2018-11-24 06:53] LABS: ALANINE AMINOTRANSFERASE 13 U/L (21-72); ALBUMIN 2.2 g/dL (3.5-5.0); ALKALINE PHOSPHATASE 61 U/L (38-126); ASPARTATE AMINO TRANSFERASE 16 U/L (17-59); BILIRUBIN,DIRECT 0.9 mg/dL (0.0-0.4); BLOOD UREA NITROGEN 10 mg/dL (7-20); CALCIUM 8.5 mg/dL (8.4-10.2); GLUCOSE 84 mg/dL (75-110); POTASSIUM 3.2 mmol/L (3.6-5.0); TOTAL PROTEIN 4.9 g/dL (6.3-8.2)
[2018-11-24 06:58] LABS: CARBON DIOXIDE 24 mmol/L (22-30); CHLORIDE 116 mmol/L (98-107); SODIUM 143.6 mmol/L (137-145)
[2018-11-24 07:12] LABS: ANION GAP 4 (5-19)
[2018-11-24] MEDS ORDERED: PREDNISONE 5 MG TABLET PO SCH (10:00)
[2018-11-24] MEDS: POTASSIUM CHLORIDE 10 MEQ CAPSULE.ER PO SCH (10:40)
[2018-11-24] MEDS: SOTALOL HCL 80 MG TABLET PO SCH ×2 (10:40→21:52)
[2018-11-24] MEDS: PREDNISONE 10 MG TABLET PO SCH (10:42)
[2018-11-24] MEDS: CLOPIDOGREL BISULFATE 75 MG TABLET PO SCH (10:43)
[2018-11-24] MEDS: ASPIRIN 81 MG TABLET, CHEWABLE PO SCH (10:44)
[2018-11-24] MEDS: MAGNESIUM OXIDE 400 MG TABLET PO SCH ×2 (10:45→17:39)
[2018-11-24] MEDS: FINASTERIDE 5 MG TABLET PO SCH (10:46)
[2018-11-24] MEDS: FAMOTIDINE 20 MG TABLET PO SCH ×2 (10:46→21:51)
--- NOTE | 2018-11-24 10:46 | PDOC PROGRESS REPORT ---
Subjective Progress Note for:: 11/24/18 Subjective:: 73-year-old male admitted with sepsis and altered mental status. Unable to swallow anything. Johnson's catheter shows blood stained urine. Lactic acid is 2.2 last night. Plan is to increase the IV fluids to 150 cc/h do the bladder irrigation and repeated lactic acid levels today. Today's labs are pending. Patient states he is in the hospital other than that unable to continue communication. Keep on saying he wants to urinate ,explained to him that he has a catheter in place. Overall prognosis poor condition is critical. Tried to call the son to give an update and unable to leave the message. 11/23/2018-patient is more alert more awake today. Able to give his birthday, he did know where he is at. Therapy is working with the patient today. Patient s hows significant improvement. We are going to try to give p.o. medications this morning. No acute events in last 24 hours. Patient is afebrile. 11/24/2018-patient is communicating well no acute events in the last 24 hours. Patient is afebrile. Patient said he had do not have any problems swallowing liquids but has a problem swallowing the solid food. Yesterday he is able to take the pills without any problem. Speech is aware they could reevaluate him tomorrow. No other complaints. Reason For Visit: RENAL STONE Physical Exam Vital Signs: Temp Pulse Resp BP Pulse Ox 97.3 F 62 20 130/63 H 92 11/24/18 08:36 11/24/18 08:36 11/24/18 08:36 11/24/18 08:36 11/24/18 08:36 Intake & Output 11/23/18 11/24/18 11/25/18 06:59 06:59 06:59 Intake Total 5500 5350 100 Output Total 1300 1425 Balance 4200 3925 100 Weight 62 kg 63.5 kg General appearance: PRESENT: no acute distress Head exam: PRESENT: atraumatic Eye exam: PRESENT: PERRLA Neck exam: ABSENT: carotid bruit, JVD, lymphadenopathy, thyromegaly Respiratory exam: PRESENT: decreased breath sounds Cardiovascular exam: PRESENT: tachycardia GI/Abdominal exam: PRESENT: normal bowel sounds, soft. ABSENT: distended, guarding, mass, organolmegaly, rebound, tenderness Gentrourinary exam: PRESENT: indwelling catheter, other - Patient still on bladder irrigation and blood stained urine in the bag. Extremities exam: PRESENT: full ROM. ABSENT: calf tenderness, clubbing, pedal edema Neurological exam: PRESENT: alert, awake, oriented to person, oriented to place, oriented to time, oriented to situation, CN II-XII grossly intact. ABSENT: motor sensory deficit Psychiatric exam: PRESENT: appropriate affect, normal mood. ABSENT: homicidal ideation, suicidal ideation Results Laboratory Results: 11/24/18 06:02 11/24/18 06:02 11/23/18 11/23/18 11/24/18 10:50 10:50 06:02 WBC 17.8 H RBC 3.51 L Hgb 10.8 L Hct 33.2 L MCV 94 MCH 30.8 MCHC 32.6 RDW 19.8 H Plt Count 207 Seg Neutrophils % Not Reportable Lymphocytes % Not Reportable Monocytes % Not Reportable Eosinophils % Not Reportable Basophils % Not Reportable Absolute Neutrophils Not Reportable Absolute Lymphocytes Not Reportable Absolute Monocytes Not Reportable Absolute Eosinophils Not Reportable Absolute Basophils Not Reportable Sodium 144.9 143.6 Potassium 3.3 L 3.2 L Chloride 115 H 116 H Carbon Dioxide 21 L 24 Anion Gap 9 4 L BUN 9 10 Creatinine 0.74 0.75 Est GFR ( Amer) > 60 > 60 Est GFR (Non-Af Amer) > 60 > 60 Glucose 94 84 Calcium 8.9 8.5 Magnesium 1.7 1.7 Total Bilirubin 3.1 H 2.0 H AST 20 16 L ALT 26 13 L Alkaline Phosphatase 84 61 Total Protein 6.1 L 4.9 L Albumin 2.8 L 2.2 L 11/24/18 06:02 WBC 8.3 RBC 2.84 L Hgb 9.0 L Hct 26.9 L MCV 95 MCH 31.8 MCHC 33.5 RDW 20.4 H Plt Count 160 Seg Neutrophils % 80.6 H Lymphocytes % 8.2 L Monocytes % 9.2 Eosinophils % 1.7 Basophils % 0.3 Absolute Neutrophils 6.7 Absolute Lymphocytes 0.7 Absolute Monocytes 0.8 Absolute Eosinophils 0.1 Absolute Basophils 0.0 Sodium Potassium Chloride Carbon Dioxide Anion Gap BUN Creatinine Est GFR ( Amer) Est GFR (Non-Af Amer) Glucose Calcium Magnesium Total Bilirubin AST ALT Alkaline Phosphatase Total Protein Albumin 11/21/18 10:10 Johnson Catheter Urine Culture - Final Escherichia Coli Esbl 11/21/18 11/21/18 11/21/18 12:00 18:19 18:19 Creatine Kinase 23 L Troponin I 0.021 0.021 11/22/18 11/22/18 11/22/18 00:33 00:33 08:13 Creatine Kinase 35 L 24 L Troponin I 0.022 11/22/18 08:13 Creatine Kinase Troponin I < 0.012 Impressions: Abdomen/Pelvis CT 11/21/18 00:00 IMPRESSION: 1. Unchanged nonobstructing 7 mm stone within the mid left ureter. New 4 mm stone within the left renal pelvis. Unchanged 1.2 cm stone within the superior calyx of the left kidney. No hydronephrosis. 2. Unchanged positioning of the left ureteral stent. 3. No additional changes when compared to 11/20/2018. Chest X-Ray 11/21/18 09:50 IMPRESSION: COPD. NO ACUTE RADIOGRAPHIC FINDING IN THE CHEST. Head CT 11/21/18 11:35 IMPRESSION: CHRONIC CHANGES OF ATROPHY AND MICROVASCULAR ISCHEMIA. NO ACUTE PROCESS. EVIDENCE OF ACUTE STROKE: NO. Assessment & Plan - Diagnosis (1) Altered mental status Qualifiers: Altered mental status type: unspecified Qualified Code(s): R41.82 - Altered mental status, unspecified Is this a current diagnosis for this admission?: Yes Plan: 11/21/2018 patient is going to be admitted for altered mental status most likely secondary to sepsis. Is going to be placed in IMCU. Started on IV fluids normal saline at 100 cc/h, to repeat the lactic acid levels, started on IV Zosyn and IV vancomycin. We are going to adjust the doses as per pharmacy recommendations. Blood cultures urine culture was sent. Aspiration fall precautions are requested. Neurochecks are requested for every 4 hours for the next 24 hours. Swallowing evaluation will be done today. CT head was negative for acute changes. To start on IV Ativan 1 mg every 8 hours as needed for agitation. 11/22/2018-altered mental status/acute encephalopathy most likely secondary to sepsis. Presently he is on IV Zosyn and vancomycin. Urine cultures blood cultures are pending. CT head was negative. He failed swallowing evaluation. We are going to request for PT OT consult and land planner. Requested for neuro checks. Aspiration fall Seizure precautions are requested. Overall prognosis poor condition is critical. 11/23/2018 altered mental status/acute encephalopathy most likely secondary to sepsis. Blood cultures are negative so far. Patient is presently on IV Zosyn and vancomycin. It is much more alert and oriented. Be going to try to give hi s morning p.o. medications. Therapy is working with the patient. Aspiration fall seizure precautions are requested. 11/24/2018-altered mental status/acute encephalopathy most likely secondary to sepsis is resolved. Patient said he has a difficulty in swallowing this morning we going to reevaluate by placing a speech consult for tomorrow. Started on pured diet from today. (2) Sepsis Qualifiers: Sepsis type: sepsis due to unspecified organism Qualified Code(s): A41.9 - Sepsis, unspecified organism Is this a current diagnosis for this admission?: Yes Plan: 11/21/2018 patient is in septic stock when he came in blood pressure was 78/50 with IV fluids latest blood pressure is 124/60 initially on presentation is tachycardic heart rate is 106 tachypneic respiratory of 24, lactic acid level is 3.1 with altered mental status. And is to continue IV fluids normal saline at 100 cc/h started on IV vancomycin and Zosyn, repeat the lactic acid level this evening daily labs. Blood cultures urine cultures are pending. Chest x-ray does not show any pneumonia. Urinalysis is cloudy with leukocyte esterase positive, WBC more than 5 RBCs 182. Most likely cause of sepsis is urinary tract infection. 11/22/2018-patient's respiratory rate is 31, blood pressure is 124/79 improved. Latest lactic acid is 0.2. Urine cultures blood cultures are pending. Patient is in altered mental status. In my opinion patient is in septic shock. Patient is full code. Plan is to continue IV fluids, IV Zosyn and IV vancomycin. 11/23/2018-patient's T-max is 98.4 pulse rate is 93. Blood pressure today is 138/71. Plan is to continue the IV antibiotic therapy and to decrease the IV infusion of the fluids. Cultures are pending. Presently on IV Zosyn and vancomycin plan is to continue those antibiotics. 11/24/2018 patient was admitted with septic shock blood cultures are negative urine culture shows ESBL coli. Blood pressure today 130/63 temperature 97.3 pulse rate 62, WBC count is 8300. Septic shock is resolved. (3) Leukocytosis Qualifiers: Leukocytosis type: unspecified Qualified Code(s): D72.829 - Elevated white blood cell count, unspecified Is this a current diagnosis for this admission?: Yes Plan: 11/21/2018 admission WBC count is 10,000 most likely secondary to sepsis. 11/22/2018-yesterday's WBC count is 18,000 today's labs are pending leukocytosis most likely secondary to sepsis. 11/23/2018-today's labs are pending. Admission WBC is 18,000 yesterday WBC came down to 14,500. Plan is to continue the present management. Leukocytosis is resolving. 11/24/2018-on admission WBC count is 18,100 today WBC count is 8300 leukocytosis secondary to sepsis is resolved. (4) COPD (chronic obstructive pulmonary disease) Is this a current diagnosis for this admission?: Yes Plan: 11/21/2018 patient has history of COPD not on home oxygen he is ex-smoker quit smoking 15 years ago. He uses Brio and albuterol inhaler at home started him on Xopenex nebulizations every 6 hours as needed. 11/22/2018-patient has history of COPD he is on nebulizer treatments. He was pulse ox are in the 90s. 11/23/2018 patient has history of COPD his pulse ox is 92% on room air. he Is g etting Xopenex nebulizer treatments. Plan is to continue the present management. 11/24/2018-patient has history of COPD not on home oxygen. Pulse ox is 82% on room air this morning. He is on Xopenex nebulizations. Chest x-ray negative for pneumonia. Plan is to continue the present management. (5) Coronary artery disease Is this a current diagnosis for this admission?: Yes Plan: 11/21/2018-patient has history of coronary artery disease status post stent placement multiple times. Plan to do the serial cardiac enzymes and troponins. Initial troponin is less than 0.021. Patient is on aspirin Plavix and simvastatin at home those medications are going to be resumed. 11/22/2018-patient has history of coronary artery disease previous history of multiple stents placement. At home he is on aspirin, Plavix, simvastatin. We resumed his home medications. But patient is unable to swallow failed swallowing evaluation because of altered mental status. 11/23/2018-patient has history of coronary artery disease with multiple stent placement. At home he is on aspirin, Plavix, simvastatin plan is to continue with his home medications. Patient failed his swallowing evaluation yesterday is much more alert and oriented today hopefully he able to take his oral medications. 11/24/2018-patient has history of coronary artery disease status post stent placement multiple times. Patient is on aspirin, Plavix, and simvastatin. Resumed those medications during the hospital stay. (6) Rheumatoid arthritis Is this a current diagnosis for this admission?: Yes Plan: 11/21/2018 patient has history of rheumatoid arthritis on methotrexate and prednisone at home those medications are restarted again. 11/22/2018-patient has history of rheumatoid arthritis on methotrexate and p.o. prednisone at home. Those medications are resumed but the patient is unable to swallow the pills at this moment. 11/23/2018-patient has history of rheumatoid arthritis on methotrexate and prednisone at home, meds will be restarted once able to swallow the medications. 11/24/2018-patient has history of rheumatoid arthritis on methotrexate and prednisone these medications are restarted during the hospital stay. (7) Paroxysmal atrial fibrillation Is this a current diagnosis for this admission?: Yes Plan: 11/21/2018-patient has history of paroxysmal atrial fibrillation on warfarin 1 mg p.o. daily, Plavix 75 mg p.o. daily, aspirin 81 mg p.o. daily these medications he is taking at home plan is to resume those medications in the hospital. 11/22/2018-patient is giving the history of his dad having paroxysmal atrial fibrillation, patient in sinus rhythm here. We resumed his warfarin yesterday but is unable to take any oral medications at this point. 11/23/2018-patient is has a history of paroxysmal atrial fibrillation he is in sinus rhythm he is on warfarin at home. We are going to check his PT/INR on daily basis. 11/24/2017-patient has history of paroxysmal atrial fibrillation, during his hospital stay he is on sinus rhythm. According to his son warfarin was discontinued recently. INR today is 1.71. As per the son's request we going to discontinue warfarin. Be placed on a Lovenox 40 mg subcu daily. (8) History of AAA (abdominal aortic aneurysm) repair Is this a current diagnosis for this admission?: Yes Plan: 11/21/2018 patient has history of abdominal aortic aneurysm status post graft placement in 2009 as per the patient's son. 11/22/2018 patient has history of aortic aneurysm status post graft placement in 2009. CT scan of the abdomen does not show any abnormalities. 11/24/2018-patient has history of abdominal aortic aneurysm status post graft placement in 2009. CT scan during this time patient does not show any acute abnormalities. (9) BPH (benign prostatic hyperplasia) Is this a current diagnosis for this admission?: Yes Plan: 11/21/2018 patient has history of BPH on finasteride and Flomax at home those medications are restarted during this hospital stay. 11/22/2018 patient has history of BPH on finasteride and Flomax at home those medications are resumed but patient is unable to swallow any medications at this moment patient has a Johnson's catheter draining blood stained urine. Overall prognosis and condition again critical. 11/23/2018 patient has history of BPH and he is on finasteride and Flomax at home plan is to resume those medications. 11/24/2018-patient history of BPH he is on finasteride and Flomax at home those medications are restarted during this hospital stay. (10) UTI (urinary tract infection) Is this a current diagnosis for this admission?: Yes Plan: 11/23/2018-patient has a urinary stent placement at [facility]. He came in with septic shock. Most likely source of infection in the urine. Urine analysis initially shows cloudy urine with increased WBC and RBC. Urine culture is pending. Presently on IV vancomycin and Zosyn plan is to continue those medications. 11/24/2018-patient has recent history of a urinary stent placement. Followed by at least 2 urinary tract infections. He was admitted here for sepsis. Urine cu lture is positive for ESBL E. coli and on Zosyn. Patient is afebrile. Plan is to continue the present management. - Time Time Spent with patient: 15-24 minutes Medications reviewed and adjusted accordingly: Yes Anticipated discharge: SNF
[2018-11-24] MEDS: MORPHINE SULFATE 10 MG/ML INJ IV PRN ×2 (12:03→18:54)
[2018-11-24] MEDS: BACLOFEN 10 MG TABLET PO PRN (14:19)
[2018-11-24] MEDS: ENOXAPARIN SODIUM INJ 40 MG/0.4 ML DISP.SYRIN SUBCUT SCH (21:51)
[2018-11-24] MEDS: SIMVASTATIN 40 MG TABLET PO SCH (21:52)
[2018-11-24] MEDS: TAMSULOSIN HCL 0.4 MG CAP.SR.24H PO SCH (21:52)
[2018-11-25] MEDS: PIPERACILLIN SODIUM/TAZOBACTAM 3.375 GM in NORMAL SALINE 100 ML IV SCH ×4 (02:44→22:16)
[2018-11-25] MEDS: SIMETHICONE 80 MG TAB.CHEW PO PRN ×3 (04:45→17:52)
[2018-11-25] MEDS: MORPHINE SULFATE 10 MG/ML INJ IV PRN ×5 (05:37→22:28)
[2018-11-25 05:38] LABS: HEMATOCRIT 30.2 % (37.9-51.0); HEMOGLOBIN 10.2 g/dL (13.5-17.0); MEAN CORPUSCULAR HEMOGLOBIN 31.5 pg (27.0-33.4); MEAN CORPUSCULAR HGB CONC 33.7 g/dL (32.0-36.0); MEAN CORPUSCULAR VOLUME 93 fl (80-97); PLATELET COUNT 159 10^3/uL (150-450); RED BLOOD COUNT 3.23 10^6/uL (4.35-5.55); RED CELL DISTRIBUTION WIDTH 20.1 % (11.5-14.0); WHITE BLOOD COUNT 7.1 10^3/uL (4.0-10.5)
[2018-11-25 06:04] LABS: ALANINE AMINOTRANSFERASE 17 U/L (21-72); ALBUMIN 2.4 g/dL (3.5-5.0); ALKALINE PHOSPHATASE 63 U/L (38-126); ANION GAP 5 (5-19); ASPARTATE AMINO TRANSFERASE 17 U/L (17-59); BILIRUBIN,DIRECT 0.9 mg/dL (0.0-0.4); BILIRUBIN,TOTAL 1.9 mg/dL (0.2-1.3); BLOOD UREA NITROGEN 9 mg/dL (7-20); CALCIUM 8.6 mg/dL (8.4-10.2); CARBON DIOXIDE 22 mmol/L (22-30); CHLORIDE 119 mmol/L (98-107); GLUCOSE 79 mg/dL (75-110); POTASSIUM 3.6 mmol/L (3.6-5.0); SODIUM 146.2 mmol/L (137-145); TOTAL PROTEIN 5.3 g/dL (6.3-8.2)
[2018-11-25] MEDS: SOTALOL HCL 80 MG TABLET PO SCH ×2 (09:38→21:15)
[2018-11-25] MEDS: FINASTERIDE 5 MG TABLET PO SCH (09:38)
[2018-11-25] MEDS: MAGNESIUM OXIDE 400 MG TABLET PO SCH ×2 (09:38→17:52)
[2018-11-25] MEDS: POTASSIUM CHLORIDE 10 MEQ CAPSULE.ER PO SCH (09:39)
[2018-11-25] MEDS: ASPIRIN 81 MG TABLET, CHEWABLE PO SCH (09:39)
[2018-11-25] MEDS: CLOPIDOGREL BISULFATE 75 MG TABLET PO SCH (09:39)
[2018-11-25] MEDS: PREDNISONE 10 MG TABLET PO SCH (09:39)
[2018-11-25] MEDS: FAMOTIDINE 20 MG TABLET PO SCH ×2 (09:39→21:15)
--- NOTE | 2018-11-25 17:14 | PDOC PROGRESS REPORT ---
Subjective Progress Note for:: 11/25/18 Subjective:: No adverse events overnight. No new complaints. Vital signs are stable. He remains on continuous bladder irrigation, draining waller red urine. He denies any abdominal pain at this point. Reason For Visit: RENAL STONE Physical Exam Vital Signs: Temp Pulse Resp BP Pulse Ox 98.1 F 59 L 18 124/71 93 11/25/18 15:45 11/25/18 15:45 11/25/18 15:45 11/25/18 15:45 11/25/18 15:45 Intake & Output 11/24/18 11/25/18 11/26/18 06:59 06:59 06:59 Intake Total 5350 4699 200 Output Total 1425 4275 1450 Balance 3925 424 -1250 Weight 63.5 kg 62.4 kg General appearance: PRESENT: no acute distress Respiratory exam: PRESENT: decreased breath sounds Cardiovascular exam: PRESENT: RRR GI/Abdominal exam: PRESENT: normal bowel sounds, soft. ABSENT: distended, guarding, mass, organolmegaly, rebound, tenderness Gentrourinary exam: PRESENT: indwelling catheter, other - Patient still on bladder irrigation and blood stained urine in the bag. Extremities exam: PRESENT: full ROM. ABSENT: calf tenderness, clubbing, pedal edema Neurological exam: PRESENT: alert, awake, oriented to person, oriented to place, oriented to time, oriented to situation, CN II-XII grossly intact. ABSENT: motor sensory deficit Psychiatric exam: PRESENT: appropriate affect, normal mood. Results Laboratory Results: 11/25/18 05:13 11/25/18 05:13 11/25/18 11/25/18 05:13 05:13 WBC 7.1 RBC 3.23 L Hgb 10.2 L Hct 30.2 L MCV 93 MCH 31.5 MCHC 33.7 RDW 20.1 H Plt Count 159 Sodium 146.2 H Potassium 3.6 Chloride 119 H Carbon Dioxide 22 Anion Gap 5 BUN 9 Creatinine 0.72 Est GFR ( Amer) > 60 Est GFR (Non-Af Amer) > 60 Glucose 79 Calcium 8.6 Magnesium 1.8 Total Bilirubin 1.9 H AST 17 ALT 17 L Alkaline Phosphatase 63 Total Protein 5.3 L Albumin 2.4 L 11/21/18 11/21/18 11/21/18 12:00 18:19 18:19 Creatine Kinase 23 L Troponin I 0.021 0.021 11/22/18 11/22/18 11/22/18 00:33 00:33 08:13 Creatine Kinase 35 L 24 L Troponin I 0.022 11/22/18 08:13 Creatine Kinase Troponin I < 0.012 Impressions: Abdomen/Pelvis CT 11/21/18 00:00 IMPRESSION: 1. Unchanged nonobstructing 7 mm stone within the mid left ureter. New 4 mm stone within the left renal pelvis. Unchanged 1.2 cm stone within the superior calyx of the left kidney. No hydronephrosis. 2. Unchanged positioning of the left ureteral stent. 3. No additional changes when compared to 11/20/2018. Chest X-Ray 11/21/18 09:50 IMPRESSION: COPD. NO ACUTE RADIOGRAPHIC FINDING IN THE CHEST. Head CT 11/21/18 11:35 IMPRESSION: CHRONIC CHANGES OF ATROPHY AND MICROVASCULAR ISCHEMIA. NO ACUTE PROCESS. EVIDENCE OF ACUTE STROKE: NO. Assessment & Plan - Diagnosis (1) Altered mental status Qualifiers: Altered mental status type: unspecified Qualified Code(s): R41.82 - Altered mental status, unspecified Is this a current diagnosis for this admission?: Yes Plan: Metabolic encephalopathy due to UTI resolved (2) Sepsis Qualifiers: Sepsis type: Escherichia coli Qualified Code(s): A41.51 - Sepsis due to Escherichia coli [E. coli] Is this a current diagnosis for this admission?: Yes Plan: Due to ESBL producing E. coli in the urine. Currently on Zosyn. Blood cultures are negative. (3) UTI (urinary tract infection) Qualifiers: Urinary tract infection type: acute cystitis Hematuria presence: with hematuria Qualified Code(s): N30.01 - Acute cystitis with hematuria Is this a current diagnosis for this admission?: Yes Plan: ESBL producing E. coli is growing out of the urine. Currently on Zosyn. Also on continuous bladder irrigation, which will continue until the intensity of the redness has diminished. (4) Paroxysmal atrial fibrillation Is this a current diagnosis for this admission?: Yes Plan: Currently in a sinus rhythm. Had been on Coumadin according to his son, he does not want him to continue taking that. Currently on Lovenox for DVT prophylaxis, will revisit anticoagulation on him when he is getting closer to discharge in light of his current bleeding. - Time Time Spent with patient: 25-34 minutes
[2018-11-25] MEDS: SIMVASTATIN 40 MG TABLET PO SCH (21:14)
[2018-11-25] MEDS: TAMSULOSIN HCL 0.4 MG CAP.SR.24H PO SCH (21:15)
[2018-11-25] MEDS: ENOXAPARIN SODIUM INJ 40 MG/0.4 ML DISP.SYRIN SUBCUT SCH (21:16)
[2018-11-26] MEDS: SIMETHICONE 80 MG TAB.CHEW PO PRN ×3 (00:10→15:03)
[2018-11-26] MEDS: PIPERACILLIN SODIUM/TAZOBACTAM 3.375 GM in NORMAL SALINE 100 ML IV SCH ×4 (02:37→21:09)
[2018-11-26] MEDS: MORPHINE SULFATE 10 MG/ML INJ IV PRN ×4 (02:47→19:27)
[2018-11-26] MEDS: BACLOFEN 10 MG TABLET PO PRN (04:20)
[2018-11-26] MEDS: PREDNISONE 10 MG TABLET PO SCH (09:12)
[2018-11-26] MEDS: FINASTERIDE 5 MG TABLET PO SCH (09:12)
[2018-11-26] MEDS: POTASSIUM CHLORIDE 10 MEQ CAPSULE.ER PO SCH (09:12)
[2018-11-26] MEDS: CLOPIDOGREL BISULFATE 75 MG TABLET PO SCH (09:12)
[2018-11-26] MEDS: ACETAMINOPHEN 325 MG TABLET PO PRN ×2 (09:12→17:07)
[2018-11-26] MEDS: FAMOTIDINE 20 MG TABLET PO SCH ×2 (09:13→21:10)
[2018-11-26] MEDS: ASPIRIN 81 MG TABLET, CHEWABLE PO SCH (09:13)
[2018-11-26] MEDS: MAGNESIUM OXIDE 400 MG TABLET PO SCH ×2 (09:13→17:07)
[2018-11-26] MEDS: SOTALOL HCL 80 MG TABLET PO SCH ×2 (09:13→21:10)
[2018-11-26 10:35] LABS: HEMATOCRIT 28.9 % (37.9-51.0); HEMOGLOBIN 9.5 g/dL (13.5-17.0); MEAN CORPUSCULAR HEMOGLOBIN 31.1 pg (27.0-33.4); MEAN CORPUSCULAR HGB CONC 32.8 g/dL (32.0-36.0); MEAN CORPUSCULAR VOLUME 95 fl (80-97); PLATELET COUNT 160 10^3/uL (150-450); RED BLOOD COUNT 3.05 10^6/uL (4.35-5.55); RED CELL DISTRIBUTION WIDTH 19.6 % (11.5-14.0); WHITE BLOOD COUNT 7.1 10^3/uL (4.0-10.5)
[2018-11-26 10:58] LABS: BLOOD UREA NITROGEN 8 mg/dL (7-20); CALCIUM 8.5 mg/dL (8.4-10.2); GLUCOSE 115 mg/dL (75-110)
[2018-11-26 10:59] LABS: ANION GAP 7 (5-19); CARBON DIOXIDE 21 mmol/L (22-30); CHLORIDE 116 mmol/L (98-107); POTASSIUM 3.6 mmol/L (3.6-5.0); SODIUM 144.2 mmol/L (137-145)
--- NOTE | 2018-11-26 17:09 | PDOC PROGRESS REPORT ---
Subjective Progress Note for:: 11/26/18 Subjective:: No adverse events overnight. No new complaints. He is eating a modified diet and tolerating it well. He said he had a ureteral stent placed by urologist in [place] but does not know the name of the person. He does not remember when it was done. He wanted me to get a four-way phone conversation between him, his son, the urologist whose name he does not know, and myself, or there would be "hell to pay." The urine that is draining is still red, but it is not as intense as it was yesterday. Reason For Visit: RENAL STONE Physical Exam Vital Signs: Temp Pulse Resp BP Pulse Ox 97.6 F 66 16 127/72 H 95 11/26/18 12:17 11/26/18 14:00 11/26/18 12:17 11/26/18 12:17 11/26/18 12:17 Intake & Output 11/25/18 11/26/18 11/27/18 06:59 06:59 06:59 Intake Total 4699 4622 659 Output Total 4275 8650 900 Balance 424 -4028 -241 Weight 62.4 kg 73 kg General appearance: PRESENT: no acute distress Respiratory exam: PRESENT: decreased breath sounds Cardiovascular exam: PRESENT: RRR GI/Abdominal exam: PRESENT: normal bowel sounds, soft. ABSENT: distended, guarding, mass, organolmegaly, rebound, tenderness Gentrourinary exam: PRESENT: indwelling catheter, other - Patient still on bladder irrigation and blood stained urine in the bag. Extremities exam: PRESENT: full ROM. ABSENT: calf tenderness, clubbing, pedal edema Neurological exam: PRESENT: alert, awake, oriented to person, oriented to place, oriented to time, oriented to situation, CN II-XII grossly intact. ABSENT: motor sensory deficit Psychiatric exam: PRESENT: appropriate affect, normal mood. Cantankerous Results Laboratory Results: 11/26/18 10:10 11/26/18 10:10 11/26/18 11/26/18 10:10 10:10 WBC 7.1 RBC 3.05 L Hgb 9.5 L Hct 28.9 L MCV 95 MCH 31.1 MCHC 32.8 RDW 19.6 H Plt Count 160 Sodium 144.2 Potassium 3.6 Chloride 116 H Carbon Dioxide 21 L Anion Gap 7 BUN 8 Creatinine 0.80 Est GFR ( Amer) > 60 Est GFR (Non-Af Amer) > 60 Glucose 115 H Calcium 8.5 11/21/18 08:55 Blood Blood Culture - Final NO GROWTH IN 5 DAYS 11/21/18 08:30 Blood Blood Culture - Final NO GROWTH IN 5 DAYS 11/21/18 11/21/18 11/21/18 12:00 18:19 18:19 Creatine Kinase 23 L Troponin I 0.021 0.021 11/22/18 11/22/18 11/22/18 00:33 00:33 08:13 Creatine Kinase 35 L 24 L Troponin I 0.022 11/22/18 08:13 Creatine Kinase Troponin I < 0.012 Impressions: Abdomen/Pelvis CT 11/21/18 00:00 IMPRESSION: 1. Unchanged nonobstructing 7 mm stone within the mid left ureter. New 4 mm stone within the left renal pelvis. Unchanged 1.2 cm stone within the superior calyx of the left kidney. No hydronephrosis. 2. Unchanged positioning of the left ureteral stent. 3. No additional changes when compared to 11/20/2018. Chest X-Ray 11/21/18 09:50 IMPRESSION: COPD. NO ACUTE RADIOGRAPHIC FINDING IN THE CHEST. Head CT 11/21/18 11:35 IMPRESSION: CHRONIC CHANGES OF ATROPHY AND MICROVASCULAR ISCHEMIA. NO ACUTE PROCESS. EVIDENCE OF ACUTE STROKE: NO. Assessment & Plan - Diagnosis (1) Altered mental status Qualifiers: Altered mental status type: unspecified Qualified Code(s): R41.82 - Altered mental status, unspecified Is this a current diagnosis for this admission?: Yes Plan: Metabolic encephalopathy due to UTI resolved (2) Sepsis Qualifiers: Sepsis type: Escherichia coli Qualified Code(s): A41.51 - Sepsis due to Escherichia coli [E. coli] Is this a current diagnosis for this admission?: Yes Plan: Due to ESBL producing E. coli in the urine. Currently on Zosyn. Blood cultures are negative. (3) UTI (urinary tract infection) Qualifiers: Urinary tract infection type: acute cystitis Hematuria presence: with hematuria Qualified Code(s): N30.01 - Acute cystitis with hematuria Is this a current diagnosis for this admission?: Yes Plan: ESBL producing E. coli is growing out of the urine. Currently on Zosyn. Also on continuous bladder irrigation, which will continue until the intensity of the redness has diminished. (4) Paroxysmal atrial fibrillation Is this a current diagnosis for this admission?: Yes Plan: Currently in a sinus rhythm. Had been on Coumadin according to his son, he does not want him to continue taking that. Currently on Lovenox for DVT prophylaxis, will revisit anticoagulation on him when he is getting closer to discharge in light of his current bleeding. - Time Time Spent with patient: 25-34 minutes
[2018-11-26] MEDS: ENOXAPARIN SODIUM INJ 40 MG/0.4 ML DISP.SYRIN SUBCUT SCH (21:09)
[2018-11-26] MEDS: SIMVASTATIN 40 MG TABLET PO SCH (21:10)
[2018-11-26] MEDS: TAMSULOSIN HCL 0.4 MG CAP.SR.24H PO SCH (21:10)
[2018-11-27] MEDS: MORPHINE SULFATE 10 MG/ML INJ IV PRN ×5 (03:33→21:44)
[2018-11-27] MEDS: PIPERACILLIN SODIUM/TAZOBACTAM 3.375 GM in NORMAL SALINE 100 ML IV SCH ×4 (03:33→21:11)
[2018-11-27] MEDS: SIMETHICONE 80 MG TAB.CHEW PO PRN ×3 (03:41→13:19)
[2018-11-27 06:12] LABS: HEMATOCRIT 31.1 % (37.9-51.0); HEMOGLOBIN 10.4 g/dL (13.5-17.0); MEAN CORPUSCULAR HEMOGLOBIN 31.6 pg (27.0-33.4); MEAN CORPUSCULAR HGB CONC 33.4 g/dL (32.0-36.0); MEAN CORPUSCULAR VOLUME 95 fl (80-97); PLATELET COUNT 150 10^3/uL (150-450); RED BLOOD COUNT 3.28 10^6/uL (4.35-5.55); RED CELL DISTRIBUTION WIDTH 19.6 % (11.5-14.0); WHITE BLOOD COUNT 7.4 10^3/uL (4.0-10.5)
[2018-11-27] MEDS: MAGNESIUM OXIDE 400 MG TABLET PO SCH ×2 (10:50→17:00)
[2018-11-27] MEDS: BACLOFEN 10 MG TABLET PO PRN ×3 (10:50→21:05)
[2018-11-27] MEDS: CLOPIDOGREL BISULFATE 75 MG TABLET PO SCH (10:50)
[2018-11-27] MEDS: FINASTERIDE 5 MG TABLET PO SCH (10:50)
[2018-11-27] MEDS: FAMOTIDINE 20 MG TABLET PO SCH ×2 (10:50→21:05)
[2018-11-27] MEDS: POTASSIUM CHLORIDE 10 MEQ CAPSULE.ER PO SCH (10:50)
[2018-11-27] MEDS: ASPIRIN 81 MG TABLET, CHEWABLE PO SCH (10:50)
[2018-11-27] MEDS: PREDNISONE 10 MG TABLET PO SCH (10:51)
[2018-11-27] MEDS: SOTALOL HCL 80 MG TABLET PO SCH ×2 (10:51→21:05)
[2018-11-27] MEDS: SENNOSIDES/DOCUSATE 8.6-50 MG 1 EACH TABLET PO SCH (15:18)
--- NOTE | 2018-11-27 16:04 | PDOC PROGRESS REPORT ---
Subjective Progress Note for:: 11/27/18 Subjective:: No adverse events overnight. No new complaints. Vital signs been stable. He is been afebrile. He is been tolerating his modified diet without any difficulty. He is got a congested sounding cough but is not doing a whole lot of deep breathing and I encouraged him to use an incentive spirometer. His bladder irrigant is still blood-tinged but nowhere near as intense as in previous days. Reason For Visit: RENAL STONE Physical Exam Vital Signs: Temp Pulse Resp BP Pulse Ox 97.8 F 64 19 131/79 H 95 11/27/18 09:27 11/27/18 09:27 11/27/18 09:27 11/27/18 09:27 11/27/18 09:27 Intake & Output 11/26/18 11/27/18 11/28/18 06:59 06:59 06:59 Intake Total 4622 1081 100 Output Total 8650 1250 Balance -4028 -169 100 Weight 73 kg 72 kg General appearance: PRESENT: no acute distress Respiratory exam: PRESENT: decreased breath sounds Cardiovascular exam: PRESENT: RRR GI/Abdominal exam: PRESENT: normal bowel sounds, soft. ABSENT: distended, guarding, mass, organolmegaly, rebound, tenderness Gentrourinary exam: PRESENT: indwelling catheter, other - Patient still on bladder irrigation and blood stained urine in the bag more of a pink tint than a red. Extremities exam: PRESENT: full ROM. ABSENT: calf tenderness, clubbing, pedal edema Neurological exam: PRESENT: alert, awake, oriented to person, oriented to place, oriented to time, oriented to situation Psychiatric exam: PRESENT: appropriate affect, normal mood. Results Laboratory Results: 11/27/18 05:37 11/26/18 10:10 11/27/18 05:37 WBC 7.4 RBC 3.28 L Hgb 10.4 L Hct 31.1 L MCV 95 MCH 31.6 MCHC 33.4 RDW 19.6 H Plt Count 150 11/21/18 11/21/18 11/21/18 12:00 18:19 18:19 Creatine Kinase 23 L Troponin I 0.021 0.021 11/22/18 11/22/18 11/22/18 00:33 00:33 08:13 Creatine Kinase 35 L 24 L Troponin I 0.022 11/22/18 08:13 Creatine Kinase Troponin I < 0.012 Impressions: Abdomen/Pelvis CT 11/21/18 00:00 IMPRESSION: 1. Unchanged nonobstructing 7 mm stone within the mid left ureter. New 4 mm stone within the left renal pelvis. Unchanged 1.2 cm stone within the superior calyx of the left kidney. No hydronephrosis. 2. Unchanged positioning of the left ureteral stent. 3. No additional changes when compared to 11/20/2018. Chest X-Ray 11/21/18 09:50 IMPRESSION: COPD. NO ACUTE RADIOGRAPHIC FINDING IN THE CHEST. Head CT 11/21/18 11:35 IMPRESSION: CHRONIC CHANGES OF ATROPHY AND MICROVASCULAR ISCHEMIA. NO ACUTE PROCESS. EVIDENCE OF ACUTE STROKE: NO. Assessment & Plan - Diagnosis (1) Sepsis Qualifiers: Sepsis type: Escherichia coli Qualified Code(s): A41.51 - Sepsis due to Escherichia coli [E. coli] Is this a current diagnosis for this admission?: Yes Plan: Sepsis has resolved. This was due to an ESBL producing E. coli UTI. Continues on Zosyn. (2) UTI (urinary tract infection) Qualifiers: Urinary tract infection type: acute cystitis Hematuria presence: with hematuria Qualified Code(s): N30.01 - Acute cystitis with hematuria Is this a current diagnosis for this admission?: Yes Plan: ESBL producing E. coli is growing out of the urine. Currently on Zosyn. Also on continuous bladder irrigation, which will continue until the intensity of the redness has diminished. Currently awaiting a call back from his urologist in [place] Dr. Flood. (3) Altered mental status Qualifiers: Altered mental status type: unspecified Qualified Code(s): R41.82 - Altered mental status, unspecified Is this a current diagnosis for this admission?: Yes Plan: Resolved (4) Paroxysmal atrial fibrillation Is this a current diagnosis for this admission?: Yes Plan: Currently in a sinus rhythm. Had been on Coumadin according to his son, he does not want him to continue taking that. Currently on Lovenox for DVT prophylaxis, will revisit anticoagulation on him when he is getting closer to discharge in light of his current bleeding. (5) Hematuria Qualifiers: Hematuria type: gross Qualified Code(s): R31.0 - Gross hematuria Is this a current diagnosis for this admission?: Yes Plan: Currently on continuous bladder irrigation. He has urinary tract infection, but he also has multiple kidney stones as well as a ureteral stent for an obstructing stone. Am awaiting a return call from his urologist Dr. Flood in an attempt to coordinate transition of care once the patient is ready to leave the hospital. - Time Time Spent with patient: 25-34 minutes
[2018-11-27] MEDS: ENOXAPARIN SODIUM INJ 40 MG/0.4 ML DISP.SYRIN SUBCUT SCH (21:04)
[2018-11-27] MEDS: SIMVASTATIN 40 MG TABLET PO SCH (21:05)
[2018-11-27] MEDS: TAMSULOSIN HCL 0.4 MG CAP.SR.24H PO SCH (21:05)
[2018-11-28] MEDS: MORPHINE SULFATE 10 MG/ML INJ IV PRN ×4 (02:25→22:19)
[2018-11-28] MEDS: PIPERACILLIN SODIUM/TAZOBACTAM 3.375 GM in NORMAL SALINE 100 ML IV SCH ×4 (02:25→21:20)
[2018-11-28 05:37] LABS: HEMATOCRIT 32.1 % (37.9-51.0); HEMOGLOBIN 10.6 g/dL (13.5-17.0); MEAN CORPUSCULAR HEMOGLOBIN 31.2 pg (27.0-33.4); MEAN CORPUSCULAR VOLUME 95 fl (80-97); PLATELET COUNT 162 10^3/uL (150-450); RED BLOOD COUNT 3.39 10^6/uL (4.35-5.55); RED CELL DISTRIBUTION WIDTH 20.4 % (11.5-14.0); WHITE BLOOD COUNT 9.8 10^3/uL (4.0-10.5)
[2018-11-28] MEDS: BACLOFEN 10 MG TABLET PO PRN (05:39)
[2018-11-28] MEDS: POTASSIUM CHLORIDE 10 MEQ CAPSULE.ER PO SCH (09:57)
[2018-11-28] MEDS: ASPIRIN 81 MG TABLET, CHEWABLE PO SCH (09:57)
[2018-11-28] MEDS: CLOPIDOGREL BISULFATE 75 MG TABLET PO SCH (09:57)
[2018-11-28] MEDS: MAGNESIUM OXIDE 400 MG TABLET PO SCH ×2 (09:57→17:29)
[2018-11-28] MEDS: PREDNISONE 10 MG TABLET PO SCH (09:57)
[2018-11-28] MEDS: FAMOTIDINE 20 MG TABLET PO SCH ×2 (09:57→21:24)
[2018-11-28] MEDS: FINASTERIDE 5 MG TABLET PO SCH (09:57)
[2018-11-28] MEDS: SENNOSIDES/DOCUSATE 8.6-50 MG 1 EACH TABLET PO SCH (09:57)
[2018-11-28] MEDS: METHOTREXATE SODIUM 2.5 MG TABLET PO SCH ×2 (09:58→21:24)
[2018-11-28] MEDS: SOTALOL HCL 80 MG TABLET PO SCH ×2 (09:59→21:22)
--- NOTE | 2018-11-28 10:18 | PDOC PROGRESS REPORT ---
Subjective Progress Note for:: 11/28/18 Subjective:: Patient seen resting in bed. He is awake, alert, oriented x3. He denies chest pain, shortness of breath or dyspnea. He has a loose congested cough. He states he is occasionally bringing up some mucus. He denies any nausea, vomiting or abdominal pain. He continues to have bladder irrigation Johnson in place. His urine is blood-tinged with some shreds of mucus. This is improved from previous according to nursing staff. He denies any dysuria. He denies any fever or chills overnight. Denies any significant arthralgias or myalgias. There is presently no family at the bedside. Reason For Visit: RENAL STONE Physical Exam Vital Signs: Temp Pulse Resp BP Pulse Ox 98.1 F 64 16 146/86 H 96 11/28/18 08:04 11/28/18 08:04 11/28/18 08:04 11/28/18 08:04 11/28/18 08:04 Intake & Output 11/27/18 11/28/18 11/29/18 06:59 06:59 06:59 Intake Total 1081 2094 100 Output Total 1250 2600 Balance -169 -506 100 Weight 72 kg General appearance: PRESENT: no acute distress, well-developed, well-nourished Head exam: PRESENT: atraumatic, normocephalic Eye exam: PRESENT: conjunctiva pink, EOMI, PERRLA. ABSENT: scleral icterus Ear exam: PRESENT: normal external ear exam Mouth exam: PRESENT: moist, tongue midline Neck exam: ABSENT: carotid bruit, JVD, lymphadenopathy, thyromegaly Respiratory exam: PRESENT: rhonchi, symmetrical, unlabored Cardiovascular exam: PRESENT: RRR. ABSENT: diastolic murmur, rubs, systolic murmur Pulses: PRESENT: normal dorsalis pedis pul Vascular exam: PRESENT: normal capillary refill GI/Abdominal exam: PRESENT: normal bowel sounds, soft. ABSENT: distended, guarding, mass, organolmegaly, rebound, tenderness Rectal exam: PRESENT: deferred Extremities exam: PRESENT: full ROM. ABSENT: calf tenderness, clubbing, pedal edema Neurological exam: PRESENT: alert, awake, oriented to person, oriented to place, oriented to time, oriented to situation, CN II-XII grossly intact. ABSENT: motor sensory deficit Psychiatric exam: PRESENT: appropriate affect, normal mood. ABSENT: homicidal ideation, suicidal ideation Skin exam: PRESENT: dry, intact, warm. ABSENT: cyanosis, rash Results Laboratory Results: 11/28/18 04:57 11/26/18 10:10 11/28/18 11/28/18 04:57 06:10 WBC 9.8 RBC 3.39 L Hgb 10.6 L Hct 32.1 L MCV 95 MCH 31.2 MCHC 33.0 RDW 20.4 H Plt Count 162 Stool Occult Blood POSITIVE 11/21/18 11/21/18 11/21/18 12:00 18:19 18:19 Creatine Kinase 23 L Troponin I 0.021 0.021 11/22/18 11/22/18 11/22/18 00:33 00:33 08:13 Creatine Kinase 35 L 24 L Troponin I 0.022 11/22/18 08:13 Creatine Kinase Troponin I < 0.012 Impressions: Abdomen/Pelvis CT 11/21/18 00:00 IMPRESSION: 1. Unchanged nonobstructing 7 mm stone within the mid left ureter. New 4 mm stone within the left renal pelvis. Unchanged 1.2 cm stone within the superior calyx of the left kidney. No hydronephrosis. 2. Unchanged positioning of the left ureteral stent. 3. No additional changes when compared to 11/20/2018. Chest X-Ray 11/21/18 09:50 IMPRESSION: COPD. NO ACUTE RADIOGRAPHIC FINDING IN THE CHEST. Head CT 11/21/18 11:35 IMPRESSION: CHRONIC CHANGES OF ATROPHY AND MICROVASCULAR ISCHEMIA. NO ACUTE PROCESS. EVIDENCE OF ACUTE STROKE: NO. Assessment & Plan - Diagnosis (1) UTI (urinary tract infection) Qualifiers: Urinary tract infection type: acute cystitis Hematuria presence: with hematuria Qualified Code(s): N30.01 - Acute cystitis with hematuria Is this a current diagnosis for this admission?: Yes Plan: Culture grew ESBL. He is on day 7 of IV Zosyn. He is on continue bladder irrigation due to gross hematuria this is improving. Dr. Flood, neurologist in [place] is following (2) Sepsis Qualifiers: Sepsis type: Escherichia coli Qualified Code(s): A41.51 - Sepsis due to Escherichia coli [E. coli] Is this a current diagnosis for this admission?: Yes Plan: Resolved. Secondary to ESBL UTI. He is presently on day 7 of his IV Zosyn, and bladder irrigation (3) Hematuria Qualifiers: Hematuria type: gross Qualified Code(s): R31.0 - Gross hematuria Is this a current diagnosis for this admission?: Yes Plan: This is improving. Urine today is blood-tinged with strands of mucus. We will continue irrigation until bleeding has resolved. He was on warfarin for paroxysmal atrial fibrillation. Family has requested this to be stopped. (4) BPH (benign prostatic hyperplasia) Is this a current diagnosis for this admission?: Yes (5) Leukocytosis Qualifiers: Leukocytosis type: unspecified Qualified Code(s): D72.829 - Elevated white blood cell count, unspecified Is this a current diagnosis for this admission?: Yes Plan: Improved with IV antibiotics. (6) COPD (chronic obstructive pulmonary disease) Is this a current diagnosis for this admission?: Yes Plan: Continue inhalers. We will add incentive spirometry and guaifenesin today. (7) Rheumatoid arthritis Is this a current diagnosis for this admission?: Yes (8) Altered mental status Qualifiers: Altered mental status type: unspecified Qualified Code(s): R41.82 - Altered mental status, unspecified Is this a current diagnosis for this admission?: Yes Plan: Resolved. - Time Time Spent with patient: 25-34 minutes Total Critical Time (Minutes): 25 Medications reviewed and adjusted accordingly: Yes Anticipated discharge: Acute Rehab Within: within 72 hours - Inpatient Certification Based on my medical assessment, after consideration of the patient's comorbidities, presenting symptoms, or acuity I expect that the services needed warrant INPATIENT care.: Yes Medical Necessity: Need for IV Antibiotics, Risk of Complication if Not Cared For in Hospital
[2018-11-28] MEDS ORDERED: SENNOSIDES/DOCUSATE 8.6-50 MG 1 EACH TABLET PO SCH (16:00)
[2018-11-28] MEDS: TAMSULOSIN HCL 0.4 MG CAP.SR.24H PO SCH (21:23)
[2018-11-28] MEDS: ENOXAPARIN SODIUM INJ 40 MG/0.4 ML DISP.SYRIN SUBCUT SCH (21:23)
[2018-11-28] MEDS: SIMVASTATIN 40 MG TABLET PO SCH (21:24)
[2018-11-28] MEDS: GUAIFENESIN 600 MG TABLET.SA PO SCH (21:24)
[2018-11-29] MEDS: MORPHINE SULFATE 10 MG/ML INJ IV PRN ×3 (03:23→12:55)
[2018-11-29] MEDS: PIPERACILLIN SODIUM/TAZOBACTAM 3.375 GM in NORMAL SALINE 100 ML IV SCH ×4 (03:24→21:24)
[2018-11-29 06:04] LABS: ANION GAP 9 (5-19); BLOOD UREA NITROGEN 9 mg/dL (7-20); CALCIUM 8.8 mg/dL (8.4-10.2); CARBON DIOXIDE 24 mmol/L (22-30); CHLORIDE 110 mmol/L (98-107); GLUCOSE 88 mg/dL (75-110); POTASSIUM 3.7 mmol/L (3.6-5.0); SODIUM 142.5 mmol/L (137-145)
[2018-11-29] MEDS ORDERED: OXYCODONE HCL IR 5 MG TABLET PO PRN (09:57)
--- NOTE | 2018-11-29 10:47 | PDOC PROGRESS REPORT ---
Subjective Progress Note for:: 11/29/18 Subjective:: Patient seen resting in bed. He is awake, alert, oriented x2. Confused to time and date. He denies chest pain, shortness of breath or dyspnea. He has a loose congested cough. He states he is occasionally bringing up some mucus. He denies any nausea, vomiting or abdominal pain. He continues to have bladder irrigation Johnson in place. His urine is much less blood-tinged this morning. He denies any dysuria. He denies any fever or chills overnight. Denies any significant arthralgias or myalgias. There is presently no family at the bedside. Reason For Visit: RENAL STONE Physical Exam Vital Signs: Temp Pulse Resp BP Pulse Ox 97.5 F 72 21 H 112/70 93 11/29/18 08:17 11/29/18 08:17 11/29/18 08:17 11/29/18 08:17 11/29/18 08:17 Intake & Output 11/28/18 11/29/18 11/30/18 06:59 06:59 06:59 Intake Total 2094 1700 Output Total 2600 17863 Balance -506 -8400 Weight 65.8 kg General appearance: PRESENT: no acute distress, hard of hearing, thin, well- developed Head exam: PRESENT: atraumatic, normocephalic Eye exam: PRESENT: conjunctiva pink, EOMI, PERRLA. ABSENT: scleral icterus Ear exam: PRESENT: normal external ear exam Mouth exam: PRESENT: moist, tongue midline Neck exam: ABSENT: carotid bruit, JVD, lymphadenopathy, thyromegaly Respiratory exam: PRESENT: clear to auscultation gracy, symmetrical, unlabored. ABSENT: rales, rhonchi, wheezes Cardiovascular exam: PRESENT: RRR. ABSENT: diastolic murmur, rubs, systolic murmur Pulses: PRESENT: normal dorsalis pedis pul Vascular exam: PRESENT: normal capillary refill GI/Abdominal exam: PRESENT: normal bowel sounds, soft. ABSENT: distended, guarding, mass, organolmegaly, rebound, tenderness Rectal exam: PRESENT: deferred Extremities exam: PRESENT: full ROM. ABSENT: calf tenderness, clubbing, pedal edema Neurological exam: PRESENT: alert, awake, oriented to person, oriented to place, oriented to situation, CN II-XII grossly intact Psychiatric exam: PRESENT: appropriate affect, normal mood. ABSENT: homicidal ideation, suicidal ideation Skin exam: PRESENT: dry, intact, warm. ABSENT: cyanosis, rash Results Laboratory Results: 11/28/18 04:57 11/29/18 04:39 11/29/18 04:39 Sodium 142.5 Potassium 3.7 Chloride 110 H Carbon Dioxide 24 Anion Gap 9 BUN 9 Creatinine 0.78 Est GFR ( Amer) > 60 Est GFR (Non-Af Amer) > 60 Glucose 88 Calcium 8.8 11/21/18 11/21/18 11/21/18 12:00 18:19 18:19 Creatine Kinase 23 L Troponin I 0.021 0.021 11/22/18 11/22/18 11/22/18 00:33 00:33 08:13 Creatine Kinase 35 L 24 L Troponin I 0.022 11/22/18 08:13 Creatine Kinase Troponin I < 0.012 Impressions: Abdomen/Pelvis CT 11/21/18 00:00 IMPRESSION: 1. Unchanged nonobstructing 7 mm stone within the mid left ureter. New 4 mm stone within the left renal pelvis. Unchanged 1.2 cm stone within the superior calyx of the left kidney. No hydronephrosis. 2. Unchanged positioning of the left ureteral stent. 3. No additional changes when compared to 11/20/2018. Chest X-Ray 11/21/18 09:50 IMPRESSION: COPD. NO ACUTE RADIOGRAPHIC FINDING IN THE CHEST. Head CT 11/21/18 11:35 IMPRESSION: CHRONIC CHANGES OF ATROPHY AND MICROVASCULAR ISCHEMIA. NO ACUTE PROCESS. EVIDENCE OF ACUTE STROKE: NO. Assessment & Plan - Diagnosis (1) UTI (urinary tract infection) Qualifiers: Urinary tract infection type: acute cystitis Hematuria presence: with hematuria Qualified Code(s): N30.01 - Acute cystitis with hematuria Is this a current diagnosis for this admission?: Yes Plan: Culture grew ESBL. He is on day 8 of IV Zosyn. He is on continue bladder irrigation due to gross hematuria this is improving. Dr. Flood, neurologist in [place] is following. He is on methotrexate for rheumatoid arthritis. He also had a ureteral stent placed and [place] in mid September. He was hospitalized after that for another urinary tract infection. (2) Sepsis Qualifiers: Sepsis type: Escherichia coli Qualified Code(s): A41.51 - Sepsis due to Escherichia coli [E. coli] Is this a current diagnosis for this admission?: Yes Plan: Resolved. Secondary to ESBL UTI. He is presently on day 7 of his IV Zosyn, and bladder irrigation (3) Hematuria Qualifiers: Hematuria type: gross Qualified Code(s): R31.0 - Gross hematuria Is this a current diagnosis for this admission?: Yes Plan: This is improving. Urine today is slightly blood-tinged today but much improved. Think we could probably stop bladder irrigation tomorrow. He was on warfarin for paroxysmal atrial fibrillation. Family has requested this to be stopped. He is continued on aspirin and Plavix. (4) BPH (benign prostatic hyperplasia) Is this a current diagnosis for this admission?: Yes Plan: Continue Flomax (5) Leukocytosis Qualifiers: Leukocytosis type: unspecified Qualified Code(s): D72.829 - Elevated white blood cell count, unspecified Is this a current diagnosis for this admission?: Yes Plan: Resolved with IV antibiotics. (6) COPD (chronic obstructive pulmonary disease) Is this a current diagnosis for this admission?: Yes Plan: Continue inhalers. We will add incentive spirometry and guaifenesin today. (7) Rheumatoid arthritis Is this a current diagnosis for this admission?: Yes Plan: Continue methotrexate. (8) Altered mental status Qualifiers: Altered mental status type: unspecified Qualified Code(s): R41.82 - Altered mental status, unspecified Is this a current diagnosis for this admission?: Yes Plan: The majority of the time he is now oriented. He has periods of confusion however. - Time Time Spent with patient: 35 or more minutes Total Critical Time (Minutes): 25 Anticipated discharge: Acute Rehab Within: within 48 hours - Inpatient Certification Based on my medical assessment, after consideration of the patient's comorbidities, presenting symptoms, or acuity I expect that the services needed warrant INPATIENT care.: Yes I certify that my determination is in accordance with my understanding of Medicare's requirements for reasonable and necessary INPATIENT services [42 CFR 412.3e].: Yes Medical Necessity: Significant Comorbidiites Make Outpatient Treatment Too Risky, Need for IV Antibiotics
[2018-11-29] MEDS: MAGNESIUM OXIDE 400 MG TABLET PO SCH ×2 (11:05→17:28)
[2018-11-29] MEDS: FAMOTIDINE 20 MG TABLET PO SCH ×2 (11:05→21:26)
[2018-11-29] MEDS: SOTALOL HCL 80 MG TABLET PO SCH ×2 (11:05→21:24)
[2018-11-29] MEDS: POTASSIUM CHLORIDE 10 MEQ CAPSULE.ER PO SCH (11:05)
[2018-11-29] MEDS: CLOPIDOGREL BISULFATE 75 MG TABLET PO SCH (11:06)
[2018-11-29] MEDS: ASPIRIN 81 MG TABLET, CHEWABLE PO SCH (11:06)
[2018-11-29] MEDS: FINASTERIDE 5 MG TABLET PO SCH (11:06)
[2018-11-29] MEDS: SENNOSIDES/DOCUSATE 8.6-50 MG 1 EACH TABLET PO SCH (11:06)
[2018-11-29] MEDS: PREDNISONE 10 MG TABLET PO SCH (11:06)
[2018-11-29] MEDS: GUAIFENESIN 600 MG TABLET.SA PO SCH ×2 (11:06→21:25)
--- NOTE | 2018-11-29 15:54 | RADIOLOGY REPORT (SQ) ---
EXAM DESCRIPTION: CHEST SINGLE VIEW COMPLETED DATE/TIME: 11/29/2018 3:46 pm REASON FOR STUDY: Cough and hypoxemia COMPARISON: 11/21/2018 EXAM PARAMETERS: NUMBER OF VIEWS: One view. TECHNIQUE: Single frontal radiographic view of the chest acquired. RADIATION DOSE: NA LIMITATIONS: None. FINDINGS: LUNGS AND PLEURA: No opacities, masses or pneumothorax. No pleural effusion. Right apical scarring. MEDIASTINUM AND HILAR STRUCTURES: No masses. Contour normal. HEART AND VASCULAR STRUCTURES: Heart normal in size. Normal vasculature. ectatic aorta. BONES: No acute findings. HARDWARE: None in the chest. OTHER: No other significant finding. IMPRESSION: NO ACUTE RADIOGRAPHIC FINDING IN THE CHEST. TECHNICAL DOCUMENTATION: JOB ID: [id number] 1921 [employer]- All Rights Reserved Reading location - IP/workstation name: [email or web address]
--- NOTE | 2018-11-29 16:11 | Progress Note ---
Provider Note Provider Note: Called by RN because of a drop in oxygen saturation to 85% room air. Patient was examined he has upper airway congestion with loose congested cough. However his lungs are essentially clear. Chest x-ray was obtained stat which confirmed that there is no congestion in his chest. He appears to be slightly overmedic ated with pain medicine. Have asked nursing to switch to tramadol for pain and stop IV morphine. Will have respiratory work with him for using incentive spirometry. Mucinex 600 mg twice daily was initiated. Continue DuoNeb therapy as needed. Saturating at 94% on 3 L at present time.
[2018-11-29] MEDS: TRAMADOL HCL 50 MG TABLET PO PRN (17:27)
[2018-11-29] MEDS: ENOXAPARIN SODIUM INJ 40 MG/0.4 ML DISP.SYRIN SUBCUT SCH (21:25)
[2018-11-29] MEDS: TAMSULOSIN HCL 0.4 MG CAP.SR.24H PO SCH (21:25)
[2018-11-29] MEDS: BACLOFEN 10 MG TABLET PO PRN (21:26)
[2018-11-29] MEDS: ACETAMINOPHEN 325 MG TABLET PO PRN (21:26)
[2018-11-29] MEDS: SIMVASTATIN 40 MG TABLET PO SCH (21:26)
[2018-11-29] MEDS ORDERED: GUAIFENESIN 600 MG TABLET.SA PO SCH (22:00)
[2018-11-30] MEDS: ACETAMINOPHEN 325 MG TABLET PO PRN ×3 (01:31→22:01)
[2018-11-30] MEDS: TRAMADOL HCL 50 MG TABLET PO PRN (01:31)
[2018-11-30] MEDS: PIPERACILLIN SODIUM/TAZOBACTAM 3.375 GM in NORMAL SALINE 100 ML IV SCH ×4 (04:00→22:00)
[2018-11-30 06:19] LABS: HEMATOCRIT 33.3 % (37.9-51.0); HEMOGLOBIN 10.8 g/dL (13.5-17.0); MEAN CORPUSCULAR HEMOGLOBIN 31.2 pg (27.0-33.4); MEAN CORPUSCULAR HGB CONC 32.4 g/dL (32.0-36.0); MEAN CORPUSCULAR VOLUME 96 fl (80-97); PLATELET COUNT 179 10^3/uL (150-450); RED BLOOD COUNT 3.46 10^6/uL (4.35-5.55); RED CELL DISTRIBUTION WIDTH 20.7 % (11.5-14.0); WHITE BLOOD COUNT 15.7 10^3/uL (4.0-10.5)
[2018-11-30 06:37] LABS: ANION GAP 10 (5-19); BLOOD UREA NITROGEN 17 mg/dL (7-20); CALCIUM 8.9 mg/dL (8.4-10.2); CARBON DIOXIDE 24 mmol/L (22-30); CHLORIDE 111 mmol/L (98-107); GLUCOSE 98 mg/dL (75-110); POTASSIUM 3.7 mmol/L (3.6-5.0); SODIUM 145.3 mmol/L (137-145)
[2018-11-30] MEDS: MORPHINE SULFATE 10 MG/ML INJ IV PRN ×2 (08:14→19:03)
[2018-11-30] MEDS: MAGNESIUM OXIDE 400 MG TABLET PO SCH ×2 (10:04→18:55)
[2018-11-30] MEDS: PREDNISONE 10 MG TABLET PO SCH (10:04)
[2018-11-30] MEDS: POTASSIUM CHLORIDE 10 MEQ CAPSULE.ER PO SCH (10:04)
[2018-11-30] MEDS: SOTALOL HCL 80 MG TABLET PO SCH ×2 (10:04→22:02)
[2018-11-30] MEDS: ASPIRIN 81 MG TABLET, CHEWABLE PO SCH (10:04)
[2018-11-30] MEDS: SENNOSIDES/DOCUSATE 8.6-50 MG 1 EACH TABLET PO SCH (10:05)
[2018-11-30] MEDS: FINASTERIDE 5 MG TABLET PO SCH (10:05)
[2018-11-30] MEDS: FAMOTIDINE 20 MG TABLET PO SCH ×2 (10:05→22:01)
[2018-11-30] MEDS: CLOPIDOGREL BISULFATE 75 MG TABLET PO SCH (10:05)
[2018-11-30] MEDS: GUAIFENESIN 600 MG TABLET.SA PO SCH ×2 (10:05→22:01)
--- NOTE | 2018-11-30 10:59 | PDOC PROGRESS REPORT ---
Subjective Progress Note for:: 11/30/18 Subjective:: 73-year-old male admitted with sepsis and altered mental status. Unable to swallow anything. Johnson's catheter shows blood stained urine. Lactic acid is 2.2 last night. Plan is to increase the IV fluids to 150 cc/h do the bladder irrigation and repeated lactic acid levels today. Today's labs are pending. Patient states he is in the hospital other than that unable to continue communication. Keep on saying he wants to urinate ,explained to him that he has a catheter in place. Overall prognosis poor condition is critical. Tried to call the son to give an update and unable to leave the message. 11/23/2018-patient is more alert more awake today. Able to give his birthday, he did know where he is at. Therapy is working with the patient today. Patient s hows significant improvement. We are going to try to give p.o. medications this morning. No acute events in last 24 hours. Patient is afebrile. 11/24/2018-patient is communicating well no acute events in the last 24 hours. Patient is afebrile. Patient said he had do not have any problems swallowing liquids but has a problem swallowing the solid food. Yesterday he is able to take the pills without any problem. Speech is aware they could reevaluate him tomorrow. No other complaints. 11/30/2018 patient is comfortably in the bed. No acute events in the last 24 hours. Patient is afebrile. T-max is 97.7. WBC went up to 15,700 today. Plan to recheck CBC tomorrow. Reason For Visit: RENAL STONE Physical Exam Vital Signs: Temp Pulse Resp BP Pulse Ox 97.2 F 65 19 125/61 98 11/30/18 07:46 11/30/18 07:46 11/30/18 07:46 11/30/18 07:46 11/30/18 09:44 Intake & Output 11/29/18 11/30/18 12/01/18 06:59 06:59 06:59 Intake Total 1700 400 100 Output Total 25980 4275 Balance -4224 -8840 100 Weight 65.8 kg 66.9 kg General appearance: PRESENT: no acute distress Head exam: PRESENT: atraumatic Eye exam: PRESENT: PERRLA Mouth exam: PRESENT: moist, tongue midline Neck exam: ABSENT: carotid bruit, JVD, lymphadenopathy, thyromegaly Respiratory exam: PRESENT: clear to auscultation gracy. ABSENT: rales, rhonchi, wheezes Cardiovascular exam: PRESENT: RRR. ABSENT: diastolic murmur, rubs, systolic murmur GI/Abdominal exam: PRESENT: normal bowel sounds, soft. ABSENT: distended, guarding, mass, organolmegaly, rebound, tenderness Gentrourinary exam: PRESENT: indwelling catheter Neurological exam: PRESENT: alert, awake, oriented to person, oriented to place, oriented to time, oriented to situation, CN II-XII grossly intact. ABSENT: motor sensory deficit Psychiatric exam: PRESENT: appropriate affect, normal mood. ABSENT: homicidal ideation, suicidal ideation Results Laboratory Results: 11/30/18 04:41 11/30/18 04:41 11/30/18 11/30/18 04:41 04:41 WBC 15.7 H RBC 3.46 L Hgb 10.8 L Hct 33.3 L MCV 96 MCH 31.2 MCHC 32.4 RDW 20.7 H Plt Count 179 Sodium 145.3 H Potassium 3.7 Chloride 111 H Carbon Dioxide 24 Anion Gap 10 BUN 17 Creatinine 0.97 Est GFR ( Amer) > 60 Est GFR (Non-Af Amer) > 60 Glucose 98 Calcium 8.9 Magnesium 2.2 11/21/18 11/21/18 11/21/18 12:00 18:19 18:19 Creatine Kinase 23 L Troponin I 0.021 0.021 11/22/18 11/22/18 11/22/18 00:33 00:33 08:13 Creatine Kinase 35 L 24 L Troponin I 0.022 11/22/18 08:13 Creatine Kinase Troponin I < 0.012 Impressions: Abdomen/Pelvis CT 11/21/18 00:00 IMPRESSION: 1. Unchanged nonobstructing 7 mm stone within the mid left ureter. New 4 mm stone within the left renal pelvis. Unchanged 1.2 cm stone within the superior calyx of the left kidney. No hydronephrosis. 2. Unchanged positioning of the left ureteral stent. 3. No additional changes when compared to 11/20/2018. Head CT 11/21/18 11:35 IMPRESSION: CHRONIC CHANGES OF ATROPHY AND MICROVASCULAR ISCHEMIA. NO ACUTE PROCESS. EVIDENCE OF ACUTE STROKE: NO. Chest X-Ray 11/29/18 15:15 IMPRESSION: NO ACUTE RADIOGRAPHIC FINDING IN THE CHEST. Assessment & Plan - Diagnosis (1) Altered mental status Qualifiers: Altered mental status type: unspecified Qualified Code(s): R41.82 - Altered mental status, unspecified Is this a current diagnosis for this admission?: Yes Plan: 11/21/2018 patient is going to be admitted for altered mental status most likely secondary to sepsis. Is going to be placed in IMCU. Started on IV fluids normal saline at 100 cc/h, to repeat the lactic acid levels, started on IV Zosyn and IV vancomycin. We are going to adjust the doses as per pharmacy recommendations. Blood cultures urine culture was sent. Aspiration fall precautions are requested. Neurochecks are requested for every 4 hours for the next 24 hours. Swallowing evaluation will be done today. CT head was negative for acute changes. To start on IV Ativan 1 mg every 8 hours as needed for agitation. 11/22/2018-altered mental status/acute encephalopathy most likely secondary to sepsis. Presently he is on IV Zosyn and vancomycin. Urine cultures blood cultures are pending. CT head was negative. He failed swallowing evaluation. We are going to request for PT OT consult and cloud solutions architect. Requested for neuro checks. Aspiration fall Seizure precautions are requested. Overall prognosis poor condition is critical. 11/23/2018 altered mental status/acute encephalopathy most likely secondary to sepsis. Blood cultures are negative so far. Patient is presently on IV Zosyn and vancomycin. It is much more alert and oriented. Be going to try to give his morning p.o. medications. Therapy is working with the patient. Aspiration fall seizure precautions are requested. 11/24/2018-altered mental status/acute encephalopathy most likely secondary to sepsis is resolved. Patient said he has a difficulty in swallowing this morning we going to reevaluate by placing a speech consult for tomorrow. Started on pured diet from today. 11/30/2018-altered mental status/acute encephalopathy most likely secondary to sepsis which was resolved. He is back at the baseline. (2) Sepsis Qualifiers: Sepsis type: Escherichia coli Qualified Code(s): A41.51 - Sepsis due to Escherichia coli [E. coli] Is this a current diagnosis for this admission?: Yes Plan: 11/21/2018 patient is in septic stock when he came in blood pressure was 78/50 with IV fluids latest blood pressure is 124/60 initially on presentation is tachycardic heart rate is 106 tachypneic respiratory of 24, lactic acid level is 3.1 with altered mental status. And is to continue IV fluids normal saline at 100 cc/h started on IV vancomycin and Zosyn, repeat the lactic acid level this evening daily labs. Blood cultures urine cultures are pending. Chest x-ray does not show any pneumonia. Urinalysis is cloudy with leukocyte esterase positive, WBC more than 5 RBCs 182. Most likely cause of sepsis is urinary tract infection. 11/22/2018-patient's respiratory rate is 31, blood pressure is 124/79 improved. Latest lactic acid is 0.2. Urine cultures blood cultures are pending. Patient is in altered mental status. In my opinion patient is in septic shock. Patient is full code. Plan is to continue IV fluids, IV Zosyn and IV vancomycin. 11/23/2018-patient's T-max is 98.4 pulse rate is 93. Blood pressure today is 138/71. Plan is to continue the IV antibiotic therapy and to decrease the IV infusion of the fluids. Cultures are pending. Presently on IV Zosyn and vancomycin plan is to continue those antibiotics. 11/24/2018 patient was admitted with septic shock blood cultures are negative urine culture shows ESBL coli. Blood pressure today 130/63 temperature 97.3 pulse rate 62, WBC count is 8300. Septic shock is resolved. 11/30/2018 patient is admitted with altered mental status blood cultures are negative urine culture is positive for ESBL E. coli. Presently on IV Zosyn. (3) Leukocytosis Qualifiers: Leukocytosis type: unspecified Qualified Code(s): D72.829 - Elevated white blood cell count, unspecified Is this a current diagnosis for this admission?: Yes Plan: 11/21/2018 admission WBC count is 10,000 most likely secondary to sepsis. 11/22/2018-yesterday's WBC count is 18,000 today's labs are pending leukocytosis most likely secondary to sepsis. 11/23/2018-today's labs are pending. Admission WBC is 18,000 yesterday WBC came down to 14,500. Plan is to continue the present management. Leukocytosis is resolving. 11/24/2018-on admission WBC count is 18,100 today WBC count is 8300 leukocytosis secondary to sepsis is resolved. 11/30/2018-WBC count today 15,700. Patient is on prednisone 10 mg . Plan is to discontinue IV antibiotics today because patient received already 8 days of antibiotic therapy. pt is afebrile for the last 1 week. (4) COPD (chronic obstructive pulmonary disease) Is this a current diagnosis for this admission?: Yes Plan: 11/21/2018 patient has history of COPD not on home oxygen he is ex-smoker quit smoking 15 years ago. He uses Brio and albuterol inhaler at home started him on Xopenex nebulizations every 6 hours as needed. 11/22/2018-patient has history of COPD he is on nebulizer treatments. He was pulse ox are in the 90s. 11/23/2018 patient has history of COPD his pulse ox is 92% on room air. he Is getting Xopenex nebulizer treatments. Plan is to continue the present management. 11/24/2018-patient has history of COPD not on home oxygen. Pulse ox is 82% on room air this morning. He is on Xopenex nebulizations. Chest x-ray negative for pneumonia. Plan is to continue the present management. 11/30/2018-patient has history of COPD yesterday's pulse ox is noted to drop to 85% chest x-ray was done which was negative. Today patient is on 4 L of oxygen pulse ox is 98% I decreased the oxygen requirements to 2 L to see and check the oxygen saturation. (5) Coronary artery disease Is this a current diagnosis for this admission?: Yes Plan: 11/21/2018-patient has history of coronary artery disease status post stent placement multiple times. Plan to do the serial cardiac enzymes and troponins. Initial troponin is less than 0.021. Patient is on aspirin Plavix and simv astatin at home those medications are going to be resumed. 11/22/2018-patient has history of coronary artery disease previous history of multiple stents placement. At home he is on aspirin, Plavix, simvastatin. We resumed his home medications. But patient is unable to swallow failed swallowing evaluation because of altered mental status. 11/23/2018-patient has history of coronary artery disease with multiple stent placement. At home he is on aspirin, Plavix, simvastatin plan is to continue with his home medications. Patient failed his swallowing evaluation yesterday is much more alert and oriented today hopefully he able to take his oral medications. 11/24/2018-patient has history of coronary artery disease status post stent placement multiple times. Patient is on aspirin, Plavix, and simvastatin. Resumed those medications during the hospital stay. 11/30/2018-patient has history of coronary artery disease status post stent placement presently is on aspirin and Plavix and simvastatin plan is to continue the present management. (6) Rheumatoid arthritis Is this a current diagnosis for this admission?: Yes Plan: 11/21/2018 patient has history of rheumatoid arthritis on methotrexate and prednisone at home those medications are restarted again. 11/22/2018-patient has history of rheumatoid arthritis on methotrexate and p.o. prednisone at home. Those medications are resumed but the patient is unable to swallow the pills at this moment. 11/23/2018-patient has history of rheumatoid arthritis on methotrexate and prednisone at home, meds will be restarted once able to swallow the medications. 11/24/2018-patient has history of rheumatoid arthritis on methotrexate and prednisone these medications are restarted during the hospital stay. 11/30/2018-patient has history of rheumatoid arthritis on methotrexate and prednisone at home these medications are continued during the hospital stay. (7) Paroxysmal atrial fibrillation Is this a current diagnosis for this admission?: Yes Plan: 11/21/2018-patient has history of paroxysmal atrial fibrillation on warfarin 1 mg p.o. daily, Plavix 75 mg p.o. daily, aspirin 81 mg p.o. daily these medications he is taking at home plan is to resume those medications in the hospital. 11/22/2018-patient is giving the history of his dad having paroxysmal atrial fibrillation, patient in sinus rhythm here. We resumed his warfarin yesterday but is unable to take any oral medications at this point. 11/23/2018-patient is has a history of paroxysmal atrial fibrillation he is in sinus rhythm he is on warfarin at home. We are going to check his PT/INR on daily basis. 11/24/2017-patient has history of paroxysmal atrial fibrillation, during his hospital stay he is on sinus rhythm. According to his son warfarin was discontinued recently. INR today is 1.71. As per the son's request we going to discontinue warfarin. Be placed on a Lovenox 40 mg subcu daily. 11/30/2018-patient has history of paroxysmal atrial fibrillation presently is in sinus rhythm as per the son patient was on warfarin before and it was discontinued. Getting Lovenox for DVT prophylaxis. The catheter bag looks clean urine. Looks like hematuria is resolving. (8) History of AAA (abdominal aortic aneurysm) repair Is this a current diagnosis for this admission?: Yes Plan: 11/21/2018 patient has history of abdominal aortic aneurysm status post graft placement in 2009 as per the patient's son. 11/22/2018 patient has history of aortic aneurysm status post graft placement in 2009. CT scan of the abdomen does not show any abnormalities. 11/24/2018-patient has history of abdominal aortic aneurysm status post graft placement in 2009. CT scan during this time patient does not show any acute abnormalities. 11/30/2018-patient has history of abdominal aortic aneurysm status post graft placement 2010 no acute events and during the hospital stay. Plan is to continue the present management. (9) BPH (benign prostatic hyperplasia) Is this a current diagnosis for this admission?: Yes Plan: 11/21/2018 patient has history of BPH on finasteride and Flomax at home those medications are restarted during this hospital stay. 11/22/2018 patient has history of BPH on finasteride and Flomax at home those medications are resumed but patient is unable to swallow any medications at this moment patient has a Johnson's catheter draining blood stained urine. Overall prognosis and condition again critical. 11/23/2018 patient has history of BPH and he is on finasteride and Flomax at home plan is to resume those medications. 11/24/2018-patient history of BPH he is on finasteride and Flomax at home those medications are restarted during this hospital stay. 11/30/2018 patient has history of BPH on finasteride and Flomax those medications are continued during this hospital stay. (10) UTI (urinary tract infection) Qualifiers: Urinary tract infection type: acute cystitis Hematuria presence: with hematuria Qualified Code(s): N30.01 - Acute cystitis with hematuria Is this a current diagnosis for this admission?: Yes Plan: 11/23/2018-patient has a urinary stent placement at [facility]. He came in with septic shock. Most likely source of infection in the urine. Urine analysis initially shows cloudy urine with increased WBC and RBC. Urine culture is pending. Presently on IV vancomycin and Zosyn plan is to continue those medications. 11/24/2018-patient has recent history of a urinary stent placement. Followed by at least 2 urinary tract infections. He was admitted here for sepsis. Urine culture is positive for ESBL E. coli and on Zosyn. Patient is afebrile. Plan is to continue the present management. 11/30/2018-urine culture shows ESBL E. coli on Zosyn. I spoke to the pharmacy about continuation of the antibiotics we both agree that patient received 8 days of antibiotics so far plan is to discontinue the antibiotics based on the fact that patient is afebrile for more than a week. - Time Time Spent with patient: 25-34 minutes Medications reviewed and adjusted accordingly: Yes Anticipated discharge: SNF
[2018-11-30] MEDS: BACLOFEN 10 MG TABLET PO PRN ×2 (12:30→22:01)
[2018-11-30] MEDS ORDERED: PIPERACILLIN/TAZOBACTAM 3.375 GM VIAL IV SCH (14:15)
--- NOTE | 2018-11-30 18:42 | Progress Note ---
Provider Note Provider Note: ID Consult Note Asked to review patient's chart. Pt not seen or examined. Mr. Lala is a 73 year old man with PMH including COPD, CAD, b/l lower leg bypasses for PVD, AAA s/p repair, RA, AF on warfarin, kidney stones s/p recent ureteral stent. Pt was admitted with altered mental status, had L CVA pain/tenderness to palpation with bloody urine in Johnson, leukocytosis, elevated lactate, and hypotension on presentation - suspected to be septic due to a urinary source. Empirically vancomycin and Zosyn were started. Blood cultures were negative. Urine culture grew 6,000 colonies of an ESBL E coli. He had clinical improvement - was able to communicate, became more alert and oriented within 2-3 days. Leukocytosis also improved. CT abdomen/pelvis showed nonobstructing stone in mid L ureter, unchanged, and new 4 mm stone in the L renal pelvis, no hydronephrosis, 1.2 cm stone in superior calyx of L kidney. Pt was on Zosyn for 9 days from 11/22 to 11/30. On 11/29, pt had cough and hypoxemia but clear lungs and CXR showing no new lung opacities; felt most likely to have been overmedicated with narcotics, and medication was adjusted accordingly. WBC count increased from 10 to 16,000 today. He has been afebrile. Clinically, he did not appear to have any other change. Impression/Recommendations In retrospect, it might be possible that pt had renal colic with dehydration and delirium from pain more so than a UTI per se. There was a surprisingly small amount of growth in the urine and small number of WBCs/hpf on the urinalysis. Nonetheless, with the overlap in clinical syndromes and severity of his initial presentation, he was for a complicated urinary tract infection with Zosyn for an ESBL E coli that was found in the urine. Generally, for complicated UTI 7 days of treatment is sufficient, and he appears to have improved within 2-3 days of admission and has been fairly stable since then. He completed 9 days of Zosyn, which was discontinued today. There does not seem to be a convincing indication to continue Zosyn for longer than has been given. Recent bump in WBC count might reflect the episode of hypoxemia the evening prior and, I agree, monitoring pt clinically would be prudent. Asher Vann MD [facility] pager [phone]
[2018-11-30] MEDS: SIMETHICONE 80 MG TAB.CHEW PO PRN (22:00)
[2018-11-30] MEDS: TAMSULOSIN HCL 0.4 MG CAP.SR.24H PO SCH (22:01)
[2018-11-30] MEDS: SIMVASTATIN 40 MG TABLET PO SCH (22:01)
[2018-11-30] MEDS: ENOXAPARIN SODIUM INJ 40 MG/0.4 ML DISP.SYRIN SUBCUT SCH (22:02)
[2018-12-01] MEDS: MORPHINE SULFATE 10 MG/ML INJ IV PRN ×3 (03:19→21:43)
[2018-12-01] MEDS: PIPERACILLIN SODIUM/TAZOBACTAM 3.375 GM in NORMAL SALINE 100 ML IV SCH ×4 (03:19→21:43)
[2018-12-01 05:25] LABS: HEMATOCRIT 30.7 % (37.9-51.0); MEAN CORPUSCULAR HEMOGLOBIN 31.2 pg (27.0-33.4); MEAN CORPUSCULAR HGB CONC 32.6 g/dL (32.0-36.0); MEAN CORPUSCULAR VOLUME 96 fl (80-97); PLATELET COUNT 147 10^3/uL (150-450); RED BLOOD COUNT 3.21 10^6/uL (4.35-5.55); RED CELL DISTRIBUTION WIDTH 20.8 % (11.5-14.0); WHITE BLOOD COUNT 14.7 10^3/uL (4.0-10.5)
[2018-12-01] MEDS: TRAMADOL HCL 50 MG TABLET PO PRN (05:29)
[2018-12-01] MEDS: ACETAMINOPHEN 325 MG TABLET PO PRN (05:30)
[2018-12-01 05:56] LABS: ALANINE AMINOTRANSFERASE 26 U/L (21-72); ALBUMIN 2.6 g/dL (3.5-5.0); ALKALINE PHOSPHATASE 67 U/L (38-126); ANION GAP 9 (5-19); ASPARTATE AMINO TRANSFERASE 22 U/L (17-59); BILIRUBIN,DIRECT 0.7 mg/dL (0.0-0.4); BILIRUBIN,TOTAL 1.5 mg/dL (0.2-1.3); BLOOD UREA NITROGEN 16 mg/dL (7-20); CALCIUM 8.8 mg/dL (8.4-10.2); CARBON DIOXIDE 23 mmol/L (22-30); CHLORIDE 117 mmol/L (98-107); GLUCOSE 102 mg/dL (75-110); POTASSIUM 3.8 mmol/L (3.6-5.0); SODIUM 149.1 mmol/L (137-145); TOTAL PROTEIN 5.7 g/dL (6.3-8.2)
[2018-12-01 06:03] LABS: ABSOLUTE LYMPHOCYTES# (MANUAL) 0.7 10^3/uL (0.5-4.7); ABSOLUTE MONOCYTES # (MANUAL) 0.6 10^3/uL (0.1-1.4); ABSOLUTE NEUTROPHILS# (MANUAL) 13.4 10^3/uL (1.7-8.2); ANISOCYTOSIS 2+; BAND NEUTROPHILS % (MANUAL) 7 % (3-5); BASOPHILS % (MANUAL) 0 % (0-2); EOSINOPHILS % (MANUAL) 0 % (0-6); LYMPHOCYTES % (MANUAL) 5 % (13-45); MONOCYTES % (MANUAL) 4 % (3-13); SEGMENTED NEUTROPHILS % (MAN) 84 % (42-78); TOTAL CELLS COUNTED 100
[2018-12-01 06:04] LABS: PLATELET COMMENT DECREASED
--- NOTE | 2018-12-01 09:41 | PDOC PROGRESS REPORT ---
Subjective Progress Note for:: 12/01/18 Subjective:: 73-year-old male admitted with sepsis and altered mental status. Unable to swallow anything. Johnson's catheter shows blood stained urine. Lactic acid is 2.2 last night. Plan is to increase the IV fluids to 150 cc/h do the bladder irrigation and repeated lactic acid levels today. Today's labs are pending. Patient states he is in the hospital other than that unable to continue communication. Keep on saying he wants to urinate ,explained to him that he has a catheter in place. Overall prognosis poor condition is critical. Tried to call the son to give an update and unable to leave the message. 11/23/2018-patient is more alert more awake today. Able to give his birthday, he did know where he is at. Therapy is working with the patient today. Patient s hows significant improvement. We are going to try to give p.o. medications this morning. No acute events in last 24 hours. Patient is afebrile. 11/24/2018-patient is communicating well no acute events in the last 24 hours. Patient is afebrile. Patient said he had do not have any problems swallowing liquids but has a problem swallowing the solid food. Yesterday he is able to take the pills without any problem. Speech is aware they could reevaluate him tomorrow. No other complaints. 11/30/2018 patient is comfortably in the bed. No acute events in the last 24 hours. Patient is afebrile. T-max is 97.7. WBC went up to 15,700 today. Plan to recheck CBC tomorrow. T-max is 98.3. Patient is going to stay until and will be transferred to [facility] from there he will go to [facility]. Reason For Visit: RENAL STONE Physical Exam Vital Signs: Temp Pulse Resp BP Pulse Ox 98.3 F 74 20 123/71 96 12/01/18 00:02 12/01/18 00:02 12/01/18 00:02 12/01/18 00:02 12/01/18 00:02 Intake & Output 11/30/18 12/01/18 12/02/18 06:59 06:59 06:59 Intake Total 400 1900 100 Output Total 4275 4100 Balance -3875 -2200 100 Weight 66.9 kg 69.5 kg General appearance: PRESENT: mild distress Head exam: PRESENT: atraumatic Eye exam: PRESENT: PERRLA Mouth exam: PRESENT: moist, tongue midline Neck exam: ABSENT: carotid bruit, JVD, lymphadenopathy, thyromegaly Respiratory exam: PRESENT: decreased breath sounds Cardiovascular exam: PRESENT: irregular rhythm, tachycardia GI/Abdominal exam: PRESENT: normal bowel sounds, soft. ABSENT: distended, guarding, mass, organolmegaly, rebound, tenderness Extremities exam: PRESENT: full ROM. ABSENT: calf tenderness, clubbing, pedal edema Neurological exam: PRESENT: alert, awake, oriented to person, oriented to place, oriented to time, oriented to situation, CN II-XII grossly intact. ABSENT: motor sensory deficit Psychiatric exam: PRESENT: appropriate affect, normal mood. ABSENT: homicidal ideation, suicidal ideation Results Laboratory Results: 12/01/18 04:53 12/01/18 04:53 12/01/18 12/01/18 04:53 04:53 WBC 14.7 H RBC 3.21 L Hgb 10.0 L Hct 30.7 L MCV 96 MCH 31.2 MCHC 32.6 RDW 20.8 H Plt Count 147 L Seg Neutrophils % Not Reportable Lymphocytes % Not Reportable Monocytes % Not Reportable Eosinophils % Not Reportable Basophils % Not Reportable Absolute Neutrophils Not Reportable Absolute Lymphocytes Not Reportable Absolute Monocytes Not Reportable Absolute Eosinophils Not Reportable Absolute Basophils Not Reportable Sodium 149.1 H Potassium 3.8 Chloride 117 H Carbon Dioxide 23 Anion Gap 9 BUN 16 Creatinine 0.79 Est GFR ( Amer) > 60 Est GFR (Non-Af Amer) > 60 Glucose 102 Calcium 8.8 Magnesium 2.1 Total Bilirubin 1.5 H AST 22 ALT 26 Alkaline Phosphatase 67 Total Protein 5.7 L Albumin 2.6 L 11/21/18 11/21/18 11/21/18 12:00 18:19 18:19 Creatine Kinase 23 L Troponin I 0.021 0.021 11/22/18 11/22/18 11/22/18 00:33 00:33 08:13 Creatine Kinase 35 L 24 L Troponin I 0.022 11/22/18 08:13 Creatine Kinase Troponin I < 0.012 Impressions: Abdomen/Pelvis CT 11/21/18 00:00 IMPRESSION: 1. Unchanged nonobstructing 7 mm stone within the mid left ureter. New 4 mm stone within the left renal pelvis. Unchanged 1.2 cm stone within the superior calyx of the left kidney. No hydronephrosis. 2. Unchanged positioning of the left ureteral stent. 3. No additional changes when compared to 11/20/2018. Head CT 11/21/18 11:35 IMPRESSION: CHRONIC CHANGES OF ATROPHY AND MICROVASCULAR ISCHEMIA. NO ACUTE PROCESS. EVIDENCE OF ACUTE STROKE: NO. Chest X-Ray 11/29/18 15:15 IMPRESSION: NO ACUTE RADIOGRAPHIC FINDING IN THE CHEST. Assessment & Plan - Diagnosis (1) Altered mental status Qualifiers: Altered mental status type: unspecified Qualified Code(s): R41.82 - Altered mental status, unspecified Is this a current diagnosis for this admission?: Yes Plan: 11/21/2018 patient is going to be admitted for altered mental status most likely secondary to sepsis. Is going to be placed in IMCU. Started on IV fluids normal saline at 100 cc/h, to repeat the lactic acid levels, started on IV Zosyn and IV vancomycin. We are going to adjust the doses as per pharmacy recommendations. Blood cultures urine culture was sent. Aspiration fall precautions are requested. Neurochecks are requested for every 4 hours for the next 24 hours. Swallowing evaluation will be done today. CT head was negative for acute changes. To start on IV Ativan 1 mg every 8 hours as needed for agitation. 11/22/2018-altered mental status/acute encephalopathy most likely secondary to sepsis. Presently he is on IV Zosyn and vancomycin. Urine cultures blood cultures are pending. CT head was negative. He failed swallowing evaluation. We are going to request for PT OT consult and corporate meeting planner. Requested for neuro checks. Aspiration fall Seizure precautions are requested. Overall prognosis poor condition is critical. 11/23/2018 altered mental status/acute encephalopathy most likely secondary to sepsis. Blood cultures are negative so far. Patient is presently on IV Zosyn and vancomycin. It is much more alert and oriented. Be going to try to give his morning p.o. medications. Therapy is working with the patient. Aspiration fall seizure precautions are requested. 11/24/2018-altered mental status/acute encephalopathy most likely secondary to sepsis is resolved. Patient said he has a difficulty in swallowing this morning we going to reevaluate by placing a speech consult for tomorrow. Started on pured diet from today. 11/30/2018-altered mental status/acute encephalopathy most likely secondary to sepsis which was resolved. He is back at the baseline. 12/01/2018-patient was admitted with altered mental status/acute encephalopathy. Which is most likely secondary to urosepsis. Patient mental status is back at baseline. (2) Sepsis Qualifiers: Sepsis type: Escherichia coli Qualified Code(s): A41.51 - Sepsis due to Escherichia coli [E. coli] Is this a current diagnosis for this admission?: Yes Plan: 11/21/2018 patient is in septic stock when he came in blood pressure was 78/50 with IV fluids latest blood pressure is 124/60 initially on presentation is tachycardic heart rate is 106 tachypneic respiratory of 24, lactic acid level is 3.1 with altered mental status. And is to continue IV fluids normal saline at 100 cc/h started on IV vancomycin and Zosyn, repeat the lactic acid level this evening daily labs. Blood cultures urine cultures are pending. Chest x-ray does not show any pneumonia. Urinalysis is cloudy with leukocyte esterase po sitive, WBC more than 5 RBCs 182. Most likely cause of sepsis is urinary tract infection. 11/22/2018-patient's respiratory rate is 31, blood pressure is 124/79 improved. Latest lactic acid is 0.2. Urine cultures blood cultures are pending. Patient is in altered mental status. In my opinion patient is in septic shock. Patient is full code. Plan is to continue IV fluids, IV Zosyn and IV vancomycin. 11/23/2018-patient's T-max is 98.4 pulse rate is 93. Blood pressure today is 138/71. Plan is to continue the IV antibiotic therapy and to decrease the IV infusion of the fluids. Cultures are pending. Presently on IV Zosyn and vancomycin plan is to continue those antibiotics. 11/24/2018 patient was admitted with septic shock blood cultures are negative urine culture shows ESBL coli. Blood pressure today 130/63 temperature 97.3 pulse rate 62, WBC count is 8300. Septic shock is resolved. 11/30/2018 patient is admitted with altered mental status blood cultures are negative urine culture is positive for ESBL E. coli. Presently on IV Zosyn. 12/01/2018-patient is admitted with altered mental status blood cultures are negative urine culture is positive for ESBL E. coli the urologist told me patient has at least 2 UTIs after stent placement and this is third episode of UTI he prefers to continue IV antibiotic therapy until the ureteral stent was removed. (3) Leukocytosis Qualifiers: Leukocytosis type: unspecified Qualified Code(s): D72.829 - Elevated white blood cell count, unspecified Is this a current diagnosis for this admission?: Yes Plan: 11/21/2018 admission WBC count is 10,000 most likely secondary to sepsis. 11/22/2018-yesterday's WBC count is 18,000 today's labs are pending leukocytosis most likely secondary to sepsis. 11/23/2018-today's labs are pending. Admission WBC is 18,000 yesterday WBC came down to 14,500. Plan is to continue the present management. Leukocytosis is resolving. 11/24/2018-on admission WBC count is 18,100 today WBC count is 8300 leukocytosis secondary to sepsis is resolved. 11/30/2018-WBC count today 15,700. Patient is on prednisone 10 mg . Plan is to discontinue IV antibiotics today because patient received already 8 days of antibiotic therapy. pt is afebrile for the last 1 week. 12/01/2018-WBC count today is 14,700 improved from yesterday. Patient is afebrile. Patient is on prednisone 10 mg daily for rheumatoid arthritis. Plan is to continue the present management. (4) COPD (chronic obstructive pulmonary disease) Is this a current diagnosis for this admission?: No Plan: 11/21/2018 patient has history of COPD not on home oxygen he is ex-smoker quit smoking 15 years ago. He uses Brio and albuterol inhaler at home started him on Xopenex nebulizations every 6 hours as needed. 11/22/2018-patient has history of COPD he is on nebulizer treatments. He was pulse ox are in the 90s. 11/23/2018 patient has history of COPD his pulse ox is 92% on room air. he Is getting Xopenex nebulizer treatments. Plan is to continue the present management. 11/24/2018-patient has history of COPD not on home oxygen. Pulse ox is 82% on room air this morning. He is on Xopenex nebulizations. Chest x-ray negative for pneumonia. Plan is to continue the present management. 11/30/2018-patient has history of COPD yesterday's pulse ox is noted to drop to 85% chest x-ray was done which was negative. Today patient is on 4 L of oxygen pulse ox is 98% I decreased the oxygen requirements to 2 L to see and check the oxygen saturation. 12/01/2018-patient has history of COPD not on home oxygen. Pulse ox is 96% on 1- 1/2 L oxygen. Chest x-ray negative for pneumonia. He managed to go to a longterm with oxygen via nasal cannula. On examination chest bilateral entry was decreased no wheezing no crepitations or heard. (5) Coronary artery disease Is this a current diagnosis for this admission?: No Plan: 11/21/2018-patient has history of coronary artery disease status post stent placement multiple times. Plan to do the serial cardiac enzymes and troponins. Initial troponin is less than 0.021. Patient is on aspirin Plavix and simvastatin at home those medications are going to be resumed. 11/22/2018-patient has history of coronary artery disease previous history of multiple stents placement. At home he is on aspirin, Plavix, simvastatin. We resumed his home medications. But patient is unable to swallow failed swallowing evaluation because of altered mental status. 11/23/2018-patient has history of coronary artery disease with multiple stent placement. At home he is on aspirin, Plavix, simvastatin plan is to continue with his home medications. Patient failed his swallowing evaluation yesterday is much more alert and oriented today hopefully he able to take his oral medications. 11/24/2018-patient has history of coronary artery disease status post stent placement multiple times. Patient is on aspirin, Plavix, and simvastatin. Resumed those medications during the hospital stay. 11/30/2018-patient has history of coronary artery disease status post stent placement presently is on aspirin and Plavix and simvastatin plan is to continue the present management. 11/03/2018-patient has history of coronary artery disease status post stent placement multiple times. Presently on aspirin on Plavix, simvastatin. Plan is to discontinue aspirin and Plavix in preparation for ureteral stent removed on . (6) Rheumatoid arthritis Is this a current diagnosis for this admission?: No Plan: 11/21/2018 patient has history of rheumatoid arthritis on methotrexate and prednisone at home those medications are restarted again. 11/22/2018-patient has history of rheumatoid arthritis on methotrexate and p.o. prednisone at home. Those medications are resumed but the patient is unable to swallow the pills at this moment. 11/23/2018-patient has history of rheumatoid arthritis on methotrexate and prednisone at home, meds will be restarted once able to swallow the medications. 11/24/2018-patient has history of rheumatoid arthritis on methotrexate and prednisone these medications are restarted during the hospital stay. 11/30/2018-patient has history of rheumatoid arthritis on methotrexate and prednisone at home these medications are continued during the hospital stay. 12/01/2018-patient has history of rheumatoid arthritis on methotrexate and p.o. prednisone. These home medications are resumed during the hospital stay. (7) Paroxysmal atrial fibrillation Is this a current diagnosis for this admission?: No Plan: 11/21/2018-patient has history of paroxysmal atrial fibrillation on warfarin 1 mg p.o. daily, Plavix 75 mg p.o. daily, aspirin 81 mg p.o. daily these medications he is taking at home plan is to resume those medications in the hospital. 11/22/2018-patient is giving the history of his dad having paroxysmal atrial fibrillation, patient in sinus rhythm here. We resumed his warfarin yesterday but is unable to take any oral medications at this point. 11/23/2018-patient is has a history of paroxysmal atrial fibrillation he is in sinus rhythm he is on warfarin at home. We are going to check his PT/INR on daily basis. 11/24/2017-patient has history of paroxysmal atrial fibrillation, during his h ospital stay he is on sinus rhythm. According to his son warfarin was discontinued recently. INR today is 1.71. As per the son's request we going to discontinue warfarin. Be placed on a Lovenox 40 mg subcu daily. 11/30/2018-patient has history of paroxysmal atrial fibrillation presently is in sinus rhythm as per the son patient was on warfarin before and it was discontinued. Getting Lovenox for DVT prophylaxis. The catheter bag looks clean urine. Looks like hematuria is resolving. 12/01/2018-patient has history of paroxysmal atrial fibrillation he is on warfarin before, as per the son's request pt is off warfarin now. Presently on aspirin and Plavix and Lovenox those are discontinued in preparation for PICC line today and also in preparation for ureteral stent removal on at [facility]. (8) History of AAA (abdominal aortic aneurysm) repair Is this a current diagnosis for this admission?: No Plan: 11/21/2018 patient has history of abdominal aortic aneurysm status post graft placement in 2009 as per the patient's son. 11/22/2018 patient has history of aortic aneurysm status post graft placement in 2009. CT scan of the abdomen does not show any abnormalities. 11/24/2018-patient has history of abdominal aortic aneurysm status post graft placement in 2009. CT scan during this time patient does not show any acute abnormalities. 11/30/2018-patient has history of abdominal aortic aneurysm status post graft placement 2009 no acute events and during the hospital stay. Plan is to continue the present management. 12/01/2018-patient has history of abdominal aortic aneurysm status post graft placement in 2009. No acute events during this hospital stay. (9) BPH (benign prostatic hyperplasia) Is this a current diagnosis for this admission?: No Plan: 11/21/2018 patient has history of BPH on finasteride and Flomax at home those medications are restarted during this hospital stay. 11/22/2018 patient has history of BPH on finasteride and Flomax at home those medications are resumed but patient is unable to swallow any medications at this moment patient has a Johnson's catheter draining blood stained urine. Overall prognosis and condition again critical. 11/23/2018 patient has history of BPH and he is on finasteride and Flomax at home plan is to resume those medications. 11/24/2018-patient history of BPH he is on finasteride and Flomax at home those medications are restarted during this hospital stay. 11/30/2018 patient has history of BPH on finasteride and Flomax those medications are continued during this hospital stay. 12/01/2018-patient has history of benign prostatic hypertrophy on finasteride and Flomax at home those medications are continued during this hospital stay. Patient has a Johnson's catheter with continuous bladder irrigation and urine is clear without any hematuria now. (10) UTI (urinary tract infection) Qualifiers: Urinary tract infection type: acute cystitis Hematuria presence: with hematuria Qualified Code(s): N30.01 - Acute cystitis with hematuria Is this a current diagnosis for this admission?: Yes Plan: 11/23/2018-patient has a urinary stent placement at [facility]. He came in with septic shock. Most likely source of infection in the urine. Urine analysis initially shows cloudy urine with increased WBC and RBC. Urine culture is pending. Presently on IV vancomycin and Zosyn plan is to continue those medications. 11/24/2018-patient has recent history of a urinary stent placement. Followed by at least 2 urinary tract infections. He was admitted here for sepsis. Urine culture is positive for ESBL E. coli and on Zosyn. Patient is afebrile. Plan is to continue the present management. 11/30/2018-urine culture shows ESBL E. coli on Zosyn. I spoke to the pharmacy about continuation of the antibiotics we both agree that patient received 8 days of antibiotics so far plan is to discontinue the antibiotics based on the fact that patient is afebrile for more than a week. 12/01/2018 urine culture is positive for ESBL E. coli on IV Zosyn I spoke to urologist yesterday according to him patient already has at least 2 episodes of UTI requiring antibiotics after ureteral stent placement this is the third episode of UTI, he preferred to keep the patient on IV antibiotic therapy until the ureteral stent was removed. So the plan is to continue IV Zosyn. - Time Time Spent with patient: 25-34 minutes Medications reviewed and adjusted accordingly: Yes Anticipated discharge: [facility]
[2018-12-01] MEDS ORDERED: ENOXAPARIN SODIUM INJ 40 MG/0.4 ML DISP.SYRIN SUBCUT SCH (10:00)
--- NOTE | 2018-12-01 11:55 | RADIOLOGY REPORT (SQ) ---
EXAM DESCRIPTION: PICC INSERTION; FLUORO/CV PLACEMENT; U/S GUIDE FOR VASCULAR ACCESS COMPLETED DATE/TIME: 12/01/2018 11:23 am REASON FOR STUDY: PICC LINE INSERTION FOR IV ANTIBIOTICS; IV ABX; IV ACCESS COMPARISON: AP chest 11/29/2018 FLUOROSCOPY TIME: 4 seconds 1 ultrasound and 1 C-arm fluoro images saved to PACS. TECHNIQUE: Fluoroscopic and ultrasound guided PICC placement. LIMITATIONS: None. PROCEDURE: After written consent and assessment were obtained, the patient was brought into the fluo roscopy room and placed supine on the table. Ultrasound evaluation of potential access sites were per formed. After successfully identifying a patent right basilic vein, the right arm was prepped and joe ped in a sterile fashion along with the ultrasound probe. The entry site was anesthetized with 1% lid ocaine. A 21 gauge 7 cm needle was advanced through the skin and into the basilic vein under live ult rasound guidance. An ultrasound image was saved to PACS confirming access site. A .018 guide wire w as then inserted through the needle and into the venous system. The needle was then removed and an 11 blade scalpel was used to make a 1cm skin incision. A 5 fr peel-away sheath was advanced over the w jaye and into the venous system. A measurement was then made using the existing wire and live fluorosc opic guidance. The wire was then removed and trimmed. The PICC was advanced through the peel-away she ath and into the venous system. The peel-away sheath was removed and the catheter was adhered to the patients arm with a stat lock. The catheter was then aspirated and flushed and a sterile bandage was placed over the access site. A fluoroscopic spot image was saved to PACS confirming the catheter tip within the superior vena cava. IMPRESSION: SUCCESSFUL PLACEMENT OF A 5 FR DUAL LUMEN 41 CM PICC IN THE RIGHT BASILIC VEIN. COMMENT: Patient medication list reviewed: Yes- Quality ID# [id number]:Eligible professional attests to doc umenting in the medical record they obtained, updated, or reviewed the patient's current medications. . Quality ID 145: Final reports for procedures using fluoroscopy that document radiation exposure joan caitlin, or exposure time and number of fluorographic images (if radiation exposure indices are not avail able) Quality ID #[id number]: The patient was prepped and draped using maximum sterile barrier technique including cap, mask, sterile gown, sterile gloves, a large sterile sheet, hand hygiene, and 2% Chlorhexidine fo r cutaneous antisepsis. When ultrasound is used, sterile ultrasound techniques are followed requiring sterile gel and sterile probes. TECHNICAL DOCUMENTATION: JOB ID: [id number] 1945 [employer]- All Rights Reserved rev-02/13 Reading location - IP/workstation name: [email or web address]
[2018-12-01] MEDS: SOTALOL HCL 80 MG TABLET PO SCH ×2 (11:59→21:32)
[2018-12-01] MEDS: PREDNISONE 10 MG TABLET PO SCH (11:59)
[2018-12-01] MEDS: GUAIFENESIN 600 MG TABLET.SA PO SCH ×2 (12:00→21:32)
[2018-12-01] MEDS: SENNOSIDES/DOCUSATE 8.6-50 MG 1 EACH TABLET PO SCH (12:00)
[2018-12-01] MEDS: FAMOTIDINE 20 MG TABLET PO SCH ×2 (12:00→21:32)
[2018-12-01] MEDS ORDERED: NORMAL SALINE 10 ML SDV (AFTER EACH USE) IV PRN (12:00)
[2018-12-01] MEDS: POTASSIUM CHLORIDE 10 MEQ CAPSULE.ER PO SCH (12:00)
[2018-12-01] MEDS: MAGNESIUM OXIDE 400 MG TABLET PO SCH ×2 (12:00→17:08)
[2018-12-01] MEDS: FINASTERIDE 5 MG TABLET PO SCH (12:00)
--- NOTE | 2018-12-01 16:33 | RADIOLOGY REPORT (SQ) ---
EXAM DESCRIPTION: CT CHEST WITHOUT COMPLETED DATE/TIME: 12/01/2018 3:22 pm REASON FOR STUDY: shortness of breath COMPARISON: CT angio chest 06/20/2018 TECHNIQUE: CT scan performed of the chest without intravenous contrast. Images reviewed with lung, soft tissue and bone windows. Reconstructed coronal and sagittal MPR images reviewed. All images st ored on PACS. All CT scanners at this facility use dose modulation, iterative reconstruction, and/or weight based d osing when appropriate to reduce radiation dose to as low as reasonably achievable (ALARA). [facility]: Dose Right [facility]: CareDose [facility]: Dose Right [facility]: Teradose 4D [facility]: Kiggit RADIATION DOSE: CT Rad equipment meets quality standard of care and radiation dose reduction techniq ues were employed. CTDIvol: 12.5 mGy. DLP: 450 mGy-cm. mGy. LIMITATIONS: No technical limitations. FINDINGS: LUNGS AND PLEURA: Patchy consolidation is present in the bilateral lower lobes worrisome f or pneumonia, aspiration be considered. There is debris in the trachea and right and left proximal m ainstem bronchi. Linear bandlike scarring is present at both lung apices similar compared to 06/20/2018 CT. There is obstructive lung disease with enlarged airspaces in the upper lobes bilaterally. No pleural effusion. No pneumothorax. HILAR AND MEDIASTINAL STRUCTURES: No identified masses or abnormal nodes. No obvious aneurysm. HEART AND VASCULAR STRUCTURES: Ascending thoracic aorta 4.3 cm in diameter, stable. Heavy coronary a rtery calcifications. No pericardial effusion. UPPER ABDOMEN: No significant findings. Limited exam. THYROID AND OTHER SOFT TISSUES: No masses. No adenopathy. BONES: Interval performance of an T9 kyphoplasty CT chest 06/20/2018. Stable 50% compression deformit ies without kyphoplasty at T6, T7, and T12 HARDWARE: None in the chest. OTHER: No other significant findings. IMPRESSION: Bibasilar pneumonia, aspiration should be considered TECHNICAL DOCUMENTATION: JOB ID: [id number] Quality ID # [id number]: Final reports with documentation of one or more dose reduction techniques (e.g., Au tomated exposure control, adjustment of the mA and/or kV according to patient size, use of iterative reconstruction technique) 2010 [employer]- All Rights Reserved Reading location - IP/workstation name: [facility]
[2018-12-01] MEDS ORDERED: LORAZEPAM INJ 2 MG/1 ML VIAL ONE (18:47)
[2018-12-01] MEDS: SIMVASTATIN 40 MG TABLET PO SCH (21:32)
[2018-12-01] MEDS: TAMSULOSIN HCL 0.4 MG CAP.SR.24H PO SCH (21:32)
[2018-12-01] MEDS: NORMAL SALINE 10 ML SDV (SCHEDULED) IV SCH (21:43)
[2018-12-02] MEDS: LORAZEPAM INJ 2 MG/1 ML VIAL IV PRN ×3 (01:19→18:43)
[2018-12-02] MEDS ORDERED: BISACODYL 10 MG SUPP.RECT PR ONE (02:00)
[2018-12-02] MEDS: PIPERACILLIN SODIUM/TAZOBACTAM 3.375 GM in NORMAL SALINE 100 ML IV SCH ×3 (03:22→15:11)
[2018-12-02] MEDS: MORPHINE SULFATE 10 MG/ML INJ IV PRN ×4 (05:14→18:43)
[2018-12-02 06:24] LABS: ALANINE AMINOTRANSFERASE 14 U/L (21-72); ALBUMIN 2.4 g/dL (3.5-5.0); ALKALINE PHOSPHATASE 65 U/L (38-126); ANION GAP 7 (5-19); ASPARTATE AMINO TRANSFERASE 21 U/L (17-59); BILIRUBIN,DIRECT 0.6 mg/dL (0.0-0.4); BILIRUBIN,TOTAL 1.2 mg/dL (0.2-1.3); BLOOD UREA NITROGEN 23 mg/dL (7-20); CALCIUM 8.7 mg/dL (8.4-10.2); CARBON DIOXIDE 22 mmol/L (22-30); CHLORIDE 123 mmol/L (98-107); GLUCOSE 106 mg/dL (75-110); POTASSIUM 3.4 mmol/L (3.6-5.0); SODIUM 151.7 mmol/L (137-145); TOTAL PROTEIN 5.3 g/dL (6.3-8.2)
[2018-12-02 08:19] LABS: HEMATOCRIT 29.3 % (37.9-51.0); HEMOGLOBIN 9.5 g/dL (13.5-17.0); MEAN CORPUSCULAR HEMOGLOBIN 31.2 pg (27.0-33.4); MEAN CORPUSCULAR HGB CONC 32.4 g/dL (32.0-36.0); MEAN CORPUSCULAR VOLUME 96 fl (80-97); PLATELET COUNT 141 10^3/uL (150-450); RED BLOOD COUNT 3.05 10^6/uL (4.35-5.55); RED CELL DISTRIBUTION WIDTH 20.8 % (11.5-14.0)
[2018-12-02 08:54] LABS: ABSOLUTE LYMPHOCYTES# (MANUAL) 0.2 10^3/uL (0.5-4.7); ABSOLUTE MONOCYTES # (MANUAL) 0.1 10^3/uL (0.1-1.4); BAND NEUTROPHILS % (MANUAL) 6 % (3-5); BASOPHILS % (MANUAL) 2 % (0-2); EOSINOPHILS % (MANUAL) 6 % (0-6); LYMPHOCYTES % (MANUAL) 12 % (13-45); MONOCYTES % (MANUAL) 8 % (3-13); SEGMENTED NEUTROPHILS % (MAN) 66 % (42-78); TOTAL CELLS COUNTED 50
[2018-12-02 08:55] LABS: ANISOCYTOSIS 2+; OVALOCYTES SLIGHT; PLATELET COMMENT DECREASED; POIKILOCYTOSIS SLIGHT; POLYCHROMASIA SLIGHT
[2018-12-02 09:20] LABS: WHITE BLOOD COUNT 1.4 10^3/uL (4.0-10.5)
--- NOTE | 2018-12-02 09:40 | PDOC PROGRESS REPORT ---
Subjective Progress Note for:: 12/02/18 Subjective:: 73-year-old male admitted with sepsis and altered mental status. Unable to swallow anything. Johnson's catheter shows blood stained urine. Lactic acid is 2.2 last night. Plan is to increase the IV fluids to 150 cc/h do the bladder irrigation and repeated lactic acid levels today. Today's labs are pending. Patient states he is in the hospital other than that unable to continue communication. Keep on saying he wants to urinate ,explained to him that he has a catheter in place. Overall prognosis poor condition is critical. Tried to call the son to give an update and unable to leave the message. 11/23/2018-patient is more alert more awake today. Able to give his birthday, he did know where he is at. Therapy is working with the patient today. Patient s hows significant improvement. We are going to try to give p.o. medications this morning. No acute events in last 24 hours. Patient is afebrile. 11/24/2018-patient is communicating well no acute events in the last 24 hours. Patient is afebrile. Patient said he had do not have any problems swallowing liquids but has a problem swallowing the solid food. Yesterday he is able to take the pills without any problem. Speech is aware they could reevaluate him tomorrow. No other complaints. 11/30/2018 patient is comfortably in the bed. No acute events in the last 24 hours. Patient is afebrile. T-max is 97.7. WBC went up to 15,700 today. Plan to recheck CBC tomorrow. T-max is 98.3. Patient is going to stay until and will be transferred to [facility] from there he will go to [facility]. 12/[id number]-hirg-old male admitted with altered mental status secondary to UTI urine culture is positive for ESBL E. coli. I spoke to the son about change in mental status since yesterday and also notified him that CT scan was done yesterday indicating bilateral pneumonia most likely aspiration pneumonia. Patient is supposed to go to [facility] tomorrow for catheter stent removal and based on the patient's present condition we may have to cancel the transfer tomorrow. I spoke to the son about possibility of a feeding tube if the speech therapy he is at high risk for aspiration. This morning patient is in the bed not responding to verbal commands only response is opening eyes and moaning with chest rub. Explained to the son that overall prognosis is poor but as per the son patient wishes are full code. Reason For Visit: RENAL STONE Physical Exam Vital Signs: Temp Pulse Resp BP Pulse Ox 98.1 F 83 20 116/63 98 12/01/18 23:58 12/02/18 02:17 12/02/18 02:17 12/01/18 23:58 12/02/18 02:17 Intake & Output 12/01/18 12/02/18 12/03/18 06:59 06:59 06:59 Intake Total 1900 6037 Output Total 4100 75914 Balance -2200 -5796 Weight 69.5 kg 66.4 kg General appearance: PRESENT: thin Head exam: PRESENT: atraumatic Eye exam: PRESENT: PERRLA Mouth exam: PRESENT: moist, tongue midline Teeth exam: PRESENT: poor dentation Neck exam: ABSENT: carotid bruit, JVD, lymphadenopathy, thyromegaly Respiratory exam: PRESENT: decreased breath sounds, other - Transmitted breath sounds. Cardiovascular exam: PRESENT: tachycardia GI/Abdominal exam: PRESENT: normal bowel sounds, soft. ABSENT: distended, guarding, mass, organolmegaly, rebound, tenderness Gentrourinary exam: PRESENT: indwelling catheter - She has indwelling Johnson's catheter urine looks clear. She is receiving continuous bladder irrigation. Neurological exam: PRESENT: altered Results Laboratory Results: 12/02/18 05:00 12/02/18 12/02/18 12/02/18 05:00 05:00 07:35 WBC Cancelled RBC Cancelled Hgb Cancelled Hct Cancelled MCV Cancelled MCH Cancelled MCHC Cancelled RDW Cancelled Plt Count Cancelled Seg Neutrophils % Cancelled Not Reportable Lymphocytes % Cancelled Not Reportable Monocytes % Cancelled Not Reportable Eosinophils % Cancelled Not Reportable Basophils % Cancelled Not Reportable Absolute Neutrophils Cancelled Not Reportable Absolute Lymphocytes Cancelled Not Reportable Absolute Monocytes Cancelled Not Reportable Absolute Eosinophils Cancelled Not Reportable Absolute Basophils Cancelled Not Reportable Sodium 151.7 H Potassium 3.4 L Chloride 123 H Carbon Dioxide 22 Anion Gap 7 BUN 23 H Creatinine 0.76 Est GFR ( Amer) > 60 Est GFR (Non-Af Amer) > 60 Glucose 106 Calcium 8.7 Magnesium 2.0 Total Bilirubin 1.2 AST 21 ALT 14 L Alkaline Phosphatase 65 Total Protein 5.3 L Albumin 2.4 L 11/21/18 11/21/18 11/21/18 12:00 18:19 18:19 Creatine Kinase 23 L Troponin I 0.021 0.021 11/22/18 11/22/18 11/22/18 00:33 00:33 08:13 Creatine Kinase 35 L 24 L Troponin I 0.022 11/22/18 08:13 Creatine Kinase Troponin I < 0.012 Impressions: Abdomen/Pelvis CT 11/21/18 00:00 IMPRESSION: 1. Unchanged nonobstructing 7 mm stone within the mid left ureter. New 4 mm stone within the left renal pelvis. Unchanged 1.2 cm stone within the superior calyx of the left kidney. No hydronephrosis. 2. Unchanged positioning of the left ureteral stent. 3. No additional changes when compared to 11/20/2018. Head CT 11/21/18 11:35 IMPRESSION: CHRONIC CHANGES OF ATROPHY AND MICROVASCULAR ISCHEMIA. NO ACUTE PROCESS. EVIDENCE OF ACUTE STROKE: NO. Chest X-Ray 11/29/18 15:15 IMPRESSION: NO ACUTE RADIOGRAPHIC FINDING IN THE CHEST. Chest CT 12/01/18 00:00 IMPRESSION: Bibasilar pneumonia, aspiration should be considered Guidance Fluoroscopy 12/01/18 00:00 IMPRESSION: SUCCESSFUL PLACEMENT OF A 5 FR DUAL LUMEN 41 CM PICC IN THE RIGHT BASILIC VEIN. Interventional Vascular Procedure 12/01/18 00:00 IMPRESSION: SUCCESSFUL PLACEMENT OF A 5 FR DUAL LUMEN 41 CM PICC IN THE RIGHT BASILIC VEIN. PICC Line Insertion 12/01/18 00:00 IMPRESSION: SUCCESSFUL PLACEMENT OF A 5 FR DUAL LUMEN 41 CM PICC IN THE RIGHT BASILIC VEIN. Assessment & Plan - Diagnosis (1) Altered mental status Qualifiers: Altered mental status type: unspecified Qualified Code(s): R41.82 - Altered mental status, unspecified Is this a current diagnosis for this admission?: Yes Plan: 11/21/2018 patient is going to be admitted for altered mental status most likely secondary to sepsis. Is going to be placed in IMCU. Started on IV fluids normal saline at 100 cc/h, to repeat the lactic acid levels, started on IV Zosyn and IV vancomycin. We are going to adjust the doses as per pharmacy recommendations. Blood cultures urine culture was sent. Aspiration fall precautions are requested. Neurochecks are requested for every 4 hours for the next 24 hours. Swallowing evaluation will be done today. CT head was negative for acute changes. To start on IV Ativan 1 mg every 8 hours as needed for agitation. 11/22/2018-altered mental status/acute encephalopathy most likely secondary to sepsis. Presently he is on IV Zosyn and vancomycin. Urine cultures blood cultures are pending. CT head was negative. He failed swallowing evaluation. We are going to request for PT OT consult and buyer planner. Requested for neuro checks. Aspiration fall Seizure precautions are requested. Overall prognosis poor condition is critical. 11/23/2018 altered mental status/acute encephalopathy most likely secondary to sepsis. Blood cultures are negative so far. Patient is presently on IV Zosyn and vancomycin. It is much more alert and oriented. Be going to try to give his morning p.o. medications. Therapy is working with the patient. Aspiration fall seizure precautions are requested. 11/24/2018-altered mental status/acute encephalopathy most likely secondary to sepsis is resolved. Patient said he has a difficulty in swallowing this morning we going to reevaluate by placing a speech consult for tomorrow. Started on pured diet from today. 11/30/2018-altered mental status/acute encephalopathy most likely secondary to sepsis which was resolved. He is back at the baseline. 12/01/2018-patient was admitted with altered mental status/acute encephalopathy. Which is most likely secondary to urosepsis. Patient mental status is back at baseline. 12/02/2018-patient was admitted with altered mental status/acute encephalopathy most likely secondary to UTI urine culture showing ESBL E. coli . On IV Zosyn. Patient mental status improved for couple of days now it is deteriorated and I am going to arrange for a CT head without contrast today to rule out any stroke. Patient is responding only to chest rub. No focal neurological deficits noticed. (2) Sepsis Qualifiers: Sepsis type: Escherichia coli Qualified Code(s): A41.51 - Sepsis due to Escherichia coli [E. coli] Is this a current diagnosis for this admission?: Yes Plan: 11/21/2018 patient is in septic stock when he came in blood pressure was 78/50 with IV fluids latest blood pressure is 124/60 initially on presentation is tachycardic heart rate is 106 tachypneic respiratory of 24, lactic acid level is 3.1 with altered mental status. And is to continue IV fluids normal saline at 100 cc/h started on IV vancomycin and Zosyn, repeat the lactic acid level this evening daily labs. Blood cultures urine cultures are pending. Chest x-ray does not show any pneumonia. Urinalysis is cloudy with leukocyte esterase positive, WBC more than 5 RBCs 182. Most likely cause of sepsis is urinary tract infection. 11/22/2018-patient's respiratory rate is 31, blood pressure is 124/79 improved. Latest lactic acid is 0.2. Urine cultures blood cultures are pending. Patient is in altered mental status. In my opinion patient is in septic shock. Patient is full code. Plan is to continue IV fluids, IV Zosyn and IV vancomycin. 11/23/2018-patient's T-max is 98.4 pulse rate is 93. Blood pressure today is 138/71. Plan is to continue the IV antibiotic therapy and to decrease the IV infusion of the fluids. Cultures are pending. Presently on IV Zosyn and vancomycin plan is to continue those antibiotics. 11/24/2018 patient was admitted with septic shock blood cultures are negative urine culture shows ESBL coli. Blood pressure today 130/63 temperature 97.3 pulse rate 62, WBC count is 8300. Septic shock is resolved. 11/30/2018 patient is admitted with altered mental status blood cultures are negative urine culture is positive for ESBL E. coli. Presently on IV Zosyn. 12/01/2018-patient is admitted with altered mental status blood cultures are negative urine culture is positive for ESBL E. coli the urologist told me patient has at least 2 UTIs after stent placement and this is third episode of UTI he prefers to continue IV antibiotic therapy until the ureteral stent was removed. 12/02/2018-patient vital signs today blood pressure is 116/63 temperature is 98.1 pulse rate is 88 pulse ox is 100% on 4 L. ET chest done yesterday shows bilateral pneumonia suggesting aspiration pneumonia. Urine culture is positive for ESBL E. coli. Today's labs indicate WBC is 1.4 with hemoglobin of 9.5 (3) Leukocytosis Qualifiers: Leukocytosis type: unspecified Qualified Code(s): D72.829 - Elevated white blood cell count, unspecified Is this a current diagnosis for this admission?: Yes Plan: 11/21/2018 admission WBC count is 10,000 most likely secondary to sepsis. 11/22/2018-yesterday's WBC count is 18,000 today's labs are pending leukocytosis most likely secondary to sepsis. 11/23/2018-today's labs are pending. Admission WBC is 18,000 yesterday WBC came down to 14,500. Plan is to continue the present management. Leukocytosis is resolving. 11/24/2018-on admission WBC count is 18,100 today WBC count is 8300 leukocytosis secondary to sepsis is resolved. 11/30/2018-WBC count today 15,700. Patient is on prednisone 10 mg . Plan is to discontinue IV antibiotics today because patient received already 8 days of antibiotic therapy. pt is afebrile for the last 1 week. 12/01/2018-WBC count today is 14,700 improved from yesterday. Patient is afebrile. Patient is on prednisone 10 mg daily for rheumatoid arthritis. Plan is to continue the present management. 12/02/2018-patient's WBC count is 1.4 today significant drop compared to yesterd ay. I am going to request a hematology consult. We going to repeat the CBC today. Planning to put a neutropenic precautions. (4) COPD (chronic obstructive pulmonary disease) Is this a current diagnosis for this admission?: No Plan: 11/21/2018 patient has history of COPD not on home oxygen he is ex-smoker quit smoking 15 years ago. He uses Brio and albuterol inhaler at home started him on Xopenex nebulizations every 6 hours as needed. 11/22/2018-patient has history of COPD he is on nebulizer treatments. He was pulse ox are in the 90s. 11/23/2018 patient has history of COPD his pulse ox is 92% on room air. he Is getting Xopenex nebulizer treatments. Plan is to continue the present management. 11/24/2018-patient has history of COPD not on home oxygen. Pulse ox is 82% on room air this morning. He is on Xopenex nebulizations. Chest x-ray negative for pneumonia. Plan is to continue the present management. 11/30/2018-patient has history of COPD yesterday's pulse ox is noted to drop to 85% chest x-ray was done which was negative. Today patient is on 4 L of oxygen pulse ox is 98% I decreased the oxygen requirements to 2 L to see and check the oxygen saturation. 12/01/2018-patient has history of COPD not on home oxygen. Pulse ox is 96% on 1- 1/2 L oxygen. Chest x-ray negative for pneumonia. He managed to go to a residential with oxygen via nasal cannula. On examination chest bilateral entry was decreased no wheezing no crepitations or heard. 12/02/2018-patient has history of COPD he is getting Xopenex nebulizations CT chest done yesterday indicating bilateral pneumonia with possible aspiration. He is on n.p.o. speech consult was requested. Pulse oxes 100% on 4 L. Plan is to continue Xopenex nebulizations oxygen 4 L via nasal cannula. On examination chest bilateral entry was decreased, bilateral transmitted breath sounds are present. (5) Coronary artery disease Is this a current diagnosis for this admission?: No Plan: 11/21/2018-patient has history of coronary artery disease status post stent placement multiple times. Plan to do the serial cardiac enzymes and troponins. Initial troponin is less than 0.021. Patient is on aspirin Plavix and simvastatin at home those medications are going to be resumed. 11/22/2018-patient has history of coronary artery disease previous history of multiple stents placement. At home he is on aspirin, Plavix, simvastatin. We resumed his home medications. But patient is unable to swallow failed swallowing evaluation because of altered mental status. 11/23/2018-patient has history of coronary artery disease with multiple stent placement. At home he is on aspirin, Plavix, simvastatin plan is to continue with his home medications. Patient failed his swallowing evaluation yesterday is much more alert and oriented today hopefully he able to take his oral medications. 11/24/2018-patient has history of coronary artery disease status post stent placement multiple times. Patient is on aspirin, Plavix, and simvastatin. Resumed those medications during the hospital stay. 11/30/2018-patient has history of coronary artery disease status post stent placement presently is on aspirin and Plavix and simvastatin plan is to continue the present management. 12/01/2018-patient has history of coronary artery disease status post stent placement multiple times. Presently on aspirin on Plavix, simvastatin. Plan is to discontinue aspirin and Plavix in preparation for ureteral stent removed on . 12/02/2018-patient has history of coronary artery disease status post stent [employer] multiple times. He is on aspirin and Plavix dose on hold because of the planned ureteral stent removal tomorrow. Unfortunately patient condition is deteriorated and is unable to take any medication by mouth probably he may not go to the procedure tomorrow. I spoke to the son he thinks dad wishes are full code. (6) Rheumatoid arthritis Is this a current diagnosis for this admission?: No Plan: 11/21/2018 patient has history of rheumatoid arthritis on methotrexate and prednisone at home those medications are restarted again. 11/22/2018-patient has history of rheumatoid arthritis on methotrexate and p.o. prednisone at home. Those medications are resumed but the patient is unable to swallow the pills at this moment. 11/23/2018-patient has history of rheumatoid arthritis on methotrexate and prednisone at home, meds will be restarted once able to swallow the medications. 11/24/2018-patient has history of rheumatoid arthritis on methotrexate and prednisone these medications are restarted during the hospital stay. 11/30/2018-patient has history of rheumatoid arthritis on methotrexate and prednisone at home these medications are continued during the hospital stay. 12/01/2018-patient has history of rheumatoid arthritis on methotrexate and p.o. prednisone. These home medications are resumed during the hospital stay. 12/02/2018-patient has history of rheumatoid arthritis he is on methotrexate and prednisone those medications are on hold. Because of the high risk of aspiration is n.p.o. right now. (7) Paroxysmal atrial fibrillation Is this a current diagnosis for this admission?: No Plan: 11/21/2018-patient has history of paroxysmal atrial fibrillation on warfarin 1 mg p.o. daily, Plavix 75 mg p.o. daily, aspirin 81 mg p.o. daily these medications he is taking at home plan is to resume those medications in the hospital. 11/22/2018-patient is giving the history of his dad having paroxysmal atrial fibrillation, patient in sinus rhythm here. We resumed his warfarin yesterday but is unable to take any oral medications at this point. 11/23/2018-patient is has a history of paroxysmal atrial fibrillation he is in sinus rhythm he is on warfarin at home. We are going to check his PT/INR on daily basis. 11/24/2017-patient has history of paroxysmal atrial fibrillation, during his hospital stay he is on sinus rhythm. According to his son warfarin was discontinued recently. INR today is 1.71. As per the son's request we going to discontinue warfarin. Be placed on a Lovenox 40 mg subcu daily. 11/30/2018-patient has history of paroxysmal atrial fibrillation presently is in sinus rhythm as per the son patient was on warfarin before and it was discontinued. Getting Lovenox for DVT prophylaxis. The catheter bag looks clean urine. Looks like hematuria is resolving. 12/01/2018-patient has history of paroxysmal atrial fibrillation he is on warfarin before, as per the son's request pt is off warfarin now. Presently on aspirin and Plavix and Lovenox those are discontinued in preparation for PICC line today and also in preparation for ureteral stent removal on at [facility]. 12/02/2018-patient has history of paroxysmal atrial fibrillation he is on Coumadin for a while which was discontinued recently. Initially he is on aspirin Plavix and Lovenox here in this hospital presently is on Lovenox only he is unable to take any medications by mouth right now. (8) History of AAA (abdominal aortic aneurysm) repair Is this a current diagnosis for this admission?: No (9) BPH (benign prostatic hyperplasia) Is this a current diagnosis for this admission?: No Plan: 11/21/2018 patient has history of BPH on finasteride and Flomax at home those medications are restarted during this hospital stay. 11/22/2018 patient has history of BPH on finasteride and Flomax at home those medications are resumed but patient is unable to swallow any medications at this moment patient has a Johnson's catheter draining blood stained urine. Overall prognosis and condition again critical. 11/23/2018 patient has history of BPH and he is on finasteride and Flomax at home plan is to resume those medications. 11/24/2018-patient history of BPH he is on finasteride and Flomax at home those medications are restarted during this hospital stay. 11/30/2018 patient has history of BPH on finasteride and Flomax those medications are continued during this hospital stay. 12/01/2018-patient has history of benign prostatic hypertrophy on finasteride and Flomax at home those medications are continued during this hospital stay. Fiona martinez has a Johnson's catheter with continuous bladder irrigation and urine is clear without any hematuria now. 12/02/2018 patient has history of BPH with Johnson's catheter on finasteride and Flomax at home patient is a high risk for aspiration is n.p.o. until further recommendations are available from the speech therapist. (10) UTI (urinary tract infection) Qualifiers: Urinary tract infection type: acute cystitis Hematuria presence: with hematuria Qualified Code(s): N30.01 - Acute cystitis with hematuria Is this a current diagnosis for this admission?: Yes Plan: 11/23/2018-patient has a urinary stent placement at [facility]. He came in with septic shock. Most likely source of infection in the urine. Urine analysis initially shows cloudy urine with increased WBC and RBC. Urine culture is pending. Presently on IV vancomycin and Zosyn plan is to continue those medications. 11/24/2018-patient has recent history of a urinary stent placement. Followed by at least 2 urinary tract infections. He was admitted here for sepsis. Urine cu lture is positive for ESBL E. coli and on Zosyn. Patient is afebrile. Plan is to continue the present management. 11/30/2018-urine culture shows ESBL E. coli on Zosyn. I spoke to the pharmacy about continuation of the antibiotics we both agree that patient received 8 days of antibiotics so far plan is to discontinue the antibiotics based on the fact that patient is afebrile for more than a week. 12/01/2018 urine culture is positive for ESBL E. coli on IV Zosyn I spoke to urologist yesterday according to him patient already has at least 2 episodes of UTI requiring antibiotics after ureteral stent placement this is the third episode of UTI, he preferred to keep the patient on IV antibiotic therapy until the ureteral stent was removed. So the plan is to continue IV Zosyn. 12/02/2018 urine culture shows ESBL E. coli and this is the third urinary tract infection after the stent placement. On IV Zosyn. Started on IV vancomycin because of the bilateral pneumonia on the CT suggestive of aspiration pneumonia. (11) Aspiration pneumonia Is this a current diagnosis for this admission?: Yes Plan: 12/02/2018-CT chest was done yesterday shows aspiration pneumonia. Most likely secondary to gram-negative bacteria this is hospital-acquired pneumonia patient is already on IV Zosyn and IV vancomycin was started today. (12) Leukopenia Is this a current diagnosis for this admission?: Yes Plan: 12/02/2018-patient WBC count today is 1.4 leukopenia most likely secondary to underlying sepsis. Reverse isolation was requested. Consultation with Dr. Skelton was requested. - Time Time Spent with patient: 15-24 minutes Medications reviewed and adjusted accordingly: Yes Anticipated discharge: [facility]
[2018-12-02] MEDS: SOTALOL HCL 80 MG TABLET PO SCH (10:00)
[2018-12-02] MEDS ORDERED: VANCOMYCIN HCL INJ 1000 MG VIAL IV SCH (10:00)
[2018-12-02] MEDS: GUAIFENESIN 600 MG TABLET.SA PO SCH (10:01)
[2018-12-02] MEDS: POTASSIUM CHLORIDE 10 MEQ CAPSULE.ER PO SCH (10:01)
[2018-12-02] MEDS: MAGNESIUM OXIDE 400 MG TABLET PO SCH (10:01)
[2018-12-02] MEDS: PREDNISONE 10 MG TABLET PO SCH (10:01)
[2018-12-02] MEDS: SENNOSIDES/DOCUSATE 8.6-50 MG 1 EACH TABLET PO SCH (10:02)
[2018-12-02] MEDS: FINASTERIDE 5 MG TABLET PO SCH (10:02)
[2018-12-02] MEDS: FAMOTIDINE 20 MG TABLET PO SCH (10:02)
[2018-12-02] MEDS: ENOXAPARIN SODIUM INJ 30 MG/0.3 ML DISP.SYRIN SUBCUT SCH (10:10)
[2018-12-02] MEDS: NORMAL SALINE 10 ML SDV (SCHEDULED) IV SCH ×2 (10:10→21:17)
[2018-12-02] MEDS: VANCOMYCIN HCL 750 MG in DEXTROSE 5%-WATER 250 ML IV SCH ×2 (10:43→21:19)
[2018-12-02 11:44] LABS: PATH REVIEW PATHOLOGIST REVIEWED
[2018-12-02 13:01] LABS: ARTERIAL BLOOD BASE EXCESS -0.3 mmol/L; ARTERIAL BLOOD H2CO3 1.11 mmol/L (1.05-1.35); ARTERIAL BLOOD HCO3 23.8 mmol/L (20-24); ARTERIAL BLOOD PH 7.43 (7.35-7.45); ARTERIAL BLOOD PO2 88.4 mmHg (80-100)
[2018-12-02 13:06] LABS: ARTERIAL BLOOD FIO2 40%
--- NOTE | 2018-12-02 13:26 | RADIOLOGY REPORT (SQ) ---
EXAM DESCRIPTION: CT HEAD WITHOUT COMPLETED DATE/TIME: 12/02/2018 1:07 pm REASON FOR STUDY: altered mental status COMPARISON: CT brain 12/17/2017, 09/17/2018, 11/21/2018 TECHNIQUE: Axial images acquired through the brain without intravenous contrast. Images reviewed wi th bone, brain and subdural windows. Additional sagittal and coronal reconstructions were generated. Images stored on PACS. All CT scanners at this facility use dose modulation, iterative reconstruction, and/or weight based d osing when appropriate to reduce radiation dose to as low as reasonably achievable (ALARA). [facility]: Dose Right [facility]: CareDose [facility]: Dose Right [facility]: Teradose 4D [facility]: Halalati RADIATION DOSE: CT Rad equipment meets quality standard of care and radiation dose reduction techniq ues were employed. CTDIvol: 48.6 mGy. DLP: 930 mGy-cm. mGy. LIMITATIONS: None. FINDINGS: VENTRICLES: Mildly prominent due to diffuse atrophy, stable CEREBRUM: No masses. No hemorrhage. No midline shift. No evidence for acute infarction. Old infarc t right posterior temporal lobe with focal encephalomalacia, unchanged from prior studies. CEREBELLUM: No masses. No hemorrhage. No alteration of density. No evidence for acute infarction. EXTRAAXIAL SPACES: Mildly prominent due to diffuse atrophy ORBITS AND GLOBE: No intra- or extraconal masses. Normal contour of globe without masses. CALVARIUM: No fracture. PARANASAL SINUSES: No fluid or mucosal thickening. SOFT TISSUES: No mass or hematoma. OTHER: No other significant finding. IMPRESSION: No acute findings. 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 Diffuse atrophy, stable EVIDENCE OF ACUTE STROKE: NO. COMMENT: Quality ID # [id number]: Final reports with documentation of one or more dose reduction techniques (e.g., Automated exposure control, adjustment of the mA and/or kV according to patient size, use of iterative reconstruction technique) TECHNICAL DOCUMENTATION: JOB ID: [id number] [employer]- All Rights Reserved Reading location - IP/workstation name: [email or web address]
[2018-12-02] MEDS: MEROPENEM 1 GM in NORMAL SALINE 50 ML IV SCH (21:16)
[2018-12-02] MEDS ORDERED: MEROPENEM 1 GM VIAL IV SCH (22:00)
[2018-12-03] MEDS: LORAZEPAM INJ 2 MG/1 ML VIAL IV PRN (02:33)
[2018-12-03] MEDS ORDERED: DIGOXIN INJ 0.5 MG/2 ML AMPULE ONE (02:46)
[2018-12-03] MEDS: MORPHINE SULFATE 10 MG/ML INJ IV PRN ×3 (02:56→19:01)
[2018-12-03] MEDS ORDERED: DIGOXIN INJ 0.5 MG/2 ML AMPULE IV ONE (03:00)
[2018-12-03] MEDS ORDERED: NORMAL SALINE 1000 ML 1,000 ML IV ONE (03:45)
[2018-12-03 04:37] LABS: HEMATOCRIT 29.8 % (37.9-51.0); HEMOGLOBIN 9.6 g/dL (13.5-17.0); MEAN CORPUSCULAR HEMOGLOBIN 30.9 pg (27.0-33.4); MEAN CORPUSCULAR VOLUME 97 fl (80-97); PLATELET COUNT 119 10^3/uL (150-450); RED BLOOD COUNT 3.09 10^6/uL (4.35-5.55); RED CELL DISTRIBUTION WIDTH 20.8 % (11.5-14.0)
[2018-12-03 04:46] LABS: ALANINE AMINOTRANSFERASE 27 U/L (21-72); ALBUMIN 2.4 g/dL (3.5-5.0); ALKALINE PHOSPHATASE 78 U/L (38-126); ANION GAP 6 (5-19); ASPARTATE AMINO TRANSFERASE 17 U/L (17-59); BILIRUBIN,DIRECT 0.5 mg/dL (0.0-0.4); BILIRUBIN,TOTAL 1.1 mg/dL (0.2-1.3); BLOOD UREA NITROGEN 19 mg/dL (7-20); CALCIUM 9.1 mg/dL (8.4-10.2); CARBON DIOXIDE 25 mmol/L (22-30); CHLORIDE 123 mmol/L (98-107); GLUCOSE 125 mg/dL (75-110); POTASSIUM 3.3 mmol/L (3.6-5.0); SODIUM 154.4 mmol/L (137-145); TOTAL PROTEIN 5.6 g/dL (6.3-8.2)
[2018-12-03] MEDS: MEROPENEM 1 GM in NORMAL SALINE 50 ML IV SCH ×3 (05:03→21:28)
[2018-12-03 05:20] LABS: ABSOLUTE LYMPHOCYTES# (MANUAL) 0.3 10^3/uL (0.5-4.7); ABSOLUTE MONOCYTES # (MANUAL) 0.4 10^3/uL (0.1-1.4); ABSOLUTE NEUTROPHILS# (MANUAL) 0.6 10^3/uL (1.7-8.2); BAND NEUTROPHILS % (MANUAL) 10 % (3-5); BASOPHILS % (MANUAL) 0 % (0-2); EOSINOPHILS % (MANUAL) 2 % (0-6); LYMPHOCYTES % (MANUAL) 24 % (13-45); MONOCYTES % (MANUAL) 28 % (3-13); SEGMENTED NEUTROPHILS % (MAN) 36 % (42-78); TOTAL CELLS COUNTED 50
[2018-12-03 05:21] LABS: ANISOCYTOSIS 2+; PLATELET COMMENT DECREASED; TOXIC GRANULATION 1+
[2018-12-03 05:23] LABS: WHITE BLOOD COUNT 1.3 10^3/uL (4.0-10.5)
[2018-12-03] MEDS ORDERED: METOPROLOL TARTRATE PF/INJ 5 MG/5 ML SDV IV ONE ×2 (05:31→05:45)
[2018-12-03] MEDS: NORMAL SALINE 10 ML SDV (SCHEDULED) IV SCH ×2 (09:38→21:30)
[2018-12-03] MEDS: VANCOMYCIN HCL 750 MG in DEXTROSE 5%-WATER 250 ML IV SCH ×2 (09:38→21:29)
[2018-12-03] MEDS: ENOXAPARIN SODIUM INJ 30 MG/0.3 ML DISP.SYRIN SUBCUT SCH (09:46)
--- NOTE | 2018-12-03 10:50 | PDOC CONSULTATION ---
Consultation Consult Date: 12/03/18 Consult reason:: Hematology/Oncology consultation was requested for patient with sudden pancytopenia. History of Present Illness Admission Date/PCP: 11/21/18 15:46 ERIC UGARTE DO History of Present Illness: VVIIAN STINSON is a 73 year old male who was found to have altered mental status and was admitted to the hospital. He was treated for E. coli UTI and renal stones. He improved, but then 2 days ago, again because more confused. He was found to have what appears to be aspiration pneumonia and also developed sudden pancytopenia. In reviewing the patient's chart, he was given his regular dose of Methotrexate 10 mg on 11/28/2018. He was also on Pipperacillin for the infection. His EGFR and LFTs have remained normal. He has also been given some heparin products during this admission. Currently, he is on CPAP mask and shakes his head back and forth, but does not open eyes, make eye contact, or attempt any verbalization. Past Medical History Cardiac Medical History: Reports: Atrial Fibrillation, Coronary Artery Disease, Myocardial Infarction, Peripheral Vascular Disease Denies: Congestive Heart Failure, Hypertension Pulmonary Medical History: Reports: Bronchitis, Chronic Obstructive Pulmonary Disease (COPD), Pneumonia Denies: Asthma, Tuberculosis Neurological Medical History: Denies: Seizures Renal/ Medical History: Denies: End Stage Renal Disease GI Medical History: Reports: Gastroesophageal Reflux Disease Denies: Cirrhosis Musculoskeltal Medical History: Reports: Arthritis Psychiatric Medical History: Denies: Bipolar Disorder, Depression Hematology: Denies: Anemia, Bleeding Tendencies Past Surgical History Past Surgical History: Reports: Cardiac Catheterization, Cholecystectomy, Coron alie Stent, Orthopedic Surgery - Kyphoplasty-08/2018, Vascular Surgery - Abdominal aortic aneurysm and bilateral femoropopliteal graft Social History Smoking Status: Former Smoker Frequency of Alcohol Use: None Hx Recreational Drug Use: No Drugs: None Hx Prescription Drug Abuse: No - Advance Directive Resuscitation Status: Full Code Family History Family History: CAD, COPD, Hypertension Parental Family History Reviewed: No Children Family History Reviewed: No Sibling(s) Family History Reviewed.: No Medication/Allergy Home Medications: Aspirin [Adult Low Dose Aspirin EC] 81 mg PO QHS 11/22/18 Clopidogrel Bisulfate [Plavix 75 mg Tablet] 75 mg PO DAILY 11/22/18 Finasteride [Proscar 5 mg Tablet] 5 mg PO DAILY 11/22/18 Fluticasone/Vilanterol [Breo Ellipta 100-25 Mcg INH] 1 each IH DAILY 11/22/18 Omeprazole 80 mg PO DAILY 11/22/18 Prednisone [Deltasone 5 mg Tablet] 5 mg PO DAILY 11/22/18 Simvastatin [Zocor 80 mg Tablet] 80 mg PO QHS 11/22/18 Sotalol HCl [Sotalol Af] 80 mg PO Q12 11/22/18 Tamsulosin HCl [Flomax] 0.8 mg PO QHS 11/22/18 Warfarin Sodium [Coumadin 1 mg Tablet] 1 mg PO DAILY 11/22/18 Methotrexate Sodium [Rheumatrex 2.5 mg Tablet] 10 mg PO SA@1000,2200 11/23/18 Allergies/Adverse Reactions: codeine Allergy (Verified 11/20/18 01:25) Review of Systems ROS unobtainable: Due to mental status Review of Systems: Per nursing, nothing else new of concern. Physical Exam Vital Signs: Temp Pulse Resp BP Pulse Ox 98.4 F 128 H 18 100/64 81 L 12/03/18 03:23 12/03/18 06:10 12/03/18 03:23 12/03/18 06:10 12/03/18 05:36 Intake & Output 12/02/18 12/03/18 12/04/18 06:59 06:59 06:59 Intake Total 6037 4500 Output Total 61431 4120 Balance -5763 380 Weight 66.4 kg 69.9 kg General appearance: PRESENT: well-developed, well-nourished Head exam: PRESENT: normocephalic Eye exam: PRESENT: other - Does not open eyes. Mouth exam: PRESENT: neck supple Neck exam: ABSENT: lymphadenopathy, tenderness Respiratory exam: PRESENT: rales, other - course upper airway noise. Cardiovascular exam: PRESENT: other - Heart sound obscured. GI/Abdominal exam: PRESENT: soft. ABSENT: organolmegaly, tenderness Extremities exam: PRESENT: other - TEDs in place.. ABSENT: pedal edema Neurological exam: PRESENT: altered, awake Psychiatric exam: PRESENT: agitated Skin exam: PRESENT: pallor Results Laboratory Results: 12/03/18 04:00 12/03/18 04:00 12/02/18 12/02/18 12/03/18 07:35 12:40 04:00 WBC 1.4 L* D 1.3 L* RBC 3.05 L 3.09 L Hgb 9.5 L 9.6 L Hct 29.3 L 29.8 L MCV 96 97 MCH 31.2 30.9 MCHC 32.4 32.0 RDW 20.8 H 20.8 H Plt Count 141 L 119 L Seg Neutrophils % Not Reportable Not Reportable Lymphocytes % Not Reportable Not Reportable Monocytes % Not Reportable Not Reportable Eosinophils % Not Reportable Not Reportable Basophils % Not Reportable Not Reportable Absolute Neutrophils Not Reportable Not Reportable Absolute Lymphocytes Not Reportable Not Reportable Absolute Monocytes Not Reportable Not Reportable Absolute Eosinophils Not Reportable Not Reportable Absolute Basophils Not Reportable Not Reportable Carbonic Acid 1.11 HCO3/H2CO3 Ratio 21:1 ABG pH 7.43 ABG pCO2 37.0 ABG pO2 88.4 ABG HCO3 23.8 ABG O2 Saturation 97.0 ABG Base Excess -0.3 FiO2 40% Sodium Potassium Chloride Carbon Dioxide Anion Gap BUN Creatinine Est GFR ( Amer) Est GFR (Non-Af Amer) Glucose Calcium Magnesium Total Bilirubin AST ALT Alkaline Phosphatase Total Protein Albumin 12/03/18 04:00 WBC RBC Hgb Hct MCV MCH MCHC RDW Plt Count Seg Neutrophils % Lymphocytes % Monocytes % Eosinophils % Basophils % Absolute Neutrophils Absolute Lymphocytes Absolute Monocytes Absolute Eosinophils Absolute Basophils Carbonic Acid HCO3/H2CO3 Ratio ABG pH ABG pCO2 ABG pO2 ABG HCO3 ABG O2 Saturation ABG Base Excess FiO2 Sodium 154.4 H Potassium 3.3 L Chloride 123 H Carbon Dioxide 25 Anion Gap 6 BUN 19 Creatinine 0.74 Est GFR ( Amer) > 60 Est GFR (Non-Af Amer) > 60 Glucose 125 H Calcium 9.1 Magnesium 2.0 Total Bilirubin 1.1 AST 17 ALT 27 Alkaline Phosphatase 78 Total Protein 5.6 L Albumin 2.4 L 11/21/18 11/21/18 11/21/18 12:00 18:19 18:19 Creatine Kinase 23 L Troponin I 0.021 0.021 11/22/18 11/22/18 11/22/18 00:33 00:33 08:13 Creatine Kinase 35 L 24 L Troponin I 0.022 11/22/18 08:13 Creatine Kinase Troponin I < 0.012 Impressions: Abdomen/Pelvis CT 11/21/18 00:00 IMPRESSION: 1. Unchanged nonobstructing 7 mm stone within the mid left ureter. New 4 mm stone within the left renal pelvis. Unchanged 1.2 cm stone within the superior calyx of the left kidney. No hydronephrosis. 2. Unchanged positioning of the left ureteral stent. 3. No additional changes when compared to 11/20/2018. Chest X-Ray 11/29/18 15:15 IMPRESSION: NO ACUTE RADIOGRAPHIC FINDING IN THE CHEST. Chest CT 12/01/18 00:00 IMPRESSION: Bibasilar pneumonia, aspiration should be considered Guidance Fluoroscopy 12/01/18 00:00 IMPRESSION: SUCCESSFUL PLACEMENT OF A 5 FR DUAL LUMEN 41 CM PICC IN THE RIGHT BASILIC VEIN. Interventional Vascular Procedure 12/01/18 00:00 IMPRESSION: SUCCESSFUL PLACEMENT OF A 5 FR DUAL LUMEN 41 CM PICC IN THE RIGHT BASILIC VEIN. PICC Line Insertion 12/01/18 00:00 IMPRESSION: SUCCESSFUL PLACEMENT OF A 5 FR DUAL LUMEN 41 CM PICC IN THE RIGHT BASILIC VEIN. Head CT 12/02/18 00:00 IMPRESSION: No acute findings. 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 Diffuse atrophy, stable EVIDENCE OF ACUTE STROKE: NO. Status: Image reviewed by me Assessment & Plan - Diagnosis (1) Pancytopenia, acquired Is this a current diagnosis for this admission?: Yes Plan: This was very sudden after acute illness. Most likely cause is medication or infection. Both the Methotrexate and the pipperacillin may have contributed to this. Both these medications have now been stopped. I will continue to follow with consider changing other medications if indicated. He is currently on neutropenic precautions. I would continue Merrepenum for now. Would hold all anticoagulation if PLT are <50. (2) Altered mental status Qualifiers: Altered mental status type: unspecified Qualified Code(s): R41.82 - Altered mental status, unspecified Is this a current diagnosis for this admission?: Yes Plan: I am unsure what his baseline is. No family at bedside currently. This may be due to infection or hypoxia. Agree with CPAP. His NA is also increasing, which may also contribute to mental status changes. Would consider changing to 1/2 NS for MIV and see if he is able to drink more free water, if safe to do so. (3) Rheumatoid arthritis Is this a current diagnosis for this admission?: No Plan: No further methotrexate during this admission. - Plan Summary Plan Summary: I will continue to follow with you. Please feel free to call with any concerns.
[2018-12-03 12:22] LABS: INTERNATIONAL RATION (INR) 1.73; PROTHROMBIN TIME 21.1 SEC (11.4-15.4)
[2018-12-03 12:23] LABS: FIBRINOGEN 560 mg/dL (209-497)
[2018-12-03] MEDS: 1/2 NORMAL SALINE 1,000 ML IV PRN (14:00)
--- NOTE | 2018-12-03 22:14 | PDOC PROGRESS REPORT ---
Subjective Progress Note for:: 12/03/18 Subjective:: Barely responsive to verbal stimulus. He did try to open his eyes on command. He seems very restless. He is currently on BiPAP therapy. Reason For Visit: Altered mental status Leukopenia Cystitis with E. coli ESBL Physical Exam Vital Signs: Temp Pulse Resp BP Pulse Ox 98.3 F 99 20 118/75 99 12/03/18 08:37 12/03/18 08:37 12/03/18 08:37 12/03/18 08:37 12/03/18 08:37 Intake & Output 12/02/18 12/03/18 12/04/18 06:59 06:59 06:59 Intake Total 6037 4500 2200 Output Total 68005 4120 900 Balance -5763 380 1300 Weight 66.4 kg 69.9 kg General appearance: PRESENT: mild distress, other - No significant interaction during this encounter Head exam: PRESENT: normocephalic Ear exam: PRESENT: normal external ear exam Mouth exam: PRESENT: other - BiPAP mask in place Respiratory exam: PRESENT: rhonchi - Bilaterally, symmetrical - Breathing is somewhat labored. ABSENT: rales, wheezes Cardiovascular exam: PRESENT: RRR, +S1, +S2, other - Difficult to auscultate with rhonchi GI/Abdominal exam: PRESENT: normal bowel sounds, soft. ABSENT: distended, tenderness Rectal exam: PRESENT: deferred Gentrourinary exam: PRESENT: indwelling catheter - Irrigation Johnson. Still with specks of blood and very light pink color. Extremities exam: ABSENT: pedal edema Neurological exam: PRESENT: altered. ABSENT: alert, awake Psychiatric exam: ABSENT: agitated, anxious Results Laboratory Results: 12/03/18 04:00 12/03/18 04:00 12/03/18 12/03/18 04:00 04:00 WBC 1.3 L* RBC 3.09 L Hgb 9.6 L Hct 29.8 L MCV 97 MCH 30.9 MCHC 32.0 RDW 20.8 H Plt Count 119 L Seg Neutrophils % Not Reportable Lymphocytes % Not Reportable Monocytes % Not Reportable Eosinophils % Not Reportable Basophils % Not Reportable Absolute Neutrophils Not Reportable Absolute Lymphocytes Not Reportable Absolute Monocytes Not Reportable Absolute Eosinophils Not Reportable Absolute Basophils Not Reportable Sodium 154.4 H Potassium 3.3 L Chloride 123 H Carbon Dioxide 25 Anion Gap 6 BUN 19 Creatinine 0.74 Est GFR ( Amer) > 60 Est GFR (Non-Af Amer) > 60 Glucose 125 H Calcium 9.1 Magnesium 2.0 Total Bilirubin 1.1 AST 17 ALT 27 Alkaline Phosphatase 78 Total Protein 5.6 L Albumin 2.4 L 11/21/18 11/21/18 11/21/18 12:00 18:19 18:19 Creatine Kinase 23 L Troponin I 0.021 0.021 11/22/18 11/22/18 11/22/18 00:33 00:33 08:13 Creatine Kinase 35 L 24 L Troponin I 0.022 11/22/18 08:13 Creatine Kinase Troponin I < 0.012 Impressions: Abdomen/Pelvis CT 11/21/18 00:00 IMPRESSION: 1. Unchanged nonobstructing 7 mm stone within the mid left ureter. New 4 mm stone within the left renal pelvis. Unchanged 1.2 cm stone within the superior calyx of the left kidney. No hydronephrosis. 2. Unchanged positioning of the left ureteral stent. 3. No additional changes when compared to 11/20/2018. Chest X-Ray 11/29/18 15:15 IMPRESSION: NO ACUTE RADIOGRAPHIC FINDING IN THE CHEST. Chest CT 12/01/18 00:00 IMPRESSION: Bibasilar pneumonia, aspiration should be considered Guidance Fluoroscopy 12/01/18 00:00 IMPRESSION: SUCCESSFUL PLACEMENT OF A 5 FR DUAL LUMEN 41 CM PICC IN THE RIGHT BASILIC VEIN. Interventional Vascular Procedure 12/01/18 00:00 IMPRESSION: SUCCESSFUL PLACEMENT OF A 5 FR DUAL LUMEN 41 CM PICC IN THE RIGHT BASILIC VEIN. PICC Line Insertion 12/01/18 00:00 IMPRESSION: SUCCESSFUL PLACEMENT OF A 5 FR DUAL LUMEN 41 CM PICC IN THE RIGHT BASILIC VEIN. Head CT 12/02/18 00:00 IMPRESSION: No acute findings. 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 Diffuse atrophy, stable EVIDENCE OF ACUTE STROKE: NO. Assessment & Plan - Diagnosis (1) Altered mental status Qualifiers: Altered mental status type: unspecified Qualified Code(s): R41.82 - Altered mental status, unspecified Is this a current diagnosis for this admission?: Yes Plan: Most likely due to infection. The patient did have extended spectrum beta-lactamase E. coli. His antibiotic therapy has been narrowed to meropenem. He is currently on BiPAP. Difficult to assess his current status as he is somnolent. He is mildly hyponatremic and his fluids will be changed to one half normal saline. (2) Aspiration pneumonia Is this a current diagnosis for this admission?: Yes Plan: Continue meropenem. This will cover aspiration pneumonia. Repeat chest x-ray tomorrow. (3) Hematuria Qualifiers: Hematuria type: gross Qualified Code(s): R31.0 - Gross hematuria Is this a current diagnosis for this admission?: Yes Plan: Continue Johnson irrigation (4) Leukopenia Qualifiers: Leukopenia type: neutropenia Neutropenia type: unspecified Qualified Code(s): D70.9 - Neutropenia, unspecified Is this a current diagnosis for this admission?: Yes Plan: Please also see Dr. Maria's note. It is thought that the leukopenia could be related to infection or possibly medications. (5) Rheumatoid arthritis Is this a current diagnosis for this admission?: Yes Plan: Hold methotrexate (6) Hypokalemia Is this a current diagnosis for this admission?: Yes Plan: Potassium chloride IV supplement. Monitor potassium level and supplement as indicated. (7) Hypernatremia Is this a current diagnosis for this admission?: Yes Plan: Change to one half normal saline. Monitor serum sodium level. - Time Time Spent with patient: 25-34 minutes Medications reviewed and adjusted accordingly: Yes
[2018-12-03] MEDS ORDERED: POTASSI CL 20 MEQ/50 ML RIDER 20 MEQ/50 ML RTUPB IV ONE (23:25)
[2018-12-04 04:44] LABS: ANION GAP 5 (5-19); BLOOD UREA NITROGEN 13 mg/dL (7-20); CALCIUM 9.3 mg/dL (8.4-10.2); CARBON DIOXIDE 23 mmol/L (22-30); CHLORIDE 125 mmol/L (98-107); GLUCOSE 116 mg/dL (75-110); POTASSIUM 3.4 mmol/L (3.6-5.0); SODIUM 153.4 mmol/L (137-145)
[2018-12-04] MEDS: MEROPENEM 1 GM in NORMAL SALINE 50 ML IV SCH ×3 (05:05→21:32)
[2018-12-04 06:42] LABS: HEMATOCRIT 27.8 % (37.9-51.0); MEAN CORPUSCULAR HEMOGLOBIN 31.3 pg (27.0-33.4); MEAN CORPUSCULAR HGB CONC 32.4 g/dL (32.0-36.0); MEAN CORPUSCULAR VOLUME 97 fl (80-97); PLATELET COUNT 101 10^3/uL (150-450); RED BLOOD COUNT 2.88 10^6/uL (4.35-5.55); RED CELL DISTRIBUTION WIDTH 21.6 % (11.5-14.0)
--- NOTE | 2018-12-04 08:19 | PDOC PROGRESS REPORT ---
Subjective Progress Note for:: 12/04/18 Subjective:: Patient remains on BiPAP. He responds to tactile stimulus and appears to be in pain no matter where I touch him. Nurses report no significant change overnight. They also believe he is in pain, however, he is non-verbal so difficult to fully assess. He has not had any significant PO intake for several days. He failed his swallowing study. Reason For Visit: RENAL STONE Physical Exam Vital Signs: Temp Pulse Resp BP Pulse Ox 99.0 F 103 H 30 H 129/68 H 95 12/04/18 03:59 12/04/18 03:59 12/04/18 03:59 12/04/18 03:59 12/04/18 03:59 Intake & Output 12/03/18 12/04/18 12/05/18 06:59 06:59 06:59 Intake Total 4500 2900 Output Total 4120 3450 Balance 380 -550 Weight 69.9 kg 67.3 kg General appearance: PRESENT: well-developed, well-nourished Respiratory exam: PRESENT: clear to auscultation gracy, other - On BiPAP Cardiovascular exam: PRESENT: RRR, tachycardia GI/Abdominal exam: PRESENT: soft, tenderness Extremities exam: PRESENT: other - TEDs in place.. ABSENT: pedal edema Neurological exam: PRESENT: other - He withdraws to any touch. He appears to shake his head back and forth, but does not open his eyes. Focused psych exam: PRESENT: restlessness Skin exam: PRESENT: pallor Results Laboratory Results: 12/04/18 04:00 12/04/18 04:00 12/04/18 12/04/18 04:00 04:00 WBC 5.0 D RBC 2.88 L Hgb 9.0 L Hct 27.8 L MCV 97 MCH 31.3 MCHC 32.4 RDW 21.6 H Plt Count 101 L Sodium 153.4 H Potassium 3.4 L Chloride 125 H Carbon Dioxide 23 Anion Gap 5 BUN 13 Creatinine 0.70 Est GFR ( Amer) > 60 Est GFR (Non-Af Amer) > 60 Glucose 116 H Calcium 9.3 Magnesium 2.0 11/21/18 11/21/18 11/21/18 12:00 18:19 18:19 Creatine Kinase 23 L Troponin I 0.021 0.021 11/22/18 11/22/18 11/22/18 00:33 00:33 08:13 Creatine Kinase 35 L 24 L Troponin I 0.022 11/22/18 08:13 Creatine Kinase Troponin I < 0.012 Impressions: Abdomen/Pelvis CT 11/21/18 00:00 IMPRESSION: 1. Unchanged nonobstructing 7 mm stone within the mid left ureter. New 4 mm stone within the left renal pelvis. Unchanged 1.2 cm stone within the superior calyx of the left kidney. No hydronephrosis. 2. Unchanged positioning of the left ureteral stent. 3. No additional changes when compared to 11/20/2018. Chest X-Ray 11/29/18 15:15 IMPRESSION: NO ACUTE RADIOGRAPHIC FINDING IN THE CHEST. Chest CT 12/01/18 00:00 IMPRESSION: Bibasilar pneumonia, aspiration should be considered Guidance Fluoroscopy 12/01/18 00:00 IMPRESSION: SUCCESSFUL PLACEMENT OF A 5 FR DUAL LUMEN 41 CM PICC IN THE RIGHT BASILIC VEIN. Interventional Vascular Procedure 12/01/18 00:00 IMPRESSION: SUCCESSFUL PLACEMENT OF A 5 FR DUAL LUMEN 41 CM PICC IN THE RIGHT BASILIC VEIN. PICC Line Insertion 12/01/18 00:00 IMPRESSION: SUCCESSFUL PLACEMENT OF A 5 FR DUAL LUMEN 41 CM PICC IN THE RIGHT BASILIC VEIN. Head CT 12/02/18 00:00 IMPRESSION: No acute findings. 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 Diffuse atrophy, stable EVIDENCE OF ACUTE STROKE: NO. Assessment & Plan - Diagnosis (1) Pancytopenia, acquired Is this a current diagnosis for this admission?: Yes Plan: Much improved today. WBC 5.0 PLT 101. I reviewed the peripheral blood smear. I will also check Vit B12 level, as this could be a cause of pancytopenia, but usually, no this sudden. Again, most likely due to infection and medications. It seems to be recovering. Consider pRBC transfusion for HGB <8. (2) Altered mental status Qualifiers: Altered mental status type: unspecified Qualified Code(s): R41.82 - Altered mental status, unspecified Is this a current diagnosis for this admission?: Yes Plan: I am still unclear as to his baseline, but he appears greatly uncomfortable. Would consider Duragesic 25 mcg patch, as long as BP remains stable. I will defer to primary team. (3) Rheumatoid arthritis Is this a current diagnosis for this admission?: Yes Plan: MTX on hold due to pancytopenia. - Plan Summary Plan Summary: Please call over the weekend if needed. Dr. Skelton will be covering. I will return on Friday.
[2018-12-04] MEDS: 1/2 NORMAL SALINE 1,000 ML IV PRN (09:00)
[2018-12-04] MEDS: LORAZEPAM INJ 2 MG/1 ML VIAL IV PRN ×5 (09:03→17:42)
[2018-12-04] MEDS: MORPHINE SULFATE 10 MG/ML INJ IV PRN ×5 (09:03→17:41)
[2018-12-04] MEDS: ENOXAPARIN SODIUM INJ 30 MG/0.3 ML DISP.SYRIN SUBCUT SCH (09:15)
--- NOTE | 2018-12-04 09:43 | RADIOLOGY REPORT (SQ) ---
EXAM DESCRIPTION: CHEST SINGLE VIEW COMPLETED DATE/TIME: 12/04/2018 9:27 am REASON FOR STUDY: Respiratory failure COMPARISON: Chest films 10/16/2018, 11/21/2018, 11/29/2018 CT chest 12/01/2018 EXAM PARAMETERS: NUMBER OF VIEWS: One view. TECHNIQUE: Single frontal radiographic view of the chest acquired. RADIATION DOSE: NA LIMITATIONS: None. FINDINGS: LUNGS AND PLEURA: Patchy consolidation at both lung bases worrisome for pneumonia. This i s similar compared to CT chest 12/01/2018 and progressive since chest films 11/29/2018. Stable bandlike scarring at the right lung apex and hyperinflation of the upper lobes. No pleural ef fusion. No pneumothorax. MEDIASTINUM AND HILAR STRUCTURES: No masses. Contour normal. HEART AND VASCULAR STRUCTURES: Heart normal in size. Normal vasculature. BONES: No acute findings. HARDWARE: Right PICC line tip superior vena cava OTHER: No other significant finding. IMPRESSION: Persistent bilateral lower lobe pneumonia TECHNICAL DOCUMENTATION: JOB ID: [id number] [employer]- All Rights Reserved Reading location - IP/workstation name: [email or web address]
[2018-12-04] MEDS: NORMAL SALINE 10 ML SDV (SCHEDULED) IV SCH ×2 (11:30→21:33)
--- NOTE | 2018-12-04 12:04 | PDOC PROGRESS REPORT ---
Subjective Progress Note for:: 12/04/18 Subjective:: The patient is still in significant discomfort. He remains on BiPAP. He was able to nod his head yes and no to answer questions but did not open his eyes. Reason For Visit: RENAL STONE Physical Exam Vital Signs: Temp Pulse Resp BP Pulse Ox 99.1 F 99 8 L 127/93 H 94 12/04/18 07:30 12/04/18 07:30 12/04/18 08:00 12/04/18 07:30 12/04/18 08:00 Intake & Output 12/03/18 12/04/18 12/05/18 06:59 06:59 06:59 Intake Total 4500 3900 Output Total 4120 3450 Balance 380 450 Weight 69.9 kg 67.3 kg General appearance: PRESENT: severe distress - Severe pain, well-developed Head exam: PRESENT: normocephalic Ear exam: PRESENT: normal external ear exam Mouth exam: PRESENT: other - BiPAP mask in place Respiratory exam: PRESENT: rales - Faint at left base, symmetrical, tachypnea. ABSENT: rhonchi, wheezes Cardiovascular exam: PRESENT: RRR, +S1, +S2 GI/Abdominal exam: PRESENT: normal bowel sounds, soft. ABSENT: tenderness Rectal exam: PRESENT: deferred, other - Hemoccult positive today Gentrourinary exam: PRESENT: indwelling catheter Extremities exam: ABSENT: pedal edema Neurological exam: PRESENT: awake - As noted above the patient did not open his eyes. He did respond to questions by nodding yes or no. He does appear to be in significant discomfort which would affect his responses., oriented to person - He appears to be oriented at least to person and place., oriented to place. ABSENT: alert Psychiatric exam: PRESENT: agitated - Secondary to pain, appropriate affect - Reflects is constant pain Results Laboratory Results: 12/04/18 04:00 12/04/18 04:00 12/04/18 12/04/18 12/04/18 04:00 04:00 04:00 WBC 5.0 D RBC 2.88 L Hgb 9.0 L Hct 27.8 L MCV 97 MCH 31.3 MCHC 32.4 RDW 21.6 H Plt Count 101 L Sodium 153.4 H Potassium 3.4 L Chloride 125 H Carbon Dioxide 23 Anion Gap 5 BUN 13 Creatinine 0.70 Est GFR ( Amer) > 60 Est GFR (Non-Af Amer) > 60 Glucose 116 H Calcium 9.3 Magnesium 2.0 Vitamin B12 > 1000.0 H Stool Occult Blood 12/04/18 10:00 WBC RBC Hgb Hct MCV MCH MCHC RDW Plt Count Sodium Potassium Chloride Carbon Dioxide Anion Gap BUN Creatinine Est GFR ( Amer) Est GFR (Non-Af Amer) Glucose Calcium Magnesium Vitamin B12 Stool Occult Blood POSITIVE 11/21/18 11/21/18 11/21/18 12:00 18:19 18:19 Creatine Kinase 23 L Troponin I 0.021 0.021 11/22/18 11/22/18 11/22/18 00:33 00:33 08:13 Creatine Kinase 35 L 24 L Troponin I 0.022 11/22/18 08:13 Creatine Kinase Troponin I < 0.012 Impressions: Abdomen/Pelvis CT 11/21/18 00:00 IMPRESSION: 1. Unchanged nonobstructing 7 mm stone within the mid left ureter. New 4 mm stone within the left renal pelvis. Unchanged 1.2 cm stone within the superior calyx of the left kidney. No hydronephrosis. 2. Unchanged positioning of the left ureteral stent. 3. No additional changes when compared to 11/20/2018. Chest CT 12/01/18 00:00 IMPRESSION: Bibasilar pneumonia, aspiration should be considered Guidance Fluoroscopy 12/01/18 00:00 IMPRESSION: SUCCESSFUL PLACEMENT OF A 5 FR DUAL LUMEN 41 CM PICC IN THE RIGHT BASILIC VEIN. Interventional Vascular Procedure 12/01/18 00:00 IMPRESSION: SUCCESSFUL PLACEMENT OF A 5 FR DUAL LUMEN 41 CM PICC IN THE RIGHT BASILIC VEIN. PICC Line Insertion 12/01/18 00:00 IMPRESSION: SUCCESSFUL PLACEMENT OF A 5 FR DUAL LUMEN 41 CM PICC IN THE RIGHT BASILIC VEIN. Head CT 12/02/18 00:00 IMPRESSION: No acute findings. 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 Diffuse atrophy, stable EVIDENCE OF ACUTE STROKE: NO. Chest X-Ray 12/04/18 06:00 IMPRESSION: Persistent bilateral lower lobe pneumonia Assessment & Plan - Diagnosis (1) Altered mental status Qualifiers: Altered mental status type: unspecified Qualified Code(s): R41.82 - Altered mental status, unspecified Is this a current diagnosis for this admission?: Yes Plan: There are changes on the CT scan of the head consistent with microvascular disease and mild cerebral atrophy. The patient was nodding his head in a seemingly appropriate fashion to answer questions. He clearly is in significant pain. As the sepsis is resolved I believe his mental status is improved. If I am able to get his pain under better control we will better be able to assess. (2) Aspiration pneumonia Is this a current diagnosis for this admission?: Yes Plan: Antibiotics modified to meropenem. Most recent chest x-ray still shows bibasilar infiltrates but his lungs sound better. Continue meropenem. Zosyn and vancomycin were discontinued. Zosyn mostly with the suspicion of it causing his leukopenia. Since the Zosyn has been discontinued his white blood cell count has improved. (3) Occult blood in stools Is this a current diagnosis for this admission?: Yes Plan: The patient's hemoglobin is slowly drifting down. He is still Hemoccult positive. His hemoglobin was 9 today. I will check it again this evening and tomorrow morning. If he drops below 8.0 I will order blood transfusion. I have started a proton pump inhibitor. He is also off of his antiplatelet therapy. We have stopped the venous thrombo-embolus prophylaxis Lovenox. (4) Hematuria Qualifiers: Hematuria type: gross Qualified Code(s): R31.0 - Gross hematuria Is this a current diagnosis for this admission?: Yes Plan: Urine is quite dilute. There is no obvious blood in the urine. The nurse reports that if she decreases the rate of the continuous bladder irrigation urine does turn pink. I will asked for a repeat UA to assess for microscopic hematuria. (5) Leukopenia Qualifiers: Leukopenia type: neutropenia Neutropenia type: unspecified Qualified Code(s): D70.9 - Neutropenia, unspecified Is this a current diagnosis for this admission?: Yes Plan: Improved with the discontinuation of methotrexate and Zosyn. (6) Rheumatoid arthritis Is this a current diagnosis for this admission?: Yes Plan: As noted above the methotrexate is on hold. The patient was on prednisone 5 mg every day. With this being discontinued I am going to administer hydrocortisone IV in the event that there is an adrenal insufficiency. I will also apply a 12 mcg Duragesic patch to see if we can get better pain control. We will monitor for adverse effect. (7) Hypokalemia Is this a current diagnosis for this admission?: Yes Plan: Continue to monitor potassium level and supplement as indicated. (8) Hypernatremia Is this a current diagnosis for this admission?: Yes Plan: Sodium level slightly improved. I will increase the rate of the half-normal saline. I will in fact change it to D5 half-normal as the patient has not been eating. We will try and wean the patient from BiPAP and the nurse will perform a bedside swallow to see if we can begin feeding the patient. (9) Compression fracture Is this a current diagnosis for this admission?: Yes Plan: In addition to the rheumatoid arthritis the patient likely has the most pain because of multiple compression fractures of the thoracic vertebrae. There are, I believe, for fractures. Morning has undergone kyphoplasty. There is osteopenia as well. (10) COPD (chronic obstructive pulmonary disease) Qualifiers: COPD type: unspecified COPD Qualified Code(s): J44.9 - Chronic obstructive pulmonary disease, unspecified Is this a current diagnosis for this admission?: Yes Plan: The patient uses an inhaler at home. Because he is on BiPAP and the inhaler is on formulary I will initiate DuoNeb treatments scheduled. He has Xopenex treatments available if needed. I will also initiate budesonide. This may help with our attempts to wean him from BiPAP. He did have a blood gas on the sixth. It was normal. I may need to repeat a blood gas if he remains on BiPAP. - Time Time Spent with patient: 35 or more minutes Medications reviewed and adjusted accordingly: Yes - Plan Summary Plan Summary: The patient's son is now requesting transfer to a tertiary care facility. Their first choices at [facility]. I will inquire as to bed availability.
[2018-12-04] MEDS ORDERED: HYDROCORTISONE SOD SUCCINATE INJ/PF 100 MG/2 ML SDV IV ONE (12:30)
[2018-12-04] MEDS ORDERED: PANTOPRAZOLE SODIUM 40 MG VIAL IV ONE (12:30)
[2018-12-04] MEDS ORDERED: FENTANYL 12 MCG/HR PATCH.TD72 TD SCH (13:00)
[2018-12-04] MEDS: IPRATROPIUM/ALBUTEROL 0.5-2.5 MG/3 ML AMPUL NEB SCH ×2 (14:12→20:34)
[2018-12-04] MEDS: DEXTROSE 5%-1/2 NORMAL SALINE 1,000 ML IV PRN (15:51)
[2018-12-04] MEDS ORDERED: DIPHENHYDRAMINE HCL 50 MG/ML VIAL ONE (18:37)
[2018-12-04] MEDS: DIPHENHYDRAMINE HCL 50 MG/ML VIAL IV PRN (18:40)
[2018-12-04] MEDS: BUDESONIDE NEB 0.5 MG/2 ML AMPUL NEB SCH (20:34)
[2018-12-04 20:37] LABS: HEMATOCRIT 26.7 % (37.9-51.0); HEMOGLOBIN 8.8 g/dL (13.5-17.0); MEAN CORPUSCULAR HEMOGLOBIN 31.7 pg (27.0-33.4); MEAN CORPUSCULAR HGB CONC 32.9 g/dL (32.0-36.0); MEAN CORPUSCULAR VOLUME 96 fl (80-97); RED BLOOD COUNT 2.77 10^6/uL (4.35-5.55); WHITE BLOOD COUNT 4.5 10^3/uL (4.0-10.5)
[2018-12-04 20:43] LABS: PLATELET COUNT 91 10^3/uL (150-450)
[2018-12-05] MEDS: IPRATROPIUM/ALBUTEROL 0.5-2.5 MG/3 ML AMPUL NEB SCH ×4 (02:16→20:09)
[2018-12-05 04:36] LABS: HEMATOCRIT 26.7 % (37.9-51.0); HEMOGLOBIN 8.6 g/dL (13.5-17.0); MEAN CORPUSCULAR HEMOGLOBIN 31.1 pg (27.0-33.4); MEAN CORPUSCULAR HGB CONC 32.4 g/dL (32.0-36.0); MEAN CORPUSCULAR VOLUME 96 fl (80-97); RED BLOOD COUNT 2.78 10^6/uL (4.35-5.55); RED CELL DISTRIBUTION WIDTH 21.3 % (11.5-14.0); WHITE BLOOD COUNT 5.4 10^3/uL (4.0-10.5)
[2018-12-05] MEDS: LORAZEPAM INJ 2 MG/1 ML VIAL IV PRN (04:58)
[2018-12-05] MEDS: MEROPENEM 1 GM in NORMAL SALINE 50 ML IV SCH ×3 (05:00→21:11)
[2018-12-05 05:04] LABS: PLATELET COUNT 89 10^3/uL (150-450)
[2018-12-05 06:53] LABS: ALBUMIN 1.9 g/dL (3.5-5.0); ANION GAP 5 (5-19); BLOOD UREA NITROGEN 15 mg/dL (7-20); CALCIUM 9.2 mg/dL (8.4-10.2); CARBON DIOXIDE 25 mmol/L (22-30); CHLORIDE 120 mmol/L (98-107); GLUCOSE 116 mg/dL (75-110); PHOSPHORUS 2.7 mg/dL (2.5-4.5); SODIUM 149.9 mmol/L (137-145)
[2018-12-05 06:58] LABS: POTASSIUM 2.9 mmol/L (3.6-5.0)
[2018-12-05] MEDS: DEXTROSE 5%-1/2 NORMAL SALINE 1,000 ML IV PRN (07:37)
[2018-12-05] MEDS: POTASSIUM CHLORIDE 20 MEQ/50 ML RTU IV SCH ×3 (07:37→12:54)
[2018-12-05] MEDS: BUDESONIDE NEB 0.5 MG/2 ML AMPUL NEB SCH ×2 (08:34→20:09)
[2018-12-05] MEDS: PANTOPRAZOLE SODIUM 40 MG VIAL IV SCH (10:28)
[2018-12-05] MEDS: HYDROCORTISONE SOD SUCCINATE INJ/PF 100 MG/2 ML SDV IV SCH (10:30)
[2018-12-05] MEDS: NORMAL SALINE 10 ML SDV (SCHEDULED) IV SCH ×2 (10:30→21:10)
--- NOTE | 2018-12-05 15:47 | PDOC PROGRESS REPORT ---
Subjective Progress Note for:: 12/05/18 Subjective:: Patient still only acknowledges the encounter by moving his head. He does not open his eyes. Once again he appears to be in pain. Urine in the Johnson collection is pink today. Reason For Visit: RENAL STONE Physical Exam Vital Signs: Temp Pulse Resp BP Pulse Ox 97.8 F 102 H 22 H 105/60 90 L 12/05/18 04:14 12/05/18 14:04 12/05/18 14:04 12/05/18 04:14 12/05/18 15:33 Intake & Output 12/04/18 12/05/18 12/06/18 06:59 06:59 07:59 Intake Total 3900 8650 200 Output Total 3450 79723 Balance 450 -3825 200 Weight 67.3 kg 67 kg General appearance: PRESENT: other - Moderate distress. Clearly uncomfortable.. ABSENT: cooperative Head exam: PRESENT: normocephalic Respiratory exam: PRESENT: symmetrical. ABSENT: accessory muscle use, clear to auscultation gracy - Very congested breath sounds, rales, rhonchi, wheezes Cardiovascular exam: PRESENT: RRR, +S1, +S2 GI/Abdominal exam: PRESENT: normal bowel sounds, soft. ABSENT: distended, tenderness Rectal exam: PRESENT: deferred Gentrourinary exam: PRESENT: indwelling catheter Extremities exam: ABSENT: pedal edema Musculoskeletal exam: ABSENT: ambulatory Neurological exam: PRESENT: awake - Does not open his eyes but certainly acknowl edges your presence, oriented to person - Appears to be oriented to person. Very difficult to assess for any other level of orientation.. ABSENT: alert Psychiatric exam: PRESENT: agitated - Possibly more pain driven than marked agitation. Results Laboratory Results: 12/05/18 04:00 12/05/18 05:45 12/04/18 12/05/18 12/05/18 19:50 04:00 05:45 WBC 4.5 5.4 RBC 2.77 L 2.78 L Hgb 8.8 L 8.6 L Hct 26.7 L 26.7 L MCV 96 96 MCH 31.7 31.1 MCHC 32.9 32.4 RDW 21.0 H 21.3 H Plt Count 91 L 89 L Sodium 149.9 H Potassium 2.9 L* Chloride 120 H Carbon Dioxide 25 Anion Gap 5 BUN 15 Creatinine 0.61 Est GFR ( Amer) > 60 Est GFR (Non-Af Amer) > 60 Glucose 116 H Calcium 9.2 Phosphorus 2.7 Albumin 1.9 L 11/21/18 11/21/18 11/21/18 12:00 18:19 18:19 Creatine Kinase 23 L Troponin I 0.021 0.021 11/22/18 11/22/18 11/22/18 00:33 00:33 08:13 Creatine Kinase 35 L 24 L Troponin I 0.022 11/22/18 08:13 Creatine Kinase Troponin I < 0.012 Impressions: Abdomen/Pelvis CT 11/21/18 00:00 IMPRESSION: 1. Unchanged nonobstructing 7 mm stone within the mid left ureter. New 4 mm stone within the left renal pelvis. Unchanged 1.2 cm stone within the superior calyx of the left kidney. No hydronephrosis. 2. Unchanged positioning of the left ureteral stent. 3. No additional changes when compared to 11/20/2018. Chest CT 12/01/18 00:00 IMPRESSION: Bibasilar pneumonia, aspiration should be considered Guidance Fluoroscopy 12/01/18 00:00 IMPRESSION: SUCCESSFUL PLACEMENT OF A 5 FR DUAL LUMEN 41 CM PICC IN THE RIGHT BASILIC VEIN. Interventional Vascular Procedure 12/01/18 00:00 IMPRESSION: SUCCESSFUL PLACEMENT OF A 5 FR DUAL LUMEN 41 CM PICC IN THE RIGHT BASILIC VEIN. PICC Line Insertion 12/01/18 00:00 IMPRESSION: SUCCESSFUL PLACEMENT OF A 5 FR DUAL LUMEN 41 CM PICC IN THE RIGHT BASILIC VEIN. Head CT 12/02/18 00:00 IMPRESSION: No acute findings. 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 Diffuse atrophy, stable EVIDENCE OF ACUTE STROKE: NO. Chest X-Ray 12/04/18 06:00 IMPRESSION: Persistent bilateral lower lobe pneumonia Assessment & Plan - Diagnosis (1) Altered mental status Qualifiers: Altered mental status type: unspecified Qualified Code(s): R41.82 - Altered mental status, unspecified Is this a current diagnosis for this admission?: Yes Plan: Not really improved from yesterday. We will continue to treat aggressively and monitor. I did increase the Duragesic patch this may help to control pain and allow him to relax. (2) Aspiration pneumonia Is this a current diagnosis for this admission?: Yes Plan: He has not been getting anything by mouth. At this point ordering speech therapy would be inappropriate because he is not interacting enough. Hopefully he will continue to improve and I can engage speech therapy. (3) Occult blood in stools Is this a current diagnosis for this admission?: Yes Plan: Hemoglobin is still trickling down. (4) Hematuria Qualifiers: Hematuria type: gross Qualified Code(s): R31.0 - Gross hematuria Is this a current diagnosis for this admission?: Yes Plan: Urine is pink today. (5) Leukopenia Qualifiers: Leukopenia type: neutropenia Neutropenia type: unspecified Qualified Code(s): D70.9 - Neutropenia, unspecified Is this a current diagnosis for this admission?: Yes Plan: Resolved (6) Rheumatoid arthritis Is this a current diagnosis for this admission?: Yes Plan: Continue current medications. He is off of methotrexate however due to suspicion of leukopenia. Currently using fentanyl patches. (7) Hypokalemia Is this a current diagnosis for this admission?: Yes Plan: Despite intravenous supplementation. The potassium is much lower. I have ordered 60 mEq by IV. I will recheck his potassium later this evening and then again in the morning. I have also ordered magnesium levels. (8) Hypernatremia Is this a current diagnosis for this admission?: Yes Plan: Currently under 150. Continue to monitor. If the serum sodium reverses and begins to rise we will resume half normal saline. (9) Compression fracture Is this a current diagnosis for this admission?: Yes Plan: Multiple compression fractures. Pain medication as above. (10) COPD (chronic obstructive pulmonary disease) Qualifiers: COPD type: unspecified COPD Qualified Code(s): J44.9 - Chronic obstructive pulmonary disease, unspecified Is this a current diagnosis for this admission?: Yes Plan: Nebulizer treatments as ordered. Oxygen supplementation as needed. (11) Thrombocytopenia Is this a current diagnosis for this admission?: Yes Plan: Platelets are now under 100. Continue to monitor. - Time Time Spent with patient: 25-34 minutes Medications reviewed and adjusted accordingly: Yes
[2018-12-05] MEDS: FENTANYL 25 MCG/HR PATCH.TD72 TD SCH (17:10)
[2018-12-05 17:29] LABS: HEMATOCRIT 25.5 % (37.9-51.0); HEMOGLOBIN 8.2 g/dL (13.5-17.0); MEAN CORPUSCULAR HEMOGLOBIN 31.4 pg (27.0-33.4); MEAN CORPUSCULAR HGB CONC 32.2 g/dL (32.0-36.0); MEAN CORPUSCULAR VOLUME 98 fl (80-97); RED BLOOD COUNT 2.62 10^6/uL (4.35-5.55); RED CELL DISTRIBUTION WIDTH 21.5 % (11.5-14.0); WHITE BLOOD COUNT 5.6 10^3/uL (4.0-10.5)
[2018-12-05 17:39] LABS: BLOOD UREA NITROGEN 14 mg/dL (7-20); CALCIUM 8.7 mg/dL (8.4-10.2); GLUCOSE 309 mg/dL (75-110); POTASSIUM 3.3 mmol/L (3.6-5.0)
[2018-12-05 17:44] LABS: ANION GAP 5 (5-19); CARBON DIOXIDE 23 mmol/L (22-30); CHLORIDE 118 mmol/L (98-107); SODIUM 145.9 mmol/L (137-145)
[2018-12-05 17:51] LABS: PLATELET COUNT 90 10^3/uL (150-450)
[2018-12-05] MEDS: POTASSI CL 20 MEQ/50 ML RIDER 20 MEQ/50 ML RTUPB IV SCH ×2 (18:01→20:26)
[2018-12-06 00:16] LABS: BLOOD UREA NITROGEN 15 mg/dL (7-20); CALCIUM 9.1 mg/dL (8.4-10.2); GLUCOSE 105 mg/dL (75-110)
[2018-12-06 00:22] LABS: ANION GAP 3 (5-19); CARBON DIOXIDE 25 mmol/L (22-30); CHLORIDE 121 mmol/L (98-107); SODIUM 148.9 mmol/L (137-145)
[2018-12-06] MEDS: LORAZEPAM INJ 2 MG/1 ML VIAL IV PRN ×2 (00:26→10:09)
[2018-12-06] MEDS: IPRATROPIUM/ALBUTEROL 0.5-2.5 MG/3 ML AMPUL NEB SCH ×4 (03:24→20:25)
[2018-12-06] MEDS: MEROPENEM 1 GM in NORMAL SALINE 50 ML IV SCH ×3 (05:05→22:27)
[2018-12-06 06:16] LABS: HEMATOCRIT 25.9 % (37.9-51.0); HEMOGLOBIN 8.4 g/dL (13.5-17.0); MEAN CORPUSCULAR HEMOGLOBIN 30.8 pg (27.0-33.4); MEAN CORPUSCULAR HGB CONC 32.3 g/dL (32.0-36.0); MEAN CORPUSCULAR VOLUME 95 fl (80-97); RED BLOOD COUNT 2.72 10^6/uL (4.35-5.55); RED CELL DISTRIBUTION WIDTH 20.9 % (11.5-14.0)
[2018-12-06 06:29] LABS: BLOOD UREA NITROGEN 15 mg/dL (7-20); CALCIUM 9.4 mg/dL (8.4-10.2); GLUCOSE 87 mg/dL (75-110); POTASSIUM 3.4 mmol/L (3.6-5.0)
[2018-12-06 06:35] LABS: CARBON DIOXIDE 25 mmol/L (22-30); SODIUM 151.4 mmol/L (137-145)
[2018-12-06 06:38] LABS: CHLORIDE 122 mmol/L (98-107)
[2018-12-06 06:55] LABS: PLATELET COUNT 91 10^3/uL (150-450)
[2018-12-06 07:13] LABS: ANION GAP 4 (5-19)
[2018-12-06] MEDS: BUDESONIDE NEB 0.5 MG/2 ML AMPUL NEB SCH ×2 (08:38→20:25)
[2018-12-06] MEDS: PANTOPRAZOLE SODIUM 40 MG VIAL IV SCH (10:09)
[2018-12-06] MEDS: NORMAL SALINE 10 ML SDV (SCHEDULED) IV SCH ×2 (10:09→22:28)
[2018-12-06] MEDS: HYDROCORTISONE SOD SUCCINATE INJ/PF 100 MG/2 ML SDV IV SCH (10:09)
[2018-12-06] MEDS ORDERED: NYSTATIN 500000 UNIT/5 ML UDCUP PO ONE (18:29)
[2018-12-06] MEDS ORDERED: PHARMACY COMMUNICATION ORDER MC NR (18:30)
--- NOTE | 2018-12-06 18:58 | PDOC PROGRESS REPORT ---
Subjective Progress Note for:: 12/06/18 Subjective:: The patient opened his eyes somewhat. He again answered some questions by nodding his head yes and no he is a mouth breather and his tongue is very dry. Reason For Visit: RENAL STONE Physical Exam Vital Signs: Temp Pulse Resp BP Pulse Ox 97.1 F 87 22 H 114/66 93 12/06/18 15:29 12/06/18 15:29 12/06/18 15:29 12/06/18 15:29 12/06/18 15:29 Intake & Output 12/05/18 12/06/18 12/07/18 05:59 06:59 06:59 Intake Total 50 Output Total 4300 Balance -4250 Weight General appearance: PRESENT: no acute distress, other - Minimally interactive Head exam: PRESENT: normocephalic Mouth exam: PRESENT: dry mucosa, other - Tongue coated Teeth exam: PRESENT: poor dentation Respiratory exam: PRESENT: clear to auscultation gracy - Anteriorly, symmetrical. ABSENT: rales, rhonchi, wheezes Cardiovascular exam: PRESENT: RRR, +S1, +S2 GI/Abdominal exam: PRESENT: normal bowel sounds, soft. ABSENT: distended, tenderness Rectal exam: PRESENT: deferred, heme (+) stool Gentrourinary exam: PRESENT: indwelling catheter Neurological exam: PRESENT: awake. ABSENT: alert Psychiatric exam: PRESENT: flat affect. ABSENT: agitated, anxious Focused psych exam: ABSENT: delusional, restlessness Results Laboratory Results: 12/06/18 05:45 12/06/18 05:45 12/05/18 12/05/18 12/05/18 17:00 17:00 23:45 WBC 5.6 RBC 2.62 L Hgb 8.2 L Hct 25.5 L MCV 98 H MCH 31.4 MCHC 32.2 RDW 21.5 H Plt Count 90 L Sodium 145.9 H 148.9 H Potassium 3.3 L 4.0 Chloride 118 H 121 H Carbon Dioxide 23 25 Anion Gap 5 3 L BUN 14 15 Creatinine 0.52 0.62 Est GFR ( Amer) > 60 > 60 Est GFR (Non-Af Amer) > 60 > 60 Glucose 309 H 105 Calcium 8.7 9.1 Magnesium 2.0 12/06/18 12/06/18 05:45 05:45 WBC 6.0 RBC 2.72 L Hgb 8.4 L Hct 25.9 L MCV 95 MCH 30.8 MCHC 32.3 RDW 20.9 H Plt Count 91 L Sodium 151.4 H Potassium 3.4 L Chloride 122 H Carbon Dioxide 25 Anion Gap 4 L BUN 15 Creatinine 0.67 Est GFR ( Amer) > 60 Est GFR (Non-Af Amer) > 60 Glucose 87 Calcium 9.4 Magnesium 2.1 11/21/18 11/21/18 11/21/18 12:00 18:19 18:19 Creatine Kinase 23 L Troponin I 0.021 0.021 11/22/18 11/22/18 11/22/18 00:33 00:33 08:13 Creatine Kinase 35 L 24 L Troponin I 0.022 11/22/18 08:13 Creatine Kinase Troponin I < 0.012 Impressions: Abdomen/Pelvis CT 11/21/18 00:00 IMPRESSION: 1. Unchanged nonobstructing 7 mm stone within the mid left ureter. New 4 mm stone within the left renal pelvis. Unchanged 1.2 cm stone within the superior calyx of the left kidney. No hydronephrosis. 2. Unchanged positioning of the left ureteral stent. 3. No additional changes when compared to 11/20/2018. Chest CT 12/01/18 00:00 IMPRESSION: Bibasilar pneumonia, aspiration should be considered Guidance Fluoroscopy 12/01/18 00:00 IMPRESSION: SUCCESSFUL PLACEMENT OF A 5 FR DUAL LUMEN 41 CM PICC IN THE RIGHT BASILIC VEIN. Interventional Vascular Procedure 12/01/18 00:00 IMPRESSION: SUCCESSFUL PLACEMENT OF A 5 FR DUAL LUMEN 41 CM PICC IN THE RIGHT BASILIC VEIN. PICC Line Insertion 12/01/18 00:00 IMPRESSION: SUCCESSFUL PLACEMENT OF A 5 FR DUAL LUMEN 41 CM PICC IN THE RIGHT BASILIC VEIN. Head CT 12/02/18 00:00 IMPRESSION: No acute findings. 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 Diffuse atrophy, stable EVIDENCE OF ACUTE STROKE: NO. Chest X-Ray 12/04/18 06:00 IMPRESSION: Persistent bilateral lower lobe pneumonia Assessment & Plan - Diagnosis (1) Altered mental status Qualifiers: Altered mental status type: unspecified Qualified Code(s): R41.82 - Altered mental status, unspecified Is this a current diagnosis for this admission?: Yes Plan: Secondary to infection. Appears to be improving but difficult to say as patient's interaction is limited. (2) Aspiration pneumonia Is this a current diagnosis for this admission?: Yes Plan: Complete antibiotics as ordered. Not awake enough for any kind of swallow evaluation so we will place a nasogastric tube. (3) Occult blood in stools Is this a current diagnosis for this admission?: Yes Plan: Hemoccult was positive at the last stool. I have started H2 blockers. He is currently not on any blood thinners. We will continue to monitor hemoglobin. Transfuse if necessary. (4) Hematuria Qualifiers: Hematuria type: gross Qualified Code(s): R31.0 - Gross hematuria Is this a current diagnosis for this admission?: Yes Plan: Still having hematuria. Will look into transfer to a center with urology to further address the stents and stones. While there they can investigate his guaiac positive stool. (5) Leukopenia Qualifiers: Leukopenia type: neutropenia Neutropenia type: unspecified Qualified Code(s): D70.9 - Neutropenia, unspecified Is this a current diagnosis for this admission?: Yes Plan: Resolved (6) Rheumatoid arthritis Is this a current diagnosis for this admission?: Yes Plan: Will resume methotrexate slowly and see if it induces the leukopenia again. If not was likely the antibiotics. (7) Hypokalemia Is this a current diagnosis for this admission?: Yes Plan: I am placing a nasogastric tube. I will start potassium chloride through the tube. (8) Hypernatremia Is this a current diagnosis for this admission?: Yes Plan: Will utilize free water through the nasogastric tube to help with hypernatremia (9) Compression fracture Is this a current diagnosis for this admission?: Yes Plan: Consider Miacalcin when the patient recovers (10) COPD (chronic obstructive pulmonary disease) Qualifiers: COPD type: unspecified COPD Qualified Code(s): J44.9 - Chronic obstructive pulmonary disease, unspecified Is this a current diagnosis for this admission?: Yes Plan: Continue inhalers (11) Thrombocytopenia Is this a current diagnosis for this admission?: Yes Plan: Stable - Time Time Spent with patient: 25-34 minutes - Plan Summary Plan Summary: I spoke with the patient's son. He agrees to a nasogastric tube. We will be able to administer broader collection of medications. We will look to transfer to urologist tomorrow or Friday. He continues to have hematuria and guaiac positive stool despite no aspirin or VTE prophylaxis
[2018-12-06] MEDS ORDERED: ACETAMINOPHEN 325 MG TABLET NG PRN (19:14)
--- NOTE | 2018-12-06 21:50 | RADIOLOGY REPORT (SQ) ---
EXAM DESCRIPTION: XR ABDOMEN 1 VIEW (KUB) COMPLETED DATE/TME: 12/06/2018 18:28 CLINICAL HISTORY: 73 years, Male, Check Placement of NG Tube Findings: No free intraperitoneal air. Indwelling left ureteral stent is noted. Enteric tube is in place with tip below the diaphragm in the stomach. No dilated loops of bowel. IMPRESSION: Enteric tube in place.
[2018-12-06] MEDS: QUETIAPINE FUMARATE 25 MG TABLET NG SCH (22:40)
[2018-12-06] MEDS: FAMOTIDINE 20 MG TABLET NG SCH (22:40)
[2018-12-07] MEDS ORDERED: DILTIAZEM HCL/D5W 125 MG/125 ML RTUINJ IV ONE (00:46)
[2018-12-07] MEDS: DILTIAZEM HCL/D5W 125 MG/125 ML RTUINJ IV PRN ×2 (01:00→09:08)
[2018-12-07] MEDS ORDERED: DILTIAZEM HCL INJ 25 MG/5 ML VIAL IV ONE (01:00)
[2018-12-07] MEDS: IPRATROPIUM/ALBUTEROL 0.5-2.5 MG/3 ML AMPUL NEB SCH ×4 (02:00→20:22)
[2018-12-07 02:19] LABS: ANION GAP 5 (5-19); BLOOD UREA NITROGEN 17 mg/dL (7-20); CALCIUM 9.4 mg/dL (8.4-10.2); CARBON DIOXIDE 27 mmol/L (22-30); CHLORIDE 119 mmol/L (98-107); GLUCOSE 93 mg/dL (75-110); POTASSIUM 3.2 mmol/L (3.6-5.0); SODIUM 151.4 mmol/L (137-145)
[2018-12-07] MEDS ORDERED: NYSTATIN 500000 UNIT/5 ML UDCUP PO ONE ×2 (03:05→23:08)
[2018-12-07] MEDS: NYSTATIN 500000 UNIT/5 ML UDCUP PO SCH ×5 (04:01→23:08)
[2018-12-07] MEDS: MEROPENEM 1 GM in NORMAL SALINE 50 ML IV SCH ×3 (05:33→22:11)
[2018-12-07 06:43] LABS: ABSOLUTE LYMPHOCYTES (AUTO) 0.5 10^3/uL (0.5-4.7); ABSOLUTE MONOCYTES (AUTO) 0.5 10^3/uL (0.1-1.4); ABSOLUTE NEUT (AUTO) 4.9 10^3/uL (1.7-8.2); BASOPHILS % (AUTO) 0.1 % (0-2); EOSINOPHILS % (AUTO) 0.7 % (0-6); HEMATOCRIT 27.6 % (37.9-51.0); LYMPHOCYTES % (AUTO) 8.7 % (13-45); MEAN CORPUSCULAR HEMOGLOBIN 31.1 pg (27.0-33.4); MEAN CORPUSCULAR HGB CONC 32.6 g/dL (32.0-36.0); MEAN CORPUSCULAR VOLUME 96 fl (80-97); MONOCYTES % (AUTO) 8.8 % (3-13); RED BLOOD COUNT 2.89 10^6/uL (4.35-5.55); RED CELL DISTRIBUTION WIDTH 20.9 % (11.5-14.0); SEGMENTED NEUTROPHILS % (AUTO) 81.7 % (42-78); TOTAL CELLS COUNTED % (AUTO) 100 %
[2018-12-07 06:58] LABS: ALBUMIN 2.2 g/dL (3.5-5.0); ANION GAP 6 (5-19); BLOOD UREA NITROGEN 18 mg/dL (7-20); CALCIUM 9.6 mg/dL (8.4-10.2); CARBON DIOXIDE 25 mmol/L (22-30); CHLORIDE 119 mmol/L (98-107); GLUCOSE 131 mg/dL (75-110); SODIUM 150.4 mmol/L (137-145)
[2018-12-07 06:59] LABS: PLATELET COUNT 95 10^3/uL (150-450)
[2018-12-07] MEDS: BUDESONIDE NEB 0.5 MG/2 ML AMPUL NEB SCH ×2 (08:18→20:22)
[2018-12-07] MEDS: PANTOPRAZOLE SODIUM 40 MG VIAL IV SCH (09:05)
[2018-12-07] MEDS: QUETIAPINE FUMARATE 25 MG TABLET NG SCH ×2 (09:05→22:12)
[2018-12-07] MEDS: HYDROCORTISONE SOD SUCCINATE INJ/PF 100 MG/2 ML SDV IV SCH (09:05)
[2018-12-07] MEDS: FAMOTIDINE 20 MG TABLET NG SCH ×2 (09:05→22:12)
[2018-12-07] MEDS: NORMAL SALINE 10 ML SDV (SCHEDULED) IV SCH ×2 (09:05→22:11)
[2018-12-07] MEDS: CALCIUM CARBONATE 250 MG/VITAMIN D3 125 UNIT TABLET NG SCH ×2 (09:07→17:20)
[2018-12-07] MEDS ORDERED: POTASSIUM CHLORIDE 20 MEQ/15 ML UDCUP NG SCH ×2 (10:00→18:00)
--- NOTE | 2018-12-07 10:09 | PDOC PROGRESS REPORT ---
Subjective Progress Note for:: 12/07/18 Subjective:: Patient remains on BiPAP, with eye closed. He is unresponsive, but withdraws to almost any touch and grimaces in pain. Reason For Visit: RENAL STONE Physical Exam Vital Signs: Temp Pulse Resp BP Pulse Ox 98.9 F 101 H 23 H 112/68 93 12/06/18 23:45 12/07/18 06:00 12/07/18 04:31 12/07/18 06:00 12/07/18 06:00 Intake & Output 12/06/18 12/07/18 12/08/18 06:59 06:59 06:59 Intake Total 3554 114 Output Total 5525 -1970 114 Weight 68.8 kg General appearance: PRESENT: well-developed, well-nourished Respiratory exam: PRESENT: unlabored Cardiovascular exam: PRESENT: other - Heart sound obscured. Neurological exam: PRESENT: other - Withdraws to touch. Skin exam: PRESENT: normal color Results Laboratory Results: 12/07/18 05:35 12/07/18 05:35 12/07/18 12/07/18 12/07/18 01:12 01:12 05:35 WBC RBC Hgb Hct MCV MCH MCHC RDW Plt Count Seg Neutrophils % Lymphocytes % Monocytes % Eosinophils % Basophils % Absolute Neutrophils Absolute Lymphocytes Absolute Monocytes Absolute Eosinophils Absolute Basophils Sodium 151.4 H 150.4 H Potassium 3.2 L 3.0 L* Chloride 119 H 119 H Carbon Dioxide 27 25 Anion Gap 5 6 BUN 17 18 Creatinine 0.68 0.77 Est GFR ( Amer) > 60 > 60 Est GFR (Non-Af Amer) > 60 > 60 Glucose 93 131 H Calcium 9.4 9.6 Magnesium 2.1 2.2 Albumin 2.2 L 12/07/18 05:35 WBC 6.0 RBC 2.89 L Hgb 9.0 L Hct 27.6 L MCV 96 MCH 31.1 MCHC 32.6 RDW 20.9 H Plt Count 95 L Seg Neutrophils % 81.7 H Lymphocytes % 8.7 L Monocytes % 8.8 Eosinophils % 0.7 Basophils % 0.1 Absolute Neutrophils 4.9 Absolute Lymphocytes 0.5 Absolute Monocytes 0.5 Absolute Eosinophils 0.0 Absolute Basophils 0.0 Sodium Potassium Chloride Carbon Dioxide Anion Gap BUN Creatinine Est GFR ( Amer) Est GFR (Non-Af Amer) Glucose Calcium Magnesium Albumin 11/21/18 11/21/18 11/21/18 12:00 18:19 18:19 Creatine Kinase 23 L Troponin I 0.021 0.021 11/22/18 11/22/18 11/22/18 00:33 00:33 08:13 Creatine Kinase 35 L 24 L Troponin I 0.022 11/22/18 08:13 Creatine Kinase Troponin I < 0.012 Impressions: Abdomen/Pelvis CT 11/21/18 00:00 IMPRESSION: 1. Unchanged nonobstructing 7 mm stone within the mid left ureter. New 4 mm stone within the left renal pelvis. Unchanged 1.2 cm stone within the superior calyx of the left kidney. No hydronephrosis. 2. Unchanged positioning of the left ureteral stent. 3. No additional changes when compared to 11/20/2018. Chest CT 12/01/18 00:00 IMPRESSION: Bibasilar pneumonia, aspiration should be considered Guidance Fluoroscopy 12/01/18 00:00 IMPRESSION: SUCCESSFUL PLACEMENT OF A 5 FR DUAL LUMEN 41 CM PICC IN THE RIGHT BASILIC VEIN. Interventional Vascular Procedure 12/01/18 00:00 IMPRESSION: SUCCESSFUL PLACEMENT OF A 5 FR DUAL LUMEN 41 CM PICC IN THE RIGHT BASILIC VEIN. PICC Line Insertion 12/01/18 00:00 IMPRESSION: SUCCESSFUL PLACEMENT OF A 5 FR DUAL LUMEN 41 CM PICC IN THE RIGHT BASILIC VEIN. Head CT 12/02/18 00:00 IMPRESSION: No acute findings. 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 Diffuse atrophy, stable EVIDENCE OF ACUTE STROKE: NO. Chest X-Ray 12/04/18 06:00 IMPRESSION: Persistent bilateral lower lobe pneumonia KUB X-Ray 12/06/18 18:28 IMPRESSION: Enteric tube in place. Assessment & Plan - Diagnosis (1) Pancytopenia, acquired Is this a current diagnosis for this admission?: Yes Plan: WBC count now back to normal. He continues to have mild anemia and thrombocytopenia, but these are stable. Would continue to monitor. No indication for transfusions at this time. (2) Altered mental status Qualifiers: Altered mental status type: unspecified Qualified Code(s): R41.82 - Altered mental status, unspecified Is this a current diagnosis for this admission?: Yes (3) Rheumatoid arthritis Is this a current diagnosis for this admission?: Yes - Plan Summary Plan Summary: He was recently started on tube feedings. His Na is quite high. Hopefully, free water will help this.
[2018-12-07] MEDS: DIPHENHYDRAMINE HCL 50 MG/ML VIAL IV PRN (12:39)
[2018-12-07] MEDS: AMINO AC/PROTEIN HYDR/WHEY PRO 11 GM/45 ML PKT NG SCH (17:54)
[2018-12-07] MEDS ORDERED: 1/2 NORMAL SALINE 1,000 ML IV PRN (23:01)
--- NOTE | 2018-12-07 23:04 | PDOC PROGRESS REPORT ---
Subjective Progress Note for:: 12/07/18 Subjective:: Still resting in bed. Still nodding his head to answer questions. Still barely opening his eyes. Reason For Visit: RENAL STONE Physical Exam Vital Signs: Temp Pulse Resp BP Pulse Ox 98.4 F 89 19 120/70 94 12/07/18 07:21 12/07/18 08:18 12/07/18 12:17 12/07/18 13:00 12/07/18 12:17 Intake & Output 12/06/18 12/07/18 12/08/18 06:59 06:59 06:59 Intake Total 3554 2871 Output Total 5525 Balance -1970 2871 Weight 68.8 kg General appearance: PRESENT: other - Minimally interactive Head exam: PRESENT: normocephalic Respiratory exam: PRESENT: clear to auscultation gracy, symmetrical. ABSENT: rales, rhonchi, wheezes Cardiovascular exam: PRESENT: irregular rhythm GI/Abdominal exam: PRESENT: normal bowel sounds, soft. ABSENT: tenderness Gentrourinary exam: PRESENT: indwelling catheter - With continuous bladder irrigation Neurological exam: PRESENT: awake. ABSENT: alert - Minimal interaction Psychiatric exam: ABSENT: agitated Focused psych exam: ABSENT: restlessness Results Laboratory Results: 12/07/18 05:35 12/07/18 05:35 12/07/18 12/07/18 12/07/18 01:12 01:12 05:35 WBC RBC Hgb Hct MCV MCH MCHC RDW Plt Count Seg Neutrophils % Lymphocytes % Monocytes % Eosinophils % Basophils % Absolute Neutrophils Absolute Lymphocytes Absolute Monocytes Absolute Eosinophils Absolute Basophils Sodium 151.4 H 150.4 H Potassium 3.2 L 3.0 L* Chloride 119 H 119 H Carbon Dioxide 27 25 Anion Gap 5 6 BUN 17 18 Creatinine 0.68 0.77 Est GFR ( Amer) > 60 > 60 Est GFR (Non-Af Amer) > 60 > 60 Glucose 93 131 H Calcium 9.4 9.6 Magnesium 2.1 2.2 Albumin 2.2 L 12/07/18 05:35 WBC 6.0 RBC 2.89 L Hgb 9.0 L Hct 27.6 L MCV 96 MCH 31.1 MCHC 32.6 RDW 20.9 H Plt Count 95 L Seg Neutrophils % 81.7 H Lymphocytes % 8.7 L Monocytes % 8.8 Eosinophils % 0.7 Basophils % 0.1 Absolute Neutrophils 4.9 Absolute Lymphocytes 0.5 Absolute Monocytes 0.5 Absolute Eosinophils 0.0 Absolute Basophils 0.0 Sodium Potassium Chloride Carbon Dioxide Anion Gap BUN Creatinine Est GFR ( Amer) Est GFR (Non-Af Amer) Glucose Calcium Magnesium Albumin 11/21/18 11/21/18 11/21/18 12:00 18:19 18:19 Creatine Kinase 23 L Troponin I 0.021 0.021 11/22/18 11/22/18 11/22/18 00:33 00:33 08:13 Creatine Kinase 35 L 24 L Troponin I 0.022 11/22/18 08:13 Creatine Kinase Troponin I < 0.012 Impressions: Abdomen/Pelvis CT 11/21/18 00:00 IMPRESSION: 1. Unchanged nonobstructing 7 mm stone within the mid left ureter. New [address] one within the left renal pelvis. Unchanged 1.2 cm stone within the superior calyx of the left kidney. No hydronephrosis. 2. Unchanged positioning of the left ureteral stent. 3. No additional changes when compared to 11/20/2018. Chest CT 12/01/18 00:00 IMPRESSION: Bibasilar pneumonia, aspiration should be considered Guidance Fluoroscopy 12/01/18 00:00 IMPRESSION: SUCCESSFUL PLACEMENT OF A 5 FR DUAL LUMEN 41 CM PICC IN THE RIGHT BASILIC VEIN. Interventional Vascular Procedure 12/01/18 00:00 IMPRESSION: SUCCESSFUL PLACEMENT OF A 5 FR DUAL LUMEN 41 CM PICC IN THE RIGHT BASILIC VEIN. PICC Line Insertion 12/01/18 00:00 IMPRESSION: SUCCESSFUL PLACEMENT OF A 5 FR DUAL LUMEN 41 CM PICC IN THE RIGHT BASILIC VEIN. Head CT 12/02/18 00:00 IMPRESSION: No acute findings. 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 Diffuse atrophy, stable EVIDENCE OF ACUTE STROKE: NO. Chest X-Ray 12/04/18 06:00 IMPRESSION: Persistent bilateral lower lobe pneumonia KUB X-Ray 12/06/18 18:28 IMPRESSION: Enteric tube in place. Assessment & Plan - Diagnosis (1) Altered mental status Qualifiers: Altered mental status type: unspecified Qualified Code(s): R41.82 - Altered mental status, unspecified Is this a current diagnosis for this admission?: Yes Plan: Still unsure of the limited responsiveness. I fully believe that he hears since he does shake his head in a specific response to questions. His serum sodium is slowly coming down. I increased the free water flushes. (2) Aspiration pneumonia Is this a current diagnosis for this admission?: Yes Plan: Resolved. Nasogastric tube and to prevent aspiration. (3) Occult blood in stools Is this a current diagnosis for this admission?: Yes Plan: Hemoglobin is stable. Continue to monitor. (4) Hematuria Qualifiers: Hematuria type: gross Qualified Code(s): R31.0 - Gross hematuria Is this a current diagnosis for this admission?: Yes Plan: Anytime the continuous bladder irrigation slows the urine concentrates and appears to have blood. (5) Leukopenia Qualifiers: Leukopenia type: neutropenia Neutropenia type: unspecified Qualified Code(s): D70.9 - Neutropenia, unspecified Is this a current diagnosis for this admission?: Yes Plan: Resolved (6) Rheumatoid arthritis Is this a current diagnosis for this admission?: Yes Plan: Stable off of methotrexate (7) Hypokalemia Is this a current diagnosis for this admission?: Yes Plan: I increased the potassium chloride to 20 mEq 3 times daily through the nasogastric tube. Continue to monitor. (8) Hypernatremia Is this a current diagnosis for this admission?: Yes Plan: I will administer another liter of half-normal saline. (9) Compression fracture Is this a current diagnosis for this admission?: Yes Plan: Continue pain management (10) COPD (chronic obstructive pulmonary disease) Qualifiers: COPD type: unspecified COPD Qualified Code(s): J44.9 - Chronic obstructive pulmonary disease, unspecified Is this a current diagnosis for this admission?: Yes Plan: Continue current regimen (11) Thrombocytopenia Is this a current diagnosis for this admission?: Yes Plan: Stable - Time Time Spent with patient: 15-24 minutes Medications reviewed and adjusted accordingly: Yes
[2018-12-08] MEDS: IPRATROPIUM/ALBUTEROL 0.5-2.5 MG/3 ML AMPUL NEB SCH ×4 (01:57→20:40)
[2018-12-08] MEDS: MEROPENEM 1 GM in NORMAL SALINE 50 ML IV SCH ×3 (05:29→22:55)
[2018-12-08] MEDS: DILTIAZEM HCL 30 MG TABLET NG SCH ×4 (05:30→20:28)
[2018-12-08] MEDS: MORPHINE SULFATE 10 MG/ML INJ IV PRN ×5 (07:46→19:45)
[2018-12-08 07:51] LABS: BLOOD UREA NITROGEN 23 mg/dL (7-20); CALCIUM 9.3 mg/dL (8.4-10.2); GLUCOSE 112 mg/dL (75-110); POTASSIUM 3.3 mmol/L (3.6-5.0)
[2018-12-08 07:56] LABS: CARBON DIOXIDE 30 mmol/L (22-30); CHLORIDE 121 mmol/L (98-107); SODIUM 152.9 mmol/L (137-145)
[2018-12-08 07:57] LABS: ANION GAP 2 (5-19)
[2018-12-08] MEDS: BUDESONIDE NEB 0.5 MG/2 ML AMPUL NEB SCH ×2 (08:18→20:40)
[2018-12-08] MEDS: POTASSIUM CHLORIDE 20 MEQ/15 ML UDCUP NG SCH ×3 (10:45→20:28)
[2018-12-08] MEDS: HYDROCORTISONE SOD SUCCINATE INJ/PF 100 MG/2 ML SDV IV SCH (10:45)
[2018-12-08] MEDS: CALCIUM CARBONATE 250 MG/VITAMIN D3 125 UNIT TABLET NG SCH ×2 (10:45→20:28)
[2018-12-08] MEDS: LORAZEPAM INJ 2 MG/1 ML VIAL IV PRN ×3 (10:49→19:45)
[2018-12-08] MEDS: DIPHENHYDRAMINE HCL 50 MG/ML VIAL IV PRN ×3 (10:52→18:55)
[2018-12-08] MEDS: QUETIAPINE FUMARATE 25 MG TABLET NG SCH ×2 (10:55→22:55)
[2018-12-08] MEDS: AMINO AC/PROTEIN HYDR/WHEY PRO 11 GM/45 ML PKT NG SCH ×2 (10:56→20:32)
[2018-12-08] MEDS: FENTANYL 25 MCG/HR PATCH.TD72 TD SCH (10:57)
[2018-12-08] MEDS: FAMOTIDINE 20 MG TABLET NG SCH ×2 (10:57→22:55)
[2018-12-08] MEDS: NORMAL SALINE 10 ML SDV (SCHEDULED) IV SCH ×2 (10:58→22:56)
[2018-12-08] MEDS: NYSTATIN 500000 UNIT/5 ML UDCUP PO SCH ×4 (12:00→22:54)
[2018-12-08] MEDS ORDERED: POTASSI CL 20 MEQ/NS 1L 1,000 ML IV PRN (19:46)
--- NOTE | 2018-12-08 20:01 | PDOC PROGRESS REPORT ---
Subjective Progress Note for:: 12/08/18 Subjective:: The patient looks horrible today. He is in less encephalopathic and difficult to arouse. There are no family members at the bedside. Review of systems could not be obtained. Reason For Visit: RENAL STONE Physical Exam Vital Signs: Temp Pulse Resp BP Pulse Ox 98.4 F 86 16 114/69 98 12/08/18 08:02 12/08/18 14:00 12/08/18 14:00 12/08/18 08:02 12/08/18 14:00 Intake & Output 12/07/18 12/08/18 12/09/18 06:59 06:59 06:59 Intake Total 3555 5936 1700 Output Total 5525 6425 2516 Balance -1971 -460 -250 Weight 68.8 kg 67.5 kg General appearance: PRESENT: other - Extremely ill-appearing. Head exam: PRESENT: atraumatic, other - He has bitemporal muscle wasting Eye exam: PRESENT: conjunctiva pink, EOMI, PERRLA. ABSENT: scleral icterus Mouth exam: PRESENT: moist, tongue midline Respiratory exam: PRESENT: clear to auscultation gracy, decreased breath sounds - Diminished in the lower bases. This exam was quite limited as the patient would not cooperate. ABSENT: rales, rhonchi, wheezes Cardiovascular exam: PRESENT: RRR. ABSENT: diastolic murmur, rubs, systolic murmur GI/Abdominal exam: PRESENT: normal bowel sounds, soft. ABSENT: distended, guarding, mass, organolmegaly, rebound, tenderness Rectal exam: PRESENT: deferred Extremities exam: PRESENT: full ROM. ABSENT: calf tenderness - Now he is Ce rner, clubbing, pedal edema Neurological exam: PRESENT: other - The patient was quite difficult to arouse. He was quite altered Psychiatric exam: PRESENT: other - Difficult to arouse Skin exam: PRESENT: dry, intact, warm. ABSENT: cyanosis, rash Results Laboratory Results: 12/07/18 05:35 12/08/18 04:47 12/08/18 04:47 Sodium 152.9 H Potassium 3.3 L Chloride 121 H Carbon Dioxide 30 Anion Gap 2 L BUN 23 H Creatinine 0.82 Est GFR ( Amer) > 60 Est GFR (Non-Af Amer) > 60 Glucose 112 H Calcium 9.3 Magnesium 2.3 11/21/18 11/21/18 11/21/18 12:00 18:19 18:19 Creatine Kinase 23 L Troponin I 0.021 0.021 11/22/18 11/22/18 11/22/18 00:33 00:33 08:13 Creatine Kinase 35 L 24 L Troponin I 0.022 11/22/18 08:13 Creatine Kinase Troponin I < 0.012 Impressions: Abdomen/Pelvis CT 11/21/18 00:00 IMPRESSION: 1. Unchanged nonobstructing 7 mm stone within the mid left ureter. New 4 mm stone within the left renal pelvis. Unchanged 1.2 cm stone within the superior calyx of the left kidney. No hydronephrosis. 2. Unchanged positioning of the left ureteral stent. 3. No additional changes when compared to 11/20/2018. Chest CT 12/01/18 00:00 IMPRESSION: Bibasilar pneumonia, aspiration should be considered Guidance Fluoroscopy 12/01/18 00:00 IMPRESSION: SUCCESSFUL PLACEMENT OF A 5 FR DUAL LUMEN 41 CM PICC IN THE RIGHT BASILIC VEIN. Interventional Vascular Procedure 12/01/18 00:00 IMPRESSION: SUCCESSFUL PLACEMENT OF A 5 FR DUAL LUMEN 41 CM PICC IN THE RIGHT BASILIC VEIN. PICC Line Insertion 12/01/18 00:00 IMPRESSION: SUCCESSFUL PLACEMENT OF A 5 FR DUAL LUMEN 41 CM PICC IN THE RIGHT BASILIC VEIN. Head CT 12/02/18 00:00 IMPRESSION: No acute findings. 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 Diffuse atrophy, stable EVIDENCE OF ACUTE STROKE: NO. Chest X-Ray 12/04/18 06:00 IMPRESSION: Persistent bilateral lower lobe pneumonia KUB X-Ray 12/06/18 18:28 IMPRESSION: Enteric tube in place. Assessment & Plan - Diagnosis (1) Sepsis Is this a current diagnosis for this admission?: Yes Plan: With septic shock at the time of admission. Secondary to underlying urinary tract infection. He was significantly hypotensive with fever, leukocytosis, acute encephalopathy, respiratory failure and evidence of infection. His sepsis symptoms have resolved (2) Acute respiratory failure with hypoxia Is this a current diagnosis for this admission?: Yes Plan: Secondary to sepsis as well as aspiration pneumonia. He continues to require oxygen. Continue IV meropenem and oxygen support as needed. Aggressive breathing treatments as well. (3) UTI (urinary tract infection) Is this a current diagnosis for this admission?: Yes Plan: Continue IV meropenem (4) Acute encephalopathy Is this a current diagnosis for this admission?: Yes Plan: The patient remains acutely encephalopathic. Secondary to his infectious issues, prolonged hospitalization (5) Aspiration pneumonia Is this a current diagnosis for this admission?: Yes Plan: Continue IV meropenem. I suspect he is chronically aspirating (6) Coronary artery disease Is this a current diagnosis for this admission?: Yes Plan: Continue current regimen (7) Paroxysmal atrial fibrillation Is this a current diagnosis for this admission?: Yes Plan: She appears to be in a sinus rhythm and rate controlled at the time of my visit. (8) Hematuria Is this a current diagnosis for this admission?: Yes Plan: He has continued hematuria. He has an obstructing stone that needs intervention but the patient is not stable enough to have this done. Continue CBI (9) COPD (chronic obstructive pulmonary disease) Qualifiers: COPD type: unspecified COPD Qualified Code(s): J44.9 - Chronic obstructive pulmonary disease, unspecified Is this a current diagnosis for this admission?: Yes Plan: No evidence of exacerbation (10) Rheumatoid arthritis Is this a current diagnosis for this admission?: Yes Plan: Stable (11) Compression fracture Is this a current diagnosis for this admission?: Yes Plan: Currently has IV morphine available as needed. Certainly I believe keeping the patient comfortable is quite important at this point. (12) Pancytopenia Is this a current diagnosis for this admission?: Yes Plan: This is acquired pancytopenia secondary to medications. Hematology was consulted and this was there thought. His antibiotic therapy has been changed and he is improving. (13) History of AAA (abdominal aortic aneurysm) repair Is this a current diagnosis for this admission?: Yes Plan: No issues during this hospitalization (14) BPH (benign prostatic hyperplasia) Is this a current diagnosis for this admission?: Yes Plan: Continue Flomax. (15) Hypernatremia Is this a current diagnosis for this admission?: Yes Plan: The patient likely is getting somewhat dry. I am going to start him on normal saline with 20 of K. He will have a chemistry panel checked in the morning. (16) Hypokalemia Is this a current diagnosis for this admission?: Yes Plan: I am going to place him on IV fluids with potassium. He will have a chemistry panel checked in the morning (17) Full code status Is this a current diagnosis for this admission?: Yes - Time Time Spent with patient: 35 or more minutes - Inpatient Certification Medical Necessity: Other - Patient hospitalization remains necessary. Overall this patient is doing quite poorly. He is not responding to therapy. He is not stable enough for transfer for any sort of intervention. Discussions need to be had with the family regarding the transition to palliative care. There were no family members at the hospital today but I will try to talk to them tomorrow. I suspect he will be in the hospital for quite some time due to his multiple infectious issues requiring parenteral antibiotics.
[2018-12-08] MEDS ORDERED: POTASSI CL 20 MEQ/1/2NS 1L 1000 ML IV PRN (21:53)
[2018-12-09] MEDS: DILTIAZEM HCL 30 MG TABLET NG SCH ×5 (01:55→23:53)
[2018-12-09] MEDS: IPRATROPIUM/ALBUTEROL 0.5-2.5 MG/3 ML AMPUL NEB SCH ×4 (02:09→20:00)
[2018-12-09] MEDS: MEROPENEM 1 GM in NORMAL SALINE 50 ML IV SCH (06:19)
[2018-12-09 07:29] LABS: ABSOLUTE EOSINOPHILS # (AUTO) 0.1 10^3/uL (0.0-0.6); ABSOLUTE LYMPHOCYTES (AUTO) 0.6 10^3/uL (0.5-4.7); ABSOLUTE MONOCYTES (AUTO) 0.4 10^3/uL (0.1-1.4); ABSOLUTE NEUT (AUTO) 8.4 10^3/uL (1.7-8.2); BASOPHILS % (AUTO) 0.1 % (0-2); EOSINOPHILS % (AUTO) 1.3 % (0-6); HEMATOCRIT 27.2 % (37.9-51.0); HEMOGLOBIN 8.7 g/dL (13.5-17.0); MEAN CORPUSCULAR HGB CONC 32.1 g/dL (32.0-36.0); MEAN CORPUSCULAR VOLUME 97 fl (80-97); MONOCYTES % (AUTO) 4.2 % (3-13); RED BLOOD COUNT 2.82 10^6/uL (4.35-5.55); RED CELL DISTRIBUTION WIDTH 21.2 % (11.5-14.0); SEGMENTED NEUTROPHILS % (AUTO) 88.4 % (42-78); TOTAL CELLS COUNTED % (AUTO) 100 %; WHITE BLOOD COUNT 9.5 10^3/uL (4.0-10.5)
[2018-12-09] MEDS: MORPHINE SULFATE 10 MG/ML INJ IV PRN ×10 (07:38→22:20)
[2018-12-09 07:48] LABS: BLOOD UREA NITROGEN 23 mg/dL (7-20); GLUCOSE 94 mg/dL (75-110); POTASSIUM 3.8 mmol/L (3.6-5.0)
[2018-12-09 07:54] LABS: CARBON DIOXIDE 29 mmol/L (22-30); CHLORIDE 118 mmol/L (98-107); SODIUM 148.6 mmol/L (137-145)
[2018-12-09 08:02] LABS: ANION GAP 2 (5-19)
[2018-12-09 08:11] LABS: PLATELET COUNT 90 10^3/uL (150-450)
[2018-12-09] MEDS: DIPHENHYDRAMINE HCL 50 MG/ML VIAL IV PRN ×3 (08:22→19:27)
--- NOTE | 2018-12-09 08:23 | PDOC PROGRESS REPORT ---
Subjective Progress Note for:: 12/09/18 Subjective:: Patient remains on BiPAP. Nurses report that he desats quickly when this is removed. He is still crying and writhing in pain constantly. Although nurses are giving him Morphine every hour, he still appears to be in constant pain. He has not responded to any of our treatments and is not stable to transfer to have kidney stone removed. Reason For Visit: RENAL STONE Physical Exam Vital Signs: Temp Pulse Resp BP Pulse Ox 99.7 F 28 L 21 H 119/78 90 L 12/09/18 03:33 12/09/18 03:33 12/09/18 03:33 12/09/18 03:33 12/09/18 03:33 Intake & Output 12/08/18 12/09/18 12/10/18 06:59 06:59 06:59 Intake Total 5965 6334 Output Total 6455 2450 Balance -460 3884 Weight 67.5 kg 71.1 kg General appearance: PRESENT: well-nourished Head exam: PRESENT: normocephalic Mouth exam: PRESENT: other - BiPAP mask in palce Neurological exam: PRESENT: other - withdraws to any touch. Focused psych exam: PRESENT: restlessness Skin exam: PRESENT: pallor Results Laboratory Results: 12/09/18 06:44 12/09/18 06:44 12/09/18 12/09/18 06:44 06:44 WBC 9.5 RBC 2.82 L Hgb 8.7 L Hct 27.2 L MCV 97 MCH 31.0 MCHC 32.1 RDW 21.2 H Plt Count 90 L Seg Neutrophils % 88.4 H Lymphocytes % 6.0 L Monocytes % 4.2 Eosinophils % 1.3 Basophils % 0.1 Absolute Neutrophils 8.4 H Absolute Lymphocytes 0.6 Absolute Monocytes 0.4 Absolute Eosinophils 0.1 Absolute Basophils 0.0 Sodium 148.6 H Potassium 3.8 Chloride 118 H Carbon Dioxide 29 Anion Gap 2 L BUN 23 H Creatinine 0.64 Est GFR ( Amer) > 60 Est GFR (Non-Af Amer) > 60 Glucose 94 Calcium 9.0 Magnesium 2.1 11/21/18 11/21/18 11/21/18 12:00 18:19 18:19 Creatine Kinase 23 L Troponin I 0.021 0.021 11/22/18 11/22/18 11/22/18 00:33 00:33 08:13 Creatine Kinase 35 L 24 L Troponin I 0.022 11/22/18 08:13 Creatine Kinase Troponin I < 0.012 Impressions: Abdomen/Pelvis CT 11/21/18 00:00 IMPRESSION: 1. Unchanged nonobstructing 7 mm stone within the mid left ureter. New 4 mm stone within the left renal pelvis. Unchanged 1.2 cm stone within the superior calyx of the left kidney. No hydronephrosis. 2. Unchanged positioning of the left ureteral stent. 3. No additional changes when compared to 11/20/2018. Chest CT 12/01/18 00:00 IMPRESSION: Bibasilar pneumonia, aspiration should be considered Guidance Fluoroscopy 12/01/18 00:00 IMPRESSION: SUCCESSFUL PLACEMENT OF A 5 FR DUAL LUMEN 41 CM PICC IN THE RIGHT BASILIC VEIN. Interventional Vascular Procedure 12/01/18 00:00 IMPRESSION: SUCCESSFUL PLACEMENT OF A 5 FR DUAL LUMEN 41 CM PICC IN THE RIGHT BASILIC VEIN. PICC Line Insertion 12/01/18 00:00 IMPRESSION: SUCCESSFUL PLACEMENT OF A 5 FR DUAL LUMEN 41 CM PICC IN THE RIGHT BASILIC VEIN. Head CT 12/02/18 00:00 IMPRESSION: No acute findings. 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 Diffuse atrophy, stable EVIDENCE OF ACUTE STROKE: NO. Chest X-Ray 12/04/18 06:00 IMPRESSION: Persistent bilateral lower lobe pneumonia KUB X-Ray 12/06/18 18:28 IMPRESSION: Enteric tube in place. Assessment & Plan - Diagnosis (1) Pancytopenia, acquired Is this a current diagnosis for this admission?: Yes (2) Altered mental status Qualifiers: Altered mental status type: unspecified Qualified Code(s): R41.82 - Altered mental status, unspecified Is this a current diagnosis for this admission?: Yes (3) Rheumatoid arthritis Is this a current diagnosis for this admission?: Yes - Plan Summary Plan Summary: I have discussed with hospitalists and staff. I will try to arrange another family meeting with son to explain that patient continues to suffer. I will increase his duragesic patch. Stop the antibiotcs (he has completed his full course). Will discuss trying to increase his comfort with further pain control but work toward comfort measures only, as I do not see any further hope for improvement in his overall situation.
[2018-12-09] MEDS: BUDESONIDE NEB 0.5 MG/2 ML AMPUL NEB SCH ×2 (08:32→20:09)
[2018-12-09] MEDS ORDERED: PANTOPRAZOLE SODIUM 40 MG VIAL IV SCH (10:00)
[2018-12-09] MEDS ORDERED: FENTANYL 50 MCG/HR PATCH.TD72 TD SCH (10:00)
[2018-12-09] MEDS: LORAZEPAM INJ 2 MG/1 ML VIAL IV PRN ×4 (11:03→19:23)
[2018-12-09] MEDS: AMINO AC/PROTEIN HYDR/WHEY PRO 11 GM/45 ML PKT NG SCH ×2 (11:05→19:24)
[2018-12-09] MEDS: QUETIAPINE FUMARATE 25 MG TABLET NG SCH ×2 (11:06→21:12)
[2018-12-09] MEDS: HYDROCORTISONE SOD SUCCINATE INJ/PF 100 MG/2 ML SDV IV SCH (11:06)
[2018-12-09] MEDS: POTASSIUM CHLORIDE 20 MEQ/15 ML UDCUP NG SCH ×3 (11:06→19:22)
[2018-12-09] MEDS: FAMOTIDINE 20 MG TABLET NG SCH ×2 (11:07→21:12)
[2018-12-09] MEDS: CALCIUM CARBONATE 250 MG/VITAMIN D3 125 UNIT TABLET NG SCH ×2 (11:07→19:23)
[2018-12-09] MEDS: NORMAL SALINE 10 ML SDV (SCHEDULED) IV SCH ×2 (11:08→22:03)
[2018-12-09] MEDS: NYSTATIN 500000 UNIT/5 ML UDCUP PO SCH ×4 (12:50→22:03)
--- NOTE | 2018-12-09 18:55 | RADIOLOGY REPORT (SQ) ---
EXAM DESCRIPTION: CHEST SINGLE VIEW COMPLETED DATE/TIME: 12/09/2018 6:44 pm REASON FOR STUDY: sob COMPARISON: 12/04/2018 EXAM PARAMETERS: NUMBER OF VIEWS: One view. TECHNIQUE: Single frontal radiographic view of the chest acquired. RADIATION DOSE: NA LIMITATIONS: None. FINDINGS: LUNGS AND PLEURA: Subtle bibasilar heterogeneous opacities not significantly changed from prior examination. MEDIASTINUM AND HILAR STRUCTURES: No masses. Contour normal. HEART AND VASCULAR STRUCTURES: Heart normal in size. Normal vasculature. BONES: No acute findings. HARDWARE: None in the chest. OTHER: Interval placement of esophagogastric tube, tip below the diaphragm, side port not clearly vis ualized although likely in the vicinity of the gastroesophageal junction. IMPRESSION: 1. Subtle bibasilar heterogeneous opacities not significantly changed from prior examina tion. 2. Interval placement of esophagogastric tube, tip below the diaphragm, side port not clearly visual ized although likely in the vicinity of the gastroesophageal junction. TECHNICAL DOCUMENTATION: JOB ID: [id number] [employer]- All Rights Reserved Reading location - IP/workstation name: [email or web address]
--- NOTE | 2018-12-09 20:21 | PDOC TRANSFER SUMMARY ---
General Admission Date/PCP: 11/21/18 15:46 ERIC UGARTE DO Urologist: Dr. Flood and Dr. Bhavesh Clay at [facility] urology Accepting Facility: Other (Comments) - [facility] in [facility] Accepting Physician: Dr. Pemberton Resuscitation Status: Full Code - Transfer Diagnosis (1) Sepsis Is this a current diagnosis for this admission?: Yes Diagnosis Summary: With septic shock at the time of admission secondary to underlying urinary tract infection. At the time of admission he was significantly hypotensive with fever, leukocytosis, acute encephalopathy, respiratory failure and evidence of infection. His sepsis symptoms have resolved although he does still remain hypoxic. (2) Acute respiratory failure with hypoxia Is this a current diagnosis for this admission?: Yes Diagnosis Summary: Secondary to sepsis. Later in the hospitalization the patient aspirated and he developed an aspiration pneumonia. He also has underlying COPD. He has completed a course of IV meropenem. Currently on BiPAP support. He has been receiving aggressive breathing treatments. (3) UTI (urinary tract infection) Is this a current diagnosis for this admission?: Yes Diagnosis Summary: ESBL producing E. coli urinary tract infection. Initially on Zosyn but later changed to meropenem as he developed pancytopenia. He is completed a course of therapy. His urinary tract infection and sepsis ultimately was due to a nonobstructing ureter stone (4) Ureteral stone Is this a current diagnosis for this admission?: Yes Diagnosis Summary: The patient has a nonobstructing stone in the left ureter that is causing recurrent urinary tract infections with sepsis. He has not been stable enough to pursue intervention (5) Acute encephalopathy Is this a current diagnosis for this admission?: Yes Diagnosis Summary: Multifactorial secondary to hypoxia, prolonged hospitalization acute infection and hospital delirium. Also the patient has a significant amount of pain. (6) Aspiration pneumonia Is this a current diagnosis for this admission?: Yes Diagnosis Summary: The patient has completed a course of IV meropenem. I repeated his chest x-ray today and he has persistent infiltrates. We will hold off on further antibiotics as he is being transferred. (7) Coronary artery disease Is this a current diagnosis for this admission?: Yes Diagnosis Summary: No issues during this hospitalization. We are giving him medications via his NG tube (8) Paroxysmal atrial fibrillation Is this a current diagnosis for this admission?: Yes Diagnosis Summary: Currently rate controlled. He is not on anticoagulation (9) Hematuria Is this a current diagnosis for this admission?: Yes Diagnosis Summary: He has been on CBI. We stopped this temporarily today as his urine was clear. (10) COPD (chronic obstructive pulmonary disease) Is this a current diagnosis for this admission?: Yes Diagnosis Summary: No evidence of exacerbation. He has been on stress dose steroids here at the hospital which we will continue for now (11) Rheumatoid arthritis Is this a current diagnosis for this admission?: Yes Diagnosis Summary: The patient is having a significant amount of pain (12) Compression fracture Is this a current diagnosis for this admission?: Yes Diagnosis Summary: The patient has a significant amount of pain. The family did the oncology service started him on a fentanyl patch which was increased today. He has been receiving 1 mg of IV morphine every 1-2 hours as well. The family does agree that we need to keep him comfortable while we are pursuing what his options are. (13) Pancytopenia Is this a current diagnosis for this admission?: Yes Diagnosis Summary: Likely due to medications. Hematology was consulted and has been following the patient during this hospitalization (14) History of AAA (abdominal aortic aneurysm) repair Is this a current diagnosis for this admission?: Yes Diagnosis Summary: No issues (15) BPH (benign prostatic hyperplasia) Is this a current diagnosis for this admission?: Yes Diagnosis Summary: He has three-way catheter in place. (16) Hypernatremia Is this a current diagnosis for this admission?: Yes Diagnosis Summary: Continue free water flushes via his PEG tube. His hypernatremia improved after receiving some IV fluids last night (17) Hypokalemia Is this a current diagnosis for this admission?: Yes Diagnosis Summary: Repleted and resolved (18) Full code status Is this a current diagnosis for this admission?: Yes Diagnosis Summary: Myself and Dr. Maria discussed CODE STATUS with the patient's son today. He adamantly wants his father to remain a full code at least until he is evaluated at a tertiary center. The patient's son is Mr. Lala [phone]. He has the prior patient's primary decision maker - Transfer Medications Transfer Medications: Current Medications Acetaminophen (Tylenol 325 Mg Tablet) 650 mg NG Q4HP PRN PRN Reason: FEVER >101 Stop: 01/05/19 19:13 Albuterol/Ipratropium (Duoneb 3 Ml Ampul) 3 ml NEB RTQ6 ISMA Stop: 01/03/19 13:59 Last Admin: 12/09/18 13:46 Dose: 3 ml Documented by: Amino Acid Protein (Prosource Tf 11 Gm Protein/45 Ml Pkt) 45 ml NG BID ISMA Stop: 01/06/19 17:59 Last Admin: 12/09/18 19:24 Dose: 45 ml Documented by: Budesonide (Pulmicort Neb 0.5 Mg/2 Ml Ampul) 0.5 mg NEB RTQ12 ISMA Stop: 01/03/19 19:59 Last Admin: 12/09/18 08:32 Dose: 0.5 mg Documented by: Calcium Carbonate (Os-Emigdio 250 Mg With Vitamin D 125 Units) 1 tab NG BID [facility] Stop: 01/06/19 09:59 Last Admin: 12/09/18 19:23 Dose: 1 tab Documented by: Diltiazem HCl (Cardizem 30 Mg Tablet) 30 mg NG Q6 ISMA Stop: 01/07/19 00:00 Last Admin: 12/09/18 19:22 Dose: 30 mg Documented by: Diphenhydramine HCl (Benadryl Inj 50 Mg/1 Ml Vial) 12.5 mg IV Q4HP PRN PRN Reason: ITCHING Stop: 01/03/19 18:35 Last Admin: 12/09/18 19:27 Dose: 12.5 mg Documented by: Famotidine (Pepcid 20 Mg Tablet) 20 mg NG Q12 ISMA Stop: 01/05/19 21:59 Last Admin: 12/09/18 11:07 Dose: 20 mg Documented by: Fentanyl (Duragesic 50 Mcg/Hr Transdermal Patch) 1 each TD Q3D@1000 [facility] Stop: 12/16/18 09:59 Last Admin: 12/09/18 11:07 Dose: 1 each Documented by: Heparin Sodium (Porcine) (Heparin Flush 10 Unit/Ml 5 Ml Disp.Syrg) 30 unit IV Q12 ISMA Stop: 12/31/18 21:59 Last Admin: 12/09/18 11:05 Dose: 30 unit Documented by: Heparin Sodium (Porcine) (Heparin Flush 10 Unit/Ml 5 Ml Disp.Syrg) 30 unit IV .AFTER EACH USE PRN Stop: 12/31/18 11:59 Last Admin: 12/06/18 05:41 Dose: 30 unit Documented by: Hydrocortisone Sodium Succinate (Solu-Cortef Inj/Pf 100 Mg/ 2 Ml Sdv) 50 mg IV DAILY [facility] Stop: 01/04/19 09:59 Last Admin: 12/09/18 11:06 Dose: 50 mg Documented by: Diltiazem HCl (Cardizem Rtu Inj 125 Mg-D5w 125 Ml Premix) 125 mg in 125 mls @ 0 mls/hr IV CONTINUOUS PRN; Protocol PRN Reason: THIS MED IS NOT "PRN" Stop: 01/06/19 00:40 Last Titration: 12/07/18 16:13 Dose: 0 mls/hr, 0 mls/hr Documented by: Influenza Virus Vaccine Quadrival (Fluarix Adlt Quad Vac 0.5 Ml Syr) 0.5 ml IM .DISCHARGE PRN PRN Reason: THIS MED IS NOT "PRN" Stop: 12/21/18 17:39 Levalbuterol HCl (Xopenex Neb 1.25 Mg/3 Ml Ampul) 1.25 mg NEB RTQ6HP PRN PRN Reason: FOR WHEEZING Stop: 12/21/18 15:59 Lorazepam (Ativan Inj 2 Mg/1 Ml Vial) 1 mg IV Q2HP PRN PRN Reason: ANXIETY/AGITATION Stop: 12/15/18 18:59 Last Admin: 12/09/18 19:23 Dose: 1 mg Documented by: Morphine Sulfate (Morphine 10 Mg/Ml Inj) 1 mg IV Q1HP PRN PRN Reason: FOR BACK PAIN Stop: 12/16/18 14:01 Last Admin: 12/09/18 19:23 Dose: 1 mg Documented by: Nystatin (Mycostatin 500,000 Unit/5 Ml Susp Udcup) 500,000 unit PO QID ISMA Stop: 12/16/18 15:59 Last Admin: 12/09/18 16:22 Dose: 500,000 unit Documented by: Ondansetron HCl (Zofran Inj/Pf 4 Mg/2 Ml Sdv) 4 mg IV Q8HP PRN PRN Reason: FOR NAUSEA/VOMITING Stop: 12/21/18 15:38 Last Admin: 11/25/18 07:12 Dose: 4 mg Documented by: Pantoprazole Sodium (Protonix Iv Inj 40 Mg Vial) 40 mg IV DAILY [facility] Stop: 12/12/18 09:59 Last Admin: 12/09/18 11:06 Dose: 40 mg Documented by: Pharmacy Profile Note (Medication Communication Order) 1 each MC .NOTICE NR Stop: 01/05/19 18:29 Potassium Chloride (Kaon-Cl 20 Meq/15 Ml Udcup) 20 meq NG TID ISMA Stop: 01/07/19 09:59 Last Admin: 12/09/18 19:22 Dose: 20 meq Documented by: Quetiapine Fumarate (Seroquel 25 Mg Tablet) 25 mg NG Q12 ISMA Stop: 01/05/19 21:59 Last Admin: 12/09/18 11:06 Dose: 25 mg Documented by: Sodium Chloride (Nacl 0.9% Inj/Pf 10 Ml Sdv) 10 ml IV Q12 ISMA Stop: 12/31/18 21:59 Last Admin: 12/09/18 11:08 Dose: 10 ml Documented by: Sodium Chloride (Nacl 0.9% Inj/Pf 10 Ml Sdv) 10 ml IV .AFTER EACH USE PRN Stop: 12/31/18 11:59 Last Admin: 12/06/18 05:41 Dose: 10 ml Documented by: - Allergies Allergies/Adverse Reactions: codeine Allergy (Verified 11/20/18 01:25) - Diet/Activity Discharge Diet: Cardiac Hospital Course Hospital Course: Please see complete record for details. This was a prolonged hospitalization and this will be a brief summary. The patient is an unfortunate 73-year-old gentleman who has had a complex recent past medical history. The best I can tell from talking to the patient's son he was recently hospitalized at [facility] in [place] with a nonobstructing stone in the left ureter. He was treated for sepsis and a urinary tract infection. I believe they wanted him to recuperate a bit before having intervention for the stone and he was discharged. Before the patient could get back for his follow-up appointment he developed sepsis again. He was brought to this facility and was found to have evidence of septic shock requiring ICU admission. He was on pressors for a period of time with respiratory failure, leukocytosis and evidence of acute infection. He was treated with broad-spectrum IV antibiotics. Urine culture grew and ESBL E. coli. Unfortunately his hospitalization was complicated by the development of aspiration pneumonia with worsening respiratory failure. He has intermittently been on and off of BiPAP but for the past several days we have been unable to wean him off. An NG tube had been placed to aid with nutrition. He was continued on broad-spectrum IV antibiotics but unfortunately developed pancytopenia. Hematology was consulted and recommended changing his antibiotic therapy to IV meropenem. At this point he is completed a course of IV meropenem here in the hospital and this was stopped this morning. The patient has had a three-way catheter and has been on CBI for most of this hospitalization. Every time he was taken off he developed worsening hematuria. CBI was stopped again this morning and currently at the time of transfer his urine is clear. Overall the patient just has not done well. Multiple providers have had multiple c onversations with the patient's son regarding his poor prognosis. The patient's son would like a second opinion and further treatment at a tertiary center where urology is available before making a decision any further decisions. I did discuss CODE STATUS with the son prior this afternoon. He adamantly would like the patient to be remain a full code at least until he has been evaluated and treated at a tertiary care center. The patient's son would really like him to be transferred to a facility in the [facility] as most of the patient's family lives nearby. It would make it easier for them to get to the hospital and should the patient ultimately not survive this hospitalization it would be much easier for the family going forward. I spoke to Dr. Pemberton at [facility] in [facility]. He is the lamination machine operator in the ICU. He has graciously agreed to accept this patient in transfer. I know it is going to make the family feel much better and I certainly appreciate his assistance. At this point he will be transferred to a tertiary center and be direct admitted to their ICU. He is in poor but stable condition and I believe he can travel ACLS to [place]. He will be transferred as soon as a bed is found. Physical Exam Vital Signs: Temp Pulse Resp BP Pulse Ox 98.5 F 98 25 H 122/74 97 12/09/18 17:05 12/09/18 17:05 12/09/18 17:05 12/09/18 17:05 12/09/18 17:05 Intake & Output 12/08/18 12/09/18 12/10/18 06:59 06:59 06:59 Intake Total 5905 6334 1050 Output Total 6425 2690 1850 Balance -460 0944 -800 Weight 67.5 kg 71.1 kg General appearance: PRESENT: other - Acutely ill-appearing gentleman. He is wearing BiPAP and has an NG tube in place. He is acutely confused and appears to be somewhat uncomfortable Head exam: PRESENT: atraumatic, normocephalic Respiratory exam: PRESENT: other - Coarse breath sounds throughout all lung gonzalez anteriorly Cardiovascular exam: PRESENT: RRR. ABSENT: diastolic murmur, rubs, systolic murmur GI/Abdominal exam: PRESENT: normal bowel sounds, soft. ABSENT: distended, guarding, mass, organolmegaly, rebound, tenderness Musculoskeletal exam: ABSENT: ambulatory Neurological exam: PRESENT: altered Psychiatric exam: PRESENT: agitated, anxious Skin exam: PRESENT: dry, intact, warm. ABSENT: cyanosis, rash Results Laboratory Results: 12/09/18 06:44 12/09/18 06:44 12/09/18 12/09/18 06:44 06:44 WBC 9.5 RBC 2.82 L Hgb 8.7 L Hct 27.2 L MCV 97 MCH 31.0 MCHC 32.1 RDW 21.2 H Plt Count 90 L Seg Neutrophils % 88.4 H Lymphocytes % 6.0 L Monocytes % 4.2 Eosinophils % 1.3 Basophils % 0.1 Absolute Neutrophils 8.4 H Absolute Lymphocytes 0.6 Absolute Monocytes 0.4 Absolute Eosinophils 0.1 Absolute Basophils 0.0 Sodium 148.6 H Potassium 3.8 Chloride 118 H Carbon Dioxide 29 Anion Gap 2 L BUN 23 H Creatinine 0.64 Est GFR ( Amer) > 60 Est GFR (Non-Af Amer) > 60 Glucose 94 Calcium 9.0 Magnesium 2.1 11/21/18 11/21/18 11/21/18 12:00 18:19 18:19 Creatine Kinase 23 L Troponin I 0.021 0.021 11/22/18 11/22/18 11/22/18 00:33 00:33 08:13 Creatine Kinase 35 L 24 L Troponin I 0.022 11/22/18 08:13 Creatine Kinase Troponin I < 0.012 Impressions: Abdomen/Pelvis CT 11/21/18 00:00 IMPRESSION: 1. Unchanged nonobstructing 7 mm stone within the mid left ureter. New 4 mm stone within the left renal pelvis. Unchanged 1.2 cm stone within the superior calyx of the left kidney. No hydronephrosis. 2. Unchanged positioning of the left ureteral stent. 3. No additional changes when compared to 11/20/2018. Chest CT 12/01/18 00:00 IMPRESSION: Bibasilar pneumonia, aspiration should be considered Guidance Fluoroscopy 12/01/18 00:00 IMPRESSION: SUCCESSFUL PLACEMENT OF A 5 FR DUAL LUMEN 41 CM PICC IN THE RIGHT BASILIC VEIN. Interventional Vascular Procedure 12/01/18 00:00 IMPRESSION: SUCCESSFUL PLACEMENT OF A 5 FR DUAL LUMEN 41 CM PICC IN THE RIGHT BASILIC VEIN. PICC Line Insertion 12/01/18 00:00 IMPRESSION: SUCCESSFUL PLACEMENT OF A 5 FR DUAL LUMEN 41 CM PICC IN THE RIGHT BASILIC VEIN. Head CT 12/02/18 00:00 IMPRESSION: No acute findings. 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 Diffuse atrophy, stable EVIDENCE OF ACUTE STROKE: NO. KUB X-Ray 12/06/18 18:28 IMPRESSION: Enteric tube in place. Chest X-Ray 12/09/18 00:00 IMPRESSION: 1. Subtle bibasilar heterogeneous opacities not significantly changed from prior examination. 2. Interval placement of esophagogastric tube, tip below the diaphragm, side port not clearly visualized although likely in the vicinity of the gastroesophageal junction. Plan Discharge Plan: The patient will be transferred to [facility] under the care of lamination machine operator Dr. Pemberton as soon as a bed is found.
[2018-12-09] MEDS ORDERED: MEROPENEM 1 GM in NORMAL SALINE 50 ML IV SCH (22:00)
[2018-12-10 01:55] LABS: ARTERIAL BLOOD BASE EXCESS 3.4 mmol/L; ARTERIAL BLOOD O2 SATURATION 98.3 % (94-98); ARTERIAL BLOOD PCO2 36.6 mmHg (35-45); ARTERIAL BLOOD PH 7.49 (7.35-7.45); ARTERIAL BLOOD PO2 108.6 mmHg (80-100); ARTERIAL BLOOD TOTAL CO2 28.1 mmol/L (23-27)
[2018-12-10 01:59] LABS: ARTERIAL BLOOD FIO2 50%
[2018-12-10] MEDS: IPRATROPIUM/ALBUTEROL 0.5-2.5 MG/3 ML AMPUL NEB SCH (02:14)
[2018-12-10 02:15] VITALS: BP 134/68
== END 2018-12-10 03:19 | disposition short-term general hospital (02) | DRG 871 ==
LOC: ER 08:09 → EH 15:46 → 3S 17:07 → 3W 11-25 09:31 → 4N 11-28 01:10 → 3W 12-02 13:16
PROVIDERS: ADMIT Internal Medicine; ATTEND Internal Medicine
PROC: 02HV33Z Insertion of Infusion Device into Superior Vena Cava, Percutaneous Approach (ICD-10-PCS; principal; 2018-12-01)
PROC: B518ZZA Fluoroscopy of Superior Vena Cava, Guidance (ICD-10-PCS; 2018-12-01)
PROC: B548ZZA Ultrasonography of Superior Vena Cava, Guidance (ICD-10-PCS; 2018-12-01)
PROC: 3E0F3GC Introduction of Other Therapeutic Substance into Respiratory Tract, Percutaneous Approach (ICD-10-PCS; 2018-12-02)
PROC: 5A09357 Assistance with Respiratory Ventilation, Less than 24 Consecutive Hours, Continuous Positive Airway Pressure (ICD-10-PCS; 2018-12-07)
DX: A41.51 Sepsis due to Escherichia coli [E. coli] (principal); R65.21 Severe sepsis with septic shock; G93.41 Metabolic encephalopathy; J69.0 Pneumonitis due to inhalation of food and vomit; J96.01 Acute respiratory failure with hypoxia; D61.811 Other drug-induced pancytopenia; N30.01 Acute cystitis with hematuria; N20.2 Calculus of kidney with calculus of ureter; E87.0 Hyperosmolality and hypernatremia; M48.54XA Collapsed vertebra, not elsewhere classified, thoracic region, initial encounter for fracture; J44.9 Chronic obstructive pulmonary disease, unspecified; I48.0 Paroxysmal atrial fibrillation; D69.6 Thrombocytopenia, unspecified; M06.9 Rheumatoid arthritis, unspecified; I73.9 Peripheral vascular disease, unspecified; K21.9 Gastro-esophageal reflux disease without esophagitis; N40.1 Benign prostatic hyperplasia with lower urinary tract symptoms; H91.90 Unspecified hearing loss, unspecified ear; Y95 Nosocomial condition; E87.6 Hypokalemia; R19.5 Other fecal abnormalities; M85.88 Other specified disorders of bone density and structure, other site; Z95.5 Presence of coronary angioplasty implant and graft; Z95.820 Peripheral vascular angioplasty status with implants and grafts; Z87.440 Personal history of urinary (tract) infections; I25.2 Old myocardial infarction; Z87.891 Personal history of nicotine dependence; Z88.6 Allergy status to analgesic agent; Z79.51 Long term (current) use of inhaled steroids; Z82.61 Family history of arthritis; Z82.49 Family history of ischemic heart disease and other diseases of the circulatory system; Z83.6 Family history of other diseases of the respiratory system
CPT/HCPCS: 36415; 36569; 36600; 70450; 71045; 71250; 74018; 74176; 74177; 76937; 77001; 80048; 80053; 80069; 80202; 80307; 81001; 82040; 82140; 82272; 82550; 82607; 82803; 82962; 83605; 83735; 84443; 84484; 85025; 85027; 85384; 85610; 85730; 87040; 87086; 87088; 87186; 93005; 93010; 94640; 94660; 94668; 94799; 96361; 96365; 96375; 99291; B4155; C1758; J1160; J1200; J1642; J1650; J1720; J2060; J2185; J2270; J2405; J2543; J3370; J3480; J3490; J7030; J7060; J7512; J7620; J8610; S0028; S0164